=== PATIENT | male | born 1930 | race African-American/Black ===

== ENCOUNTER 2017-03-26 08:54 | Inpatient (IN) ==
--- NOTE | 2017-03-26 09:42 | Emergency Department Note ---
Awais Ulloa Hilary, am scribing for, and in the presence of, Ta Mercado MD 09:38. Jess Ulloa Charles R, MD, personally performed the services described in this documentation, ascribed by Darcy Ernandez in my presence, and it is both accurate and complete 942 . Arrival - Arrival Chief Complaint: Abdominal / Flank Pain Stated Complaint: abd pain,SOB ED Nursing Triage Note: generalized abd pain that started yesterday. reports has been constipated. had a small stool yesterday. pt reports that he has also been having some sob. Mode of Arrival: Wheelchair Limitations: No Limitations Source: Patient, RN Notes Reviewed Time Seen by Provider: 03/26/17 09:28 - History of Present Illness HPI Narrative: Pt is a 86 y/o black male presenting to the ED with c/o constipation which onset a few days ago. Pt confirms constipation and SOB for over a year, but denies diarrhea or back pain. Pt states he has been using "Konsil" to help his BM's but they are still small and hard. He reports that he cant do things around the house anymore without getting SOB and needing to take a break. Pt sees Dr. Dougherty every [address] Meeks every 6 months. Pt has a PMHx of HTN and NIDDM. Onset (ago): day(s) Allergies/Adverse Reactions: Allergies Allergy/AdvReac Type Severity Reaction Status Date / Time No Known Allergies Allergy Unverified 06/27/15 14:29 Home Medications: Home Medications Medication Instructions Recorded Confirmed Type Allopurinol [Allopurinol] 100 mg PO QOTHER DAY 06/27/15 06/27/15 History Aspirin EC Tab 81 mg PO DAILY 06/27/15 06/27/15 History Losartan [Cozaar] 25 mg PO DAILY 06/27/15 06/27/15 History Multivitamin [Multivitamins] 1 each PO DAILY 06/27/15 06/27/15 History NIFEdipine [Nifedipine ER] 60 mg PO BID 06/27/15 06/27/15 History cloNIDine TAB [Catapres Tab] 0.3 tablet PO BID 06/27/15 06/27/15 History hydrALAZINE TAB [Apresoline Tab] 100 mg PO TID W/MEALS 06/27/15 06/27/15 History metFORMIN [Glucophage] 500 mg PO BID W/MEALS 06/27/15 06/27/15 History Review of System - Review of System 12 point system: reviewed and no additional remarkable complaints except as stated - Review of System Constitutional: Absent: fever Respiratory: Present: respiratory distress (SOB). Absent: cough Cardiovascular: Present: dyspnea on exertion. Absent: chest pain Gastrointestinal: Present: abdominal pain, constipation. Absent: nausea, vomiting Musculoskeletal: Absent: back pain Medical,Surgical,& Family Hx - Medical History Cardio: History of: Hypertension Neurology: No history of: Seizures HEENT: History of: Eye Problem (cataracts) Endocrine: History of: Diabetes Mellitus (NIDDM) Respiratory: No history of: Lung Cancer - Surgical History HEENT Surgeries: Surgical HX of: Tonsilectomy & Adenoidectomy - Family History Family History: Reports;: Family Diabetes (brothers), Family Hypertension Denies;: Family Cancer, Family Heart Disease, Family Psychiatric Problems, Family Stroke - Social History Smoking Status: Never smoker Exam Vital Signs: Vital Signs Temperature 98.5 F 03/26/17 10:01 Pulse Rate 69 03/26/17 10:01 Respiratory Rate 18 03/26/17 10:01 Blood Pressure 141/83 03/26/17 10:01 O2 Sat by Pulse Oximetry 99 03/26/17 08:57 - General General appearance: alert, in no apparent distress - Head Head exam: Present: atraumatic, normocephalic - Eye Eye exam: Present: normal appearance, PERRL, EOMI - ENT ENT exam: Present: mucous membranes moist, TM's normal bilaterally. Absent: mucous membranes dry - Neck Neck exam: Present: full ROM, trachea midline. Absent: tenderness - Chest Chest inspection: Present: symmetric chest wall rise. Absent: tenderness - Respiratory Respiratory exam: Present: normal lung sounds bilaterally. Absent: respiratory distress - Cardiovascular Cardiovascular exam: Present: regular rate, normal rhythm, normal heart sounds. Absent: murmur, rubs, gallop - Abdominal Exam Abdominal exam: Present: soft, distention (Full). Absent: tenderness - Extremities Exam Extremities exam: Present: full ROM. Absent: tenderness - Back Exam Back exam: Present: full ROM. Absent: tenderness - Neurological Exam Neurological exam: Present: alert, oriented X3, CN II-XII intact. Absent: motor sensory deficit - Psychiatric Psychiatric exam: Present: normal affect, normal mood - Skin Skin exam: Present: warm, dry, intact, normal color. Absent: rash Course - Consultations Consultation #1: Dr. Dougherty will admit patient Time: 10:44 Results - Labs CBC & BMP: 03/26/17 09:39 03/26/17 09:39 Lab Results: I have reviewed the patients labs Labs: Laboratory Tests 03/26/17 03/26/17 09:39 09:39 WBC 12.8 H RBC 4.62 Hgb 12.6 L Hct 37.5 L MCV 81.2 L MPV 9.5 L Neut % (Auto) 75.3 H Lymph % (Auto) 17.1 L Neut # (Auto) 9.6 H [place] # (Auto) 0.9 H Sodium 134 L Potassium 4.0 Chloride 103 Carbon Dioxide 20 L BUN 27 H Glucose 213 H Alkaline Phosphatase 36 L Troponin I 0.075 H Amylase 134 H - Diagnostic Findings Procedure: Abdominal x-ray: report reviewed by me (There is scattered air within the small bowel and colon. This could reflect mild ileus.), Chest x-ray: report reviewed by me (1.Mild cardiomegaly 2. Minimal scattered atelectasis or scarring within both lower lung zones) Disposition Clinical Impression: Abdominal pain, Constipation, renal insufficiency, Exertional dyspnea, Elevated troponin Case discussed with: patient, patient's family Disposition: Still a Patient Condition: Stable Time of Disposition: 11:20
--- NOTE | 2017-03-26 09:56 | EKG Report ---
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
[2017-03-26 10:01] LABS: Basophils % 0.2 % (0.0-0.8); Eosinophils # 0.1 10*3/uL (0.0-0.87); Eosinophils % 0.5 % (0.00-10.9); Hematocrit 37.5 VOL% (42.0-52.0); Hemoglobin 12.6 GM/DL (14.0-18.0); Immature Granulocytes % 0.2 %; Immature Granulocytes Absolute 0.03 #; Lymphocytes # 2.2 10*3/uL (1.4-4.0); Lymphocytes % 17.1 % (21.2-54.2); Mean Corpuscular HGB Conc 33.6 GM/DL (32-36); Mean Corpuscular Hemoglobin 27 PG (27-34); Mean Corpuscular Volume 81.2 FL (87-102); Mean Platelet Volume 9.5 FL (9.6-12.0); Monocytes # 0.9 10*3/uL (0.11-0.8); Monocytes % 6.7 % (1.7-12.7); Neutrophils # 9.6 10*3/uL (1.4-7.4); Neutrophils % 75.3 % (38.7-73.9); Platelet Count 249 T/CUMM (130-400); Red Blood Count 4.62 MC/CUMM (3.8-5.5); Red Cell Distribution Width 14.4 % (9.3-17.3); White Blood Count 12.8 T/CUMM (4-12)
--- NOTE | 2017-03-26 10:14 | XRay Report ---
Referring Physician: Ta Mercado Exam: XR chest 1V portable Date: March 26, 2017 at 9:40 AM Reason: Generalized abdominal pain Comparison: Chest one view portable June 27, 2015 Findings: The cardiac silhouette is again mildly enlarged, and there is scattered calcified plaque at the thoracic aorta. There are also minimal scattered opacities within both lower lung zones. This likely represents atelectasis or scarring. No pneumothorax or pleural effusion is identified. No acute osseous process is seen. Impression: 1. Mild cardiomegaly. 2. Minimal scattered atelectasis or scarring within both lower lung zones. PROCEDURE INTERPRETED AT [facility] DEPARTMENT OF RADIOLOGY Final Report Signed by: Dr. June Barber
--- NOTE | 2017-03-26 10:16 | XRay Report ---
Referring Physician: Ta Mercado Exam: XR abdomen complete with decubitus view Date: March 26, 2017 at 9:43 AM Reason: Generalized abdominal pain Comparison: None Findings: There is scattered air within small bowel and colon, which could reflect mild ileus. However, there is no evidence of high-grade bowel obstruction. Note is made of moderate stool within the colon. No free air is identified. The renal shadows are largely obscured. There is degenerative change at the spine and both hips, but no acute osseous process is seen. Impression: There is scattered air within the small bowel and colon. This could reflect mild ileus. PROCEDURE INTERPRETED AT [facility] DEPARTMENT OF RADIOLOGY Final Report Signed by: Dr. June Barber
[2017-03-26 10:25] LABS: Albumin 3.8 G/DL (3.4-5.0); Bilirubin,Total 0.7 MG/DL (0.2-1.0); Calcium 9.1 MG/DL (8.5-10.1); Magnesium 2.2 MG/DL (1.8-2.4); Osmolality,Calculated 278.2 MOS/KG (273-304); Total Protein 7.2 G/DL (6.4-8.3)
[2017-03-26 10:26] LABS: Troponin I Only 0.075 NG/ML (0.00-0.045)
[2017-03-26 11:43] LABS: Apearance,Urine CLEAR (Clear); Bilirubin,Urine Negative (Negative); Blood, Urine Negative (Negative); Glucose,Urine (UA) 50 mg/dL (Negative); Ketones,Urine Negative (Negative); Nitrite,Urine Negative (Negative); Protein,Urine Negative; RBC,Urine 1 /HPF (0-4); Squamous Epithelial Cell,Urine Occasional /HPF (0-10); Urine Color Yellow (Yellow); Urine Specific Gravity 1.011 (1.001-1.035); Urine Urobilinogen < 2.0 EU/DL (0.2-1.0); WBC,Urine <1 /HPF (0-6)
[2017-03-26] MEDS ORDERED: DEXTROSE 50% 25 GM/50 ML VIAL IV PRN (13:07)
[2017-03-26] MEDS ORDERED: GLUCAGON 1 MG VIAL IM PRN (13:07)
[2017-03-26] MEDS ORDERED: MORPHINE 2 MG/1 ML SYRINGE IV PRN (13:07)
--- NOTE | 2017-03-26 13:16 | EKG Report ---
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
--- NOTE | 2017-03-26 13:51 | Cardiology Consult Note ---
Assessment and Plan - Time spent with patient Time spent with patient: Greater than 30 minutes (1) Exertional dyspnea Status: Acute Assessment and plan: Patient presented to the emergency department with a one-year history of exertional dyspnea. Patient is not having any sort of anginal symptoms. He does have a mildly elevated troponin 0.075. EKG reveals LVH with ST abnormality. Will continue to cycle cardiac biomarkers and EKG's, keep patient n.p.o and further discuss noninvasive workup versus invasive workup with Dr. Ortiz. -Admit to telemetry. -Lipid profile in the a.m. -EKG in the a.m. -D-dimer -Serial cardiac biomarkers -Echocardiogram Further plan and addendum to follow per Dr. Ortiz. Current Visit: Yes (2) Elevated troponin Status: Acute Current Visit: Yes (3) Cardiac murmur Status: Acute Assessment and plan: I have ordered an echocardiogram for further evaluation of this. Current Visit: Yes (4) Abdominal pain Status: Acute Assessment and plan: Abdominal x-ray reveals scattered air within the small bowel and colon. This could possibly relate mild ileus. Defer further workup of this to attending. Current Visit: Yes (5) hypertension Status: Chronic Assessment and plan: Patient's home medications have been reinitiated. Will adjust his medications as needed throughout his hospital stay. Current Visit: No (6) renal insufficiency Status: Chronic Assessment and plan: Stable at present. 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 Current Visit: No (8) type 2 diabetes mellitus Status: Chronic Assessment and plan: We will hold patient's metformin at this time. Initiate sliding scale insulin. Accu-Cheks before meals and at bedtime. Continue ARB. 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 Gene Dougherty Mr. Joy is a 86 year old male without known history of coronary artery disease , not routinely followed by cardiology. Patient presented to the emergency department today with complaints of abdominal pain and constipation. While in the ER, he confirmed having dyspnea on exertion for the past year. He has cardiac risk factors significant for hypertension, diabetes, advanced age and sedentary lifestyle. Patient is a lifetime non-smoker and denies any significant family history of heart disease. She has a past medical history of prostate cancer, now in remission. Patient reports that he has never undergone any cardiac workup. He denies ever having cardiac stress testing or heart catheterization in the past. Patient presented to the emergency department earlier today with complaints of abdominal pain and constipation that began last night. While in the ER, he also reported dyspnea on exertion 1 year. He confirms that this has progressively worsened over the last year and now he can no longer walk across the room without becoming extremely short of breath. He tells me that he continues to be active. However, his shortness of breath has hindered him from performing his normal activities. He has to take multiple rest breaks. He denies having any chest pain, heaviness or tightness. He also denies fever, chills, cough, nausea, vomiting, melena, hematochezia, lightheadedness, dizziness heart racing/heart palpitations, orthopnea, PND and lower extremity swelling. Patient has been admitted under Dr. Gene Dougherty's service and housed on the telemetry floor. Cardiology has been consulted to further evaluate patient's on exertion. Patient was seen and examined on the telemetry unit. He is currently without chest pain, heaviness and tightness. He reports that his breathing is well controlled at this time. He confirms that he only becomes short of breath with activity. His troponin is mildly elevated at 0.075. Creatinine is within normal limits at 1.3. EKG does reveals LVH with T-wave inversions anteriolaterally. Chest x-ray does reveal mild cardiomegaly. BNP mildly elevated at 373. I will order an echocardiogram at this time. Abdominal x-ray reveals scattered air within the small bowel and colon. This could possibly relate mild ileus. Will keep patient n.p.o. and further discuss with Dr. Ortiz. Further plan and addendum to follow. CC: Gene Dougherty, DO - Home Medications and Allergies Home Medications: Home Medications Medication Instructions Recorded Confirmed Type Allopurinol [Allopurinol] 100 mg PO QOTHER DAY 06/27/15 03/26/17 History Aspirin EC Tab 81 mg PO BEDTIME 06/27/15 03/26/17 History Losartan [Cozaar] 25 mg PO QAM 06/27/15 03/26/17 History Multivitamin [Multivitamins] 1 each PO QAM 06/27/15 03/26/17 History cloNIDine TAB [Catapres Tab] 0.3 tablet PO BID 06/27/15 03/26/17 History hydrALAZINE TAB [Apresoline Tab] 100 mg PO TID W/MEALS 06/27/15 03/26/17 History metFORMIN [Glucophage] 500 mg PO DAILY W/SUPPER 06/27/15 03/26/17 History Metformin HCl [Metformin HCl] 750 mg PO DAILY W/BREAKFAST 03/26/17 03/26/17 History NIFEdipine [Nifedical Xl] 60 mg PO BID 03/26/17 03/26/17 History Travoprost 0.004% Oph Soln 1 drop BOTH EYES BEDTIME 03/26/17 03/26/17 History [Travatan Z] Allergies/Adverse Reactions: Allergies Allergy/AdvReac Type Severity Reaction Status Date / Time No Known Allergies Allergy Unverified 06/27/15 14:29 - Constitutional Constitutional: Present: fatigue. Absent: chills, fever(s), lethargy, malaise, weakness, weight gain, weight loss - Cardiovascular Cardiovascular: Present: dyspnea on exertion. Absent: chest pain at rest, chest pain with activity, claudication, diaphoresis, edema, radiating jaw, neck or arm pain, lightheadedness, orthopnea, palpitations, PND - Respiratory Respiratory: Present: dyspnea on exertion. Absent: cough, wheezing, snoring, pain on inspiration, change in phlegm color - Gastrointestinal Gastrointestinal: Present: abdominal pain, constipation. Absent: change in bowel habits, coffee ground emesis, diarrhea, heartburn, hematemesis, hematochezia, melena, nausea, vomiting - Neurological Neurological: Absent: abnormal gait, abnormal speech, behavioral changes, disequilibrium, dizziness, syncope - Hematologic/Lymphatic Hematologic/Lymphatic: Absent: easy bleeding, easy bruising, lymphadenopathy Medical,Surgical,& Family Hx - Medical History Cardio: History of: Hypertension Neurology: No history of: Seizures HEENT: History of: Eye Problem (cataracts) Endocrine: History of: Diabetes Mellitus (NIDDM) Respiratory: No history of: Lung Cancer Renal: History of: Renal Problems (Chronic renal insufficiency) Genitourinary: History of: Prostate Problems (Past history of prostate cancer. Currently in remission.) - Surgical History Cardiac Surgeries: Patient Denies: Cardiac Catheterization HEENT Surgeries: Surgical HX of: Tonsilectomy & Adenoidectomy - Family History Family History: Reports;: Family Diabetes (brothers), Family Hypertension Denies;: Family Cancer, Family Heart Disease, Family Psychiatric Problems, Family Stroke - Social History Smoking Status: Never smoker Frequency of Alcohol Use: None Type of Drug Use: None Physical Examination Vital Signs Temp Pulse Resp BP Pulse Ox 98.5 F 69 18 141/63 99 03/26/17 08:57 03/26/17 08:57 03/26/17 08:57 03/26/17 08:57 03/26/17 08:57 General: Present: Appears Well, No Apparent Distress HEENT: Present: Normocephaly Neck: Present: Supple Neck, Midline Trachea, No JVD/HJR Cardiac: Present: Reg Rate and Rhythm, Regular Rate, Regular Rhythm, S1/S2, Systolic Murmur. Absent: Gallop Lungs: Present: Normal Exam, Clear Ascult./Percussion, Normal Breath Sounds Neuro: Present: Cranial Nerve 2-12 Intact, Grossly Intact Abdomen: Present: Active Bowel Sounds, Tender Skin: Present: Clear. Absent: Rash, Suspicious Lesions, Ulceration Gait: Present: Normal Gait Extremities: Present: Normal Gait, No Clubbing, No Cyanosis, No Edema, Normal Upper Extr. Pulses, Normal Lower Extr. Pulses Result/EKG - Labs CBC & BMP: 03/26/17 09:39 03/26/17 09:39 Lab Results: I have reviewed the past 24 hour labs Labs: Laboratory Results - last 24 hr 03/26/17 11:28 Urine Color Yellow Urine Appearance Clear Urine pH 5.0 Ur Specific [place] 1.011 Urine Protein Negative Urine Glucose (UA) 50 Urine Ketones Negative Urine Blood Negative Urine Nitrate Negative Urine Bilirubin Negative Urine Urobilinogen < 2.0 H Urine Leukocytes Negative Urine RBC 1 Urine WBC <1 Ur Squamous Epith Cells Occasional Ur Culture Indicated? Not indicated
[2017-03-26 14:32] LABS: CKMB % 1.7 %
[2017-03-26 14:33] LABS: Troponin I Only 0.062 NG/ML (0.00-0.045)
[2017-03-26] MEDS: INSULIN REGULAR 100 UNIT/ML SUBCUT SCH ×3 (14:48→22:37)
[2017-03-26] MEDS: SODIUM CHLORIDE 0.9% 1,000 ML IV SCH (15:18)
[2017-03-26] MEDS: ENOXAPARIN 40 MG/0.4 ML SYRINGE SUBCUT SCH (15:22)
--- NOTE | 2017-03-26 15:48 | Gastrointestinal Consult Note ---
Assessment and Plan (1) Abdominal pain Status: Acute Assessment and plan: 03/26-reports of constipation worsening over the last several days with several month history of this progressively worsening. Complaints of lower abdominal pain on admission. Abdominal x-ray showing scattered air within small bowel and colon with mild ileus possible. Last C scope in 2014 following rectal bleeding with findings of internal hemorrhoids, felt to be the source of bleeding. Plan an addendum to followed by Dr. Cox. Current Visit: Yes History of Present Illness Chief complaint: Abdominal pain, constipation History of present illness: Mr. Joy is a 86 year old male who presented to the emergency room with complaints of abdominal pain and constipation as well as shortness of breath. Patient is a fairly good historian however information also obtained from chart review. Patient states that on yesterday he had a rather sudden onset of lower abdominal pain that was severe in nature. He states the pain was not precipitated by any known factors and was not improved by any fractures as well. He states he has not had pain like this before. The pain was not associated with any nausea vomiting, fever or chills. Patient states that he is also probably 15 pounds over the last year with a loss of appetite. Patient denies any events that occurred around that time they could have initiated these changes in his appetite or weight. Patient states that prior to approximately 6 or 7 months ago his normal bowel pattern was every single morning he would have a good bowel movement without difficulty. He states about 6 months ago his bowel movement began to change and now he has very small caliber stools approximately 2-3 times a day without pain associated with this. He denies any melena or hematochezia associated with this. He denies any recent changes in his health or recent illnesses. He has a prior history of prostate cancer in 2008 which he was treated with surgery and had no follow-up therapy for this. He has a prior history of hypertension and diabetes mellitus which patient states is controlled. Cardiology has been consulted at this time for reports of shortness of breath on admission. Patient is noted to have a history of lower GI bleed in 2014 in which he had a colonoscopy at that time with only findings of internal hemorrhoids which were felt to be the source of his bleeding. Patient states he has not had any further rectal bleeding since this time. He denies any dysphagia, odynophagia, reflux, increased bloating, or general dyspepsia. He denies any NSAID use. He takes a daily aspirin. He is followed regularly by Dr. Dougherty. Cardiac workup is ongoing at this time. Home Medications Medication Instructions Recorded Confirmed Type Allopurinol [Allopurinol] 100 mg PO QOTHER DAY 06/27/15 03/26/17 History Aspirin EC Tab 81 mg PO BEDTIME 06/27/15 03/26/17 History Losartan [Cozaar] 25 mg PO QAM 06/27/15 03/26/17 History Multivitamin [Multivitamins] 1 each PO QAM 06/27/15 03/26/17 History cloNIDine TAB [Catapres Tab] 0.3 tablet PO BID 06/27/15 03/26/17 History hydrALAZINE TAB [Apresoline Tab] 100 mg PO TID W/MEALS 06/27/15 03/26/17 History metFORMIN [Glucophage] 500 mg PO DAILY W/SUPPER 06/27/15 03/26/17 History Metformin HCl [Metformin HCl] 750 mg PO DAILY W/BREAKFAST 03/26/17 03/26/17 History NIFEdipine [Nifedical Xl] 60 mg PO BID 03/26/17 03/26/17 History Travoprost 0.004% Oph Soln 1 drop BOTH EYES BEDTIME 03/26/17 03/26/17 History [Travatan Z] Allergies Allergy/AdvReac Type Severity Reaction Status Date / Time No Known Allergies Allergy Unverified 06/27/15 14:29 Medical,Surgical,& Family Hx - Medical History Cardio: History of: Hypertension Neurology: No history of: Seizures HEENT: History of: Eye Problem (cataracts) Endocrine: History of: Diabetes Mellitus (NIDDM) Respiratory: No history of: Lung Cancer Renal: History of: Renal Problems (Chronic renal insufficiency) Genitourinary: History of: Prostate Problems (Past history of prostate cancer. Currently in remission.) Gastrointestinal: History of: GI Problems (constipation) - Surgical History Cardiac Surgeries: Patient Denies: Cardiac Catheterization HEENT Surgeries: Surgical HX of: Tonsilectomy & Adenoidectomy - Family History Family History: Reports;: Family Diabetes (brothers), Family Hypertension Denies;: Family Cancer, Family Heart Disease, Family Psychiatric Problems, Family Stroke - Social History Smoking Status: Never smoker Frequency of Alcohol Use: None Type of Drug Use: None 12 point system: reviewed and no additional remarkable complaints except as stated - Constitutional Constitutional: Present: as per HPI, weight loss - EENT Eyes: Present: as per HPI Ears: Present: as per HPI Nose, mouth and throat: Present: as per HPI - Cardiovascular Cardiovascular: Present: as per HPI - Respiratory Respiratory: Present: as per HPI - Gastrointestinal Gastrointestinal: Present: as per HPI, abdominal pain, constipation - Genitourinary Genitourinary: Present: as per HPI - Musculoskeletal Musculoskeletal: Present: as per HPI - Neurological Neurological: Present: as per HPI - Psychiatric Psychiatric: Present: as per HPI - Endocrine Endocrine: Present: as per HPI - Hematologic/Lymphatic Hematologic/Lymphatic: Present: as per HPI Exam - Constitutional Vitals: Period Temp Pulse Resp BP Sys/Chen Pulse Ox Last 24 Hr 97.2 F-100.3 F 86-89 18-20 155-173/71-78 97-98 General appearance: normal weight, no acute distress - Head Head exam: Present: normal inspection, normocephalic - Eye Eye exam: Present: other (Lids and conjunctive are unremarkable). Absent: scleral icterus - ENT ENT exam: Present: normal exam, normal oropharynx - Neck Neck exam: Present: normal inspection - Respiratory Respiratory exam: Present: clear to auscultation bilaterally. Absent: rales, rhonchi, wheezes - Cardiovascular Cardiovascular exam: Present: regular rate and rhythm. Absent: diastolic murmur , JVD, systolic murmur - GI/Abdominal GI/Abdominal exam: Present: normal bowel sounds, tenderness, soft. Absent: ascites, distended, mass, organomegaly - Extremities Exam Extremities exam: Present: normal inspection, full ROM - Back Exam Back exam: Present: normal inspection - Neurological Exam Neurological exam: Present: alert, oriented X3 - Psychiatric Psychiatric exam: Present: normal affect, normal mood - Skin Skin exam: Present: normal color, warm, dry Results - Labs CBC & BMP: 03/26/17 09:39 03/26/17 09:39 Lab Results: I have reviewed the past 24 hour labs - Diagnostic Findings Procedure: Abdominal x-ray: report reviewed by me
--- NOTE | 2017-03-26 17:20 | XRay Report ---
Exam: XR chest 2V Indication: Dyspnea on exertion Comparison study: 03/26/2017 at 9:43 AM Findings: Cardiac silhouette is mildly enlarged, similar to prior. Lungs are mildly hyperexpanded, which is essentially unchanged. Minimal patchy interstitial opacities within the perihilar regions and lung bases also appear similar to prior, likely representing scarring. There is no focal consolidation, pneumothorax or pleural effusion identified. Impression: No acute cardiopulmonary process. No significant change from prior. PROCEDURE INTERPRETED AT [facility] DEPARTMENT OF RADIOLOGY Final Report Signed by: Sang Loza
--- NOTE | 2017-03-26 19:33 | Family Practice History&Phys ---
Assessment and Plan (1) Abdominal pain Status: Acute Assessment and plan: Patient awoke with severe lower abdominal pain. The pain is improved since admission. He is having some intermittent abdominal pain. He is also had progressive problems with constipation. Will order additional studies. Current Visit: Yes (2) Exertional dyspnea Status: Chronic Assessment and plan: Dyspnea has progressively gotten worse. Patient unable to do minimal activity without severe dyspnea. Will consult cardiology and evaluate further Current Visit: Yes (3) hypertension Status: Chronic Assessment and plan: We will resume home medications and monitor closely Current Visit: No (4) Cardiac murmur Status: Chronic Assessment and plan: We will evaluate murmur with echo. Current Visit: Yes (5) renal insufficiency Status: Chronic Assessment and plan: Patient is followed by Dr. Henrique Meeks. Mental status has been stable Current Visit: No (6) type 2 diabetes mellitus Status: Chronic Assessment and plan: Blood sugars have been adequately controlled at home. 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 Joy is a 86 year old male Patient is an 86-year-old black male well-known to me who was admitted to the emergency room with severe lower abdominal pain. Patient states that he awoke this a.m. with the abdominal pain was severe in nature. He was also complaining of progressive dyspnea. Patient states that he has dyspnea with any exertion. This is progressively gotten worse over the last few months. States she becomes dyspneic with minimal activity. Denies any chest pain associated with the shortness of breath. Patient states that he has also had progressive problems with constipation. He was seen in the emergency room in view of symptoms admitted for further evaluation and therapy Home Medications Medication Instructions Recorded Confirmed Type Allopurinol [Allopurinol] 100 mg PO QOTHER DAY 06/27/15 03/26/17 History Aspirin EC Tab 81 mg PO BEDTIME 06/27/15 03/26/17 History Losartan [Cozaar] 25 mg PO QAM 06/27/15 03/26/17 History Multivitamin [Multivitamins] 1 each PO QAM 06/27/15 03/26/17 History cloNIDine TAB [Catapres Tab] 0.3 tablet PO BID 06/27/15 03/26/17 History hydrALAZINE TAB [Apresoline Tab] 100 mg PO TID W/MEALS 06/27/15 03/26/17 History metFORMIN [Glucophage] 500 mg PO DAILY W/SUPPER 06/27/15 03/26/17 History Metformin HCl [Metformin HCl] 750 mg PO DAILY W/BREAKFAST 03/26/17 03/26/17 History NIFEdipine [Nifedical Xl] 60 mg PO BID 03/26/17 03/26/17 History Travoprost 0.004% Oph Soln 1 drop BOTH EYES BEDTIME 03/26/17 03/26/17 History [Travatan Z] Allergies Allergy/AdvReac Type Severity Reaction Status Date / Time No Known Allergies Allergy Unverified 06/27/15 14:29 Medical,Surgical,& Family Hx - Medical History Cardio: History of: Hypertension Neurology: No history of: Seizures HEENT: History of: Eye Problem (cataracts) Endocrine: History of: Diabetes Mellitus (NIDDM) Respiratory: No history of: Lung Cancer Renal: History of: Renal Problems (Chronic renal insufficiency) Genitourinary: History of: Prostate Problems (Past history of prostate cancer. Currently in remission.) Gastrointestinal: History of: GI Problems (constipation) - Surgical History Cardiac Surgeries: Patient Denies: Cardiac Catheterization HEENT Surgeries: Surgical HX of: Tonsilectomy & Adenoidectomy - Family History Family History: Reports;: Family Diabetes (brothers), Family Hypertension Denies;: Family Cancer, Family Heart Disease, Family Psychiatric Problems, Family Stroke - Social History Smoking Status: Never smoker Frequency of Alcohol Use: None Type of Drug Use: None Marital Status: Lives With:: Alone Functional capacity: independent ambulation Exam - Constitutional Vitals: Period Temp Pulse Resp BP Sys/Chen Pulse Ox Last 24 Hr 97.2 F-100.3 F 86-89 18-20 155-173/71-78 97-98 General appearance: no acute distress - Head Head exam: Present: normal inspection - Eye Pupils: Present: SANDRA - ENT ENT exam: Present: normal exam - Neck Neck exam: Present: normal inspection - Respiratory Respiratory exam: Present: clear to auscultation bilaterally - Cardiovascular Cardiovascular exam: Present: regular rate and rhythm, systolic murmur - GI/Abdominal GI/Abdominal exam: Present: normal bowel sounds, tenderness - Extremities Exam Extremities exam: Present: normal inspection - Back Exam Back exam: Present: normal inspection - Neurological Exam Neurological exam: Present: alert - Psychiatric Psychiatric exam: Present: normal affect - Skin Skin exam: Present: normal color Results - Labs CBC & BMP: 03/26/17 09:39 03/26/17 09:39
[2017-03-26 20:38] LABS: Troponin I Only 0.105 NG/ML (0.00-0.045)
[2017-03-26] MEDS: DOCUSATE SODIUM 100 MG CAPSULE PO SCH (22:35)
[2017-03-26] MEDS: ACETAMINOPHEN 325 MG TABLET PO PRN (22:35)
[2017-03-26] MEDS: ASPIRIN EC 81 MG TABLET PO SCH (22:35)
[2017-03-26] MEDS: TRAVOPROST 0.004% OPH SOLN 2.5 ML BOTTLE BOTH EYES SCH (22:43)
[2017-03-27 05:26] LABS: Basophils % 0.2 % (0.0-0.8); Eosinophils % 0.1 % (0.00-10.9); Hematocrit 35.9 VOL% (42.0-52.0); Hemoglobin 11.7 GM/DL (14.0-18.0); Immature Granulocytes % 0.3 %; Immature Granulocytes Absolute 0.04 #; Lymphocytes # 2.3 10*3/uL (1.4-4.0); Lymphocytes % 16.6 % (21.2-54.2); Mean Corpuscular HGB Conc 32.6 GM/DL (32-36); Mean Corpuscular Hemoglobin 27 PG (27-34); Mean Corpuscular Volume 83.7 FL (87-102); Mean Platelet Volume 9.5 FL (9.6-12.0); Monocytes # 0.8 10*3/uL (0.11-0.8); Monocytes % 5.8 % (1.7-12.7); Neutrophils # 10.6 10*3/uL (1.4-7.4); Platelet Count 212 T/CUMM (130-400); Red Blood Count 4.29 MC/CUMM (3.8-5.5); Red Cell Distribution Width 14.6 % (9.3-17.3); White Blood Count 13.7 T/CUMM (4-12)
[2017-03-27 05:59] LABS: CKMB % 0.7 %
[2017-03-27 06:03] LABS: Bilirubin,Total 1.2 MG/DL (0.2-1.0); Calcium 8.2 MG/DL (8.5-10.1); Magnesium 2.1 MG/DL (1.8-2.4); Osmolality,Calculated 277.2 MOS/KG (273-304); Potassium 4.3 MMOL/L (3.5-5.1); Risk Ratio 2.51; Total Protein 6.1 G/DL (6.4-8.3); VLDL CHOLESTEROL 9.2 MG/DL
[2017-03-27 06:04] LABS: Troponin I Only 0.149 NG/ML (0.00-0.045)
--- NOTE | 2017-03-27 08:11 | EKG Report ---
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
[2017-03-27] MEDS ORDERED: LOSARTAN 25 MG TABLET PO SCH (09:00)
[2017-03-27] MEDS: INSULIN REGULAR 100 UNIT/ML SUBCUT SCH ×4 (09:02→20:59)
--- NOTE | 2017-03-27 09:23 | Gastrointestinal Progress Note ---
Assessment and Plan (1) Abdominal pain Status: Acute Assessment and plan: 03/27-Abd pain improved, tolerating diet. No bowel movement at present time. Plan and addendum to follow by Dr Cox. 03/26-reports of constipation worsening over the last several days with several month history of this progressively worsening. Complaints of lower abdominal pain on admission. Abdominal x-ray showing scattered air within small bowel and colon with mild ileus possible. Last C scope in 2014 following rectal bleeding with findings of internal hemorrhoids, felt to be the source of bleeding. Plan an addendum to followed by Dr. Cox. Current Visit: Yes Gastroenterology - PN: Subj Interval history: CC: Abd pain, constipation Pt is seen awake and alert with at side. States he is feeling better today. States his abdominal pain is improved and denies any nausea or vomiting. He is tolerating a regular diet well at present time. No bowel movement since asmission. Abdomen is soft, nontender. ROS: Denies SOB or chest pain Exam (Progress Note) - Constitutional Vitals: Period Temp Pulse Resp BP Sys/Chen Pulse Ox Last 24 Hr 97.2 F-103.0 F 63-89 18-20 119-173/56-78 97-100 General appearance: normal weight, no acute distress - Head Head exam: Present: normal inspection, normocephalic - Eye Eye exam: Present: other (lids and conjunctiva unremarkable). Absent: scleral icterus - ENT ENT exam: Present: normal exam, normal oropharynx - Neck Neck exam: Present: normal inspection - Respiratory Respiratory exam: Present: clear to auscultation bilaterally. Absent: rales, rhonchi, wheezes - Cardiovascular Cardiovascular exam: Present: regular rate and rhythm. Absent: diastolic murmur , JVD, systolic murmur - GI/Abdominal GI/Abdominal exam: Present: normal bowel sounds, soft. Absent: ascites, distended, mass, organomegaly, tenderness - Extremities Exam Extremities exam: Present: normal inspection, full ROM - Back Exam Back exam: Present: normal inspection - Neurological Exam Neurological exam: Present: alert, oriented X3 - Psychiatric Psychiatric exam: Present: normal affect, normal mood - Skin Skin exam: Present: normal color, warm, dry Results - Labs CBC & BMP: 03/27/17 05:02 03/27/17 05:02 Lab Results: I have reviewed the past 24 hour labs
--- NOTE | 2017-03-27 10:24 | ECHO Report ---
Irving Joy Exam Date: 03/26/2017 15:18 Referring Physician: Technologist: Nathalie Portillo RDCS Age: 86 Ht (in): 75 Wt (lb): 185 Gender: M Exam Location: [facility] Echo Indications: Abdominal pain, Dyspnea, unspecified, Essential (primary) hypertension, NIDDM, Elevated troponin, s/p Prostate CA, Cardiac murmur, unspecified BP: 173 / 78 HR: 99 Rhythm: Sinus Technical Quality: IMPRESSIONS Left ventricular ejection fraction is estimated at 50 %. Moderate concentric left ventricular hypertrophy with mild diastolic dysfunction. Mild bilateral atrial enlargement. Moderate aortic valve stenosis with mean gradient 29 mmHg, STEPHANIE 1.2 cm. Mild aortic valve regurgitation. Mildly thickened mitral valve with trace to mild mitral valve regurgitation. Trace tricuspid valve regurgitation. MEASUREMENTS (Male / Female) Normal Values 2D ECHO LV Diastolic Diameter PLAX 4.0 cm 4.2 - 5.9 / 3.9 - 5.3 cm LV Systolic Diameter PLAX 3.1 cm LV Fractional Shortening PLAX 22.8 % IVS Diastolic Thickness 1.2 cm 0.6 - 1.0 / 0.6 - 0.9 cm LVPW Diastolic Thickness 1.2 cm 0.6 - 1.0 / 0.6 - 0.9 cm RV Internal Dim ED PLAX 2.8 cm Aortic Root Diameter 3.4 cm LA Systolic Diameter LX 4.0 cm 3.0 - 4.0 / 2.7 - 3.8 cm DOPPLER TR Peak Velocity 232.0 cm/s TR Peak Gradient 21.5 mmHg FINDINGS Left Ventricle Normal left ventricular cavity size. Moderate concentric left ventricular hypertrophy with mild diastolic dysfunction. Left ventricular ejection fraction is estimated at 50 %. Right Ventricle The right ventricle is normal in size and function. Right Atrium The right atrium is mildly enlarged. Left Atrium The left atrium is mildly enlarged. Mitral Valve Mildly thickened mitral valve with trace to mild mitral valve regurgitation. Aortic Valve Moderate aortic valve stenosis with mean gradient 29 mmHg, STEPHANIE 1.2 cm. Mild aortic valve regurgitation. Tricuspid Valve Morphologically normal tricuspid valve. Trace tricuspid valve regurgitation. Tricuspid regurgitation velocities suggest a PAP of 32 mmHg. Pulmonic Valve Morphologically normal pulmonic valve without significant stenosis. There is no pulmonic regurgitation. Pericardium Normal pericardium without effusion. Aorta Normal ascending aorta dimension. Isacc Ortiz (Electronically Signed) Final Date: 27 Mar 2017 10:23
--- NOTE | 2017-03-27 10:37 | XRay Report ---
XR chest 2V Indication: Shortness of breath Comparison: 26 Mar 2017 Findings: The heart and mediastinum are normal in size and configuration. The pulmonary vascularity is normal in caliber. Lung volumes are increased with prominent bronchial markings. No lung infiltrates, effusions, pneumothorax or other abnormality is demonstrated. Impression: Chronic lung changes. No acute process or significant change. PROCEDURE INTERPRETED AT [facility] DEPARTMENT OF RADIOLOGY Final Report Signed by: Dr. Romie Conner
--- NOTE | 2017-03-27 11:16 | Ultrasound Report ---
History: Bilateral carotid bruits Date: 03/27/2017 Study: Carotid duplex ultrasound Comparison exam: No previous similar currently available Color Doppler, wave form analysis, and grayscale analysis of the cervical carotid arteries was performed. There is moderate partially calcified plaque in either carotid bulb. Waveform analysis shows proper directional flow of the cervical carotid arteries. There is antegrade flow in either vertebral artery. The distal right ICA measures 4.3 mm diameter; the left measures 4.0 mm diameter. Peak systolic velocities are as follows: Right CCA 57 cm/s Right ICA 87 cm/s Right ECA 226 cm/s Right vertebral 40 cm/s Right IC/CC ratio 1.5 Left CCA 97 cm/s Left ICA 120 cm/s Left ECA 167 cm/s Left vertebral 50 cm/s Left IC/CC ratio 1.2 There is 16-49% diameter reduction narrowing of either internal carotid artery using indirect NASCET criteria. Incidental note is made of moderate to high-grade stenosis at the origin of either external carotid artery. Ultrasound images were captured and archived. Impression: No hemodynamically significant internal carotid artery stenosis PROCEDURE INTERPRETED AT [facility] DEPARTMENT OF RADIOLOGY Final Report Signed by: Dr. Maya Cox
--- NOTE | 2017-03-27 12:20 | Family Practice Progress Note ---
Family Practice - PN: Subj Interval history: Patient states he feels better this a.m. His abdominal pain has resolved. Still having significant dyspnea with minimal activity. Patient has had intermittent fever since admission. Temp of 101.2 last p.m. and early this a.m. he denies any cough congestion nausea vomiting diarrhea or other related complaints. His chest x-ray and lab studies are unremarkable. His urinalysis is unremarkable. Not sure of the etiology of his fever. His physical examination this a.m. is stable. Duplex carotids were normal. He is being evaluated by cardiology and GI. We will continue present evaluation and treatment plan Exam (Progress Note) - Constitutional Vitals: Period Temp Pulse Resp BP Sys/Chen Pulse Ox Last 24 Hr 97.2 F-103.0 F 63-89 18-20 119-173/54-78 97-100 Results - Labs CBC & BMP: 03/27/17 05:02 03/27/17 05:02 Assessment and Plan (1) Abdominal pain Status: Acute Assessment and plan: Patient awoke with severe lower abdominal pain. The pain is improved since admission. He is having some intermittent abdominal pain. He is also had progressive problems with constipation. Will order additional studies. Current Visit: Yes (2) Exertional dyspnea Status: Chronic Assessment and plan: Dyspnea has progressively gotten worse. Patient unable to do minimal activity without severe dyspnea. Will consult cardiology and evaluate further Current Visit: Yes (3) hypertension Status: Chronic Assessment and plan: We will resume home medications and monitor closely Current Visit: No (4) Cardiac murmur Status: Chronic Assessment and plan: We will evaluate murmur with echo. Current Visit: Yes (5) renal insufficiency Status: Chronic Assessment and plan: Patient is followed by Dr. Henrique Meeks. Mental status has been stable Current Visit: No (6) type 2 diabetes mellitus Status: Chronic Assessment and plan: Blood sugars have been adequately controlled at home. 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
--- NOTE | 2017-03-27 12:27 | CT Report ---
CT abdomen pelvis Indication: Abdominal pain, prostate cancer Comparison: None available Technique: Axial CT imaging of the abdomen and pelvis is performed with intravenous contrast. Contrast dose is 100 cc of Omnipaque 350. No oral contrast was used. Findings: Chronic lung changes and calcified granuloma are seen in the right lower lung CT abdomen: The liver spleen pancreas and adrenal glands are normal in size and enhancement. No evidence of focal lesion is demonstrated in these solid organs. Right kidney is small with some scarring. The cyst are present on both kidneys, the largest on the left measures up to 3.1 cm.. No evidence of hydronephrosis or nephrolithiasis is seen. There is suggestion of some irregular wall thickening in the area of the cecum and small amount of adjacent stranding poorly defined. Appendix is not identified. Remaining bowel caliber is normal and no wall thickening or adjacent inflammatory change is seen. No evidence of free fluid or free air is present. No enlarged lymph nodes are identified. Small amount of aortic calcification is present without evidence of aneurysm. There is moderate to large amount of calcification in the superior mesenteric artery. CT pelvis: The pelvic bowel appears within normal limits. Bladder shows no evidence of abnormality. The pelvic organs show no evidence of abnormality Impression: Irregular wall thickening in the area of the cecum represent malignant process not clearly seen without oral contrast. Recommend repeat exam with oral and intravenous contrast. This CT exam was performed using one or more the following dose reduction techniques: Automated exposure control, adjustment of the MA and/or KV according to patient size, or use of iterative reconstruction technique. PROCEDURE INTERPRETED AT [facility] DEPARTMENT OF RADIOLOGY Final Report Signed by: Dr. Romie Conner
[2017-03-27] MEDS: ASPIRIN EC 81 MG TABLET PO SCH ×2 (12:43→20:55)
[2017-03-27] MEDS: DOCUSATE SODIUM 100 MG CAPSULE PO SCH (12:43)
[2017-03-27] MEDS: SODIUM CHLORIDE 0.9% 1,000 ML IV SCH (12:45)
--- NOTE | 2017-03-27 13:30 | Cardiology Progress Note ---
Assessment and Plan (1) Exertional dyspnea Status: Chronic Assessment and plan: Patient presented to the emergency department with a one-year history of exertional dyspnea. Patient is not having any sort of anginal symptoms. He does have a mildly elevated troponin 0.149. EKG reveals LVH with ST abnormality consistent with LV strain. Echocardiogram yesterday revealed normal left ventricular ejection fraction with moderate aortic stenosis. At this point, after discussing with Dr. Ortiz it is felt that patient will need left heart catheterization prior to being discharged. At this time patient is not having any anginal symptoms. I think that it is best if patient's abdominal pain, leukocytosis and elevated bilirubin should first be worked up before undergoing heart cath. His creatinine also chapito overnight, we will continue to monitor this closely and plan for heart cath after creatinine stabilizes and gi workup is completed. Further plan and addendum to follow per Dr. Ortiz. Current Visit: Yes (2) Elevated troponin Status: Acute Current Visit: Yes (3) Abdominal pain Status: Acute Assessment and plan: Workup is underway per GI. Current Visit: Yes (4) hypertension Status: Chronic Assessment and plan: This is clinically stable. Continue current plan of care. Current Visit: No (5) renal insufficiency Status: Chronic Assessment and plan: Creatinine chapito to 1.6 overnight. We will continue to monitor this closely. 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 Current Visit: No (7) type 2 diabetes mellitus Status: Chronic Assessment and plan: We will hold patient's metformin at this time. Initiate sliding scale insulin. Accu-Cheks before meals and at bedtime. Continue ARB. Current Visit: No (8) Leukocytosis Status: Acute Assessment and plan: Patient does have leukocytosis with a left shift noted. This is most likely related to patient's abdominal pain, possibly colitis. Current Visit: Yes (9) Elevated bilirubin Status: Acute Assessment and plan: Workup underway per GI. 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 Ortiz (new) PCP: Dr. Gene Dougherty Mr. Joy is a 86 year old male without known history of coronary artery disease , not routinely followed by cardiology. He has a history of hypertension, diabetes and prostate cancer, now in remission. Patient presented to the emergency department today with complaints of abdominal pain and constipation. While in the ER, he confirmed having dyspnea on exertion for the past year. Subsequently, cardiology was consulted to further evaluate patient's one-year history of dyspnea on exertion. He has not had any symptoms of angina, palpitations, syncope, or heart failure/peripheral edema. He has a trivial abnormality and troponin, but no symptoms of angina. He does have a systolic ejection murmur concerning for aortic stenosis. Echocardiogram was obtained yesterday. This revealed left ventricular ejection fraction of 50%. Moderate concentric left ventricular hypertrophy with mild diastolic dysfunction and moderate aortic valve stenosis with mean gradient of 29 mmHg was also noted. His EKG reveals left ventricular hypertrophy with strain. Abdominal x-ray yesterday revealed scattered air within the small bowel and colon which could possibly reflect mild ileus. GI was asked to evaluate patient. CT of abdomen revealed irregular wall thickening in the area of the cecum. Carotid ultrasound did not reveal any significant internal carotid artery stenosis. March 27, 2017: Overnight patient has done well and is without any new complaints this morning. He reports that his abdominal pain has slightly improved. He continues to complain of constipation. This is currently being worked up per GI. His troponin slightly trended up to 0.149. However, patient continues to be without any symptoms of angina. His creatinine is also trending up to 1.6 overnight. He does have a history of chronic renal insufficiency. Patient does have leukocytosis with a left shift noted. This is most likely related to patient's abdominal pain, possibly colitis. At this point, after discussing with Dr. Ortiz it is felt that patient will need left heart catheterization prior to being discharged. At this time patient is not having any anginal symptoms. I think that it is best if patient's abdominal pain, leukocytosis and elevated bilirubin should first be worked up before undergoing heart cath. His creatinine also chapito overnight, we will continue to monitor this closely and plan for heart cath after creatinine stabilizes and gi workup is completed. Further plan and addendum to follow per Dr. Ortiz. Exam (Progress Note) - Constitutional Vitals: Period Temp Pulse Resp BP Sys/Chen Pulse Ox Last 24 Hr 99.7 F-103.0 F 63-89 18-20 119-159/54-71 97-100 Exam: General: Present: Appears Well, No Apparent Distress HEENT: Present: Normocephaly Neck: Present: Supple Neck, Midline Trachea, No JVD/HJR Cardiac: Present: Reg Rate and Rhythm, Regular Rate, Regular Rhythm, S1/S2, Systolic Murmur consistent with aortic stenosis. Absent: Gallop Lungs: Present: Normal Exam, Clear Ascult./Percussion, Normal Breath Sounds Neuro: Present: Cranial Nerve 2-12 Intact, Grossly Intact Abdomen: Present: Active Bowel Sounds, Tender Skin: Present: Clear. Absent: Rash, Suspicious Lesions, Ulceration Gait: Present: Normal Gait Extremities: Present: Normal Gait, No Clubbing, No Cyanosis, No Edema, Normal Upper Extr. Pulses, Normal Lower Extr. Pulses Result/EKG - Labs CBC & BMP: 03/27/17 05:02 03/27/17 05:02 Lab Results: I have reviewed the past 24 hour labs Labs: Laboratory Results - last 24 hr 03/26/17 03/26/17 03/26/17 13:50 16:13 19:47 WBC RBC Hgb Hct MCV MCH MCHC RDW Plt Count MPV Neut % (Auto) Lymph % (Auto) Bertie % (Auto) Eos % (Auto) Baso % (Auto) Neut # (Auto) Lymph # (Auto) Bertie # (Auto) Eos # (Auto) Baso # (Auto) Immature Gran % Nucleated RBC % Immature Gran # Nucleated RBCs # ESR Westergren D-Dimer, Quantitative 1.0 Sodium Potassium Chloride Carbon Dioxide Anion Gap BUN Creatinine GFR Calculation BUN/Creatinine Ratio Glucose POC Glucose 329 H Calculated Osmolality Calcium Magnesium Total Bilirubin AST ALT Alkaline Phosphatase Total Creatine Kinase 359 H CK-MB (CK-2) 2.6 CK and CKMB Interp Troponin I 0.105 H D B-Natriuretic Peptide Total Protein Albumin Globulin Albumin/Globulin Ratio Triglycerides Cholesterol LDL Cholesterol VLDL Cholesterol HDL Cholesterol Heart Disease Risk Ratio TSH 3rd Generation 03/26/17 03/26/17 03/27/17 20:24 Unknown 05:02 WBC 13.7 H RBC 4.29 Hgb 11.7 L Hct 35.9 L MCV 83.7 L MCH 27 MCHC 32.6 RDW 14.6 Plt Count 212 MPV 9.5 L Neut % (Auto) 77.0 H Lymph % (Auto) 16.6 L Bertie % (Auto) 5.8 Eos % (Auto) 0.1 Baso % (Auto) 0.2 Neut # (Auto) 10.6 H Lymph # (Auto) 2.3 Bertie # (Auto) 0.8 Eos # (Auto) 0.0 Baso # (Auto) 0.0 Immature Gran % 0.3 Nucleated RBC % 0.0 Immature Gran # 0.04 Nucleated RBCs # 0.00 ESR Westergren D-Dimer, Quantitative Sodium Potassium Chloride Carbon Dioxide Anion Gap BUN Creatinine GFR Calculation BUN/Creatinine Ratio Glucose POC Glucose 185 H Calculated Osmolality Calcium Magnesium Total Bilirubin AST ALT Alkaline Phosphatase Total Creatine Kinase 419 H CK-MB (CK-2) 7.3 H CK and CKMB Interp 1.7 Troponin I 0.062 H B-Natriuretic Peptide Total Protein Albumin Globulin Albumin/Globulin Ratio Triglycerides Cholesterol LDL Cholesterol VLDL Cholesterol HDL Cholesterol Heart Disease Risk Ratio TSH 3rd Generation 03/27/17 03/27/17 03/27/17 05:02 05:02 05:02 WBC RBC Hgb Hct MCV MCH MCHC RDW Plt Count MPV Neut % (Auto) Lymph % (Auto) Bertie % (Auto) Eos % (Auto) Baso % (Auto) Neut # (Auto) Lymph # (Auto) Bertie # (Auto) Eos # (Auto) Baso # (Auto) Immature Gran % Nucleated RBC % Immature Gran # Nucleated RBCs # ESR Westergren D-Dimer, Quantitative Sodium 134 L Potassium 4.3 Chloride 102 Carbon Dioxide 22 Anion Gap 14.3 BUN 29 H Creatinine 1.60 H GFR Calculation 54 BUN/Creatinine Ratio 18.00 Glucose 176 H POC Glucose Calculated Osmolality 277.2 Calcium 8.2 L Magnesium 2.1 Total Bilirubin 1.20 H AST 33 ALT 25 Alkaline Phosphatase 32 L Total Creatine Kinase 876 H D CK-MB (CK-2) 6.5 H CK and CKMB Interp 0.7 Troponin I 0.149 H D B-Natriuretic Peptide 661 H Total Protein 6.1 L Albumin 3.0 L Globulin 3.1 Albumin/Globulin Ratio 0.9 L Triglycerides 46 Cholesterol 173 LDL Cholesterol 95.0 VLDL Cholesterol 9.2 HDL Cholesterol 69 H Heart Disease Risk Ratio 2.51 TSH 3rd Generation 03/27/17 03/27/17 03/27/17 05:02 05:02 07:42 WBC RBC Hgb Hct MCV MCH MCHC RDW Plt Count MPV Neut % (Auto) Lymph % (Auto) Bertie % (Auto) Eos % (Auto) Baso % (Auto) Neut # (Auto) Lymph # (Auto) Bertie # (Auto) Eos # (Auto) Baso # (Auto) Immature Gran % Nucleated RBC % Immature Gran # Nucleated RBCs # ESR Westergren 47 H D-Dimer, Quantitative Sodium Potassium Chloride Carbon Dioxide Anion Gap BUN Creatinine GFR Calculation BUN/Creatinine Ratio Glucose POC Glucose 180 H Calculated Osmolality Calcium Magnesium Total Bilirubin AST ALT Alkaline Phosphatase Total Creatine Kinase CK-MB (CK-2) CK and CKMB Interp Troponin I B-Natriuretic Peptide Total Protein Albumin Globulin Albumin/Globulin Ratio Triglycerides Cholesterol LDL Cholesterol VLDL Cholesterol HDL Cholesterol Heart Disease Risk Ratio TSH 3rd Generation 0.757 03/27/17 11:29 WBC RBC Hgb Hct MCV MCH MCHC RDW Plt Count MPV Neut % (Auto) Lymph % (Auto) Bertie % (Auto) Eos % (Auto) Baso % (Auto) Neut # (Auto) Lymph # (Auto) Bertie # (Auto) Eos # (Auto) Baso # (Auto) Immature Gran % Nucleated RBC % Immature Gran # Nucleated RBCs # ESR Westergren D-Dimer, Quantitative Sodium Potassium Chloride Carbon Dioxide Anion Gap BUN Creatinine GFR Calculation BUN/Creatinine Ratio Glucose POC Glucose 301 H Calculated Osmolality Calcium Magnesium Total Bilirubin AST ALT Alkaline Phosphatase Total Creatine Kinase CK-MB (CK-2) CK and CKMB Interp Troponin I B-Natriuretic Peptide Total Protein Albumin Globulin Albumin/Globulin Ratio Triglycerides Cholesterol LDL Cholesterol VLDL Cholesterol HDL Cholesterol Heart Disease Risk Ratio TSH 3rd Generation
[2017-03-27] MEDS ORDERED: MAGNESIUM CITRATE 300 ML BOTTLE PO ONE (15:10)
[2017-03-27] MEDS: MULTIVITAMIN (CENTRUM) TABLET PO SCH (15:33)
[2017-03-27] MEDS: PANTOPRAZOLE 40 MG TABLET PO SCH (15:34)
[2017-03-27] MEDS: ENOXAPARIN 40 MG/0.4 ML SYRINGE SUBCUT SCH (15:36)
[2017-03-27] MEDS: ACETAMINOPHEN 325 MG TABLET PO PRN ×2 (18:10→21:04)
[2017-03-27] MEDS: TRAVOPROST 0.004% OPH SOLN 2.5 ML BOTTLE BOTH EYES SCH (21:04)
[2017-03-27] MEDS: ONDANSETRON 4 MG/2 ML VIAL IV PRN (22:33)
[2017-03-27] MEDS ORDERED: ONDANSETRON 4 MG/2 ML VIAL IV ONE (23:16)
[2017-03-27] MEDS ORDERED: FUROSEMIDE 20 MG/2 ML VIAL IV ONE (23:17)
[2017-03-27] MEDS: ALBUTEROL/IPRATROPIUM 3 ML NEB RESP TX PRN (23:39)
--- NOTE | 2017-03-28 00:27 | Internal Med Progress Note ---
Assessment and Plan (1) Abdominal pain Status: Acute Assessment and plan: Elderly male admitted to acute care. * Patient has been transferred to CCU because of deterioration of his condition. He seems to have an acute abdomen. Will check x-ray of the abdomen. Will consult surgery. Will check CBC CMP amylase lipase on the patient. Will place an NG tube. Will check lactic acid level. He will be started on IV Protonix. Probably has small bowel obstruction. CT abdomen was inconclusive. He may have a malignant process going on in his cecum. I am also concerned about ischemic gut. * Respiratory distress. Will start him on breathing treatment * Elevated troponins. Cardiology is following him * Hypertension. Blood pressure is stable * Discussed with family. Patient's condition is guarded in view of his advanced age and possible heart problems Current Visit: Yes (2) Constipation Status: Acute Current Visit: Yes (3) gastroesophageal reflux disease Status: Chronic Current Visit: No (4) hypertension Status: Chronic Current Visit: No (5) type 2 diabetes mellitus Status: Chronic Current Visit: No Internal Medicine - PN: Subj Interval history: 86-year-old male who is a patient of Dr. Dougherty and was admitted with abdominal pain and constipation and shortness of breath. Earlier this night he became more short of breath and started throwing up. Patient was given Phenergan and it did not help him. He became short of breath and was moved to CCU. Patient was felt to have cardiac disease and was supposed to have a cardiac catheterization. He had a CT abdomen done today. It showed thickening around his cecum. It was done without any contrast. According to the nurse patient had a large bowel movement about an hour ago. He is short of breath and is in obvious discomfort. He states that he feels okay but is having abdominal pain Exam (Progress Note) - Constitutional Vitals: Period Temp Pulse Resp BP Sys/Chen Pulse Ox Last 24 Hr 98.7 F-101.1 F 68-85 18-30 123-180/54-88 97-100 Exam: Examination: GENERAL: Appears anxious and in discomfort HEENT: PERRLA. EOMI. Mucous membranes are moist. NECK: Neck is supple. CVS: Regular rate and rhythm. S1 and S2 are normal. RESPIRATORY: Lungs are clear. ABDOMEN: Soft and distended. It is diffusely tender. Bowel sounds are absent EXT: No edema. Peripheral pulses are present. CITY PLANNER: Patient is awake, alert and oriented to time place and person. SKIN: Warm and dry. MSK: No obvious deformity. Results - Labs CBC & BMP: 03/27/17 05:02 03/27/17 05:02 Lab Results: I have reviewed the past 24 hour labs
[2017-03-28] MEDS ORDERED: PROMETHAZINE 25 MG/1 ML VIAL IM PRN (00:50)
[2017-03-28 01:28] LABS: Basophils % 0.1 % (0.0-0.8); Hematocrit 41.4 VOL% (42.0-52.0); Hemoglobin 14.2 GM/DL (14.0-18.0); Immature Granulocytes % 0.5 %; Immature Granulocytes Absolute 0.09 #; Lymphocytes # 2.3 10*3/uL (1.4-4.0); Lymphocytes % 13.3 % (21.2-54.2); Mean Corpuscular HGB Conc 34.3 GM/DL (32-36); Mean Corpuscular Hemoglobin 28 PG (27-34); Mean Corpuscular Volume 80.5 FL (87-102); Mean Platelet Volume 9.5 FL (9.6-12.0); Monocytes # 0.9 10*3/uL (0.11-0.8); Monocytes % 5.1 % (1.7-12.7); Neutrophils # 13.7 10*3/uL (1.4-7.4); Platelet Count 270 T/CUMM (130-400); Red Blood Count 5.14 MC/CUMM (3.8-5.5); Red Cell Distribution Width 14.7 % (9.3-17.3); White Blood Count 16.9 T/CUMM (4-12)
[2017-03-28 01:52] LABS: Calcium 9.6 MG/DL (8.5-10.1); Magnesium 2.8 MG/DL (1.8-2.4); Osmolality,Calculated 281.1 MOS/KG (273-304)
[2017-03-28 01:54] LABS: Lactic Acid 2.2 MMOL/L (0.4-2.0)
[2017-03-28 01:55] LABS: Bilirubin,Total 0.6 MG/DL (0.2-1.0); Calcium 9.5 MG/DL (8.5-10.1); Potassium 3.9 MMOL/L (3.5-5.1); Total Protein 8.2 G/DL (6.4-8.3)
[2017-03-28 01:56] LABS: % Iron Saturation 4.2 % (18-50); Ferritin 268.3 ng/ml (26-388)
[2017-03-28] MEDS: NITROGLYCERIN 2% OINT 1 INCH/GM PACK TOP SCH ×4 (02:40→17:12)
[2017-03-28] MEDS: LEVOFLOXACIN INJ 500 MG in PREMIX 1 EACH IV SCH (03:36)
[2017-03-28] MEDS ORDERED: NITROGLYCERIN 2% OINT 1 INCH/GM PACK TOP SCH (06:00)
[2017-03-28] MEDS: SODIUM CHLORIDE 0.9% 1,000 ML IV SCH ×5 (06:08→21:21)
--- NOTE | 2017-03-28 08:33 | XRay Report ---
Referring Physician: Magno Rob Exam: XR chest 1V portable Date: March 28, 2017 at 12:15 AM Reason: Shortness of breath Comparison: Chest 2 views March 27, 2017 Findings: The cardiac silhouette is upper normal in size. There are mild scattered opacities within both lower lung zones, and the lungs are poorly expanded. These opacities are most consistent with atelectasis and likely scarring. No pneumothorax or pleural fluid is identified. Note is made of gaseous distention of the stomach. This makes evaluation for pneumoperitoneum difficult. There is also a questionable poorly visualized feeding tube. Impression: There are mild scattered opacities within both lower lung zones, and the lungs are poorly expanded. This is most consistent with atelectasis and likely scarring. PROCEDURE INTERPRETED AT [facility] DEPARTMENT OF RADIOLOGY Final Report Signed by: Dr. June Barber
--- NOTE | 2017-03-28 08:39 | XRay Report ---
Referring Physician: aMgno Rob Exam: XR KUB Date: March 28, 2017 at 12:19 AM Reason: Vomiting Comparison: Abdominal x-rays March 26, 2017, CT abdomen and pelvis March 27, 2017 Findings: There is gaseous distention of the stomach and several loops of small bowel. This is concerning for small bowel obstruction. No definite free air is identified. The renal shadows are largely obscured. The osseous structures appear stable. Contrast is seen within the bladder from a previous contrast CT. There is also prominent scattered arterial calcification. Impression: There is gaseous distention of the stomach and several distended loops of small bowel. This is concerning for small bowel obstruction. PROCEDURE INTERPRETED AT [facility] DEPARTMENT OF RADIOLOGY Final Report Signed by: Dr. June Barber
--- NOTE | 2017-03-28 08:52 | General Surgery Consult Note ---
Assessment and Plan - Time spent with patient Time spent with patient: Greater than 30 minutes (1) Abdominal pain Status: Acute Assessment and plan: Impression: Abdominal pain with constipation etiology unclear. Plan: IV fluids and IV antibiotics and I repeat CT scan with contrast. At present physical examination do not see any strong indication for surgery Current Visit: Yes Qualifiers: Abdominal location: generalized Qualified Code(s): R10.84 - Generalized abdominal pain History of Present Illness Chief complaint: Abdominal pain constipation History of present illness: Mr. Joy is a 86 year old male -[place]ian male in general pretty good health who apparently came in because of some abdominal discomfort was felt to have constipation put on the floor. Had some chest discomfort Dr. Ortiz has seen the patient felt like he might need a cath at some point. During the night though he had come down to the unit because they felt like his abdominal discomfort was worse and had little nausea and vomiting. White count did go up to 16,000. He did have a noncontrasted CT day before that was unremarkable except for constipation questionable fuzzy areas on the cecal area. This morning we were asked to see him and he does not complain of any abdominal discomfort. Abdomen seems soft patient had bowel sounds are hypoactive at this point. White count was up to 16,000. There was a question about seeing him for questionable ischemic bowel although we do not have any clear evidence of that at this point. Etiology of the process is unclear we will try to get a repeat CT with a little better contrast to see if we can understand process is going on here. Right now I do not see anything to direct me to surgery at this point but certainly we have to observe and see what this is completely out. I do favor improving his IV fluid rate and his antibiotics at this time. Home Medications Medication Instructions Recorded Confirmed Type Allopurinol [Allopurinol] 100 mg PO QOTHER DAY 06/27/15 03/26/17 History Aspirin EC Tab 81 mg PO BEDTIME 06/27/15 03/26/17 History Losartan [Cozaar] 25 mg PO QAM 06/27/15 03/26/17 History Multivitamin [Multivitamins] 1 each PO QAM 06/27/15 03/26/17 History cloNIDine TAB [Catapres Tab] 0.3 tablet PO BID 06/27/15 03/26/17 History hydrALAZINE TAB [Apresoline Tab] 100 mg PO TID W/MEALS 06/27/15 03/26/17 History metFORMIN [Glucophage] 500 mg PO DAILY W/SUPPER 06/27/15 03/26/17 History Metformin HCl [Metformin HCl] 750 mg PO DAILY W/BREAKFAST 03/26/17 03/26/17 History NIFEdipine [Nifedical Xl] 60 mg PO BID 03/26/17 03/26/17 History Travoprost 0.004% Oph Soln 1 drop BOTH EYES BEDTIME 03/26/17 03/26/17 History [Travatan Z] Allergies Allergy/AdvReac Type Severity Reaction Status Date / Time No Known Allergies Allergy Unverified 06/27/15 14:29 Medical,Surgical,& Family Hx - Medical History Cardio: History of: Hypertension Neurology: No history of: Seizures HEENT: History of: Eye Problem (cataracts) Endocrine: History of: Diabetes Mellitus (NIDDM) Respiratory: No history of: Lung Cancer Renal: History of: Renal Problems (Chronic renal insufficiency) Genitourinary: History of: Prostate Problems (Past history of prostate cancer. Currently in remission.) Gastrointestinal: History of: GI Problems (constipation) - Surgical History Cardiac Surgeries: Patient Denies: Cardiac Catheterization HEENT Surgeries: Surgical HX of: Tonsilectomy & Adenoidectomy - Family History Family History: Reports;: Family Diabetes (brothers), Family Hypertension Denies;: Family Cancer, Family Heart Disease, Family Psychiatric Problems, Family Stroke - Social History Smoking Status: Never smoker Frequency of Alcohol Use: None Type of Drug Use: None 12 point system: reviewed and no additional remarkable complaints except as stated Exam - Constitutional Vitals: Period Temp Pulse Resp BP Sys/Chen Pulse Ox Last 24 Hr 97.4 F-100.5 F 68-99 18-33 123-199/54-89 95-100 General appearance: mild distress - Head Head exam: Present: normal inspection - ENT ENT exam: Present: normal exam - Neck Neck exam: Present: normal inspection - Respiratory Respiratory exam: Present: clear to auscultation bilaterally, rales - Cardiovascular Cardiovascular exam: Present: RRR - GI/Abdominal GI/Abdominal exam: Present: distended (Mild), hypoactive bowel sounds, soft. Absent: tenderness - Extremities Exam Extremities exam: Present: normal inspection - Neurological Exam Neurological exam: Present: alert, oriented X3, CN II-XII intact - Skin Skin exam: Present: normal color, warm, dry Results - Labs CBC & BMP: 03/28/17 00:53 03/28/17 00:53 Lab Results: I have reviewed the past 24 hour labs
[2017-03-28] MEDS: INSULIN REGULAR 100 UNIT/ML SUBCUT SCH ×3 (09:02→17:12)
[2017-03-28] MEDS: ONDANSETRON 4 MG/2 ML VIAL IV PRN ×2 (09:02→19:18)
[2017-03-28] MEDS: metroNIDAZOLE INJ 500 MG in PREMIX 1 EACH IV SCH ×3 (09:55→21:43)
[2017-03-28] MEDS: PIPERACILLIN/TAZOBACTAM 3,375 MG in SODIUM CHLORIDE 0.9% 100 ML IV SCH ×2 (09:55→17:12)
[2017-03-28 10:02] LABS: INR 1.2; Partial Thromboplastin Time 32.1 SECS (0-40)
--- NOTE | 2017-03-28 10:42 | Cardiology Progress Note ---
Assessment and Plan (1) Abdominal pain Status: Acute Assessment and plan: Workup is underway. Current Visit: Yes Qualifiers: Abdominal location: generalized Qualified Code(s): R10.84 - Generalized abdominal pain (2) Aortic stenosis Status: Acute Assessment and plan: The patient has moderate aortic stenosis. This is stable and can be managed conservatively. Current Visit: Yes (3) Constipation Status: Acute Current Visit: Yes (4) Elevated bilirubin Status: Acute Current Visit: Yes (5) Elevated troponin Status: Acute Assessment and plan: At some point he will need cardiac evaluation, but I do not think I would do that in the setting of his ongoing abdominal symptoms unless his clinical status changes. Once his GI situation is stabilized we may consider further cardiac evaluation. Current Visit: Yes (6) Leukocytosis Status: Acute Current Visit: Yes (7) Exertional dyspnea Status: Chronic Current Visit: Yes (8) type 2 diabetes mellitus Status: Chronic Current Visit: No Cardiology - PN: Subj Interval history: Mr. Joy is a 86 year old male without known history of coronary artery disease , not routinely followed by cardiology. He has a history of hypertension, diabetes and prostate cancer, now in remission. Patient presented to the emergency department today with complaints of abdominal pain and constipation. While in the ER, he confirmed having dyspnea on exertion for the past year. Subsequently, cardiology was consulted to further evaluate patient's one-year history of dyspnea on exertion. He has not had any symptoms of angina, palpitations, syncope, or heart failure/peripheral edema. He has a trivial abnormality and troponin, but no symptoms of angina. He does have a systolic ejection murmur concerning for aortic stenosis. Echocardiogram revealed left ventricular ejection fraction of 50%. Moderate concentric left ventricular hypertrophy with mild diastolic dysfunction and moderate aortic valve stenosis with mean gradient of 29 mmHg was also noted. His EKG reveals left ventricular hypertrophy with strain. Abdominal x-ray yesterday revealed scattered air within the small bowel and colon which could possibly reflect mild ileus. GI was asked to evaluate patient. CT of abdomen revealed irregular wall thickening in the area of the cecum. Carotid ultrasound did not reveal any significant internal carotid artery stenosis. March 27, 2017: Overnight patient has done well and is without any new complaints this morning. He reports that his abdominal pain has slightly improved. He continues to complain of constipation. This is currently being worked up per GI. His troponin slightly trended up to 0.149. However, patient continues to be without any symptoms of angina. His creatinine is also trending up to 1.6 overnight. He does have a history of chronic renal insufficiency. Patient does have leukocytosis with a left shift noted. This is most likely related to patient's abdominal pain, possibly colitis. At this point, after discussing with Dr. Ortiz it is felt that patient will need left heart catheterization prior to being discharged. At this time patient is not having any anginal symptoms. I think that it is best if patient's abdominal pain, leukocytosis and elevated bilirubin should first be worked up before undergoing heart cath. His creatinine also chapito overnight, we will continue to monitor this closely and plan for heart cath after creatinine stabilizes and gi workup is completed. March 28, 2017: Overnight the patient had increased nausea and vomiting and was transferred to the CCU. He had an NG tube placed. His nausea and vomiting are improved. Surgery has been consulted about his abdominal symptoms. Workup is underway. Repeat CT with contrast is planned for today. The patient denies any cardiac symptoms such as angina or palpitations. He says his abdomen is feeling better at this time. Exam (Progress Note) - Constitutional Vitals: Period Temp Pulse Resp BP Sys/Chen Pulse Ox Last 24 Hr 97.4 F-100.5 F 68-99 12-33 123-199/46-89 95-100 Exam: General: Appears well developed, well nourished, no apparent distress HEENT: Normocephalic, atraumatic Neck: Supple Neck, Midline Trachea, No Bruit, No JVD Cardiac: Regular rhythm, 3/6 systolic murmur, no gallop, no rub Lungs: Clear to auscultation, No Wheeze, Rales, Rhonchi Neuro: Cranial Nerve 2-12 Intact, Motor Function Grossly Intact Abdomen: Soft, hypoactive bowel sounds, nontender nondistended Skin: Normal color, no rash Extremities: No Clubbing, No Cyanosis, No Edema, Normal Upper Extr. Pulses Musculoskeletal: No acute abnormality noted Psychiatric: The patient does not appear to be anxious or depressed Result/EKG - Labs CBC & BMP: 03/28/17 00:53 03/28/17 00:53 Lab Results: I have reviewed the past 24 hour labs Labs: Laboratory Results - last 24 hr 03/27/17 03/27/17 03/27/17 11:29 16:17 20:33 WBC RBC Hgb Hct MCV MCH MCHC RDW Plt Count MPV Neut % (Auto) Lymph % (Auto) Butts % (Auto) Eos % (Auto) Baso % (Auto) Neut # (Auto) Lymph # (Auto) Butts # (Auto) Eos # (Auto) Baso # (Auto) Immature Gran % Nucleated RBC % Immature Gran # Nucleated RBCs # INR PT Patient/Control Mix Circ Anticoag PTT Sodium Potassium Chloride Carbon Dioxide Anion Gap BUN Creatinine GFR Calculation BUN/Creatinine Ratio Glucose POC Glucose 301 H 239 H 407 H Calculated Osmolality Lactic Acid Calcium Magnesium Iron TIBC % Saturation Ferritin Total Bilirubin AST ALT Alkaline Phosphatase Total Protein Albumin Globulin Albumin/Globulin Ratio Amylase Lipase 03/27/17 03/27/17 03/27/17 20:59 21:17 21:50 WBC RBC Hgb Hct MCV MCH MCHC RDW Plt Count MPV Neut % (Auto) Lymph % (Auto) Butts % (Auto) Eos % (Auto) Baso % (Auto) Neut # (Auto) Lymph # (Auto) Butts # (Auto) Eos # (Auto) Baso # (Auto) Immature Gran % Nucleated RBC % Immature Gran # Nucleated RBCs # INR PT Patient/Control Mix Circ Anticoag PTT Sodium Potassium Chloride Carbon Dioxide Anion Gap BUN Creatinine GFR Calculation BUN/Creatinine Ratio Glucose POC Glucose 402 H 335 H 253 H Calculated Osmolality Lactic Acid Calcium Magnesium Iron TIBC % Saturation Ferritin Total Bilirubin AST ALT Alkaline Phosphatase Total Protein Albumin Globulin Albumin/Globulin Ratio Amylase Lipase 03/27/17 03/28/17 03/28/17 23:27 00:39 00:53 WBC RBC Hgb Hct MCV MCH MCHC RDW Plt Count MPV Neut % (Auto) Lymph % (Auto) Butts % (Auto) Eos % (Auto) Baso % (Auto) Neut # (Auto) Lymph # (Auto) Butts # (Auto) Eos # (Auto) Baso # (Auto) Immature Gran % Nucleated RBC % Immature Gran # Nucleated RBCs # INR PT Patient/Control Mix Circ Anticoag PTT Sodium 135 L Potassium 4.0 Chloride 99 Carbon Dioxide 25 Anion Gap 15.0 BUN 34 H Creatinine 1.80 H GFR Calculation 47 BUN/Creatinine Ratio 18.00 Glucose 164 H POC Glucose 171 H 162 H Calculated Osmolality 281.1 Lactic Acid Calcium 9.6 Magnesium 2.8 H Iron TIBC % Saturation Ferritin Total Bilirubin AST ALT Alkaline Phosphatase Total Protein Albumin Globulin Albumin/Globulin Ratio Amylase Lipase 03/28/17 03/28/17 03/28/17 00:53 00:53 00:53 WBC 16.9 H RBC 5.14 Hgb 14.2 D Hct 41.4 L MCV 80.5 L MCH 28 MCHC 34.3 RDW 14.7 Plt Count 270 D MPV 9.5 L Neut % (Auto) 81.0 H Lymph % (Auto) 13.3 L Butts % (Auto) 5.1 Eos % (Auto) 0.0 Baso % (Auto) 0.1 Neut # (Auto) 13.7 H Lymph # (Auto) 2.3 Butts # (Auto) 0.9 H Eos # (Auto) 0.0 Baso # (Auto) 0.0 Immature Gran % 0.5 Nucleated RBC % 0.0 Immature Gran # 0.09 Nucleated RBCs # 0.00 INR PT Patient/Control Mix Circ Anticoag PTT Sodium 136 Potassium 3.9 Chloride 100 Carbon Dioxide 25 Anion Gap 14.9 BUN 34 H Creatinine 1.80 H GFR Calculation 47 BUN/Creatinine Ratio 18.00 Glucose 165 H POC Glucose Calculated Osmolality 283.0 Lactic Acid 2.2 H Calcium 9.5 Magnesium Iron 15 L TIBC 358 % Saturation 4.2 L Ferritin 268.3 Total Bilirubin 0.60 AST 180 H ALT 121 H Alkaline Phosphatase 42 L Total Protein 8.2 Albumin 4.0 Globulin 4.2 H Albumin/Globulin Ratio 0.9 L Amylase 202 H Lipase 306.0 D 03/28/17 03/28/17 07:30 09:21 WBC RBC Hgb Hct MCV MCH MCHC RDW Plt Count MPV Neut % (Auto) Lymph % (Auto) Butts % (Auto) Eos % (Auto) Baso % (Auto) Neut # (Auto) Lymph # (Auto) Butts # (Auto) Eos # (Auto) Baso # (Auto) Immature Gran % Nucleated RBC % Immature Gran # Nucleated RBCs # INR 1.2 PT Patient/Control Mix 13.0 Circ Anticoag PTT 32.1 Sodium Potassium Chloride Carbon Dioxide Anion Gap BUN Creatinine GFR Calculation BUN/Creatinine Ratio Glucose POC Glucose 243 H Calculated Osmolality Lactic Acid Calcium Magnesium Iron TIBC % Saturation Ferritin Total Bilirubin AST ALT Alkaline Phosphatase Total Protein Albumin Globulin Albumin/Globulin Ratio Amylase Lipase - EKG EKG results: interpreted by me
--- NOTE | 2017-03-28 12:58 | CT Report ---
Referring physician: Gene Dougherty EXAM: CT abdomen and pelvis with and without contrast DATE: March 28, 2017 COMPARISON: CT abdomen and pelvis with and without contrast March 27, 2017 REASON: Generalized abdominal pain, history of prostate cancer TECHNIQUE: Axial images of the abdomen and pelvis were obtained with and without the use of 60 cc of Omnipaque 350 IV contrast. Oral contrast was also administered. Coronal and sagittal reformatted images were also provided. Total DLP was 1160.2 mGy*cm. FINDINGS: Lower thorax: There are scattered opacities within both lungs. These opacities have increased and likely represent atelectasis, scarring and possibly mild pulmonary edema. Pneumonia is felt less likely but is not excluded. Centrilobular emphysema is also present. A feeding tube is in place with its distal tip within the lower esophagus. It is recommended that it be further advanced into the stomach. ABDOMEN: Liver: Unremarkable. Gallbladder and bile ducts: The gallbladder is unremarkable. No biliary duct dilatation is present. Pancreas: Unremarkable. Spleen: Unremarkable. Adrenals: Unremarkable. Kidneys and ureters: No hydronephrosis is present, and no renal or ureteral calculi are seen. There is cortical scarring at the right kidney and bilateral renal hypodensities which are most consistent with cysts. Some of these renal hypodensities are too small to well characterize. PELVIS: Bladder: The bladder is poorly distended and difficult to evaluate. There is air within the bladder, which is likely related to a Hugo catheter which is in place. Reproductive: Unremarkable as visualized. ABDOMEN AND PELVIS: Bowel: There are several distended loops of small bowel. The small bowel demonstrated tapers to normal caliber at the distal aspect of the ileum on image 76, image 3. There is also scattered air and fluid within the colon. This could represent partial small bowel obstruction or ileus. In addition, there is diffuse wall thickening at the cecum/proximal ascending colon, which could represent a neoplastic process. Other considerations include colitis, but neoplasm is favored. Appendix: The appendix is not identified. Vasculature: The abdominal aorta is normal in size. There is moderate to severe calcified plaque at the arteries which is particularly prominent at the SMA and celiac artery origin. However, distal flow is seen within the SMA. The celiac artery is not well evaluated but is likely narrowed. Peritoneum: There is minimal scattered mesenteric edema but no significant ascites. No free air is identified. Lymph nodes: No suspicious adenopathy is seen. Abdominal/pelvic wall: There are minimal fat containing inguinal hernias bilaterally and a small fat-containing umbilical hernia. Bones: There is degenerative change at the pelvis, which is particularly prominent at the right hip. There is also multilevel degenerative change at the lumbar spine. No acute osseous process is seen. IMPRESSION: 1. There are several distended loops of small bowel with air-fluid levels present. The distal portion of the ileum is normal in caliber, but there is scattered air and mild fluid within the colon. These could represent ileus or partial small bowel obstruction. 2. There is again diffuse wall thickening at the cecum/proximal ascending colon. This could represent a neoplastic process or colitis. Neoplasm is favored. 3. There are scattered opacities within both lower lung zones. This has increased and is most consistent with atelectasis, scarring and possibly mild pulmonary edema. Pneumonia is also in the differential but is thought less likely. 4. Moderate to severe calcified plaque is seen at the abdominal aorta and its branches. This is particularly prominent at the origin of the celiac artery and at the SMA. However, distal flow is seen within the SMA. The celiac artery is not well evaluated but is likely narrowed. 5. There is again scarring at the right kidney and bilateral renal cysts. 6. A feeding tube is in place with its distal tip within the lower esophagus. It is recommended that it be further advanced into the stomach. The CT exam was performed using one or more of the following dose reduction techniques: Automated exposure control and adjustment of the mA and/or kV according to patient size. PROCEDURE INTERPRETED AT [facility] DEPARTMENT OF RADIOLOGY Final Report Signed by: Dr. June Barber
[2017-03-28] MEDS: ENOXAPARIN 40 MG/0.4 ML SYRINGE SUBCUT SCH (13:05)
--- NOTE | 2017-03-28 13:05 | Internal Med Progress Note ---
Assessment and Plan (1) Abdominal pain Status: Acute Assessment and plan: Elderly male admitted to acute care. * Small bowel obstruction. Continue NG tube suctioning. May have a tumor in the right colon or cecum. * Respiratory distress. Much better * Elevated troponins. Cardiology is following him * Hypertension. Blood pressure is stable * Surgery following Current Visit: Yes Qualifiers: Abdominal location: generalized Qualified Code(s): R10.84 - Generalized abdominal pain (2) Constipation Status: Acute Current Visit: Yes (3) gastroesophageal reflux disease Status: Chronic Current Visit: No (4) hypertension Status: Chronic Current Visit: No (5) type 2 diabetes mellitus Status: Chronic Current Visit: No Internal Medicine - PN: Subj Interval history: Patient is much better this afternoon. He denies any chest pain or shortness of breath. He denies passing any flatus. He just had CT abdomen and pelvis done. It could be a mass in the cecum and right ascending colon Exam (Progress Note) - Constitutional Vitals: Period Temp Pulse Resp BP Sys/Chen Pulse Ox Last 24 Hr 97.4 F-100.1 F 68-99 12-33 123-199/46-89 95-100 Exam: Examination: GENERAL: Appears anxious and in discomfort HEENT: PERRLA. EOMI. Mucous membranes are moist. NECK: Neck is supple. CVS: Regular rate and rhythm. S1 and S2 are normal. RESPIRATORY: Lungs are clear. ABDOMEN: Soft and less distended. No bowel sounds EXT: No edema. Peripheral pulses are present. PANTOGRAPH ENGRAVER: Patient is awake, alert and oriented to time place and person. SKIN: Warm and dry. MSK: No obvious deformity. Results - Labs CBC & BMP: 03/28/17 00:53 03/28/17 00:53 Lab Results: I have reviewed the past 24 hour labs
--- NOTE | 2017-03-28 13:53 | Event Note ---
03/28/2017 1400 hrs. Patient continues to do well not complain of any abdominal pain at this time. He is soft but still remains a little distended. I have seen and reviewed the CT scan at this time and see nothing that looks like any major problem at this point. Continues to see a little thickening on the sacral area which may represent a mild colitis but I am not sure represents a anything of any significance. Has a lot of stool in the colon and the rectal area which may be part of the reason he is having the symptoms. At this point his vascular aspect of the bowels seem to be okay from what we can tell on the CT at this time. Will discontinue the IV fluids and IV antibiotics and observation. We will try little oral retention enema on him to see if we can begin to mobilize some of that stool especially out of the rectum last summer to move own.
[2017-03-28] MEDS: MULTIVITAMIN (CENTRUM) TABLET PO SCH (13:58)
[2017-03-28] MEDS: ASPIRIN EC 81 MG TABLET PO SCH ×2 (13:59→21:43)
[2017-03-28] MEDS: POLYETHYLENE GLYCOL POWDER 17 GM PACK PO SCH (13:59)
[2017-03-28] MEDS: ALLOPURINOL 100 MG TABLET PO SCH (13:59)
[2017-03-28] MEDS: PANTOPRAZOLE 40 MG TABLET PO SCH (13:59)
[2017-03-28] MEDS ORDERED: MINERAL OIL ENEMA 133 ML BOTTLE RECTAL ONE (14:00)
--- NOTE | 2017-03-28 19:51 | XRay Report ---
Referring Physician: Cristóbal Craven Exam: XR chest 1V portable Date: March 28, 2017 at 7:16 PM Reason: NG tube advancement Comparison: Chest one view portable March 28, 2017 at 12:15 AM Findings: The distal tip of the feeding tube is located within the distal esophagus, just above the gastroesophageal junction. It is recommended that it be further advanced into the stomach. There is gaseous distention of the visualized bowel. No free air is identified. Evaluation of the lungs is limited by the technique, but bibasilar atelectasis is suspected. The osseous structures appear stable. Prominent calcified plaque is noted at the aorta. Impression: The distal tip of the feeding tube is located within the lower esophagus, just above the gastroesophageal junction. It is recommended that it be further advanced into the stomach. PROCEDURE INTERPRETED AT [facility] DEPARTMENT OF RADIOLOGY Final Report Signed by: Dr. June Barber
[2017-03-28] MEDS: INSULIN LISPRO 100 UNIT/ML SUBCUT SCH (21:22)
[2017-03-28] MEDS: TRAVOPROST 0.004% OPH SOLN 2.5 ML BOTTLE BOTH EYES SCH (21:43)
[2017-03-29] MEDS: NITROGLYCERIN 2% OINT 1 INCH/GM PACK TOP SCH ×4 (01:17→17:55)
[2017-03-29] MEDS: SODIUM CHLORIDE 0.9% 1,000 ML IV SCH ×5 (01:17→23:30)
[2017-03-29] MEDS: INSULIN LISPRO 100 UNIT/ML SUBCUT SCH ×6 (01:17→20:50)
[2017-03-29] MEDS: PIPERACILLIN/TAZOBACTAM 3,375 MG in SODIUM CHLORIDE 0.9% 100 ML IV SCH ×3 (01:18→20:48)
[2017-03-29] MEDS: metroNIDAZOLE INJ 500 MG in PREMIX 1 EACH IV SCH ×4 (03:30→20:49)
[2017-03-29 05:21] LABS: Basophils % 0.4 % (0.0-0.8); Eosinophils # 0.1 10*3/uL (0.0-0.87); Eosinophils % 1.1 % (0.00-10.9); Hematocrit 31.2 VOL% (42.0-52.0); Hemoglobin 10.1 GM/DL (14.0-18.0); Immature Granulocytes % 0.3 %; Immature Granulocytes Absolute 0.02 #; Lymphocytes # 1.6 10*3/uL (1.4-4.0); Lymphocytes % 20.8 % (21.2-54.2); Mean Corpuscular HGB Conc 32.4 GM/DL (32-36); Mean Corpuscular Hemoglobin 27 PG (27-34); Mean Corpuscular Volume 83.2 FL (87-102); Mean Platelet Volume 10.1 FL (9.6-12.0); Monocytes # 0.6 10*3/uL (0.11-0.8); Monocytes % 7.6 % (1.7-12.7); Neutrophils # 5.5 10*3/uL (1.4-7.4); Neutrophils % 69.8 % (38.7-73.9); Platelet Count 206 T/CUMM (130-400); Red Blood Count 3.75 MC/CUMM (3.8-5.5); Red Cell Distribution Width 14.8 % (9.3-17.3); White Blood Count 7.9 T/CUMM (4-12)
[2017-03-29 05:50] LABS: Basophils % 0.3 % (0.0-0.8); Eosinophils # 0.1 10*3/uL (0.0-0.87); Eosinophils % 0.8 % (0.00-10.9); Hematocrit 29.7 VOL% (42.0-52.0); Hemoglobin 9.6 GM/DL (14.0-18.0); Immature Granulocytes % 0.4 %; Immature Granulocytes Absolute 0.03 #; Lymphocytes # 1.2 10*3/uL (1.4-4.0); Lymphocytes % 16.6 % (21.2-54.2); Mean Corpuscular HGB Conc 32.3 GM/DL (32-36); Mean Corpuscular Hemoglobin 27 PG (27-34); Mean Corpuscular Volume 83.4 FL (87-102); Mean Platelet Volume 9.8 FL (9.6-12.0); Monocytes # 0.6 10*3/uL (0.11-0.8); Monocytes % 7.8 % (1.7-12.7); Neutrophils # 5.3 10*3/uL (1.4-7.4); Neutrophils % 74.1 % (38.7-73.9); Platelet Count 199 T/CUMM (130-400); Red Blood Count 3.56 MC/CUMM (3.8-5.5); Red Cell Distribution Width 14.7 % (9.3-17.3); White Blood Count 7.2 T/CUMM (4-12)
[2017-03-29 06:02] LABS: Band Neutrophils 5 % (0-10); Burr Cells Slight; Eosinophils 1 % (0-10); Hypochromasia 1+; Lymphocytes 18 % (20-55); Ovalocytes Slight; Platelet Estimate Normal; Segmented Neutrophils 67 % (50-85); Total Cells Counted 100
[2017-03-29 06:04] LABS: Albumin 2.5 G/DL (3.4-5.0); Bilirubin,Total 1.2 MG/DL (0.2-1.0); Magnesium 2.9 MG/DL (1.8-2.4); Osmolality,Calculated 283.1 MOS/KG (273-304); Potassium 4.8 MMOL/L (3.5-5.1); Total Protein 5.4 G/DL (6.4-8.3)
[2017-03-29 06:29] LABS: Band Neutrophils 3 % (0-10); Lymphocytes 14 % (20-55); Segmented Neutrophils 79 % (50-85); Total Cells Counted 100
[2017-03-29 06:30] LABS: Burr Cells Slight; Hypochromasia 1+; Ovalocytes Slight; Platelet Estimate Normal
--- NOTE | 2017-03-29 08:05 | General Surgery Progress Note ---
Assessment and Plan (1) Abdominal pain Status: Acute Assessment and plan: Impression: Abdominal pain with constipation etiology unclear. Plan: IV fluids and IV antibiotics and I repeat CT scan with contrast. At present physical examination do not see any strong indication for surgery 03/29/2017. Patient is afebrile he is not complaining of any abdominal discomfort at this time. He may have had a small bowel movement with the enema from yesterday. His abdomen is mildly distended hypoactive bowel sounds no unusual tenderness or guarding it remains safe soft at this time.. His labs look in good shape at this time hematocrit is 29 his creatinine is up a little bit at 2.10. Running his fluids count of placed kidneys as best we can at this point time will just do close observation of this monitor closely. At this point does not seem to be any major intra-abdominal problem other than constipation. Will try to work on that slowly and see if we can get that improved. Current Visit: Yes Qualifiers: Abdominal location: generalized Qualified Code(s): R10.84 - Generalized abdominal pain Subjective Patient reports: Present: no new complaints, pain is less, bowel movement, afebrile Exam - Constitutional Vitals: Period Temp Pulse Resp BP Sys/Chen Pulse Ox Last 24 Hr 97.4 F-98.7 F 56-89 12-21 89-138/31-68 91-98 General appearance: mild distress - Head Head exam: Present: normal inspection - ENT ENT exam: Present: normal exam - Neck Neck exam: Present: normal inspection - Respiratory Respiratory exam: Present: rales - Cardiovascular Cardiovascular exam: Present: RRR - GI/Abdominal GI/Abdominal exam: Present: distended (Mild), hypoactive bowel sounds, soft. Absent: tenderness - Extremities Exam Extremities exam: Present: normal inspection - Back Exam Back exam: Present: normal inspection - Neurological Exam Neurological exam: Present: alert, oriented X3, CN II-XII intact - Skin Skin exam: Present: normal color, warm, dry Results - Labs CBC & BMP: 03/29/17 05:35 03/29/17 04:12 Lab Results: I have reviewed the past 24 hour labs
[2017-03-29] MEDS ORDERED: MINERAL OIL ENEMA 133 ML BOTTLE RECTAL ONE (08:08)
[2017-03-29] MEDS: POLYETHYLENE GLYCOL POWDER 17 GM PACK PO SCH (09:17)
[2017-03-29] MEDS: MULTIVITAMIN (CENTRUM) TABLET PO SCH (09:17)
[2017-03-29] MEDS: PANTOPRAZOLE 40 MG TABLET PO SCH (09:18)
[2017-03-29] MEDS: ASPIRIN EC 81 MG TABLET PO SCH ×2 (09:18→20:49)
[2017-03-29] MEDS: ALUMINUM/MAGNES/SIMETH MAX STR 30 ML UDCUP PO SCH ×3 (09:19→20:49)
--- NOTE | 2017-03-29 10:10 | Cardiology Progress Note ---
Assessment and Plan (1) Abdominal pain Status: Acute Assessment and plan: The patient has a small bowel obstruction/ileus on CT scan and also a thickening in the cecum which is suspicious for malignancy versus colitis. His abdominal symptoms are improved. Current Visit: Yes Qualifiers: Abdominal location: generalized Qualified Code(s): R10.84 - Generalized abdominal pain (2) Aortic stenosis Status: Acute Assessment and plan: The patient has moderate aortic stenosis. This is stable and can be managed conservatively. Current Visit: Yes (3) Constipation Status: Acute Current Visit: Yes (4) Elevated bilirubin Status: Acute Current Visit: Yes (5) Elevated troponin Status: Acute Assessment and plan: At some point he will need cardiac evaluation, but I do not think I would do that in the setting of his ongoing abdominal symptoms and bump in creatinine unless his cardiac clinical status changes. Once his GI situation and renal function are stabilized we may consider further cardiac evaluation. Current Visit: Yes (6) Leukocytosis Status: Acute Current Visit: Yes (7) Exertional dyspnea Status: Chronic Current Visit: Yes (8) type 2 diabetes mellitus Status: Chronic Current Visit: No Cardiology - PN: Subj Interval history: Mr. Joy is a 86 year old male without known history of coronary artery disease , not routinely followed by cardiology. He has a history of hypertension, diabetes and prostate cancer, now in remission. Patient presented to the emergency department today with complaints of abdominal pain and constipation. While in the ER, he confirmed having dyspnea on exertion for the past year. Subsequently, cardiology was consulted to further evaluate patient's one-year history of dyspnea on exertion. He has not had any symptoms of angina, palpitations, syncope, or heart failure/peripheral edema. He has a trivial abnormality and troponin, but no symptoms of angina. He does have a systolic ejection murmur concerning for aortic stenosis. Echocardiogram revealed left ventricular ejection fraction of 50%. Moderate concentric left ventricular hypertrophy with mild diastolic dysfunction and moderate aortic valve stenosis with mean gradient of 29 mmHg was also noted. His EKG reveals left ventricular hypertrophy with strain. Abdominal x-ray yesterday revealed scattered air within the small bowel and colon which could possibly reflect mild ileus. GI was asked to evaluate patient. CT of abdomen revealed irregular wall thickening in the area of the cecum. Carotid ultrasound did not reveal any significant internal carotid artery stenosis. March 27, 2017: Overnight patient has done well and is without any new complaints this morning. He reports that his abdominal pain has slightly improved. He continues to complain of constipation. This is currently being worked up per GI. His troponin slightly trended up to 0.149. However, patient continues to be without any symptoms of angina. His creatinine is also trending up to 1.6 overnight. He does have a history of chronic renal insufficiency. Patient does have leukocytosis with a left shift noted. This is most likely related to patient's abdominal pain, possibly colitis. At this point, after discussing with Dr. Ortiz it is felt that patient will need left heart catheterization prior to being discharged. At this time patient is not having any anginal symptoms. I think that it is best if patient's abdominal pain, leukocytosis and elevated bilirubin should first be worked up before undergoing heart cath. His creatinine also chapito overnight, we will continue to monitor this closely and plan for heart cath after creatinine stabilizes and gi workup is completed. March 28, 2017: Overnight the patient had increased nausea and vomiting and was transferred to the CCU. He had an NG tube placed. His nausea and vomiting are improved. Surgery has been consulted about his abdominal symptoms. Workup is underway. Repeat CT with contrast is planned for today. The patient denies any cardiac symptoms such as angina or palpitations. He says his abdomen is feeling better at this time. March 29, 2017: CT scan of the abdomen shows possible small bowel obstruction/ ileus. There is also a cecal abnormality which is suspicious for malignancy. His abdominal symptoms are much better. He denies any cardiac symptoms today. His renal function has gradually worsened, although he recently received contrast. Hopefully this will return to normal with hydration/improvement in clinical status. He still has diffuse mild liver function test abnormalities. He does have vascular calcifications in his abdominal aorta. At some point, once his abdominal symptoms have resolved and his renal function improved, cardiac evaluation could be considered. Exam (Progress Note) - Constitutional Vitals: Period Temp Pulse Resp BP Sys/Chen Pulse Ox Last 24 Hr 97.4 F-98.7 F 56-89 18-21 71-129/31-77 90-97 Exam: General: Appears well developed, well nourished, no apparent distress HEENT: Normocephalic, atraumatic Neck: Supple Neck, Midline Trachea, No Bruit, No JVD Cardiac: Regular rhythm, 3/6 systolic murmur, no gallop, no rub Lungs: Clear to auscultation, No Wheeze, Rales, Rhonchi Neuro: Cranial Nerve 2-12 Intact, Motor Function Grossly Intact Abdomen: Soft, hypoactive bowel sounds, nontender nondistended Skin: Normal color, no rash Extremities: No Clubbing, No Cyanosis, No Edema, Normal Upper Extr. Pulses Musculoskeletal: No acute abnormality noted Psychiatric: The patient does not appear to be anxious or depressed Result/EKG - Labs CBC & BMP: 03/29/17 05:35 03/29/17 04:12 Lab Results: I have reviewed the past 24 hour labs Labs: Laboratory Results - last 24 hr 03/28/17 03/28/17 03/28/17 11:28 16:30 20:50 WBC RBC Hgb Hct MCV MCH MCHC RDW Plt Count MPV Neut % (Auto) Lymph % (Auto) [place] % (Auto) Eos % (Auto) Baso % (Auto) Neut # (Auto) Lymph # (Auto) [place] # (Auto) Eos # (Auto) Baso # (Auto) Total Counted Immature Gran % Nucleated RBC % Immature Gran # Segmented Neutrophils Band Neutrophils Lymphocytes Monocytes Eosinophils Basophils Nucleated RBCs # Platelet Estimate Hypochromasia Ovalocytes [place] Cells Sodium Potassium Chloride Carbon Dioxide Anion Gap BUN Creatinine GFR Calculation BUN/Creatinine Ratio Glucose POC Glucose 338 H 209 H 109 H Calculated Osmolality Calcium Magnesium Total Bilirubin AST ALT Alkaline Phosphatase Total Protein Albumin Globulin Albumin/Globulin Ratio 03/29/17 03/29/17 03/29/17 00:44 04:12 04:12 WBC 7.9 D RBC 3.75 L D Hgb 10.1 L D Hct 31.2 L MCV 83.2 L MCH 27 MCHC 32.4 RDW 14.8 Plt Count 206 D MPV 10.1 Neut % (Auto) 69.8 Lymph % (Auto) 20.8 L [place] % (Auto) 7.6 Eos % (Auto) 1.1 Baso % (Auto) 0.4 Neut # (Auto) 5.5 Lymph # (Auto) 1.6 [place] # (Auto) 0.6 Eos # (Auto) 0.1 Baso # (Auto) 0.0 Total Counted 100 Immature Gran % 0.3 Nucleated RBC % 0.0 Immature Gran # 0.02 Segmented Neutrophils 67 Band Neutrophils 5 Lymphocytes 18 L Monocytes 8 Eosinophils 1 Basophils 1.0 H Nucleated RBCs # 0.00 Platelet Estimate Normal Hypochromasia 1+ Ovalocytes Slight [place] Cells Slight Sodium 135 L Potassium 4.8 Chloride 104 Carbon Dioxide 19 L Anion Gap 16.8 H BUN 40 H Creatinine 2.10 H GFR Calculation 39 BUN/Creatinine Ratio 19.00 Glucose 170 H POC Glucose 161 H Calculated Osmolality 283.1 Calcium 8.0 L Magnesium 2.9 H Total Bilirubin 1.20 H AST 97 H ALT 88 H Alkaline Phosphatase 23 L Total Protein 5.4 L Albumin 2.5 L Globulin 2.9 Albumin/Globulin Ratio 0.8 L 03/29/17 03/29/17 04:47 05:35 WBC 7.2 RBC 3.56 L Hgb 9.6 L Hct 29.7 L MCV 83.4 L MCH 27 MCHC 32.3 RDW 14.7 Plt Count 199 MPV 9.8 Neut % (Auto) 74.1 H Lymph % (Auto) 16.6 L [place] % (Auto) 7.8 Eos % (Auto) 0.8 Baso % (Auto) 0.3 Neut # (Auto) 5.3 Lymph # (Auto) 1.2 L [place] # (Auto) 0.6 Eos # (Auto) 0.1 Baso # (Auto) 0.0 Total Counted 100 Immature Gran % 0.4 Nucleated RBC % 0.0 Immature Gran # 0.03 Segmented Neutrophils 79 Band Neutrophils 3 Lymphocytes 14 L Monocytes 4 Eosinophils Basophils Nucleated RBCs # 0.00 Platelet Estimate Normal Hypochromasia 1+ Ovalocytes Slight [place] Cells Slight Sodium Potassium Chloride Carbon Dioxide Anion Gap BUN Creatinine GFR Calculation BUN/Creatinine Ratio Glucose POC Glucose 177 H Calculated Osmolality Calcium Magnesium Total Bilirubin AST ALT Alkaline Phosphatase Total Protein Albumin Globulin Albumin/Globulin Ratio - EKG EKG results: interpreted by me
[2017-03-29] MEDS: LEVOFLOXACIN INJ 500 MG in PREMIX 1 EACH IV SCH (11:15)
--- NOTE | 2017-03-29 11:30 | Internal Med Progress Note ---
Assessment and Plan (1) Abdominal pain Status: Acute Assessment and plan: Elderly male admitted to acute care. * Small bowel obstruction. Continue NG tube suctioning. CT scan report noted. Constipation. * Continue IV fluid * Respiratory distress. Resolved * Hypertension. Blood pressure is stable * Surgery following Current Visit: Yes Qualifiers: Abdominal location: generalized Qualified Code(s): R10.84 - Generalized abdominal pain (2) Constipation Status: Acute Current Visit: Yes (3) gastroesophageal reflux disease Status: Chronic Current Visit: No (4) hypertension Status: Chronic Current Visit: No (5) type 2 diabetes mellitus Status: Chronic Current Visit: No Internal Medicine - PN: Subj Interval history: Patient is feeling better today. He denies any specific complaints. His abdomen is not hurting. Exam (Progress Note) - Constitutional Vitals: Period Temp Pulse Resp BP Sys/Chen Pulse Ox Last 24 Hr 97.4 F-98.7 F 56-89 18-21 71-129/31-77 90-97 Exam: Examination: GENERAL: No acute HEENT: PERRLA. EOMI. NECK: Neck is supple. CVS: Regular rate and rhythm. S1 and S2 are normal. RESPIRATORY: Lungs are clear. ABDOMEN: Soft and less distended. Hypoactive bowel sounds EXT: No edema. OPERATING ROOM ORDERLY: Patient is awake, alert and oriented to time place and person. SKIN: Warm and dry. Results - Labs CBC & BMP: 03/29/17 05:35 03/29/17 04:12 Lab Results: I have reviewed the past 24 hour labs
[2017-03-29] MEDS: ENOXAPARIN 40 MG/0.4 ML SYRINGE SUBCUT SCH (14:15)
[2017-03-29] MEDS: TRAVOPROST 0.004% OPH SOLN 2.5 ML BOTTLE BOTH EYES SCH (20:59)
[2017-03-30] MEDS: NITROGLYCERIN 2% OINT 1 INCH/GM PACK TOP SCH ×4 (00:26→17:01)
[2017-03-30] MEDS: INSULIN LISPRO 100 UNIT/ML SUBCUT SCH ×7 (00:30→23:12)
[2017-03-30] MEDS: TRAVOPROST 0.004% OPH SOLN 2.5 ML BOTTLE BOTH EYES SCH ×2 (00:30→20:24)
[2017-03-30] MEDS ORDERED: FUROSEMIDE 40 MG/4 ML VIAL ONE ×3 (01:44→17:40)
[2017-03-30] MEDS ORDERED: FUROSEMIDE 40 MG/4 ML VIAL IV ONE ×5 (01:45→17:46)
[2017-03-30] MEDS: ALBUTEROL/IPRATROPIUM 3 ML NEB RESP TX PRN ×3 (03:41→17:25)
[2017-03-30] MEDS: metroNIDAZOLE INJ 500 MG in PREMIX 1 EACH IV SCH ×4 (04:00→20:17)
[2017-03-30 05:23] LABS: Basophils % 0.2 % (0.0-0.8); Eosinophils # 0.1 10*3/uL (0.0-0.87); Eosinophils % 0.4 % (0.00-10.9); Hematocrit 38.5 VOL% (42.0-52.0); Hemoglobin 12.5 GM/DL (14.0-18.0); Immature Granulocytes % 0.7 %; Immature Granulocytes Absolute 0.11 #; Lymphocytes # 2.6 10*3/uL (1.4-4.0); Mean Corpuscular HGB Conc 32.5 GM/DL (32-36); Mean Corpuscular Hemoglobin 27 PG (27-34); Mean Corpuscular Volume 84.1 FL (87-102); Monocytes % 5.9 % (1.7-12.7); Neutrophils # 12.6 10*3/uL (1.4-7.4); Neutrophils % 76.8 % (38.7-73.9); Platelet Count 284 T/CUMM (130-400); Red Blood Count 4.58 MC/CUMM (3.8-5.5); White Blood Count 16.5 T/CUMM (4-12)
[2017-03-30] MEDS: ALUMINUM/MAGNES/SIMETH MAX STR 30 ML UDCUP PO SCH ×4 (05:37→20:17)
[2017-03-30] MEDS: PIPERACILLIN/TAZOBACTAM 3,375 MG in SODIUM CHLORIDE 0.9% 100 ML IV SCH ×3 (05:43→19:00)
[2017-03-30 05:59] LABS: Bilirubin,Total 0.8 MG/DL (0.2-1.0); Osmolality,Calculated 293.5 MOS/KG (273-304); Potassium 3.8 MMOL/L (3.5-5.1); Total Protein 6.5 G/DL (6.4-8.3)
[2017-03-30 06:51] LABS: Band Neutrophils 1 % (0-10); Lymphocytes 15 % (20-55); Segmented Neutrophils 78 % (50-85); Total Cells Counted 100
[2017-03-30 06:59] LABS: Burr Cells Slight; Microcytosis Slight; Platelet Estimate Normal
--- NOTE | 2017-03-30 08:17 | Cardiology Progress Note ---
<Natalie Chinchilla - Last Filed: 03/30/17 07:58> Assessment and Plan (1) Elevated troponin Status: Acute Assessment and plan: At some point he will need cardiac evaluation, but I do not think I would do that in the setting of his ongoing abdominal symptoms and bump in creatinine unless his cardiac clinical status changes. Once his GI situation and renal function are stabilized we may consider further cardiac evaluation. Further plan and addendum to follow per Dr. Mackey. Current Visit: Yes (2) Exertional dyspnea Status: Chronic Assessment and plan: Patient presented to the emergency department with a one-year history of exertional dyspnea. Patient is not having any sort of anginal symptoms. He does have a mildly elevated troponin. EKG reveals LVH with ST abnormality consistent with LV strain. Echocardiogram reveals normal left ventricular ejection fraction with moderate aortic stenosis. At this point, it is felt that patient will need left heart catheterization prior to being discharged. Currently, patient is not having any anginal symptoms. I think that it is best if patient's abdominal pain and leukocytosis should first be worked up before undergoing heart cath. His creatinine also is gradually worsening we will continue to monitor this closely and plan for heart cath after creatinine stabilizes and gi workup is completed. Further plan and addendum to follow per Dr. Mackey. Current Visit: Yes (3) Abdominal pain Status: Acute Assessment and plan: The patient has a small bowel obstruction/ileus on CT scan and also a thickening in the cecum which is suspicious for malignancy versus colitis. His abdominal symptoms are improved. Workup is underway per GI. Current Visit: Yes Qualifiers: Abdominal location: generalized Qualified Code(s): R10.84 - Generalized abdominal pain (4) hypertension Status: Chronic Assessment and plan: This is clinically stable. Continue current plan of care. Current Visit: No (5) renal insufficiency Status: Chronic Assessment and plan: Creatinine chapito to 2.3 overnight. We will continue to monitor this closely. 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 Current Visit: No (7) type 2 diabetes mellitus Status: Chronic Assessment and plan: Continue current plan care. Current Visit: No (8) Leukocytosis Status: Acute Assessment and plan: Defer to Hospital medicine. Current Visit: Yes (9) Aortic stenosis Status: Acute Assessment and plan: The patient has moderate aortic stenosis. This is stable and can be managed conservatively. Current Visit: Yes Cardiology - PN: Subj Interval history: Mr. Joy is a 86 year old male without known history of coronary artery disease , not routinely followed by cardiology. He has a history of hypertension, diabetes and prostate cancer, now in remission. Patient presented to the emergency department today with complaints of abdominal pain and constipation. While in the ER, he confirmed having dyspnea on exertion for the past year. Subsequently, cardiology was consulted to further evaluate patient's one-year history of dyspnea on exertion. He has not had any symptoms of angina, palpitations, syncope, or heart failure/peripheral edema. He has a trivial abnormality and troponin, but no symptoms of angina. He does have a systolic ejection murmur concerning for aortic stenosis. Echocardiogram revealed left ventricular ejection fraction of 50%. Moderate concentric left ventricular hypertrophy with mild diastolic dysfunction and moderate aortic valve stenosis with mean gradient of 29 mmHg was also noted. His EKG reveals left ventricular hypertrophy with strain. Abdominal x-ray yesterday revealed scattered air within the small bowel and colon which could possibly reflect mild ileus. GI was asked to evaluate patient. CT of abdomen revealed irregular wall thickening in the area of the cecum. Carotid ultrasound did not reveal any significant internal carotid artery stenosis. March 27, 2017: Overnight patient has done well and is without any new complaints this morning. He reports that his abdominal pain has slightly improved. He continues to complain of constipation. This is currently being worked up per GI. His troponin slightly trended up to 0.149. However, patient continues to be without any symptoms of angina. His creatinine is also trending up to 1.6 overnight. He does have a history of chronic renal insufficiency. Patient does have leukocytosis with a left shift noted. This is most likely related to patient's abdominal pain, possibly colitis. At this point, after discussing with Dr. Ortiz it is felt that patient will need left heart catheterization prior to being discharged. At this time patient is not having any anginal symptoms. I think that it is best if patient's abdominal pain, leukocytosis and elevated bilirubin should first be worked up before undergoing heart cath. His creatinine also chapito overnight, we will continue to monitor this closely and plan for heart cath after creatinine stabilizes and gi workup is completed. March 28, 2017: Overnight the patient had increased nausea and vomiting and was transferred to the CCU. He had an NG tube placed. His nausea and vomiting are improved. Surgery has been consulted about his abdominal symptoms. Workup is underway. Repeat CT with contrast is planned for today. The patient denies any cardiac symptoms such as angina or palpitations. He says his abdomen is feeling better at this time. March 29, 2017: CT scan of the abdomen shows possible small bowel obstruction/ ileus. There is also a cecal abnormality which is suspicious for malignancy. His abdominal symptoms are much better. He denies any cardiac symptoms today. His renal function has gradually worsened, although he recently received contrast. Hopefully this will return to normal with hydration/improvement in clinical status. He still has diffuse mild liver function test abnormalities. He does have vascular calcifications in his abdominal aorta. At some point, once his abdominal symptoms have resolved and his renal function improved, cardiac evaluation could be considered. March 30, 2017: Patient was seen and examined in the CCU. Patient is mildly confused this morning. His abdominal symptoms have improved. He continues to be without cardiac symtoms. Creatinine has trended up, 2.3 this morning. Liver enzymes remain elevated. GI workup is underway. CT scan of the abdomen shows possible small bowel obstruction/ileus. There is also a cecal abnormality which is suspicious for malignancy. Vital signs are stable. Further plan and addendum to follow per Dr. Mackey. Exam (Progress Note) - Constitutional Vitals: Period Temp Pulse Resp BP Sys/Chen Pulse Ox Last 24 Hr 97.4 F-98.6 F 65-115 17-41 71-182/40-110 86-96 Exam: General: Appears well developed, well nourished, no apparent distress HEENT: Normocephalic, atraumatic. NGT noted. Neck: Supple Neck, Midline Trachea, No Bruit, No JVD Cardiac: Regular rhythm, 3/6 systolic murmur, no gallop, no rub Lungs: Coarse breath sounds throughout, No Wheeze Neuro: Cranial Nerve 2-12 Intact, Motor Function Grossly Intact Abdomen: Soft, hypoactive bowel sounds, nontender nondistended Skin: Normal color, no rash Extremities: No Clubbing, No Cyanosis, No Edema, Normal Upper Extr. Pulses Musculoskeletal: No acute abnormality noted Psychiatric: The patient does not appear to be anxious or depressed Result/EKG - Labs CBC & BMP: 03/30/17 04:48 03/30/17 03:48 Lab Results: I have reviewed the past 24 hour labs Labs: Laboratory Results - last 24 hr 03/29/17 03/29/17 03/29/17 08:05 11:31 16:26 WBC RBC Hgb Hct MCV MCH MCHC RDW Plt Count MPV Neut % (Auto) Lymph % (Auto) [place] % (Auto) Eos % (Auto) Baso % (Auto) Neut # (Auto) Lymph # (Auto) [place] # (Auto) Eos # (Auto) Baso # (Auto) Total Counted Immature Gran % Nucleated RBC % Immature Gran # Segmented Neutrophils Band Neutrophils Lymphocytes Monocytes Nucleated RBCs # Platelet Estimate Microcytosis [place] Cells Sodium Potassium Chloride Carbon Dioxide Anion Gap BUN Creatinine GFR Calculation BUN/Creatinine Ratio Glucose POC Glucose 172 H 196 H 184 H Calculated Osmolality Calcium Total Bilirubin AST ALT Alkaline Phosphatase Total Protein Albumin Globulin Albumin/Globulin Ratio 03/29/17 03/30/17 03/30/17 20:23 00:08 03:48 WBC RBC Hgb Hct MCV MCH MCHC RDW Plt Count MPV Neut % (Auto) Lymph % (Auto) [place] % (Auto) Eos % (Auto) Baso % (Auto) Neut # (Auto) Lymph # (Auto) [place] # (Auto) Eos # (Auto) Baso # (Auto) Total Counted Immature Gran % Nucleated RBC % Immature Gran # Segmented Neutrophils Band Neutrophils Lymphocytes Monocytes Nucleated RBCs # Platelet Estimate Microcytosis [place] Cells Sodium 139 Potassium 3.8 Chloride 106 Carbon Dioxide 15 L Anion Gap 21.8 H BUN 45 H Creatinine 2.30 H GFR Calculation 35 BUN/Creatinine Ratio 19.00 Glucose 182 H POC Glucose 169 H 134 H Calculated Osmolality 293.5 Calcium 8.0 L Total Bilirubin 0.80 AST 89 H ALT 89 H Alkaline Phosphatase 34 L Total Protein 6.5 Albumin 3.0 L Globulin 3.5 Albumin/Globulin Ratio 0.8 L 03/30/17 03/30/17 04:39 04:48 WBC 16.5 H D RBC 4.58 D Hgb 12.5 L D Hct 38.5 L MCV 84.1 L MCH 27 MCHC 32.5 RDW 15.0 Plt Count 284 D MPV 10.0 Neut % (Auto) 76.8 H Lymph % (Auto) 16.0 L [place] % (Auto) 5.9 Eos % (Auto) 0.4 Baso % (Auto) 0.2 Neut # (Auto) 12.6 H Lymph # (Auto) 2.6 [place] # (Auto) 1.0 H Eos # (Auto) 0.1 Baso # (Auto) 0.0 Total Counted 100 Immature Gran % 0.7 Nucleated RBC % 0.0 Immature Gran # 0.11 Segmented Neutrophils 78 Band Neutrophils 1 Lymphocytes 15 L Monocytes 6 Nucleated RBCs # 0.00 Platelet Estimate Normal Microcytosis Slight [place] Cells Slight Sodium Potassium Chloride Carbon Dioxide Anion Gap BUN Creatinine GFR Calculation BUN/Creatinine Ratio Glucose POC Glucose 203 H Calculated Osmolality Calcium Total Bilirubin AST ALT Alkaline Phosphatase Total Protein Albumin Globulin Albumin/Globulin Ratio <Ej Mackey - Last Filed: 03/30/17 13:08> Cardiology - PN: Subj Interval history: I personally interviewed the patient and examined him. Chart was reviewed. Discussed case with Natalie Chinchilla NP. I agree with the assessment and evaluation implants. I discussed the patient's case with the family. The patient developed pulmonary edema during the early hours of the morning. I suspect this is secondary for the large amount of volume is receiving because of his other issues. He's responded well to IV Lasix. His echocardiogram previously revealed good LV function and no valvular reason for him to have heart failure. I discussed this with the family as well. At this time we'll continue his present supportive care and monitor his fluid status. Exam (Progress Note) - Constitutional Vitals: Period Temp Pulse Resp BP Sys/Chen Pulse Ox Last 24 Hr 97.3 F-98.3 F 68-115 17-41 115-182/50-110 86-97 Result/EKG - Labs CBC & BMP: 03/30/17 04:48 03/30/17 03:48 Labs: Laboratory Results - last 24 hr 03/29/17 03/29/17 03/30/17 16:26 20:23 00:08 WBC RBC Hgb Hct MCV MCH MCHC RDW Plt Count MPV Neut % (Auto) Lymph % (Auto) [place] % (Auto) Eos % (Auto) Baso % (Auto) Neut # (Auto) Lymph # (Auto) [place] # (Auto) Eos # (Auto) Baso # (Auto) Total Counted Immature Gran % Nucleated RBC % Immature Gran # Segmented Neutrophils Band Neutrophils Lymphocytes Monocytes Nucleated RBCs # Platelet Estimate Microcytosis [place] Cells INR PT Patient/Control Mix Circ Anticoag PTT Sodium Potassium Chloride Carbon Dioxide Anion Gap BUN Creatinine GFR Calculation BUN/Creatinine Ratio Glucose POC Glucose 184 H 169 H 134 H Calculated Osmolality Calcium Total Bilirubin AST ALT Alkaline Phosphatase B-Natriuretic Peptide Total Protein Albumin Globulin Albumin/Globulin Ratio 03/30/17 03/30/17 03/30/17 03:48 04:39 04:48 WBC 16.5 H D RBC 4.58 D Hgb 12.5 L D Hct 38.5 L MCV 84.1 L MCH 27 MCHC 32.5 RDW 15.0 Plt Count 284 D MPV 10.0 Neut % (Auto) 76.8 H Lymph % (Auto) 16.0 L [place] % (Auto) 5.9 Eos % (Auto) 0.4 Baso % (Auto) 0.2 Neut # (Auto) 12.6 H Lymph # (Auto) 2.6 [place] # (Auto) 1.0 H Eos # (Auto) 0.1 Baso # (Auto) 0.0 Total Counted 100 Immature Gran % 0.7 Nucleated RBC % 0.0 Immature Gran # 0.11 Segmented Neutrophils 78 Band Neutrophils 1 Lymphocytes 15 L Monocytes 6 Nucleated RBCs # 0.00 Platelet Estimate Normal Microcytosis Slight [place] Cells Slight INR PT Patient/Control Mix Circ Anticoag PTT Sodium 139 Potassium 3.8 Chloride 106 Carbon Dioxide 15 L Anion Gap 21.8 H BUN 45 H Creatinine 2.30 H GFR Calculation 35 BUN/Creatinine Ratio 19.00 Glucose 182 H POC Glucose 203 H Calculated Osmolality 293.5 Calcium 8.0 L Total Bilirubin 0.80 AST 89 H ALT 89 H Alkaline Phosphatase 34 L B-Natriuretic Peptide Total Protein 6.5 Albumin 3.0 L Globulin 3.5 Albumin/Globulin Ratio 0.8 L 03/30/17 03/30/17 03/30/17 08:16 11:27 11:27 WBC RBC Hgb Hct MCV MCH MCHC RDW Plt Count MPV Neut % (Auto) Lymph % (Auto) [place] % (Auto) Eos % (Auto) Baso % (Auto) Neut # (Auto) Lymph # (Auto) [place] # (Auto) Eos # (Auto) Baso # (Auto) Total Counted Immature Gran % Nucleated RBC % Immature Gran # Segmented Neutrophils Band Neutrophils Lymphocytes Monocytes Nucleated RBCs # Platelet Estimate Microcytosis [place]eli Cells INR 1.2 PT Patient/Control Mix 12.3 Circ Anticoag PTT 29.2 Sodium Potassium Chloride Carbon Dioxide Anion Gap BUN Creatinine GFR Calculation BUN/Creatinine Ratio Glucose POC Glucose 225 H Calculated Osmolality Calcium Total Bilirubin AST ALT Alkaline Phosphatase B-Natriuretic Peptide 1026 H Total Protein Albumin Globulin Albumin/Globulin Ratio 03/30/17 12:28 WBC RBC Hgb Hct MCV MCH MCHC RDW Plt Count MPV Neut % (Auto) Lymph % (Auto) [place] % (Auto) Eos % (Auto) Baso % (Auto) Neut # (Auto) Lymph # (Auto) [place] # (Auto) Eos # (Auto) Baso # (Auto) Total Counted Immature Gran % Nucleated RBC % Immature Gran # Segmented Neutrophils Band Neutrophils Lymphocytes Monocytes Nucleated RBCs # Platelet Estimate Microcytosis [place] Cells INR PT Patient/Control Mix Circ Anticoag PTT Sodium Potassium Chloride Carbon Dioxide Anion Gap BUN Creatinine GFR Calculation BUN/Creatinine Ratio Glucose POC Glucose 269 H Calculated Osmolality Calcium Total Bilirubin AST ALT Alkaline Phosphatase B-Natriuretic Peptide Total Protein Albumin Globulin Albumin/Globulin Ratio
--- NOTE | 2017-03-30 08:19 | XRay Report ---
XR chest 1V portable Indication: Shortness of breath Comparison: Chest x-ray dated March 28, 2017 Technique: Single frontal view of the chest Findings: Cardiomediastinal silhouette is stable in configuration. Interval progressed bilateral mid and lower lung opacification suggesting consolidative process such as pulmonary edema or pneumonia. Small bilateral layering pleural fluid probable. Osseous and surrounding soft tissue structures appear grossly unchanged. IMPRESSION: As above. PROCEDURE INTERPRETED AT [facility] DEPARTMENT OF RADIOLOGY Final Report Signed by: Dr Stanley Palacios
[2017-03-30] MEDS: MULTIVITAMIN (CENTRUM) TABLET PO SCH (09:22)
[2017-03-30] MEDS: PANTOPRAZOLE 40 MG TABLET PO SCH (09:23)
[2017-03-30] MEDS: POLYETHYLENE GLYCOL POWDER 17 GM PACK PO SCH (09:23)
[2017-03-30] MEDS: ALLOPURINOL 100 MG TABLET PO SCH (09:23)
[2017-03-30] MEDS: LEVOFLOXACIN INJ 500 MG in PREMIX 1 EACH IV SCH (09:24)
--- NOTE | 2017-03-30 10:19 | Gastrointestinal Progress Note ---
Assessment and Plan (1) Abdominal pain Status: Acute Assessment and plan: 03/30-No reports of abd pain, N/V. Had large BM today. Passing flatus. Plan and addendum to follow by DR Cox. 03/27-Abd pain improved, tolerating diet. No bowel movement at present time. Plan and addendum to follow by Dr Cox. 03/26-reports of constipation worsening over the last several days with several month history of this progressively worsening. Complaints of lower abdominal pain on admission. Abdominal x-ray showing scattered air within small bowel and colon with mild ileus possible. Last C scope in 2014 following rectal bleeding with findings of internal hemorrhoids, felt to be the source of bleeding. Plan an addendum to followed by Dr. Cox. Current Visit: Yes Qualifiers: Abdominal location: generalized Qualified Code(s): R10.84 - Generalized abdominal pain Gastroenterology - PN: Subj Interval history: CC: Abdominal pain Pt is seen awake and alert. States he is feeling a little better today. He is noted over the weekend to have worsening abdominal pain and nausea, vomiting and found to have small bowel obstruction with several distended loops of bowel as well as thickening in the cecum/ascending proximal colon felt to possibly represent a neoplasm. He was moved to CCU and had an NG tube placed at that time and surgery was consulted. He is not improving with having bowel movements and passing flatus. His abdomen is soft, nontender. He has no output noted from his NG. Stools were initially 3+ positive for blood however second specimen noted to be negative. Abdomen is soft, nontender, bowel sounds noted. Nursing staff states pt went into flash pulmonary edema overnight and was diuresed in which he responded well. He is on nonrebreather at this time and oxygen sats are 98%. ROS: Denies SOB or chest pain Exam (Progress Note) - Constitutional Vitals: Period Temp Pulse Resp BP Sys/Chen Pulse Ox Last 24 Hr 97.4 F-98.6 F 68-115 17-41 112-182/50-110 86-96 General appearance: normal weight, no acute distress - Head Head exam: Present: normal inspection, normocephalic - Eye Eye exam: Present: other (lids and conjunctiva unremarkable). Absent: scleral icterus - ENT ENT exam: Present: normal exam, normal oropharynx - Neck Neck exam: Present: normal inspection - Respiratory Respiratory exam: Present: clear to auscultation bilaterally. Absent: rales, rhonchi, wheezes - Cardiovascular Cardiovascular exam: Present: regular rate and rhythm. Absent: diastolic murmur , JVD, systolic murmur - GI/Abdominal GI/Abdominal exam: Present: hypoactive bowel sounds, soft. Absent: ascites, distended, mass, organomegaly, tenderness - Extremities Exam Extremities exam: Present: normal inspection, full ROM - Back Exam Back exam: Present: normal inspection - Neurological Exam Neurological exam: Present: alert, oriented X3 - Psychiatric Psychiatric exam: Present: normal affect, normal mood - Skin Skin exam: Present: normal color, warm, dry Results - Labs CBC & BMP: 03/30/17 04:48 03/30/17 03:48 Lab Results: I have reviewed the past 24 hour labs
--- NOTE | 2017-03-30 10:34 | General Surgery Progress Note ---
Assessment and Plan - Time spent with patient Time spent with patient: Less than 30 minutes (1) Abdominal pain Status: Acute Assessment and plan: 03/30/2017 Abdominal pain with constipation, pain is improving. He is now tolerating regular diet and having bowel movements. Okay to remove NG tube and transfer to floor when he is medically stable however he does seem a bit more short of breath today so it might be leslie to observe in the unit until this is stable. Current Visit: Yes Qualifiers: Abdominal location: generalized Qualified Code(s): R10.84 - Generalized abdominal pain Subjective Patient reports: Present: tolerating a regular diet, shortness of breath Exam - Constitutional Vitals: Period Temp Pulse Resp BP Sys/Chen Pulse Ox Last 24 Hr 97.4 F-98.6 F 68-115 17-41 112-182/50-110 86-96 General appearance: mild distress, other (Patient is sitting up in bed this morning, his nurse is present, assisting with soft diet for breakfast, but he does appear to be short of breath.) - ENT Mouth exam: Present: dry mucosa - Respiratory Respiratory exam: Present: rales, rhonchi - Cardiovascular Cardiovascular exam: Present: RRR - GI/Abdominal GI/Abdominal exam: Present: hypoactive bowel sounds, soft. Absent: distended, tenderness - Neurological Exam Neurological exam: Present: alert (He answers questions with difficulty due to shortness of breath but he does appear to be oriented) Results - Labs CBC & BMP: 03/30/17 04:48 03/30/17 03:48 Lab Results: I have reviewed the past 24 hour labs - Diagnostic Findings Procedure: Chest x-ray: report reviewed by me (No acute changes)
[2017-03-30 11:52] LABS: INR 1.2; PT Patient Result 12.3 SECS; Partial Thromboplastin Time 29.2 SECS (0-40)
--- NOTE | 2017-03-30 11:56 | Nephrology Consult Note ---
History of Present Illness Chief complaint: Renal failure History of present illness: Mr. Joy is a 86 year old male admitted with abdominal pain. He is thought to have a partial small bowel obstruction. He has chronic renal insufficiency with a baseline creatinine approximately 1.6. CT with contrast was done. Creatinine has risen since then. His GI symptoms have improved. However he developed shortness of breath last night. He was given diuretics and his breathing has improved. Home Medications Medication Instructions Recorded Confirmed Type Allopurinol [Allopurinol] 100 mg PO QOTHER DAY 06/27/15 03/26/17 History Aspirin EC Tab 81 mg PO BEDTIME 06/27/15 03/26/17 History Losartan [Cozaar] 25 mg PO QAM 06/27/15 03/26/17 History Multivitamin [Multivitamins] 1 each PO QAM 06/27/15 03/26/17 History cloNIDine TAB [Catapres Tab] 0.3 tablet PO BID 06/27/15 03/26/17 History hydrALAZINE TAB [Apresoline Tab] 100 mg PO TID W/MEALS 06/27/15 03/26/17 History metFORMIN [Glucophage] 500 mg PO DAILY W/SUPPER 06/27/15 03/26/17 History Metformin HCl [Metformin HCl] 750 mg PO DAILY W/BREAKFAST 03/26/17 03/26/17 History NIFEdipine [Nifedical Xl] 60 mg PO BID 03/26/17 03/26/17 History Travoprost 0.004% Oph Soln 1 drop BOTH EYES BEDTIME 03/26/17 03/26/17 History [Travatan Z] Allergies Allergy/AdvReac Type Severity Reaction Status Date / Time No Known Allergies Allergy Unverified 06/27/15 14:29 Medical,Surgical,& Family Hx - Medical History Cardio: History of: Hypertension Neurology: No history of: Seizures HEENT: History of: Eye Problem (cataracts) Endocrine: History of: Diabetes Mellitus (NIDDM) Respiratory: No history of: Lung Cancer Renal: History of: Renal Problems (Chronic renal insufficiency) Genitourinary: History of: Prostate Problems (Past history of prostate cancer. Currently in remission.) Gastrointestinal: History of: GI Problems (constipation) - Surgical History Cardiac Surgeries: Patient Denies: Cardiac Catheterization HEENT Surgeries: Surgical HX of: Tonsilectomy & Adenoidectomy - Family History Family History: Reports;: Family Diabetes (brothers), Family Hypertension Denies;: Family Cancer, Family Heart Disease, Family Psychiatric Problems, Family Stroke - Social History Smoking Status: Never smoker Frequency of Alcohol Use: None Type of Drug Use: None Review of Systems 12 point system: reviewed and no additional remarkable complaints except as stated Exam - Vital Signs Vital signs: Period Temp Pulse Resp BP Sys/Chen Pulse Ox Last 24 Hr 97.3 F-98.6 F 68-115 17-41 112-182/50-110 86-97 Exam: Gen.: Alert and oriented x3. ENT: Pupils equal round reactive to light. EOMs intact. Mucous membranes moist. Neck: Supple. No JVD or bruit. Cardiovascular: Regular rate and rhythm. 2/6 systolic murmur Lungs: Decreased breath sounds in the bases Abdomen: Soft. Nontender. Positive bowel sounds. No organomegaly Extremities: No edema Results - Labs CBC & BMP: 03/30/17 04:48 03/30/17 03:48 Assessment and Plan (1) Chronic kidney disease, stage III (moderate) Status: Acute Assessment and plan: 86-year-old man admitted with: * CRF stage III. Baseline creatinine 1.6 * Acute on chronic renal failure. This is likely due to contrast received with CT scan. Agree with holding ARB and metformin. * Hypertension * Small bowel obstruction. This is improving * Diabetes mellitus * HARRIS. Cardiac cath being considered. He has had no angina. 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
[2017-03-30] MEDS: ENOXAPARIN 40 MG/0.4 ML SYRINGE SUBCUT SCH (12:53)
--- NOTE | 2017-03-30 13:10 | XRay Report ---
XR chest 1V portable Indication: Pulmonary edema Comparison: Chest x-ray dated March 30, 2017 at 3:24 AM Technique: Single frontal view of the chest Findings: Heart size appears upper limits of normal. Interval improved bilateral mid and lower lung consolidation suggesting improved pulmonary edema with moderate amount remaining. There is probable small bilateral pleural fluid. Osseous and surrounding soft tissue structures appear grossly unchanged. IMPRESSION: Moderately improved pulmonary edema. PROCEDURE INTERPRETED AT [facility] DEPARTMENT OF RADIOLOGY Final Report Signed by: Dr Stanley Palacios
[2017-03-30] MEDS ORDERED: ALBUTEROL/IPRATROPIUM 3 ML NEB RESP TX ONE (17:15)
--- NOTE | 2017-03-30 17:35 | Pulmonology Consult Note ---
History of Present Illness Chief complaint: Acute CHF. ARF. Bowel obstruction. Aortic stenosis. Aortic regurgitatio History of present illness: Mr. Joy is a 86 year old black male whom I been asked see in pulmonary consultation for evaluation and treatment. His son and [id number] and several other family members (Annette and William Shaw) are patients of mine. This patient was admitted to the hospital 03/26/2017 with bowel obstruction. Along the way he is developed acute renal failure. He has an echocardiogram that shows aortic stenosis and aortic regurgitation. He has developed acute pulmonary edema. He also seems to get a response to inhaled bronchodilators. There is no history of underlying lung disease. 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 Review of systems the patient's up beat. He was able to eat a little bit earlier today and he had a bowel movement and he says he now feels much better. He also says his breathing is better. The remainder the review of systems is negative Allergies. None Home medicines. See below Hospital medicines. See below Past history. Aortic stenosis. Aortic regurgitation. Diabetes mellitus. High blood pressure. Gout. June 2015s F scope shows significant internal hemorrhoids. Family history. High blood pressure. Diabetes mellitus. Social history. 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 [employer]. Does not use alcohol or tobacco. Chest x-ray. Acute congestive heart failure. Lab. White count is 16,500 with 77 segs 16 lymphs and 6 monos. H&H is 12.5/ 38.5. Platelets are 284,000. Electrolytes are normal. Admit creatinine was 1.3 and is now 2.3. BUNs 45. There is a mild elevation of transaminases with normal alkaline Sarah and normal total bilirubin. Natruretic peptide on 2016 was 373. Is now 1026. TSH is normal. Labs been reviewed. Medicines been reviewed. Echocardiogram. Moderate aortic stenosis. Mild aortic regurgitation. Left ventricular hypertrophy. Diastolic dysfunction. Ejection fraction 50% Physical exam. General. Patient developed acute respiratory distress while I was in his room. He had a cough productive of pink frothy sputum. Vital signs. See below Psychiatric oriented 3. Mentation is normal. Neurologic. Cranial nerves are intact long track motor functions intact Face is symmetrical with no unusual edema. Neck. Symmetrical no meningismus. Lymphatics. No submandibular cervical supraclavicular adenopathy. Chest generalized rales. Heart. Lateral PMI Abdomen. A few bowel sounds. Lower extremities. Mild bilateral tenderness of the calves with pressure Skin of the face and hands show no cancerous infectious lesions no other areas of skin were examined The remainder physical exam is negative. Impression. 1. Acute congestive heart failure 2. Moderate aortic stenosis with left ventricular hypertrophy and mild aortic regurgitation 3. Acute renal failure 4. Recent bilateral obstruction with associated nausea and vomiting. Watch for aspiration injury 5. History of internal hemorrhoids 6. Diabetes mellitus 7. History of high blood pressure Plan. 1. Given the patient 40 Lasix IV push stat. 2. Presence of renal failure decrease Levaquin dose. 3. The presence of renal failure stop losartan. 4. Doppler venograms of the lower extremities. 5. Follow-up chest x-ray, BMP, BNP 6. See orders 7. Inhalation therapy with DuoNeb 4 times daily and as needed Home Medications Medication Instructions Recorded Confirmed Type Allopurinol [Allopurinol] 100 mg PO QOTHER DAY 06/27/15 03/26/17 History Aspirin EC Tab 81 mg PO BEDTIME 06/27/15 03/26/17 History Losartan [Cozaar] 25 mg PO QAM 06/27/15 03/26/17 History Multivitamin [Multivitamins] 1 each PO QAM 06/27/15 03/26/17 History cloNIDine TAB [Catapres Tab] 0.3 tablet PO BID 06/27/15 03/26/17 History hydrALAZINE TAB [Apresoline Tab] 100 mg PO TID W/MEALS 06/27/15 03/26/17 History metFORMIN [Glucophage] 500 mg PO DAILY W/SUPPER 06/27/15 03/26/17 History Metformin HCl [Metformin HCl] 750 mg PO DAILY W/BREAKFAST 03/26/17 03/26/17 History NIFEdipine [Nifedical Xl] 60 mg PO BID 03/26/17 03/26/17 History Travoprost 0.004% Oph Soln 1 drop BOTH EYES BEDTIME 03/26/17 03/26/17 History [Travatan Z] Allergies Allergy/AdvReac Type Severity Reaction Status Date / Time No Known Allergies Allergy Unverified 06/27/15 14:29 Exam (Pulmonay) H&P - Constitutional Vitals: Period Temp Pulse Resp BP Sys/Chen Pulse Ox Last 24 Hr 97.3 F-98.7 F 69-115 14-41 122-182/46-110 86-97 Medical,Surgical,& Family Hx - Medical History Cardio: History of: Hypertension Neurology: No history of: Seizures HEENT: History of: Eye Problem (cataracts) Endocrine: History of: Diabetes Mellitus (NIDDM) Respiratory: No history of: Lung Cancer Renal: History of: Renal Problems (Chronic renal insufficiency) Genitourinary: History of: Prostate Problems (Past history of prostate cancer. Currently in remission.) Gastrointestinal: History of: GI Problems (constipation) - Surgical History Cardiac Surgeries: Patient Denies: Cardiac Catheterization HEENT Surgeries: Surgical HX of: Tonsilectomy & Adenoidectomy - Family History Family History: Reports;: Family Diabetes (brothers), Family Hypertension Denies;: Family Cancer, Family Heart Disease, Family Psychiatric Problems, Family Stroke - Social History Smoking Status: Never smoker Frequency of Alcohol Use: None Type of Drug Use: None Results - Labs CBC & BMP: 03/30/17 04:48 03/30/17 03:48
[2017-03-30] MEDS ORDERED: SUCCINYLCHOLINE 200 MG/10 ML VIAL ONE (18:07)
[2017-03-30] MEDS ORDERED: ETOMIDATE 20 MG/10 ML VIAL IV ONE (18:07)
[2017-03-30 18:39] LABS: Allen Test Positive; Pt O2 Delivery Device Ventilator
[2017-03-30 18:40] LABS: ABG Base Excess -8.5 MMOL/L (-2.5-2.5); ABG HCO3 17.6 MMOL/L (20-26); ABG Oxygen Saturation 95.6 % (95-100); ABG PCO2 46.2 MM HG (35-48); ABG PH 7.228 (7.35-7.45); ABG PO2 99.4 MM HG (80-95); ABG TCO2 17.4 MMOL/L (23-27)
--- NOTE | 2017-03-30 18:53 | Anesthesia Procedures ---
Anesthesia Procedures - Intubation Time out performed intubation: Yes (18:20) Sedative: Etomidate Mg given sedative: 12 (Lidocaine 70 mg IV was given 2 minutes before Etomidate administration.) Paralytic: Succinylcholine Mg given paralytic: 80 Laryngoscope: Jimmy ET Tube Size: 8 ET Tube Uncuffed: No (Cuffed ETT) Tube Secured Location: lips Tube Placement Confirmation: visualized tube passing through cords, equal breath sounds bilaterally, no breath sounds over epigastrium, confirmation by capnometry, confirmation detector color change Patient tolerated procedure intubation: well Intubation Complications: none (DL X 1, patient was intubated at 18:20.)
[2017-03-30] MEDS: PROPOFOL 1,000 MG/100 ML BOTTLE IV SCH ×2 (18:58→21:22)
--- NOTE | 2017-03-30 19:05 | XRay Report ---
Referring Physician: Mendoza Callahan Exam: XR chest 1V portable Date: March 30, 2017 at 5:29 PM Reason: Pulmonary edema Comparison: Chest one view portable March 30, 2017 at 11:32 AM Findings: A feeding tube is partially visualized. The cardiac silhouette is again enlarged, and there is prominent scattered calcified plaque at the thoracic aorta. There are diffuse hazy opacities within both lungs, most prominent at the lower lung zones. This is concerning for pulmonary edema and atelectasis, but superimposed pneumonia is not excluded. No pneumothorax is identified. The osseous structures appear stable. Impression: There has been no significant change. PROCEDURE INTERPRETED AT [facility] DEPARTMENT OF RADIOLOGY Final Report Signed by: Dr. June Barber
--- NOTE | 2017-03-30 19:09 | Family Practice Progress Note ---
Family Practice - PN: Subj Interval history: Patient has had a progressive decline in respiratory effort this p.m.. He has become progressively weaker and more dyspneic as afternoon progressed. He had diuresed well earlier today but slowly declined throughout the day. BNP this p.m. was 1026. I ask pulmonary to see the patient as there are multiple factors involved with his respiratory decline. While Dr. Rosales was evaluating the patient, he developed respiratory distress requiring intubation. Presently on mechanical ventilator. Feels that he is underlying etiology is volume overload secondary to congestive heart failure. Presently tolerating respirator. I have reviewed lab and other studies. I have discussed with Dr. Rosales and with family members. Unless patient had some other acute event, I would expect him to do well as he diuresis. Will obtain cardiac enzymes and EKGs to rule out the possibility of an ischemic event. His abdominal complaints had improved. There is still an issue of thickening in the cecum and proximal colon which radiology felt had signs suggestive of carcinoma. This will need to be evaluated further when patient improves. He has aortic stenosis and regurgitation on echo. Will difer further evaluation of this to cardiology. Exam (Progress Note) - Constitutional Vitals: Period Temp Pulse Resp BP Sys/Chen Pulse Ox Last 24 Hr 97.3 F-98.7 F 69-115 14-41 122-182/46-110 86-97 Results - Labs CBC & BMP: 03/30/17 04:48 03/30/17 03:48 Assessment and Plan (1) Abdominal pain Status: Acute Assessment and plan: Patient awoke with severe lower abdominal pain. The pain is improved since admission. He is having some intermittent abdominal pain. He is also had progressive problems with constipation. Will order additional studies. Current Visit: Yes Qualifiers: Abdominal location: generalized Qualified Code(s): R10.84 - Generalized abdominal pain (2) Exertional dyspnea Status: Chronic Assessment and plan: Dyspnea has progressively gotten worse. Patient unable to do minimal activity without severe dyspnea. Will consult cardiology and evaluate further Current Visit: Yes (3) hypertension Status: Chronic Assessment and plan: We will resume home medications and monitor closely Current Visit: No (4) Cardiac murmur Status: Chronic Assessment and plan: We will evaluate murmur with echo. Current Visit: Yes (5) renal insufficiency Status: Chronic Assessment and plan: Patient is followed by Dr. Henrique Meeks. Mental status has been stable Current Visit: No (6) type 2 diabetes mellitus Status: Chronic Assessment and plan: Blood sugars have been adequately controlled at home. 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
--- NOTE | 2017-03-30 19:11 | XRay Report ---
Referring Physician: Madhav Rosales Exam: XR chest 1V portable Date: March 30, 2017 at 6:22 PM Reason: Endotracheal tube placement Comparison: Chest one view portable March 30, 2017 at 5:29 PM Findings: There has been interval placement of an endotracheal tube. Its distal tip is located at the level of the aortic arch, projecting 3.5 cm above the harjit. A feeding tube is again partially visualized. There is cardiomegaly. There are also diffuse hazy opacities within both lungs, most prominent within the lower lung zones. This is concerning for pulmonary edema and atelectasis, but pneumonia is not excluded. Mild bilateral pleural fluid is also suspected. No pneumothorax is identified. The osseous structures appear stable. Impression: 1. There has been interval placement of an endotracheal tube as above. 2. Persistent opacities within both lungs. Mild bilateral pleural fluid is also suspected. PROCEDURE INTERPRETED AT [facility] DEPARTMENT OF RADIOLOGY Final Report Signed by: Dr. June Barber
[2017-03-30] MEDS: ALBUTEROL/IPRATROPIUM 3 ML NEB RESP TX SCH (19:30)
[2017-03-30] MEDS: LORazepam 2 MG/1 ML VIAL IV PRN (20:14)
[2017-03-30] MEDS: ASPIRIN EC 81 MG TABLET PO SCH (20:17)
--- NOTE | 2017-03-30 22:28 | Ultrasound Report ---
Referring physician: Gene Dougherty Exam: Bilateral lower extremity venous ultrasound Date: March 30, 2017 Comparison: None Reason: Leg pain, evaluate for DVT Technique: Duplex scan of the bilateral lower extremity veins was performed using B-Mode/grayscale imaging, compression, Doppler spectral analysis and color flow. Ultrasound images were captured and stored. Findings: There is no evidence of thrombus within the left or right common femoral veins, saphenous veins, superficial femoral veins or popliteal veins. Normal compression and augmentation are present throughout. Normal color flow and spectral analysis are observed. Impression: No evidence of deep venous thrombosis within either lower extremity. PROCEDURE INTERPRETED AT [facility] DEPARTMENT OF RADIOLOGY Final Report Signed by: Dr. June Barber
[2017-03-31] MEDS: LORazepam 2 MG/1 ML VIAL IV PRN (00:09)
[2017-03-31] MEDS: NITROGLYCERIN 2% OINT 1 INCH/GM PACK TOP SCH ×5 (00:10→23:57)
[2017-03-31] MEDS: ALBUTEROL/IPRATROPIUM 3 ML NEB RESP TX SCH ×4 (00:53→18:54)
[2017-03-31] MEDS: ALUMINUM/MAGNES/SIMETH MAX STR 30 ML UDCUP PO SCH ×4 (02:31→21:08)
[2017-03-31] MEDS: metroNIDAZOLE INJ 500 MG in PREMIX 1 EACH IV SCH ×4 (02:31→21:06)
[2017-03-31 02:47] LABS: Allen Test Positive; Pt O2 Delivery Device Ventilator
[2017-03-31 02:48] LABS: ABG Base Excess -4.2 MMOL/L (-2.5-2.5); ABG PCO2 29.2 MM HG (35-48); ABG PH 7.427 (7.35-7.45); ABG TCO2 17.4 MMOL/L (23-27)
[2017-03-31] MEDS: INSULIN LISPRO 100 UNIT/ML SUBCUT SCH ×5 (03:28→23:57)
[2017-03-31] MEDS: PIPERACILLIN/TAZOBACTAM 3,375 MG in SODIUM CHLORIDE 0.9% 100 ML IV SCH ×3 (03:29→21:07)
[2017-03-31] MEDS: PROPOFOL 1,000 MG/100 ML BOTTLE IV SCH ×5 (04:36→22:16)
[2017-03-31 05:47] LABS: Basophils % 0.1 % (0.0-0.8); Eosinophils % 0.1 % (0.00-10.9); Hematocrit 28.7 VOL% (42.0-52.0); Hemoglobin 9.3 GM/DL (14.0-18.0); Immature Granulocytes % 0.6 %; Immature Granulocytes Absolute 0.05 #; Lymphocytes # 1.3 10*3/uL (1.4-4.0); Lymphocytes % 15.2 % (21.2-54.2); Mean Corpuscular HGB Conc 32.4 GM/DL (32-36); Mean Corpuscular Hemoglobin 27 PG (27-34); Mean Corpuscular Volume 83.4 FL (87-102); Mean Platelet Volume 9.9 FL (9.6-12.0); Monocytes # 0.8 10*3/uL (0.11-0.8); Neutrophils # 6.3 10*3/uL (1.4-7.4); Platelet Count 188 T/CUMM (130-400); Red Blood Count 3.44 MC/CUMM (3.8-5.5); Red Cell Distribution Width 14.9 % (9.3-17.3); White Blood Count 8.3 T/CUMM (4-12)
[2017-03-31 06:22] LABS: Albumin 2.4 G/DL (3.4-5.0); Bilirubin,Total 1.1 MG/DL (0.2-1.0); Calcium 7.3 MG/DL (8.5-10.1); Magnesium 2.9 MG/DL (1.8-2.4); Osmolality,Calculated 296.3 MOS/KG (273-304); Potassium 3.6 MMOL/L (3.5-5.1)
[2017-03-31 07:15] LABS: Allen Test Positive; Pt O2 Delivery Device Ventilator
[2017-03-31 07:16] LABS: ABG Base Excess -4.1 MMOL/L (-2.5-2.5); ABG PCO2 29.6 MM HG (35-48); ABG PH 7.425 (7.35-7.45); ABG TCO2 17.7 MMOL/L (23-27)
--- NOTE | 2017-03-31 07:37 | Cardiology Progress Note ---
Assessment and Plan (1) Aortic stenosis Status: Chronic Assessment and plan: This is chronic and moderate in degree. It may be contributing to some of his respiratory issues but typically should not Current Visit: Yes (2) Cardiac murmur Status: Chronic Assessment and plan: Secondary to his aortic valve stenosis. Current Visit: Yes (3) Lower gastrointestinal hemorrhage Status: Acute Assessment and plan: His H&H is decreased his morning Current Visit: No (4) renal insufficiency Status: Chronic Assessment and plan: This is chronic and he may have an acute component to this with his events. Current Visit: No (5) type 2 diabetes mellitus Status: Chronic Assessment and plan: This is being managed by the primary service. Current Visit: No (6) Elevated troponin Status: Acute Assessment and plan: This is elevated some on admission. On the repeat his cardiac enzymes with his acute pulmonary failure. His may be elevated secondary to this though. Current Visit: Yes (7) Chronic kidney disease, stage III (moderate) Status: Acute Assessment and plan: This is probably a chronic issue may be exacerbated because of his present illness. Current Visit: Yes (8) Respiratory failure Status: Acute Assessment and plan: This is probably secondary to congestive heart failure volume overload. The patient has had increased volume on the last few days. Yesterday was negative volume after 2 doses of Lasix. Chest x-ray looks much better today. Pulmonary medicine is following the patient for this. Current Visit: Yes (9) Congestive heart failure Status: Acute Assessment and plan: His prostate volume overload. Certainly he is aortic valve stenosis which is moderately be contributing to some degree. The patient though had received large amounts of volume Thursday and Thursday. Current Visit: Yes Cardiology - PN: Subj Interval history: Patient this morning is intubated. Chart reviewed apparently yesterday he became progressive short of breath with once again some congestive heart failure on chest x-ray. He required intubation and is presently on the ventilator. His chest x-ray looks better today. He did have some negative fluid balance yesterday. He was given some more Lasix. His arterial blood gas today are stable. His chemistries are fairly stable. His creatinine has increased to 2.4 and his BUN 47. Nephrology is following. His cardiac issues been stable with a echocardiogram previously reveal ejection fraction 50% but with moderate aortic valve stenosis which clinically and by Doppler should not be severe enough to be causing pulmonary edema. He was negative fluid balance yesterday as noted but prior to that he was markedly increased possible fluid balance. His BNP is 1004 and 81. Certain his episodes of poor edema may be multifactorial. He has had a history coronary disease. We'll recheck his cardiac enzymes. His chest x-ray has improved but if we continue to have problems consideration for repeat echocardiogram to make sure no acute changes have developed. Overall this morning he appears to be stable. His rhythm remained stable in sinus rhythm. Exam (Progress Note) - Constitutional Vitals: Period Temp Pulse Resp BP Sys/Chen Pulse Ox Last 24 Hr 97.3 F-98.9 F 65-106 12-34 81-154/37-72 87-100 Exam: General appearance: Patient is sedated at this time on ventilator and propofol. HEENT exam: Orally intubated Neck exam: normal inspection no JVD. No carotid bruit. Trachea is in midline Respiratory/lungs exam: clear and quiet to auscultation anteriorly/bilaterally with good air movement. Cardiovascular exam: regular rate and rhythm with 2/6 systolic murmur consistent with aortic valve stenosis. No precordial lift. Chest wall exam: No deformities GI/Abdominal exam: Flat, nondistended, bowel sounds present.. Extremeties/musculoskeletal: No edema. Neurological exam: Sedated on propofol Psychiatric exam: Sedated on propofol. Skin exam: warm Result/EKG - Labs CBC & BMP: 03/31/17 05:09 03/31/17 05:09 Lab Results: I have reviewed the past 24 hour labs (the patient's H&H has decreased compared to yesterday. Albumin is decreased at 2.4, creatinine BUN of increased some. Potassium and magnesium Oertli is within normal limits and magnesium level high.) Labs: Laboratory Results - last 24 hr 03/30/17 03/30/17 03/30/17 04:46 08:16 11:27 WBC RBC Hgb Hct MCV MCH MCHC RDW Plt Count MPV Neut % (Auto) Lymph % (Auto) [place] % (Auto) Eos % (Auto) Baso % (Auto) Neut # (Auto) Lymph # (Auto) [place] # (Auto) Eos # (Auto) Baso # (Auto) Immature Gran % Nucleated RBC % Immature Gran # Nucleated RBCs # INR 1.2 PT Patient/Control Mix 12.3 Circ Anticoag PTT 29.2 ABG pH ABG pCO2 ABG pO2 ABG HCO3 ABG Total CO2 ABG O2 Saturation ABG Base Excess FiO2 Sodium Potassium Chloride Carbon Dioxide Anion Gap BUN Creatinine GFR Calculation BUN/Creatinine Ratio Glucose POC Glucose 225 H Calculated Osmolality Uric Acid 6.6 Calcium Magnesium Total Bilirubin AST ALT Alkaline Phosphatase B-Natriuretic Peptide Total Protein Albumin Globulin Albumin/Globulin Ratio 03/30/17 03/30/17 03/30/17 11:27 12:28 16:35 WBC RBC Hgb Hct MCV MCH MCHC RDW Plt Count MPV Neut % (Auto) Lymph % (Auto) [place] % (Auto) Eos % (Auto) Baso % (Auto) Neut # (Auto) Lymph # (Auto) [place] # (Auto) Eos # (Auto) Baso # (Auto) Immature Gran % Nucleated RBC % Immature Gran # Nucleated RBCs # INR PT Patient/Control Mix Circ Anticoag PTT ABG pH ABG pCO2 ABG pO2 ABG HCO3 ABG Total CO2 ABG O2 Saturation ABG Base Excess FiO2 Sodium Potassium Chloride Carbon Dioxide Anion Gap BUN Creatinine GFR Calculation BUN/Creatinine Ratio Glucose POC Glucose 269 H 281 H Calculated Osmolality Uric Acid Calcium Magnesium Total Bilirubin AST ALT Alkaline Phosphatase B-Natriuretic Peptide 1026 H Total Protein Albumin Globulin Albumin/Globulin Ratio 03/30/17 03/30/17 03/30/17 18:36 19:28 23:04 WBC RBC Hgb Hct MCV MCH MCHC RDW Plt Count MPV Neut % (Auto) Lymph % (Auto) [place] % (Auto) Eos % (Auto) Baso % (Auto) Neut # (Auto) Lymph # (Auto) [place] # (Auto) Eos # (Auto) Baso # (Auto) Immature Gran % Nucleated RBC % Immature Gran # Nucleated RBCs # INR PT Patient/Control Mix Circ Anticoag PTT ABG pH 7.228 L ABG pCO2 46.2 ABG pO2 99.4 H ABG HCO3 17.6 L ABG Total CO2 17.4 L ABG O2 Saturation 95.6 ABG Base Excess -8.5 L FiO2 100.00 Sodium Potassium Chloride Carbon Dioxide Anion Gap BUN Creatinine GFR Calculation BUN/Creatinine Ratio Glucose POC Glucose 268 H 205 H Calculated Osmolality Uric Acid Calcium Magnesium Total Bilirubin AST ALT Alkaline Phosphatase B-Natriuretic Peptide Total Protein Albumin Globulin Albumin/Globulin Ratio 03/31/17 03/31/17 03/31/17 02:35 03:25 05:09 WBC 8.3 D RBC 3.44 L D Hgb 9.3 L D Hct 28.7 L MCV 83.4 L MCH 27 MCHC 32.4 RDW 14.9 Plt Count 188 D MPV 9.9 Neut % (Auto) 75.0 H Lymph % (Auto) 15.2 L [place] % (Auto) 9.0 Eos % (Auto) 0.1 Baso % (Auto) 0.1 Neut # (Auto) 6.3 Lymph # (Auto) 1.3 L [place] # (Auto) 0.8 Eos # (Auto) 0.0 Baso # (Auto) 0.0 Immature Gran % 0.6 Nucleated RBC % 0.0 Immature Gran # 0.05 Nucleated RBCs # 0.00 INR PT Patient/Control Mix Circ Anticoag PTT ABG pH 7.427 ABG pCO2 29.2 L ABG pO2 142.0 H ABG HCO3 21.0 ABG Total CO2 17.4 L ABG O2 Saturation 99.0 ABG Base Excess -4.2 L FiO2 100.00 Sodium Potassium Chloride Carbon Dioxide Anion Gap BUN Creatinine GFR Calculation BUN/Creatinine Ratio Glucose POC Glucose 154 H Calculated Osmolality Uric Acid Calcium Magnesium Total Bilirubin AST ALT Alkaline Phosphatase B-Natriuretic Peptide Total Protein Albumin Globulin Albumin/Globulin Ratio 03/31/17 03/31/17 03/31/17 05:09 05:09 07:10 WBC RBC Hgb Hct MCV MCH MCHC RDW Plt Count MPV Neut % (Auto) Lymph % (Auto) [place] % (Auto) Eos % (Auto) Baso % (Auto) Neut # (Auto) Lymph # (Auto) [place] # (Auto) Eos # (Auto) Baso # (Auto) Immature Gran % Nucleated RBC % Immature Gran # Nucleated RBCs # INR PT Patient/Control Mix Circ Anticoag PTT ABG pH 7.425 ABG pCO2 29.6 L ABG pO2 243.0 H ABG HCO3 21.0 ABG Total CO2 17.7 L ABG O2 Saturation 100.0 ABG Base Excess -4.1 L FiO2 100.00 Sodium 141 Potassium 3.6 Chloride 109 H Carbon Dioxide 19 L Anion Gap 16.6 H BUN 47 H Creatinine 2.40 H GFR Calculation 34 BUN/Creatinine Ratio 19.00 Glucose 169 H POC Glucose Calculated Osmolality 296.3 Uric Acid Calcium 7.3 L Magnesium 2.9 H Total Bilirubin 1.10 H AST 126 H ALT 72 H Alkaline Phosphatase 22 L B-Natriuretic Peptide 1481 H Total Protein 5.0 L Albumin 2.4 L Globulin 2.6 Albumin/Globulin Ratio 0.9 L - Impressions Impressions: Telemetry was sinus rhythm.
--- NOTE | 2017-03-31 07:38 | XRay Report ---
XR chest 1V portable Indication: Ventilator Comparison: Chest x-ray dated March 2017 Technique: Single frontal view of the chest Findings: Endotracheal tube stable in positioning. Cardiomediastinal silhouette appears grossly unchanged. Interval improved atelectasis/consolidation within the bilateral mid and lower lungs with mild residual remaining. Question small bilateral pleural fluid. Osseous and surrounding soft tissue structures appear grossly unchanged. IMPRESSION: Interval improved atelectasis/consolidation within the bilateral mid and lower lungs with mild residual remaining. Question small bilateral pleural fluid. PROCEDURE INTERPRETED AT [facility] DEPARTMENT OF RADIOLOGY Final Report Signed by: Dr Stanley Palacios
--- NOTE | 2017-03-31 08:07 | Family Practice Progress Note ---
Family Practice - PN: Subj Interval history: Patient is stable this a.m. Staff report no acute changes noted. His a.m. labs are stable. I have ordered repeat isoenzymes. His a.m. chest x-ray is improved. Appreciate cardiology's comments from this a.m.. His lung mccollum are essentially clear to auscultation this a.m.. Hopefully he will continue to improve. Will have GI address the questionable mass in the sacral region once he is improved. We will plan to continue present treatment plan Exam (Progress Note) - Constitutional Vitals: Period Temp Pulse Resp BP Sys/Chen Pulse Ox Last 24 Hr 98.3 F-98.9 F 65-106 12-34 81-147/37-72 87-100 Results - Labs CBC & BMP: 03/31/17 05:09 03/31/17 05:09 Assessment and Plan (1) Abdominal pain Status: Acute Assessment and plan: Patient awoke with severe lower abdominal pain. The pain is improved since admission. He is having some intermittent abdominal pain. He is also had progressive problems with constipation. Will order additional studies. Current Visit: Yes Qualifiers: Abdominal location: generalized Qualified Code(s): R10.84 - Generalized abdominal pain (2) Exertional dyspnea Status: Chronic Assessment and plan: Dyspnea has progressively gotten worse. Patient unable to do minimal activity without severe dyspnea. Will consult cardiology and evaluate further Current Visit: Yes (3) hypertension Status: Chronic Assessment and plan: We will resume home medications and monitor closely Current Visit: No (4) Cardiac murmur Status: Chronic Assessment and plan: We will evaluate murmur with echo. Current Visit: Yes (5) renal insufficiency Status: Chronic Assessment and plan: Patient is followed by Dr. Henrique Meeks. Mental status has been stable Current Visit: No (6) type 2 diabetes mellitus Status: Chronic Assessment and plan: Blood sugars have been adequately controlled at home. 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
[2017-03-31] MEDS: MULTIVITAMIN (CENTRUM) TABLET PO SCH (08:41)
[2017-03-31] MEDS: POLYETHYLENE GLYCOL POWDER 17 GM PACK PO SCH (08:41)
[2017-03-31] MEDS: LEVOFLOXACIN INJ 250 MG in PREMIX 1 EACH IV SCH (08:42)
[2017-03-31] MEDS: PANTOPRAZOLE 40 MG TABLET PO SCH (08:43)
[2017-03-31 08:56] LABS: CKMB % 1.2 %
[2017-03-31 08:58] LABS: Troponin I Only 26.6 NG/ML (0.00-0.045)
--- NOTE | 2017-03-31 09:38 | Event Note ---
The patient's cardiac enzymes have returned with a CPK of 1046 and a troponin of 26.6. Certainly this would indicate ischemic event. I think he will probably need heart catheterization at some point. With his GI bleeding though we have issues now in regard to treat him. He has a history apparently of coronary artery disease and is on aspirin. He is already on Nitro-Bid. He is on Procardia. I'm reluctant to put on full anticoagulation. I discussed the situation with Dr. Gene Dougherty is primary care physician and attending.
--- NOTE | 2017-03-31 10:36 | Pulmonology Progress Note ---
Pulmonary - PN: Subj Interval history: This 86-year-old black male whom I saw in pulmonary consultation on the night of 03/30/2017. His son, [id number], daughter and son-in-law are patients of mine. My impressions were. 1. Acute congestive heart failure 2. Moderate aortic stenosis with left ventricular hypertrophy and mild aortic regurgitation 3. Acute renal failure 4. Recent bilateral obstruction with associated nausea and vomiting. Watch for aspiration injury 5. History of internal hemorrhoids 6. Diabetes mellitus 7. History of high blood pressure 03/31/2017. Last night after I saw the patient, while I was still in CCU and ICU -- he suddenly deteriorated. Attempts were made to diurese him additionally and this was of no help even though his chest x-ray looked better. Patient felt like he was going to . It was elected to intubate him after discussion with the patient who is readily agreeable and discussion with the family whom were readily agreeable. Patient stabilized with mechanical ventilation. Today' s chest x-ray still shows pulmonary edema but it is better. ABGs on FiO2 of 100 % and a PEEP of 5 show a pH 7.42, PCO2 29.6 and a PO2 of 243 with a bicarb of 21. CPK is elevated at 1946. MB band is elevated 22.4%. Troponins are elevated at 26.600. Natruretic peptide is elevated 1481. Creatinine is increased to 2.40 with a BUN of 47. Electrolytes are normal. White count is 8300 with 75 segs, 15 lymphs and 9 monos. H&H is dropped to 9.2/28.7. Patient has iron deficiency. Note that on the CT scan of his abdomen there is an abnormality in the cecal area that could be a colon cancer. See report. I have talked to the family about what I think the present diagnoses are including acute myocardial infarction, acute congestive heart failure, acute respiratory failure secondary to congestive heart failure, acute on chronic renal failure. We have gone through the patient's history one more time. Even though he had acute nausea and vomiting everyone involved says he did not aspirate. Labs been reviewed. Medicines have been reviewed. Doppler venograms of the lower extremities. No evidence of deep venous Physical exam. Vital signs. See below Psychiatric/neurological. Patient sedated. He moves all 4 extremities. Face. Symmetrical. Lips and tongue appear to be normal Neck. Symmetrical. No masses. Lymphatics. No submandibular cervical supraclavicular or epitrochlear adenopathy. Chest. Rales Heart. Lateral PMI Abdomen. Nondistended. Rare bowel sounds. NG tube with suction is in place. Extremities. Nothing to suggest deep venous thrombophlebitis. The remainder of the physical exam is negative. Plan. 03/30/2017 1. Given the patient 40 Lasix IV push stat. 2. Presence of renal failure decrease Levaquin dose. 3. The presence of renal failure stop losartan. 4. Doppler venograms of the lower extremities. 5. Follow-up chest x-ray, BMP, BNP 6. See orders 7. Inhalation therapy with DuoNeb 4 times daily and as needed 8. 03/31/2017. Ventilator protocol. See today's note above. As per renal. As per cardiology Exam (Progress Note) - Constitutional Vitals: Period Temp Pulse Resp BP Sys/Chen Pulse Ox Last 24 Hr 98.3 F-98.9 F 65-106 12-34 81-139/37-61 87-100 Results - Labs CBC & BMP: 03/31/17 05:09 03/31/17 05:09
--- NOTE | 2017-03-31 10:49 | Event Note ---
Have discussed the family patient's situation of having a myocardial infarction and if this myocardial infarction probably related to his flash pulmonary edema. Also discussed that he may be a cart catheterization but some issues in regard to his GI bleeding. He had had heme-positive stools previously that had a negative gastric sample. We need another guaiac stool. We will need to try to determine with GI and surgery whether or not this patient has underlying: Pathology that would place him at high risk for bleeding on dual antiplatelet therapy in D if he has catheterization intervention. The other question will be whether or not he has a GI issue that may require further evaluation with colonoscopy and or surgery. This time will continue present therapy but will hold any for anticoagulation secondary to his recent GI bleed and the possibility of further bleeding on anticoagulation. His hematocrit did decrease some today. Again I discussed this with the family.
[2017-03-31 11:25] LABS: Folate > 24.0 NG/ML (5.4-24.0); Vitamin B12 1593 PG/ML (211-911)
--- NOTE | 2017-03-31 11:31 | General Surgery Progress Note ---
Assessment and Plan (1) Abdominal pain Status: Acute Assessment and plan: Impression: Abdominal pain with constipation etiology unclear. Plan: IV fluids and IV antibiotics and I repeat CT scan with contrast. At present physical examination do not see any strong indication for surgery 03/29/2017. Patient is afebrile he is not complaining of any abdominal discomfort at this time. He may have had a small bowel movement with the enema from yesterday. His abdomen is mildly distended hypoactive bowel sounds no unusual tenderness or guarding it remains safe soft at this time.. His labs look in good shape at this time hematocrit is 29 his creatinine is up a little bit at 2.10. Running his fluids count of placed kidneys as best we can at this point time will just do close observation of this monitor closely. At this point does not seem to be any major intra-abdominal problem other than constipation. Will try to work on that slowly and see if we can get that improved. 03/31/2017. Patient was eating yesterday and had good bowel sounds but he went in some respiratory failure and had to be intubated last night. The abdomen is quiet today soft with nondistention at this point. At this point abdomen looks stable at this point I would probably favor the possibility of considering some nutrition either with a PICC line and central hyperalimentation. Certainly if his bowels are fairly active tomorrow I would probably favor tube feedings. Current Visit: Yes Qualifiers: Abdominal location: generalized Qualified Code(s): R10.84 - Generalized abdominal pain Subjective Patient reports: Present: no new complaints, no bowel movement, other (On the ventilator now for respiratory failure) Exam - Constitutional Vitals: Period Temp Pulse Resp BP Sys/Chen Pulse Ox Last 24 Hr 98.3 F-98.9 F 65-106 12-34 81-134/37-61 87-100 General appearance: mild distress - Head Head exam: Present: normal inspection - ENT ENT exam: Present: normal exam - Neck Neck exam: Present: normal inspection - Respiratory Respiratory exam: Present: rales, rhonchi - Cardiovascular Cardiovascular exam: Present: RRR - GI/Abdominal GI/Abdominal exam: Present: hypoactive bowel sounds, soft - Extremities Exam Extremities exam: Present: normal inspection - Back Exam Back exam: Present: normal inspection - Neurological Exam Neurological exam: Present: alert, oriented X3, CN II-XII intact - Skin Skin exam: Present: normal color, warm, dry Results - Labs CBC & BMP: 03/31/17 05:09 03/31/17 05:09 Lab Results: I have reviewed the past 24 hour labs
[2017-03-31 11:34] LABS: CKMB % 1.1 %
[2017-03-31 11:36] LABS: Troponin I Only 21.5 NG/ML (0.00-0.045)
--- NOTE | 2017-03-31 12:01 | EKG Report ---
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
--- NOTE | 2017-03-31 12:10 | Gastrointestinal Progress Note ---
Assessment and Plan (1) Abdominal pain Status: Acute Assessment and plan: 03/31-sedated, on vent. Hypoactive bowel sounds. NG tube clamped. Surgery contemplating hyperalimentation versus tube feeding at present time. CT scan results reviewed and discussed with Dr. Cox. Plan an addendum to followed by Dr. Cox. 03/30-No reports of abd pain, N/V. Had large BM today. Passing flatus. Plan and addendum to follow by DR Cox. 03/27-Abd pain improved, tolerating diet. No bowel movement at present time. Plan and addendum to follow by Dr Cox. 03/26-reports of constipation worsening over the last several days with several month history of this progressively worsening. Complaints of lower abdominal pain on admission. Abdominal x-ray showing scattered air within small bowel and colon with mild ileus possible. Last C scope in 2014 following rectal bleeding with findings of internal hemorrhoids, felt to be the source of bleeding. Plan an addendum to followed by Dr. Cox. Current Visit: Yes Qualifiers: Abdominal location: generalized Qualified Code(s): R10.84 - Generalized abdominal pain Gastroenterology - PN: Subj Interval history: CC: Abdominal pain Patient is seen, sedated, on the vent. Nursing staff at bedside. She does not report any overt bleeding other than some trace blood noted in his ET tube suctioning. No reported bleeding rectally or from his NG tube at present time. Patient is noted overnight to also have had an elevation in his troponin levels and cardiology is following at this time. According to nursing staff, cardiology is holding off at present time on heart catheterization due to potential need for anticoagulants however in light of patient's questionable GI bleeding this is being tentatively postponed at present time. Hemoglobin is noted to have dropped from 12.5 yesterday to 9.3 today however patient noted on Thursday to have a hemoglobin of 9.6. He has not had a blood transfusion thus far. He also is noted to have had his IV fluids increased on Thursday. He has hypoactive bowel sounds at this time. Surgery is considering hyperalimentation versus tube feedings at present time. Abdomen is soft, nontender. ROS: No acute distress noted Exam (Progress Note) - Constitutional Vitals: Period Temp Pulse Resp BP Sys/Chen Pulse Ox Last 24 Hr 98.3 F-98.9 F 65-106 12-34 81-134/37-61 87-100 General appearance: normal weight, no acute distress - Head Head exam: Present: normal inspection, normocephalic - Eye Eye exam: Present: other (Lids and conjunctive are unremarkable). Absent: scleral icterus - ENT ENT exam: Present: normal exam, normal oropharynx - Neck Neck exam: Present: normal inspection - Respiratory Respiratory exam: Present: clear to auscultation bilaterally. Absent: rales, rhonchi, wheezes - Cardiovascular Cardiovascular exam: Present: regular rate and rhythm. Absent: diastolic murmur , JVD, systolic murmur - GI/Abdominal GI/Abdominal exam: Present: hypoactive bowel sounds, soft. Absent: ascites, distended, mass, organomegaly, tenderness - Extremities Exam Extremities exam: Present: normal inspection - Back Exam Back exam: Present: normal inspection - Neurological Exam Neurological exam: Present: altered (Sedated) - Psychiatric Psychiatric exam: Present: other (Sedated) - Skin Skin exam: Present: normal color, warm, dry Results - Labs CBC & BMP: 03/31/17 05:09 03/31/17 05:09 Lab Results: I have reviewed the past 24 hour labs
[2017-03-31] MEDS: ENOXAPARIN 40 MG/0.4 ML SYRINGE SUBCUT SCH (13:17)
[2017-03-31 14:36] LABS: CKMB % 0.9 %
[2017-03-31 14:37] LABS: Troponin I Only 19.4 NG/ML (0.00-0.045)
[2017-03-31] MEDS: TRAVOPROST 0.004% OPH SOLN 2.5 ML BOTTLE BOTH EYES SCH (21:08)
[2017-03-31] MEDS: ASPIRIN CHEW 81 MG TABLET PO SCH (21:22)
--- NOTE | 2017-03-31 22:12 | Nephrology Progress Note ---
Nephrology - PN: Subj Interval history: Last p.m., he developed respiratory distress and required intubation. Troponin is markedly elevated. Also been hypotensive during the night. Renal function has worsened. Exam (PN)-Nephrology - Vital Signs Vital signs: Period Temp Pulse Resp BP Sys/Chen Pulse Ox Last 24 Hr 98 F-100.8 F 63-80 24-68 81-133/37-61 98-100 Exam: Gen.: Sedated on ventilator ENT: Pupils equal round reactive to light. Neck: Supple. No JVD or bruit. Cardiovascular: Regular rate and rhythm. No murmur rub or gallop Lungs: Clear Abdomen: Soft. Nontender. Positive bowel sounds. No organomegaly Extremities: No edema - Lab 03/31/17 05:09 03/31/17 05:09 Most recent lab results ABG pH 7.425 (7.35-7.45) 03/31/17 07:10 ABG pCO2 29.6 MM HG (35-48) L 03/31/17 07:10 ABG pO2 243.0 MM HG (80-95) H 03/31/17 07:10 ABG HCO3 21.0 MMOL/L (20-26) 03/31/17 07:10 ABG O2 Saturation 100.0 % (95-100) 03/31/17 07:10 Calcium 7.3 MG/DL (8.5-10.1) L 03/31/17 05:09 Magnesium 2.9 MG/DL (1.8-2.4) H 03/31/17 05:09 Assessment and Plan (1) Chronic kidney disease, stage III (moderate) Status: Acute Assessment and plan: 86-year-old man admitted with: * CRF stage III. Baseline creatinine 1.6 * Acute on chronic renal failure. This is worsened due to hypotension. * Hypertension * Small bowel obstruction. This is improving * Diabetes mellitus * Acute [place]. Chest x-ray yesterday morning showed mild pulmonary edema. He was awake and alert yesterday morning and denies shortness of breath. Repeat x-ray near the time of intubation showed no change. Troponin is markedly higher this a.m. fluid balance was negative yesterday. It is apparent that an ischemic event precipitated his acute shortness of breath. Renal function has worsened somewhat due to hypertension. Even though contrast with cardiac cath is likely to worsen his renal function but this would be preferable to postponing evaluation of his coronary anatomy. If he remains stable, cath may be postponed until later this week. If he develops dysrhythmias or other complications, cath may be required emergently. I discussed this in detail with his family. 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
[2017-04-01] MEDS: ALBUTEROL/IPRATROPIUM 3 ML NEB RESP TX SCH ×4 (00:28→20:17)
[2017-04-01] MEDS: ALUMINUM/MAGNES/SIMETH MAX STR 30 ML UDCUP PO SCH ×4 (02:17→20:57)
[2017-04-01] MEDS: metroNIDAZOLE INJ 500 MG in PREMIX 1 EACH IV SCH ×4 (02:17→20:56)
[2017-04-01] MEDS: PIPERACILLIN/TAZOBACTAM 3,375 MG in SODIUM CHLORIDE 0.9% 100 ML IV SCH ×3 (03:13→20:55)
[2017-04-01 04:42] LABS: Basophils % 0.3 % (0.0-0.8); Eosinophils # 0.1 10*3/uL (0.0-0.87); Eosinophils % 0.7 % (0.00-10.9); Hematocrit 27.3 VOL% (42.0-52.0); Hemoglobin 9.1 GM/DL (14.0-18.0); Immature Granulocytes % 0.6 %; Immature Granulocytes Absolute 0.04 #; Lymphocytes # 1.4 10*3/uL (1.4-4.0); Lymphocytes % 19.7 % (21.2-54.2); Mean Corpuscular HGB Conc 33.3 GM/DL (32-36); Mean Corpuscular Hemoglobin 27 PG (27-34); Mean Corpuscular Volume 81.5 FL (87-102); Monocytes # 0.6 10*3/uL (0.11-0.8); Neutrophils % 69.7 % (38.7-73.9); Platelet Count 173 T/CUMM (130-400); Red Blood Count 3.35 MC/CUMM (3.8-5.5); Red Cell Distribution Width 14.7 % (9.3-17.3); White Blood Count 7.1 T/CUMM (4-12)
[2017-04-01 05:06] LABS: ABG Base Excess -2.8 MMOL/L (-2.5-2.5); ABG HCO3 20.2 MMOL/L (20-26); ABG PCO2 29.1 MM HG (35-48); ABG PO2 226.3 MM HG (80-95); ABG TCO2 21.1 MMOL/L (23-27); Allen Test Positive; Pt O2 Delivery Device Ventilator
[2017-04-01 05:07] LABS: Calcium 7.3 MG/DL (8.5-10.1); Potassium 3.7 MMOL/L (3.5-5.1)
[2017-04-01] MEDS: PROPOFOL 1,000 MG/100 ML BOTTLE IV SCH ×3 (05:22→20:58)
[2017-04-01 05:32] LABS: CKMB % 0.4 %
[2017-04-01 05:34] LABS: Troponin I Only 13.5 NG/ML (0.00-0.045)
[2017-04-01] MEDS: INSULIN LISPRO 100 UNIT/ML SUBCUT SCH ×3 (05:45→19:05)
[2017-04-01] MEDS: NITROGLYCERIN 2% OINT 1 INCH/GM PACK TOP SCH ×3 (05:47→19:05)
--- NOTE | 2017-04-01 07:13 | EKG Report ---
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
--- NOTE | 2017-04-01 07:19 | XRay Report ---
XR chest 1V portable Indication: Ventilator Comparison: Chest x-ray dated March 31, 2017 Technique: Single frontal view of the chest Findings: Cardiomediastinal silhouette is stable configuration. Endotracheal tube stable in positioning. No significant change in bilateral lower lung opacification. Osseous and surrounding soft tissue structures appear grossly unchanged. IMPRESSION: No significant interval change. PROCEDURE INTERPRETED AT [facility] DEPARTMENT OF RADIOLOGY Final Report Signed by: Dr Stanley Palacios
[2017-04-01] MEDS: POLYETHYLENE GLYCOL POWDER 17 GM PACK PO SCH (09:05)
[2017-04-01] MEDS: SKIN HEALING OINT (AQUAPHOR) 50 GM TUBE TOP SCH (09:05)
[2017-04-01] MEDS: ALLOPURINOL 100 MG TABLET PO SCH (09:05)
[2017-04-01] MEDS: MULTIVITAMIN (CENTRUM) TABLET PO SCH (09:06)
[2017-04-01] MEDS: LEVOFLOXACIN INJ 250 MG in PREMIX 1 EACH IV SCH (09:06)
[2017-04-01] MEDS: PANTOPRAZOLE 40 MG TABLET PO SCH (09:32)
--- NOTE | 2017-04-01 09:48 | Gastrointestinal Progress Note ---
Assessment and Plan (1) Abdominal pain Status: Acute Assessment and plan: 04/01-No changes at present time. Continue to monitor. Plan and addendum to follow by Dr Cox. 03/31-sedated, on vent. Hypoactive bowel sounds. NG tube clamped. Surgery contemplating hyperalimentation versus tube feeding at present time. CT scan results reviewed and discussed with Dr. Cox. Plan an addendum to followed by Dr. Cox. 03/30-No reports of abd pain, N/V. Had large BM today. Passing flatus. Plan and addendum to follow by DR Cox. 03/27-Abd pain improved, tolerating diet. No bowel movement at present time. Plan and addendum to follow by Dr Cox. 03/26-reports of constipation worsening over the last several days with several month history of this progressively worsening. Complaints of lower abdominal pain on admission. Abdominal x-ray showing scattered air within small bowel and colon with mild ileus possible. Last C scope in 2014 following rectal bleeding with findings of internal hemorrhoids, felt to be the source of bleeding. Plan an addendum to followed by Dr. Cox. Current Visit: Yes Qualifiers: Abdominal location: generalized Qualified Code(s): R10.84 - Generalized abdominal pain Gastroenterology - PN: Subj Interval history: CC: Abd pain Pt is seen sedated on vent at this time. He remains on pressor support at present time. Troponin is noted to trend downward today. Hemoglobin is stable at 9.1. Abdmomen is soft, hypoactive bowel sounds noted. Pt has started CPAP trials. ROS: No acute distress. Exam (Progress Note) - Constitutional Vitals: Period Temp Pulse Resp BP Sys/Chen Pulse Ox Last 24 Hr 98 F-100.8 F 63-78 16-68 102-162/44-112 98-100 - Other Additional findings: General appearance: normal weight, no acute distress - Head Head exam: Present: normal inspection, normocephalic - Eye Eye exam: Present: other (Lids and conjunctive are unremarkable). Absent: scleral icterus - ENT ENT exam: Present: normal exam, normal oropharynx - Neck Neck exam: Present: normal inspection - Respiratory Respiratory exam: Present: clear to auscultation bilaterally. Absent: rales, rhonchi, wheezes - Cardiovascular Cardiovascular exam: Present: regular rate and rhythm. Absent: diastolic murmur , JVD, systolic murmur - GI/Abdominal GI/Abdominal exam: Present: hypoactive bowel sounds, soft. Absent: ascites, distended, mass, organomegaly, tenderness - Extremities Exam Extremities exam: Present: normal inspection - Back Exam Back exam: Present: normal inspection - Neurological Exam Neurological exam: Present: altered (Sedated) - Psychiatric Psychiatric exam: Present: other (Sedated) - Skin Skin exam: Present: normal color, warm, dry Results - Labs CBC & BMP: 04/01/17 04:24 04/01/17 04:24 Lab Results: I have reviewed the past 24 hour labs
--- NOTE | 2017-04-01 10:53 | Pulmonology Progress Note ---
Pulmonary - PN: Subj Interval history: This 86-year-old black male whom I saw in pulmonary consultation on the night of 03/30/2017. His son, [id number], daughter and son-in-law are patients of mine. My impressions were. 1. Acute congestive heart failure 2. Moderate aortic stenosis with left ventricular hypertrophy and mild aortic regurgitation 3. Acute renal failure 4. Recent bilateral obstruction with associated nausea and vomiting. Watch for aspiration injury 5. History of internal hemorrhoids 6. Diabetes mellitus 7. History of high blood pressure 03/31/2017. Last night after I saw the patient, while I was still in CCU and ICU -- he suddenly deteriorated. Attempts were made to diurese him additionally and this was of no help even though his chest x-ray looked better. Patient felt like he was going to . It was elected to intubate him after discussion with the patient who is readily agreeable and discussion with the family whom were readily agreeable. Patient stabilized with mechanical ventilation. Today' s chest x-ray still shows pulmonary edema but it is better. ABGs on FiO2 of 100 % and a PEEP of 5 show a pH 7.42, PCO2 29.6 and a PO2 of 243 with a bicarb of 21. CPK is elevated at 1946. MB band is elevated 22.4%. Troponins are elevated at 26.600. Natruretic peptide is elevated 1481. Creatinine is increased to 2.40 with a BUN of 47. Electrolytes are normal. White count is 8300 with 75 segs, 15 lymphs and 9 monos. H&H is dropped to 9.2/28.7. Patient has iron deficiency. Note that on the CT scan of his abdomen there is an abnormality in the cecal area that could be a colon cancer. See report. I have talked to the family about what I think the present diagnoses are including acute myocardial infarction, acute congestive heart failure, acute respiratory failure secondary to congestive heart failure, acute on chronic renal failure. We have gone through the patient's history one more time. Even though he had acute nausea and vomiting everyone involved says he did not aspirate. 04/01/2017. This patient is stable on mechanical ventilation. He did about 4 hours of CPAP on 03/31/2017 and he will be advanced on protocol today. His chest x-ray shows 80% resolution of his acute pulmonary edema. I do not see any definite infiltrates. ABGs on mechanical ventilation FiO2 of 60% shows a pH 7.46, PCO2 is 29, PO2 is 226 with a bicarb of 20. Electrolytes are normal. Creatinine is dropped from 2.4-2.10. Total CPK is 2847 MB band is now 10.9% and troponin has dropped to 13.5. Natruretic peptide is dropped of 468. H&H is low but stable at 9.1/29.3. Note that the patient some iron and iron saturation is very low. I started him on IV iron replacement. I have discussed the pulmonary aspects of this patient's illness and treatment with the family. Labs been reviewed. Medicines have been reviewed. Doppler venograms of the lower extremities. No evidence of deep venous Physical exam. Vital signs. See below Psychiatric/neurological. Patient sedated. He moves all 4 extremities. Face. Symmetrical. Lips and tongue appear to be normal Neck. Symmetrical. No masses. Lymphatics. No submandibular cervical supraclavicular or epitrochlear adenopathy. Chest. Rales Heart. Lateral PMI Abdomen. Nondistended. Rare bowel sounds. NG tube with suction is in place. Extremities. Nothing to suggest deep venous thrombophlebitis. The remainder of the physical exam is negative. Plan. 03/30/2017 1. Given the patient 40 Lasix IV push stat. 2. Presence of renal failure decrease Levaquin dose. 3. The presence of renal failure stop losartan. 4. Doppler venograms of the lower extremities. 5. Follow-up chest x-ray, BMP, BNP 6. See orders 7. Inhalation therapy with DuoNeb 4 times daily and as needed 8. 03/31/2017. Ventilator protocol. See today's note above. As per renal. As per cardiology 9. 04/01/2016. Ventilator protocol. Physical therapy protocol. IV iron. See today's note, above Exam (Progress Note) - Constitutional Vitals: Period Temp Pulse Resp BP Sys/Chen Pulse Ox Last 24 Hr 98 F-100.8 F 63-78 16- 102-162/44-112 98-100 Results - Labs CBC & BMP: 04/01/17 04:24 04/01/17 04:24
[2017-04-01] MEDS: PANTOPRAZOLE 40 MG VIAL IV SCH (11:55)
[2017-04-01] MEDS: FERRIC GLUCONATE COMPLEX 125 MG in SODIUM CHLORIDE 0.9% 100 ML IV SCH (11:56)
[2017-04-01] MEDS: FLUCONAZOLE INJ 100 MG in IV BAG 1 EACH IV SCH (11:56)
--- NOTE | 2017-04-01 12:26 | General Surgery Progress Note ---
Assessment and Plan (1) Abdominal pain Status: Acute Assessment and plan: 04/01/17 Abdomen seems improved. OK to begin tube feedings. Another option would be TPN but he would need a central line for this approach. 03/30/2017 Abdominal pain with constipation, pain is improving. He is now tolerating regular diet and having bowel movements. Okay to remove NG tube and transfer to floor when he is medically stable however he does seem a bit more short of breath today so it might be leslie to observe in the unit until this is stable. Current Visit: Yes Qualifiers: Abdominal location: generalized Qualified Code(s): R10.84 - Generalized abdominal pain Subjective Patient reports: Present: other (Sedated on vent) Exam - Constitutional Vitals: Period Temp Pulse Resp BP Sys/Chen Pulse Ox Last 24 Hr 99.4 F-100.8 F 64-78 16-68 108-172/44-112 100-100 General appearance: no acute distress, other (Pt is sedated on ventilator in no acute distress.) - GI/Abdominal GI/Abdominal exam: Present: hypoactive bowel sounds, soft, other (Large amount of dark brown stool is present in bed. ). Absent: distended Results - Labs CBC & BMP: 04/01/17 04:24 04/01/17 04:24 Lab Results: I have reviewed the past 24 hour labs (Labs stable.)
[2017-04-01] MEDS: ENOXAPARIN 40 MG/0.4 ML SYRINGE SUBCUT SCH (12:51)
[2017-04-01] MEDS: NYSTATIN 500,000 UNIT/5 ML UDCUP SWISH/SWAL SCH ×3 (12:55→20:57)
--- NOTE | 2017-04-01 13:42 | Cardiology Progress Note ---
Assessment and Plan (1) Acute non-ST segment elevation myocardial infarction Status: Acute Assessment and plan: This happened in the afternoon or evening of 03/30/17. The patient had had symptoms at that time becomes acutely short of breath and pulmonary edema. His enzymes did not increase until the next morning significance. His CPK continues to rise while troponin and CK-MB are decreasing. This raises the issue whether or not the CPK elevations from another source now. He needs chronic catheterization with discussed in the history and discussed with the family. This will be planned for tomorrow. Current Visit: Yes (2) Aortic stenosis Status: Chronic Assessment and plan: This is chronic and moderate in degree. It may be contributing to some of his respiratory issues but typically should not. His aortic valve may be crossed Jacky car catheterization that this is not necessary. Current Visit: Yes (3) Cardiac murmur Status: Chronic Assessment and plan: Secondary to his aortic valve stenosis. Current Visit: Yes (4) Lower gastrointestinal hemorrhage Status: Acute Assessment and plan: His H&H is decreased a little more this morning Current Visit: No (5) renal insufficiency Status: Chronic Assessment and plan: This is chronic and he may have an acute component to this with his events. In discussion with Dr. Meeks his creatinine is probably his chest discomfort beginning at this time. Current Visit: No (6) type 2 diabetes mellitus Status: Chronic Assessment and plan: This is being managed by the primary service. Current Visit: No (7) Elevated troponin Status: Acute Assessment and plan: This is decreasing and certain secondary to myocardial infarction. Current Visit: Yes (8) Chronic kidney disease, stage III (moderate) Status: Acute Assessment and plan: As noted above our discussion. Current Visit: Yes (9) Respiratory failure Status: Acute Assessment and plan: His coronary status is improving. Would like not to pull is the later until he is had his catheterization. Current Visit: Yes (10) Congestive heart failure Status: Acute Assessment and plan: This is probably secondary to acute ischemic event. Current Visit: Yes Cardiology - PN: Subj Interval history: Patient remains intubated on ventilator. He though is improving from a pulmonary standpoint. He is still sedated on propofol. He's had no acute events over the last 24 hours. His troponin is decreasing but surprisingly his CPK is up to 2847 and question a another source other than cardiac for this. His CK MB fraction is diminishing. Family members are at the bedside. I discussed with him cardiac catheterization reviewed with them the indications procedure have be carried out on the risk. I discussed cardiac catheterization and percutaneous coronary intervention with the patient and available family. I reviewed with them the indications for the procedure and the basis of how the procedure would be carried out. I also reviewed with them the risk of the procedure which include but not necessarily limited to access site bleeding, bruising, pain, swelling or vascular injury that may require emergency vascular surgery, blood transfusion, or thrombin injection. Also discussed the possibility of stroke, myocardial infarction, arrhythmia which may require electrocardioversion, and the possibility of dye reaction that would require medical therapy. Also discussed the possibility of coronary artery injury, ruptured, closure or perforation that may require emergency bypass surgery. We also discussed the possibility of from a major complication. The biggest issue may be that of acute renal failure that may lead to dialysis. They voice understanding and agree to proceed. We will plan on carrying this out tomorrow. Dr. Stuart will carry this out. His ECG continues reveals sinus rhythm with T-wave abnormalities laterally with the T wave abnormalities inferiorly have resolved. In review of his ECGs he had some minimal ST elevation on his admission ECGs and may be slightly worse on his recent ECGs but not significantly so. Exam (Progress Note) - Constitutional Vitals: Period Temp Pulse Resp BP Sys/Chen Pulse Ox Last 24 Hr 99.4 F-100.8 F 64-78 16-68 108-172/44-112 100-100 Exam: General appearance: Patient is sedated at this time on ventilator and propofol. HEENT exam: Orally intubated Neck exam: normal inspection no JVD. No carotid bruit. Trachea is in midline Respiratory/lungs exam: clear and quiet to auscultation anteriorly/bilaterally with good air movement. Cardiovascular exam: regular rate and rhythm with 2/6 systolic murmur consistent with aortic valve stenosis. No precordial lift. Chest wall exam: No deformities GI/Abdominal exam: Flat, nondistended, bowel sounds present.. Extremeties/musculoskeletal: No edema. Neurological exam: Sedated on propofol Psychiatric exam: Sedated on propofol. Skin exam: warm Result/EKG - Labs CBC & BMP: 04/01/17 04:24 04/01/17 04:24 Lab Results: I have reviewed the past 24 hour labs Labs: Laboratory Results - last 24 hr 03/31/17 03/31/17 03/31/17 13:10 17:39 23:45 WBC RBC Hgb Hct MCV MCH MCHC RDW Plt Count MPV Neut % (Auto) Lymph % (Auto) [place] % (Auto) Eos % (Auto) Baso % (Auto) Neut # (Auto) Lymph # (Auto) [place] # (Auto) Eos # (Auto) Baso # (Auto) Immature Gran % Nucleated RBC % Immature Gran # Nucleated RBCs # ABG pH ABG pCO2 ABG pO2 ABG HCO3 ABG Total CO2 ABG O2 Saturation ABG Base Excess FiO2 Sodium Potassium Chloride Carbon Dioxide Anion Gap BUN Creatinine GFR Calculation BUN/Creatinine Ratio Glucose POC Glucose 198 H 190 H Calculated Osmolality Calcium Magnesium Total Creatine Kinase 1742 H CK-MB (CK-2) 15.5 H CK and CKMB Interp 0.9 Troponin I 19.400 H B-Natriuretic Peptide 04/01/17 04/01/17 04/01/17 04:24 04:24 04:24 WBC 7.1 RBC 3.35 L Hgb 9.1 L Hct 27.3 L MCV 81.5 L MCH 27 MCHC 33.3 RDW 14.7 Plt Count 173 MPV 10.0 Neut % (Auto) 69.7 Lymph % (Auto) 19.7 L [place] % (Auto) 9.0 Eos % (Auto) 0.7 Baso % (Auto) 0.3 Neut # (Auto) 5.0 Lymph # (Auto) 1.4 [place] # (Auto) 0.6 Eos # (Auto) 0.1 Baso # (Auto) 0.0 Immature Gran % 0.6 Nucleated RBC % 0.0 Immature Gran # 0.04 Nucleated RBCs # 0.00 ABG pH ABG pCO2 ABG pO2 ABG HCO3 ABG Total CO2 ABG O2 Saturation ABG Base Excess FiO2 Sodium 143 Potassium 3.7 Chloride 110 H Carbon Dioxide 22 Anion Gap 14.7 BUN 40 H Creatinine 2.10 H GFR Calculation 40 BUN/Creatinine Ratio 19.00 Glucose 190 H POC Glucose Calculated Osmolality 299.0 Calcium 7.3 L Magnesium 3.0 H Total Creatine Kinase CK-MB (CK-2) CK and CKMB Interp Troponin I B-Natriuretic Peptide 468 H 04/01/17 04/01/17 04/01/17 04:24 05:00 05:41 WBC RBC Hgb Hct MCV MCH MCHC RDW Plt Count MPV Neut % (Auto) Lymph % (Auto) [place] % (Auto) Eos % (Auto) Baso % (Auto) Neut # (Auto) Lymph # (Auto) [place] # (Auto) Eos # (Auto) Baso # (Auto) Immature Gran % Nucleated RBC % Immature Gran # Nucleated RBCs # ABG pH 7.460 H ABG pCO2 29.1 L ABG pO2 226.3 H ABG HCO3 20.2 ABG Total CO2 21.1 L ABG O2 Saturation 99.0 ABG Base Excess -2.8 L FiO2 60.00 Sodium Potassium Chloride Carbon Dioxide Anion Gap BUN Creatinine GFR Calculation BUN/Creatinine Ratio Glucose POC Glucose 178 H Calculated Osmolality Calcium Magnesium Total Creatine Kinase 2847 H D CK-MB (CK-2) 10.9 H CK and CKMB Interp 0.4 Troponin I 13.500 H D B-Natriuretic Peptide 04/01/17 04/01/17 05:59 11:53 WBC RBC Hgb Hct MCV MCH MCHC RDW Plt Count MPV Neut % (Auto) Lymph % (Auto) [place] % (Auto) Eos % (Auto) Baso % (Auto) Neut # (Auto) Lymph # (Auto) [place] # (Auto) Eos # (Auto) Baso # (Auto) Immature Gran % Nucleated RBC % Immature Gran # Nucleated RBCs # ABG pH ABG pCO2 ABG pO2 ABG HCO3 ABG Total CO2 ABG O2 Saturation ABG Base Excess FiO2 Sodium Potassium Chloride Carbon Dioxide Anion Gap BUN Creatinine GFR Calculation BUN/Creatinine Ratio Glucose POC Glucose 185 H 206 H Calculated Osmolality Calcium Magnesium Total Creatine Kinase CK-MB (CK-2) CK and CKMB Interp Troponin I B-Natriuretic Peptide - Impressions Impressions: ECGs are as described above.
--- NOTE | 2017-04-01 14:46 | Nephrology Progress Note ---
Nephrology - PN: Subj Interval history: He remains on the ventilator. Blood pressure is stable. Exam (PN)-Nephrology - Vital Signs Vital signs: Period Temp Pulse Resp BP Sys/Chen Pulse Ox Last 24 Hr 99.4 F-100.8 F 64-78 16-68 108-172/44-112 100-100 Exam: Gen.: Sedated on ventilator ENT: Pupils equal round reactive to light. EOMs intact. Neck: Supple. No JVD or bruit. Cardiovascular: Regular rate and rhythm. No murmur rub or gallop Lungs: Clear Abdomen: Soft. Nontender. Positive bowel sounds. No organomegaly Extremities: No edema - Lab 04/01/17 04:24 04/01/17 04:24 Most recent lab results ABG pH 7.460 (7.35-7.45) H 04/01/17 05:00 ABG pCO2 29.1 MM HG (35-48) L 04/01/17 05:00 ABG pO2 226.3 MM HG (80-95) H 04/01/17 05:00 ABG HCO3 20.2 MMOL/L (20-26) 04/01/17 05:00 ABG O2 Saturation 99.0 % (95-100) 04/01/17 05:00 Calcium 7.3 MG/DL (8.5-10.1) L 04/01/17 04:24 Magnesium 3.0 MG/DL (1.8-2.4) H 04/01/17 04:24 Assessment and Plan (1) Chronic kidney disease, stage III (moderate) Status: Acute Assessment and plan: 86-year-old man admitted with: * CRF stage III. Baseline creatinine 1.6 * Acute on chronic renal failure. Renal function is slightly better than yesterday. * Hypertension * Small bowel obstruction. This is improving * Diabetes mellitus * Acute [place]. Discussed with Dr. Mackey. I recommend proceeding with cardiac cath. Risk of acute renal failure has been explained to the family. Also discussed with Dr. Cox. Further GI workup cannot proceed prior to treatment of cardiac disease. 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
--- NOTE | 2017-04-01 17:57 | Family Practice Progress Note ---
Family Practice - PN: Subj Interval history: Patient has generally been stable. Trying on CPAP trials. His cardiac isoenzymes have stabilized and no troponin has begun to decrease. His laboratory studies are stable today reviewed the center consultant's note and agree with recommended treatment plan. Patient is scheduled for cardiac catheterization in a.m. his a.m. chest x-ray has improved. His BNP today is much improved. His lung mccollum are clear to auscultation at present. We'll continue with present treatment plan. We'll await cardiac catheterization and hopefully patient will continue to improve. Exam (Progress Note) - Constitutional Vitals: Period Temp Pulse Resp BP Sys/Chen Pulse Ox Last 24 Hr 99.4 F-100.8 F 65-78 16-68 108-172/44-112 100-100 Results - Labs CBC & BMP: 04/01/17 04:24 04/01/17 04:24 Assessment and Plan (1) Abdominal pain Status: Acute Assessment and plan: Patient awoke with severe lower abdominal pain. The pain is improved since admission. He is having some intermittent abdominal pain. He is also had progressive problems with constipation. Will order additional studies. Current Visit: Yes Qualifiers: Abdominal location: generalized Qualified Code(s): R10.84 - Generalized abdominal pain (2) Exertional dyspnea Status: Chronic Assessment and plan: Dyspnea has progressively gotten worse. Patient unable to do minimal activity without severe dyspnea. Will consult cardiology and evaluate further Current Visit: Yes (3) hypertension Status: Chronic Assessment and plan: We will resume home medications and monitor closely Current Visit: No (4) Cardiac murmur Status: Chronic Assessment and plan: We will evaluate murmur with echo. Current Visit: Yes (5) renal insufficiency Status: Chronic Assessment and plan: Patient is followed by Dr. Henrique Meeks. Mental status has been stable Current Visit: No (6) type 2 diabetes mellitus Status: Chronic Assessment and plan: Blood sugars have been adequately controlled at home. 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
[2017-04-01] MEDS: ASPIRIN CHEW 81 MG TABLET PO SCH (20:57)
[2017-04-01] MEDS: TRAVOPROST 0.004% OPH SOLN 2.5 ML BOTTLE BOTH EYES SCH (21:07)
--- NOTE | 2017-04-01 21:30 | ECHO Report ---
Irving Joy Exam Date: 04/01/2017 09:44 Referring Physician: Technologist: Ofelia Dubois Age: 86 Ht (in): 75 Wt (lb): 193 Gender: M Exam Location: [facility] Echo Indications: abd. pain, elevated troponin, CHF, Resp. failure, acute renal failure, BP: 147 / 89 HR: 70 Rhythm: Sinus Technical Quality: Fair IMPRESSIONS 1. Left ventricle is normal size and ejection fraction of 50% plus. Moderate concentric left ventricular hypertrophy with grade 2 diastolic dysfunction. 2. Mild to moderately dilated left atrium. 3. Right-sided chambers are normal size. 4. Minimally sclerotic mitral valve. Mild mitral valve regurgitation. 5. Aortic valve is sclerotic with decreased excursion and moderate aortic valve stenosis. 6. Mild tricuspid regurgitation. 7. At least moderately elevated right-sided pressures. MEASUREMENTS (Male / Female) Normal Values 2D ECHO LV Diastolic Diameter PLAX 4.1 cm 4.2 - 5.9 / 3.9 - 5.3 cm LV Systolic Diameter PLAX 3.2 cm LV Fractional Shortening PLAX 21.2 % IVS Diastolic Thickness 2.1 cm 0.6 - 1.0 / 0.6 - 0.9 cm LVPW Diastolic Thickness 1.8 cm 0.6 - 1.0 / 0.6 - 0.9 cm RV Internal Dim ED PLAX 2.5 cm Aortic Root Diameter 2.9 cm LA Systolic Diameter LX 3.7 cm 3.0 - 4.0 / 2.7 - 3.8 cm DOPPLER TR Peak Velocity 361.0 cm/s TR Peak Gradient 52.1 mmHg FINDINGS Left Ventricle Left ventricle is normal size with ejection fraction of 50+ percent. No discernable segmental wall motion abnormalities are noted. Moderate concentric left ventricular hypertrophy with grade 2 diastolic dysfunction. Right Ventricle Normal right ventricular size and systolic function. Right Atrium Normal right atrial size. Left Atrium Mild to moderately increased left atrial size. Mitral Valve Mild mitral valve sclerosis. Mild mitral valve regurgitation. Aortic Valve Aortic valves a tricuspid structure that is sclerotic with decreased excursion especially of the right coronary cusp. It appears to have moderate aortic valve stenosis. Tricuspid Valve Morphologically normal tricuspid valve. Mild tricuspid valve regurgitation. Tricuspid regurgitation velocities suggest a PAP of 57- 62 mmHg. Pulmonic Valve Pulmonic valve is anatomically normal. Trace pulmonary valve regurgitation. Pericardium No pericardial effusion. Aorta Normal size aortic root and proximal ascending aorta. Ej Mackey MD (Electronically Signed) Final Date: 01 Apr 2017 21:28
[2017-04-02] MEDS: INSULIN LISPRO 100 UNIT/ML SUBCUT SCH ×5 (00:36→23:32)
[2017-04-02] MEDS: NITROGLYCERIN 2% OINT 1 INCH/GM PACK TOP SCH ×5 (00:37→23:33)
[2017-04-02] MEDS: ALBUTEROL/IPRATROPIUM 3 ML NEB RESP TX SCH ×4 (01:28→19:27)
[2017-04-02] MEDS: PROPOFOL 1,000 MG/100 ML BOTTLE IV SCH ×3 (02:45→20:36)
[2017-04-02 03:09] LABS: Allen Test Positive; Pt O2 Delivery Device Ventilator
[2017-04-02 03:10] LABS: ABG Base Excess -1.7 MMOL/L (-2.5-2.5); ABG HCO3 21.2 MMOL/L (20-26); ABG Oxygen Saturation 98.9 % (95-100); ABG PCO2 29.4 MM HG (35-48); ABG PH 7.476 (7.35-7.45); ABG PO2 219.8 MM HG (80-95); ABG TCO2 22.1 MMOL/L (23-27)
[2017-04-02] MEDS: metroNIDAZOLE INJ 500 MG in PREMIX 1 EACH IV SCH ×4 (04:00→20:22)
[2017-04-02] MEDS: PIPERACILLIN/TAZOBACTAM 3,375 MG in SODIUM CHLORIDE 0.9% 100 ML IV SCH ×3 (04:00→20:21)
[2017-04-02] MEDS: ALUMINUM/MAGNES/SIMETH MAX STR 30 ML UDCUP PO SCH ×4 (04:00→20:21)
[2017-04-02 05:31] LABS: Basophils % 0.6 % (0.0-0.8); Eosinophils # 0.2 10*3/uL (0.0-0.87); Hematocrit 29.7 VOL% (42.0-52.0); Hemoglobin 9.7 GM/DL (14.0-18.0); Immature Granulocytes % 0.7 %; Immature Granulocytes Absolute 0.05 #; Lymphocytes # 1.4 10*3/uL (1.4-4.0); Lymphocytes % 20.2 % (21.2-54.2); Mean Corpuscular HGB Conc 32.7 GM/DL (32-36); Mean Corpuscular Hemoglobin 27 PG (27-34); Mean Corpuscular Volume 83.7 FL (87-102); Mean Platelet Volume 9.9 FL (9.6-12.0); Monocytes # 0.6 10*3/uL (0.11-0.8); Monocytes % 9.1 % (1.7-12.7); Neutrophils # 4.6 10*3/uL (1.4-7.4); Neutrophils % 66.4 % (38.7-73.9); Platelet Count 203 T/CUMM (130-400); Red Blood Count 3.55 MC/CUMM (3.8-5.5); Red Cell Distribution Width 14.9 % (9.3-17.3); White Blood Count 6.9 T/CUMM (4-12)
[2017-04-02 06:07] LABS: Calcium 7.7 MG/DL (8.5-10.1); Magnesium 3.3 MG/DL (1.8-2.4); Osmolality,Calculated 300.7 MOS/KG (273-304); Potassium 3.9 MMOL/L (3.5-5.1)
[2017-04-02 06:11] LABS: Phosphorous 2.4 MG/DL (2.5-4.9); Prealbumin 10.4 MG/DL (20-40)
--- NOTE | 2017-04-02 07:55 | Event Note ---
Mr. Joy is still intubated and is partially sedated. I did explain to him heart catheterization and we are planning for this morning. He seems to have a general understanding. We will plan for right groin access. His renal function is improved creatinine 1.8 this morning. His hematocrit is stable at about 30%.
--- NOTE | 2017-04-02 09:12 | XRay Report ---
XR chest 1V portable Indication: Intubated. Chest one view: Since 04/01/2017, endotracheal tube, NG tube, cardiomegaly, obscuration of the left lung base, and haziness to the left perihilar lung and right lung base are stable. No new infiltrates are seen. Impression: No change. PROCEDURE INTERPRETED AT [facility] DEPARTMENT OF RADIOLOGY Final Report Signed by: Ej Jones M.D.
[2017-04-02] MEDS: NYSTATIN 500,000 UNIT/5 ML UDCUP SWISH/SWAL SCH ×4 (09:17→20:21)
[2017-04-02] MEDS: FERRIC GLUCONATE COMPLEX 125 MG in SODIUM CHLORIDE 0.9% 100 ML IV SCH (09:18)
[2017-04-02] MEDS: PANTOPRAZOLE 40 MG VIAL IV SCH (09:18)
[2017-04-02] MEDS: LEVOFLOXACIN INJ 250 MG in PREMIX 1 EACH IV SCH (09:20)
[2017-04-02] MEDS: SKIN HEALING OINT (AQUAPHOR) 50 GM TUBE TOP SCH (09:26)
--- NOTE | 2017-04-02 09:50 | Pulmonology Progress Note ---
Pulmonary - PN: Subj Interval history: This 86-year-old black male whom I saw in pulmonary consultation on the night of 03/30/2017. His son, [id number], daughter and son-in-law are patients of mine. My impressions were. 1. Acute congestive heart failure 2. Moderate aortic stenosis with left ventricular hypertrophy and mild aortic regurgitation 3. Acute renal failure 4. Recent bilateral obstruction with associated nausea and vomiting. Watch for aspiration injury 5. History of internal hemorrhoids 6. Diabetes mellitus 7. History of high blood pressure 03/31/2017. Last night after I saw the patient, while I was still in CCU and ICU -- he suddenly deteriorated. Attempts were made to diurese him additionally and this was of no help even though his chest x-ray looked better. Patient felt like he was going to . It was elected to intubate him after discussion with the patient who is readily agreeable and discussion with the family whom were readily agreeable. Patient stabilized with mechanical ventilation. Today' s chest x-ray still shows pulmonary edema but it is better. ABGs on FiO2 of 100 % and a PEEP of 5 show a pH 7.42, PCO2 29.6 and a PO2 of 243 with a bicarb of 21. CPK is elevated at 1946. MB band is elevated 22.4%. Troponins are elevated at 26.600. Natruretic peptide is elevated 1481. Creatinine is increased to 2.40 with a BUN of 47. Electrolytes are normal. White count is 8300 with 75 segs, 15 lymphs and 9 monos. H&H is dropped to 9.2/28.7. Patient has iron deficiency. Note that on the CT scan of his abdomen there is an abnormality in the cecal area that could be a colon cancer. See report. I have talked to the family about what I think the present diagnoses are including acute myocardial infarction, acute congestive heart failure, acute respiratory failure secondary to congestive heart failure, acute on chronic renal failure. We have gone through the patient's history one more time. Even though he had acute nausea and vomiting everyone involved says he did not aspirate. 04/01/2017. This patient is stable on mechanical ventilation. He did about 4 hours of CPAP on 03/31/2017 and he will be advanced on protocol today. His chest x-ray shows 80% resolution of his acute pulmonary edema. I do not see any definite infiltrates. ABGs on mechanical ventilation FiO2 of 60% shows a pH 7.46, PCO2 is 29, PO2 is 226 with a bicarb of 20. Electrolytes are normal. Creatinine is dropped from 2.4-2.10. Total CPK is 2847 MB band is now 10.9% and troponin has dropped to 13.5. Natruretic peptide is dropped of 468. H&H is low but stable at 9.1/29.3. Note that the patient some iron and iron saturation is very low. I started him on IV iron replacement. I have discussed the pulmonary aspects of this patient's illness and treatment with the family. 04/02/2017. Patient for cardiac catheterization today. Today's x-ray reveals about 85-90% resolution of acute pulmonary edema. Sputum's have been requested but so far have not been reported. Patient is doing well with the weaning protocol. On mechanical ventilation and FiO2 60% pH is 7.48, PCO2 is 29.4, PO2 is 219.8 and bicarb is 21.2. Electrolytes are normal. Glucose is under fairly good control. Natruretic peptide remains elevated 925. B12 and folic acid levels were normal. This patient was found to have low iron and IV replacement was begun yesterday. He has positive stools. He has known internal hemorrhoids. CT of the abdomen was abnormal showing a possible abnormality in the cecal area. Labs been reviewed. Medicines have been reviewed. Doppler venograms of the lower extremities. No evidence of deep venous Physical exam. Vital signs. See below Psychiatric/neurological. Patient sedated. He moves all 4 extremities. Face. Symmetrical. Lips and tongue appear to be normal Neck. Symmetrical. No masses. Lymphatics. No submandibular cervical supraclavicular or epitrochlear adenopathy. Chest. Rales Heart. Lateral PMI Abdomen. Nondistended. Rare bowel sounds. NG tube with suction is in place. Extremities. Nothing to suggest deep venous thrombophlebitis. The remainder of the physical exam is negative. Plan. 03/30/2017 1. Given the patient 40 Lasix IV push stat. 2. Presence of renal failure decrease Levaquin dose. 3. The presence of renal failure stop losartan. 4. Doppler venograms of the lower extremities. 5. Follow-up chest x-ray, BMP, BNP 6. See orders 7. Inhalation therapy with DuoNeb 4 times daily and as needed 8. 03/31/2017. Ventilator protocol. See today's note above. As per renal. As per cardiology . 04/01/2017. Ventilator protocol. Physical therapy protocol. IV iron. See today's note, above . 04/02/2017. See today's note above Exam (Progress Note) - Constitutional Vitals: Period Temp Pulse Resp BP Sys/Chen Pulse Ox Last 24 Hr 98.9 F-100.2 F 51-81 14-28 112-139/41-57 100-100 Results - Labs CBC & BMP: 04/02/17 05:13 04/02/17 05:13
--- NOTE | 2017-04-02 10:23 | Gastrointestinal Progress Note ---
Assessment and Plan (1) Abdominal pain Status: Acute Assessment and plan: 04/02-2+ stools for occult blood, hemoglobin holding at 9/7. For heart catherization today. Plan and addendum to follow by Dr Cox. 04/01-No changes at present time. Continue to monitor. Plan and addendum to follow by Dr Cox. 03/31-sedated, on vent. Hypoactive bowel sounds. NG tube clamped. Surgery contemplating hyperalimentation versus tube feeding at present time. CT scan results reviewed and discussed with Dr. Cox. Plan an addendum to followed by Dr. Cox. 03/30-No reports of abd pain, N/V. Had large BM today. Passing flatus. Plan and addendum to follow by DR Cox. 03/27-Abd pain improved, tolerating diet. No bowel movement at present time. Plan and addendum to follow by Dr Cox. 03/26-reports of constipation worsening over the last several days with several month history of this progressively worsening. Complaints of lower abdominal pain on admission. Abdominal x-ray showing scattered air within small bowel and colon with mild ileus possible. Last C scope in 2014 following rectal bleeding with findings of internal hemorrhoids, felt to be the source of bleeding. Plan an addendum to followed by Dr. Cox. Current Visit: Yes Qualifiers: Abdominal location: generalized Qualified Code(s): R10.84 - Generalized abdominal pain Gastroenterology - PN: Subj Interval history: CC: Abdominal pain Pt is seen, sedated on the vent. No reports of bleeding at this time by staff. His hemoglobin remains stable at 9.7. Abdomen is soft, bowel sounds noted. Cardiology noted to take patient for heart catherization today. He was noted to have 2+ positive stools for occult blood on yesterday. He has also had iron infusion initiated. ROS: No acute distress at present time Exam (Progress Note) - Constitutional Vitals: Period Temp Pulse Resp BP Sys/Chen Pulse Ox Last 24 Hr 98.9 F-100.2 F 51-81 14-28 112-139/41-57 100-100 General appearance: normal weight, no acute distress - Head Head exam: Present: normal inspection, normocephalic - Eye Eye exam: Present: other (lids and conjunctiva unremarkable). Absent: scleral icterus - ENT ENT exam: Present: normal exam, normal oropharynx - Neck Neck exam: Present: normal inspection - Respiratory Respiratory exam: Present: clear to auscultation bilaterally. Absent: rales, rhonchi, wheezes - Cardiovascular Cardiovascular exam: Present: regular rate and rhythm. Absent: diastolic murmur , JVD, systolic murmur - GI/Abdominal GI/Abdominal exam: Present: normal bowel sounds, soft. Absent: ascites, distended, mass, organomegaly, tenderness - Extremities Exam Extremities exam: Present: normal inspection, full ROM - Back Exam Back exam: Present: normal inspection - Neurological Exam Neurological exam: Present: alert, altered - Psychiatric Psychiatric exam: Present: other - Skin Skin exam: Present: normal color, warm, dry Results - Labs CBC & BMP: 04/02/17 05:13 04/02/17 05:13 Lab Results: I have reviewed the past 24 hour labs
[2017-04-02] MEDS: POLYETHYLENE GLYCOL POWDER 17 GM PACK PO SCH (10:25)
[2017-04-02] MEDS: MULTIVITAMIN (CENTRUM) TABLET PO SCH (10:25)
--- NOTE | 2017-04-02 10:59 | Cardiology Progress Note ---
Assessment and Plan (1) Acute non-ST segment elevation myocardial infarction Status: Acute Assessment and plan: He is done well clinically from this. It is interesting his CPK continued to go up you know when his troponin was trending down. Again this raises the issue that the CPK all may not be from cardiac. He is a cardiac catheterization today by Dr. Deleon. Current Visit: Yes (2) Aortic stenosis Status: Chronic Assessment and plan: This is chronic and moderate on echocardiogram. Current Visit: Yes (3) Cardiac murmur Status: Chronic Assessment and plan: Secondary to his aortic valve stenosis. Current Visit: Yes (4) Lower gastrointestinal hemorrhage Status: Acute Assessment and plan: His H&H is stable. Current Visit: No (5) renal insufficiency Status: Chronic Assessment and plan: This is chronic and he may have an acute component to this with his events. His creatinine though is better today. Current Visit: No (6) type 2 diabetes mellitus Status: Chronic Assessment and plan: This is being managed by the primary service. Current Visit: No (7) Elevated troponin Status: Acute Assessment and plan: This is decreasing and certain secondary to myocardial infarction. His CPK though had trended up. Current Visit: Yes (8) Chronic kidney disease, stage III (moderate) Status: Acute Assessment and plan: Creatinine is better and Dr. Meeks is following. Current Visit: Yes (9) Respiratory failure Status: Acute Assessment and plan: This is improving. Hopefully we'll be to wean off his ventilator after catheterization is done today. Current Visit: Yes (10) Congestive heart failure Status: Acute Assessment and plan: This is probably secondary to acute ischemic event. It is interesting that his ejection fraction remains stable. Current Visit: Yes Cardiology - PN: Subj Interval history: The patient is been stable the last 24 hours. He is more awake today in his propofol has been decreased. He has no complaints by shaking his head to questions. His daughters presently with him and thinks he is doing well. His rhythm has remained stable being sinus. His lab work is stable excluding his hematocrit and hemoglobin. His chemistries are fairly stable with his creatinine still decreasing. His BNP is up some. Per report his chest x-rays unchanged. He is for left heart catheterization by Dr. Catracho Deleon today. We will follow-up on his care. His echocardiogram from yesterday is unchanged from the one carried out 03/26/17. No wall motion changes. He is aortic valve continues to show moderate aortic valve stenosis. Exam (Progress Note) - Constitutional Vitals: Period Temp Pulse Resp BP Sys/Chen Pulse Ox Last 24 Hr 98.9 F-100.2 F 51-81 14-28 112-144/41-57 100-100 Exam: General appearance: Patient is on ventilator and propofol but is more awake this morning. HEENT exam: Orally intubated Neck exam: normal inspection no JVD. No carotid bruit. Trachea is in midline Respiratory/lungs exam: clear and quiet to auscultation anteriorly/bilaterally with good air movement. Cardiovascular exam: regular rate and rhythm with 2/6 systolic murmur consistent with aortic valve stenosis. No precordial lift. Chest wall exam: No deformities GI/Abdominal exam: Flat, nondistended, bowel sounds present.. Extremeties/musculoskeletal: No edema. Neurological exam: He is awake and moving everything and responding. Psychiatric exam: He is responding appropriately.. Skin exam: warm Result/EKG - Labs CBC & BMP: 04/02/17 05:13 04/02/17 05:13 Lab Results: I have reviewed the past 24 hour labs Labs: Laboratory Results - last 24 hr 04/01/17 04/01/17 04/02/17 11:53 18:00 00:28 WBC RBC Hgb Hct MCV MCH MCHC RDW Plt Count MPV Neut % (Auto) Lymph % (Auto) Warren % (Auto) Eos % (Auto) Baso % (Auto) Neut # (Auto) Lymph # (Auto) Warren # (Auto) Eos # (Auto) Baso # (Auto) Immature Gran % Nucleated RBC % Immature Gran # Nucleated RBCs # ABG pH ABG pCO2 ABG pO2 ABG HCO3 ABG Total CO2 ABG O2 Saturation ABG Base Excess FiO2 Sodium Potassium Chloride Carbon Dioxide Anion Gap BUN Creatinine GFR Calculation BUN/Creatinine Ratio Glucose POC Glucose 206 H 168 H 183 H Calculated Osmolality Calcium Phosphorus Magnesium B-Natriuretic Peptide Prealbumin 04/02/17 04/02/17 04/02/17 03:00 05:13 05:13 WBC 6.9 RBC 3.55 L Hgb 9.7 L Hct 29.7 L MCV 83.7 L MCH 27 MCHC 32.7 RDW 14.9 Plt Count 203 MPV 9.9 Neut % (Auto) 66.4 Lymph % (Auto) 20.2 L Warren % (Auto) 9.1 Eos % (Auto) 3.0 Baso % (Auto) 0.6 Neut # (Auto) 4.6 Lymph # (Auto) 1.4 Warren # (Auto) 0.6 Eos # (Auto) 0.2 Baso # (Auto) 0.0 Immature Gran % 0.7 Nucleated RBC % 0.0 Immature Gran # 0.05 Nucleated RBCs # 0.00 ABG pH 7.476 H ABG pCO2 29.4 L ABG pO2 219.8 H ABG HCO3 21.2 ABG Total CO2 22.1 L ABG O2 Saturation 98.9 ABG Base Excess -1.7 FiO2 60.00 Sodium 145 Potassium 3.9 Chloride 112 H Carbon Dioxide 22 Anion Gap 14.9 BUN 32 H Creatinine 1.80 H GFR Calculation 48 BUN/Creatinine Ratio 17.00 Glucose 213 H POC Glucose Calculated Osmolality 300.7 Calcium 7.7 L Phosphorus Magnesium 3.3 H B-Natriuretic Peptide Prealbumin 04/02/17 04/02/17 04/02/17 05:13 05:13 05:32 WBC RBC Hgb Hct MCV MCH MCHC RDW Plt Count MPV Neut % (Auto) Lymph % (Auto) Warren % (Auto) Eos % (Auto) Baso % (Auto) Neut # (Auto) Lymph # (Auto) Warren # (Auto) Eos # (Auto) Baso # (Auto) Immature Gran % Nucleated RBC % Immature Gran # Nucleated RBCs # ABG pH ABG pCO2 ABG pO2 ABG HCO3 ABG Total CO2 ABG O2 Saturation ABG Base Excess FiO2 Sodium Potassium Chloride Carbon Dioxide Anion Gap BUN Creatinine GFR Calculation BUN/Creatinine Ratio Glucose POC Glucose 213 H Calculated Osmolality Calcium Phosphorus 2.4 L Magnesium B-Natriuretic Peptide 925 H Prealbumin 10.4 L - Impressions Impressions: Telemetry with sinus rhythm.
[2017-04-02] MEDS: FLUCONAZOLE INJ 100 MG in IV BAG 1 EACH IV SCH (11:15)
--- NOTE | 2017-04-02 11:39 | Nephrology Progress Note ---
Nephrology - PN: Subj Interval history: He remains on the ventilator. He is alert and follows commands. Blood pressure is stable Exam (PN)-Nephrology - Vital Signs Vital signs: Period Temp Pulse Resp BP Sys/Chen Pulse Ox Last 24 Hr 98.9 F-100.2 F 51-81 14-28 112-144/41-57 100-100 Exam: ENT: Intubated Cardiovascular: Regular rate and rhythm. No murmur rub or gallop Lungs: Clear Extremities: No edema - Lab 04/02/17 05:13 04/02/17 05:13 Most recent lab results ABG pH 7.476 (7.35-7.45) H 04/02/17 03:00 ABG pCO2 29.4 MM HG (35-48) L 04/02/17 03:00 ABG pO2 219.8 MM HG (80-95) H 04/02/17 03:00 ABG HCO3 21.2 MMOL/L (20-26) 04/02/17 03:00 ABG O2 Saturation 98.9 % (95-100) 04/02/17 03:00 Calcium 7.7 MG/DL (8.5-10.1) L 04/02/17 05:13 Phosphorus 2.4 MG/DL (2.5-4.9) L 04/02/17 05:13 Magnesium 3.3 MG/DL (1.8-2.4) H 04/02/17 05:13 Assessment and Plan (1) Chronic kidney disease, stage III (moderate) Status: Acute Assessment and plan: 86-year-old man admitted with: * CRF stage III. Baseline creatinine 1.6 * Acute on chronic renal failure. Renal function has improved. Fluid balance neutral * Hypertension. Controlled * Small bowel obstruction. Resolved * Diabetes mellitus * Acute [place]. He is to have cardiac cath today. 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
[2017-04-02] MEDS ORDERED: LIDOCAINE 1% 20 ML VIAL ONE (13:26)
--- NOTE | 2017-04-02 14:10 | Cardiac Catheterization ---
Date of Procedure:: 04/02/17 Post-op diagnosis: same Procedure: Procedure performed: 1. Coronary angiography 2. Right femoral arteriotomy closed with the Enseal device Brief clinical summary: Mr. Joy 86-year-old with approximately moderate aortic stenosis status post non-STEMI with renal dysfunction on the ventilator. Description of procedure: After obtaining informed consent, the right groin was prepped and draped in the usual sterile fashion. Next a short 6 [place] sheath was placed in the right femoral artery using a modified Seldinger technique, after the patient received IV sedation and local anesthetic. Next a JL4 catheter was advanced over a guidewire under fluoroscopic guidance, and was engaged to the left coronary artery after which angiography was performed in multiple views. This was then removed over a wire, and a JR4 catheter was advanced in similar fashion, and was engaged to the right coronary artery after which angiography was performed in multiple views. An angiogram of the sheath showed that it was inserted in the right common femoral artery in a vessel suitable for closure. Hemostasis was obtained with Angio-Seal device with no residual bleeding. The patient was transferred from the catheter finisher and inspector in good condition without complication. Coronary angiography: Left main coronary is normal developed and is free of significant coronary artery disease. Left anterior descending artery is of average caliber reaches the apex. It gives off one at least average caliber tortuous diagonal branch without significant stenosis. There is a long at least average caliber ramus branch with a 30-50% ostial stenosis. Circumflex has a discrete 30-50% ostial stenosis. It gives off a slightly thinner than average OM1 branch with as 80-90% ostial stenosis. There is also a thinner than average posterior lateral and thinner than average left-sided code PDA? The right coronary artery is a codominant vessel that is smaller than average caliber quite thin but does seem to supply a vessel to the septum which is thin. There is probably 50% mid stenosis in the RCA (about a 2 mm vessel) Impression: 1. Codominant system 2. Coronary artery disease as described above including but not limited to: A. Mild irregularities only in the left anterior descending artery system B. 40-50% ostial ramus, and ostial circumflex disease, as well as 80-90% ostial OM1 stenosis (2 mm vessel) C. 50% mid RCA stenosis and a long thin tortuous codominant vessel Recommendation discussion: It is unclear what the culprit is for Mr. Joy is non-STEMI. The ostial obtuse marginal lesion looks significant, however the vessel only 2 mm and it is not ideal for intervention given his of the ostium. Would recommend medical therapy. His echocardiogram showed EF 50%, with moderate LVH pulmonary hypertension and reportedly moderate aortic stenosis. Anesthesia: other Surgeon / Physician: Henrique Stuart [employer] Advertising Director: other Estimated blood loss: minimal Specimens: none sent Condition: stable Disposition: ICU/CCU - Medications / Follow-up
[2017-04-02] MEDS: ENOXAPARIN 40 MG/0.4 ML SYRINGE SUBCUT SCH (15:13)
[2017-04-02] MEDS: ASPIRIN EC 81 MG TABLET PO SCH (15:14)
--- NOTE | 2017-04-02 19:37 | Family Practice Progress Note ---
Family Practice - PN: Subj Interval history: Patient is stable overall. Was seen earlier today. Cardiac catheterization report noted. Appreciate multiple consultants. Reviewed lab and other studies. Agree with findings and recommendations of multiple subspecialist . We'll continue present treatment plan. Hopefully will continue to improve Exam (Progress Note) - Constitutional Vitals: Period Temp Pulse Resp BP Sys/Chen Pulse Ox Last 24 Hr 98.9 F-99.4 F 51-81 14-27 112-174/41-65 100-100 Results - Labs CBC & BMP: 04/02/17 05:13 04/02/17 05:13 Assessment and Plan (1) Abdominal pain Status: Acute Assessment and plan: Patient awoke with severe lower abdominal pain. The pain is improved since admission. He is having some intermittent abdominal pain. He is also had progressive problems with constipation. Will order additional studies. Current Visit: Yes Qualifiers: Abdominal location: generalized Qualified Code(s): R10.84 - Generalized abdominal pain (2) Exertional dyspnea Status: Chronic Assessment and plan: Dyspnea has progressively gotten worse. Patient unable to do minimal activity without severe dyspnea. Will consult cardiology and evaluate further Current Visit: Yes (3) hypertension Status: Chronic Assessment and plan: We will resume home medications and monitor closely Current Visit: No (4) Cardiac murmur Status: Chronic Assessment and plan: We will evaluate murmur with echo. Current Visit: Yes (5) renal insufficiency Status: Chronic Assessment and plan: Patient is followed by Dr. Henrique Meeks. Mental status has been stable Current Visit: No (6) type 2 diabetes mellitus Status: Chronic Assessment and plan: Blood sugars have been adequately controlled at home. 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
[2017-04-02] MEDS: TRAVOPROST 0.004% OPH SOLN 2.5 ML BOTTLE BOTH EYES SCH (20:23)
[2017-04-03] MEDS: ALBUTEROL/IPRATROPIUM 3 ML NEB RESP TX SCH ×4 (02:44→19:37)
[2017-04-03 03:34] LABS: ABG Base Excess -1.9 MMOL/L (-2.5-2.5); ABG HCO3 22.9 MMOL/L (20-26); ABG Oxygen Saturation 99.6 % (95-100); ABG PH 7.429 (7.35-7.45); Pt O2 Delivery Device Ventilator
[2017-04-03] MEDS: PROPOFOL 1,000 MG/100 ML BOTTLE IV SCH ×4 (03:51→22:52)
[2017-04-03] MEDS: ALUMINUM/MAGNES/SIMETH MAX STR 30 ML UDCUP PO SCH ×4 (03:52→21:21)
[2017-04-03] MEDS: metroNIDAZOLE INJ 500 MG in PREMIX 1 EACH IV SCH ×4 (03:52→22:00)
[2017-04-03] MEDS: PIPERACILLIN/TAZOBACTAM 3,375 MG in SODIUM CHLORIDE 0.9% 100 ML IV SCH ×3 (03:52→21:00)
[2017-04-03 06:02] LABS: Basophils % 0.4 % (0.0-0.8); Eosinophils # 0.3 10*3/uL (0.0-0.87); Eosinophils % 3.8 % (0.00-10.9); Hematocrit 29.1 VOL% (42.0-52.0); Hemoglobin 9.4 GM/DL (14.0-18.0); Immature Granulocytes % 0.7 %; Immature Granulocytes Absolute 0.05 #; Lymphocytes # 1.3 10*3/uL (1.4-4.0); Lymphocytes % 19.5 % (21.2-54.2); Mean Corpuscular HGB Conc 32.3 GM/DL (32-36); Mean Corpuscular Hemoglobin 27 PG (27-34); Mean Corpuscular Volume 84.8 FL (87-102); Mean Platelet Volume 9.9 FL (9.6-12.0); Monocytes # 0.7 10*3/uL (0.11-0.8); Monocytes % 10.3 % (1.7-12.7); Neutrophils # 4.4 10*3/uL (1.4-7.4); Neutrophils % 65.3 % (38.7-73.9); Platelet Count 229 T/CUMM (130-400); Red Blood Count 3.43 MC/CUMM (3.8-5.5); Red Cell Distribution Width 15.1 % (9.3-17.3); White Blood Count 6.8 T/CUMM (4-12)
[2017-04-03] MEDS: INSULIN LISPRO 100 UNIT/ML SUBCUT SCH ×3 (06:26→19:28)
[2017-04-03] MEDS: NITROGLYCERIN 2% OINT 1 INCH/GM PACK TOP SCH ×3 (06:26→19:28)
[2017-04-03 06:44] LABS: Calcium 7.7 MG/DL (8.5-10.1); Osmolality,Calculated 304.3 MOS/KG (273-304); Potassium 4.3 MMOL/L (3.5-5.1)
--- NOTE | 2017-04-03 07:15 | General Surgery Progress Note ---
Assessment and Plan (1) Abdominal pain Status: Acute Assessment and plan: Impression: Abdominal pain with constipation etiology unclear. Plan: IV fluids and IV antibiotics and I repeat CT scan with contrast. At present physical examination do not see any strong indication for surgery 03/29/2017. Patient is afebrile he is not complaining of any abdominal discomfort at this time. He may have had a small bowel movement with the enema from yesterday. His abdomen is mildly distended hypoactive bowel sounds no unusual tenderness or guarding it remains safe soft at this time.. His labs look in good shape at this time hematocrit is 29 his creatinine is up a little bit at 2.10. Running his fluids count of placed kidneys as best we can at this point time will just do close observation of this monitor closely. At this point does not seem to be any major intra-abdominal problem other than constipation. Will try to work on that slowly and see if we can get that improved. 03/31/2017. Patient was eating yesterday and had good bowel sounds but he went in some respiratory failure and had to be intubated last night. The abdomen is quiet today soft with nondistention at this point. At this point abdomen looks stable at this point I would probably favor the possibility of considering some nutrition either with a PICC line and central hyperalimentation. Certainly if his bowels are fairly active tomorrow I would probably favor tube feedings. 04/03/2017 Patient remains on the ventilator but is being weaned at this time. Cardiac cath was completed with 50% ejection fraction and no stents were placed at this time. He continues to have tube feedings and seems to be tolerating it well with no residuals and he continues to have bowel movements. Bowel sounds though are hypoactive even though there is no tenderness or distention present at this point. We will just maintain supportive care until he is on a diet. Current Visit: Yes Qualifiers: Abdominal location: generalized Qualified Code(s): R10.84 - Generalized abdominal pain Subjective Patient reports: Present: no new complaints, other (Patient remains on the ventilator. Tolerating tube feeding) Exam - Constitutional Vitals: Period Temp Pulse Resp BP Sys/Chen Pulse Ox Last 24 Hr 98.9 F-99.4 F 53-82 12-151 119-174/44-65 100-100 General appearance: mild distress - Head Head exam: Present: normal inspection - Neck Neck exam: Present: normal inspection - Respiratory Respiratory exam: Present: rales - Cardiovascular Cardiovascular exam: Present: RRR - GI/Abdominal GI/Abdominal exam: Present: hypoactive bowel sounds, soft. Absent: distended, tenderness - Extremities Exam Extremities exam: Present: normal inspection - Neurological Exam Neurological exam: Present: altered - Skin Skin exam: Present: normal color, warm, dry Results - Labs CBC & BMP: 04/03/17 05:23 04/03/17 05:23 Lab Results: I have reviewed the past 24 hour labs
--- NOTE | 2017-04-03 07:45 | XRay Report ---
XR chest 1V portable Indication: Ventilator Comparison: Chest x-ray dated April 02, 2017 at 9:57 AM Technique: Single frontal view of the chest Findings: Endotracheal tube stable in positioning. Cardiomediastinal silhouette appears grossly unchanged. Hazy opacities within the bilateral mid and lower lungs with question of small bilateral pleural fluid appear unchanged from prior examination. Osseous and surrounding soft tissue structures appear grossly unchanged. IMPRESSION: No significant interval change. PROCEDURE INTERPRETED AT [facility] Final Report Signed by: Dr Stanley Palacios
--- NOTE | 2017-04-03 09:00 | Cardiology Progress Note ---
<Natalie Chinchilla - Last Filed: 04/03/17 08:30> Assessment and Plan (1) Acute non-ST segment elevation myocardial infarction Status: Acute Assessment and plan: Patient underwent heart catheterization yesterday. It is unclear what the culprit is for Mr. Joy is non-STEMI. The ostial obtuse marginal lesion looks significant, however the vessel only 2 mm and it is not ideal for intervention given his of the ostium. This be treated medically. Troponin is trending downward. However, his CPK remains elevated, this raises suspicion that this may not be cardiac in nature. Continue current plan of care at this time. Further plan and addendum to follow per Dr. Mackey. Current Visit: Yes (2) Elevated troponin Status: Acute Assessment and plan: Current Visit: Yes (3) hypertension Status: Chronic Assessment and plan: This is clinically stable. Continue current plan of care. Current Visit: No (4) renal insufficiency Status: Chronic Assessment and plan: This is chronic and he may have an acute component to this with his events. Creatinine is improved today. Nephrology is following. 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 Current Visit: No (6) type 2 diabetes mellitus Status: Chronic Assessment and plan: Continue current plan care. Management per attending. Current Visit: No (7) Aortic stenosis Status: Chronic Assessment and plan: This is chronic and moderate on echocardiogram. Current Visit: Yes (8) Cardiac murmur Status: Chronic Assessment and plan: Secondary to his aortic valve stenosis. Current Visit: Yes (9) Lower gastrointestinal hemorrhage Status: Acute Assessment and plan: His H&H is stable. GI and surgery are following. Current Visit: No Cardiology - PN: Subj Interval history: Managed Care Director: Dr. Ortiz (new) PCP: Dr. Gene Dougherty SUMMARY: Mr. Joy is a 86 year old male without known history of coronary artery disease, not routinely followed by cardiology. PMH: hypertension, diabetes, prostate cancer (now in remission). Patient is a lifetime non-smoker and denies any significant family history of heart disease. Patient reports that he has never undergone any cardiac workup. Patient presented to the emergency department with complaints of abdominal pain and constipation. While in the ER, he confirmed having dyspnea on exertion for the past year. He does have a systolic ejection murmur concerning for aortic stenosis. Echocardiogram revealed left ventricular ejection fraction of 50%. Moderate concentric left ventricular hypertrophy with mild diastolic dysfunction and moderate aortic valve stenosis with mean gradient of 29 mmHg was also noted. Carotid ultrasound did not reveal any significant internal carotid artery stenosis. CT scan of the abdomen shows possible small bowel obstruction/ileus. There is also a cecal abnormality which is suspicious for malignancy. GI as well as surgery were consulted to evaluate his abdominal symptoms. Developed gi bleed with heme-positive stools. On 03/30/17 he became progressively short of breath and required intubation. Chest x-ray revealed some congestive heart failure. Creatinine has risen over his hospital stay. Nephrology is following. On the morning of March 31, 2017 his CPK chapito to 1046 with a troponin of 26.6. At that point, it was felt that this indicated an ischemic event and he would need heart catheterization. Patient underwent left heart catheterization 04/02/17 with the following impressions noted: Impression: 1. Codominant system 2. Coronary artery disease as described above including but not limited to: A. Mild irregularities only in the left anterior descending artery system B. 40-50% ostial ramus, and ostial circumflex disease, as well as 80-90% ostial OM1 stenosis (2 mm vessel) C. 50% mid RCA stenosis and a long thin tortuous codominant vessel Recommendation discussion: It is unclear what the culprit is for Mr. Joy is non-STEMI. The ostial obtuse marginal lesion looks significant, however the vessel only 2 mm and it is not ideal for intervention given his of the ostium. Would recommend medical therapy. His echocardiogram showed EF 50%, with moderate LVH pulmonary hypertension and reportedly moderate aortic stenosis. Post cardiac catheterization patient was transported back to the CCU in stable condition. He remains sedated and intubated at this time. Right groin is soft without bleeding, hematoma and bruit. Distal pulses present. Creatinine is trending down this morning at 1.5. H&H remained stable at 9 and 29. Troponin is trending down as expected. BNP remains high at 1457. However, her labs appear as if she is dry. Chest xray does is unchaged today. Vital signs are stable. Patient is currently in normal sinus rhythm with heart rates in the 50s. Dr. Mackey to follow with further plan and addendum. Exam (Progress Note) - Constitutional Vitals: Period Temp Pulse Resp BP Sys/Chen Pulse Ox Last 24 Hr 98.9 F-99.4 F 53-82 12-151 125-174/44-65 100-100 Exam: General appearance: Patient is on ventilator and propofol but is more awake this morning. HEENT exam: Orally intubated Neck exam: normal inspection no JVD. No carotid bruit. Trachea is in midline Respiratory/lungs exam: Course breath sounds noted throughout. Cardiovascular exam: regular rate and rhythm with 2/6 systolic murmur consistent with aortic valve stenosis. No precordial lift. Chest wall exam: No deformities GI/Abdominal exam: Flat, nondistended, bowel sounds present.. Extremeties/musculoskeletal: No edema. Right groin soft without bleeding, hematoma and bruit. Distal pulses present. Neurological exam: He is awake and moving everything and responding. Psychiatric exam: He is responding appropriately.. Skin exam: warm Result/EKG - Labs CBC & BMP: 04/03/17 05:23 04/03/17 05:23 Lab Results: I have reviewed the past 24 hour labs Labs: Laboratory Results - last 24 hr 04/02/17 04/02/17 04/02/17 11:22 17:31 23:26 WBC RBC Hgb Hct MCV MCH MCHC RDW Plt Count MPV Neut % (Auto) Lymph % (Auto) [place] % (Auto) Eos % (Auto) Baso % (Auto) Neut # (Auto) Lymph # (Auto) [place] # (Auto) Eos # (Auto) Baso # (Auto) Immature Gran % Nucleated RBC % Immature Gran # Nucleated RBCs # ABG pH ABG pCO2 ABG pO2 ABG HCO3 ABG Total CO2 ABG O2 Saturation ABG Base Excess FiO2 Sodium Potassium Chloride Carbon Dioxide Anion Gap BUN Creatinine GFR Calculation BUN/Creatinine Ratio Glucose POC Glucose 193 H 197 H 246 H Calculated Osmolality Calcium Magnesium Total Creatine Kinase CK-MB (CK-2) Troponin I B-Natriuretic Peptide 25-OH Vitamin D Total 04/03/17 04/03/17 04/03/17 03:29 05:23 05:23 WBC 6.8 RBC 3.43 L Hgb 9.4 L Hct 29.1 L MCV 84.8 L MCH 27 MCHC 32.3 RDW 15.1 Plt Count 229 MPV 9.9 Neut % (Auto) 65.3 Lymph % (Auto) 19.5 L [place] % (Auto) 10.3 Eos % (Auto) 3.8 Baso % (Auto) 0.4 Neut # (Auto) 4.4 Lymph # (Auto) 1.3 L [place] # (Auto) 0.7 Eos # (Auto) 0.3 Baso # (Auto) 0.0 Immature Gran % 0.7 Nucleated RBC % 0.0 Immature Gran # 0.05 Nucleated RBCs # 0.00 ABG pH 7.429 ABG pCO2 33.0 L ABG pO2 214.0 H ABG HCO3 22.9 ABG Total CO2 20.0 L ABG O2 Saturation 99.6 ABG Base Excess -1.9 FiO2 60.00 Sodium 148 H Potassium 4.3 Chloride 116 H Carbon Dioxide 22 Anion Gap 14.3 BUN 27 H Creatinine 1.50 H GFR Calculation 60 BUN/Creatinine Ratio 18.00 Glucose 211 H POC Glucose Calculated Osmolality 304.3 H Calcium 7.7 L Magnesium 3.0 H Total Creatine Kinase CK-MB (CK-2) Troponin I B-Natriuretic Peptide 25-OH Vitamin D Total 04/03/17 04/03/17 04/03/17 05:23 05:23 05:23 WBC RBC Hgb Hct MCV MCH MCHC RDW Plt Count MPV Neut % (Auto) Lymph % (Auto) [place] % (Auto) Eos % (Auto) Baso % (Auto) Neut # (Auto) Lymph # (Auto) [place] # (Auto) Eos # (Auto) Baso # (Auto) Immature Gran % Nucleated RBC % Immature Gran # Nucleated RBCs # ABG pH ABG pCO2 ABG pO2 ABG HCO3 ABG Total CO2 ABG O2 Saturation ABG Base Excess FiO2 Sodium Potassium Chloride Carbon Dioxide Anion Gap BUN Creatinine GFR Calculation BUN/Creatinine Ratio Glucose POC Glucose Calculated Osmolality Calcium Magnesium Total Creatine Kinase 2248 H D CK-MB (CK-2) 3.9 H D Troponin I 3.250 H D B-Natriuretic Peptide 1457 H 25-OH Vitamin D Total 11.9 04/03/17 05:59 WBC RBC Hgb Hct MCV MCH MCHC RDW Plt Count MPV Neut % (Auto) Lymph % (Auto) [place] % (Auto) Eos % (Auto) Baso % (Auto) Neut # (Auto) Lymph # (Auto) [place] # (Auto) Eos # (Auto) Baso # (Auto) Immature Gran % Nucleated RBC % Immature Gran # Nucleated RBCs # ABG pH ABG pCO2 ABG pO2 ABG HCO3 ABG Total CO2 ABG O2 Saturation ABG Base Excess FiO2 Sodium Potassium Chloride Carbon Dioxide Anion Gap BUN Creatinine GFR Calculation BUN/Creatinine Ratio Glucose POC Glucose 208 H Calculated Osmolality Calcium Magnesium Total Creatine Kinase CK-MB (CK-2) Troponin I B-Natriuretic Peptide 25-OH Vitamin D Total <Ej Mackey - Last Filed: 04/03/17 11:30> Assessment and Plan (1) Acute non-ST segment elevation myocardial infarction Status: Acute Current Visit: Yes (2) Aortic stenosis Status: Chronic Current Visit: Yes (3) Cardiac murmur Status: Chronic Current Visit: Yes (4) Lower gastrointestinal hemorrhage Status: Acute Current Visit: No (5) renal insufficiency Status: Chronic Current Visit: No (6) type 2 diabetes mellitus Status: Chronic Current Visit: No (7) Elevated troponin Status: Acute Current Visit: Yes (8) Chronic kidney disease, stage III (moderate) Status: Acute Current Visit: Yes (9) Respiratory failure Status: Acute Current Visit: Yes (10) Congestive heart failure Status: Acute Current Visit: Yes Cardiology - PN: Subj Interval history: Patient personally examined and chart reviewed. Discussed this case with Natalie Chinchilla NP. I agree with the assessment and evaluation. Patient is more awake this morning but still intubated. His pulmonary status is fairly stable. Pulmonary medicine is following this. His heart catheterization is noted. He has some moderate coronary disease but no high-grade lesion to account for his non-ST segment elevation myocardial infarction. Certainly he may have had an acute thrombus on a lesion. Certainly no intervention was needed nor indicated. Echocardiogram his LV function is been preserved and with moderate aortic stenosis. Certainly like to treat this patient with aspirin as well as Plavix per period of time. If GI medicine and surgery are agreeable I would like to add Plavix to his present medical regimen. The patient is without any acute bleeding issues. His CPK is still elevated at 2248 with a troponin of 3.25 which his troponin is drifting down but his CPK continues to be elevated. His CK-MB fraction continues to drift down as well. This may certainly indicate that his CPK is not cardiac now. Exam (Progress Note) - Constitutional Vitals: Period Temp Pulse Resp BP Sys/Chen Pulse Ox Last 24 Hr 98.9 F-99.4 F 53-82 12-151 125-174/44-65 100-100 Result/EKG - Labs CBC & BMP: 04/03/17 05:23 04/03/17 05:23 Labs: Laboratory Results - last 24 hr 04/02/17 04/02/17 04/02/17 11:22 17:31 23:26 WBC RBC Hgb Hct MCV MCH MCHC RDW Plt Count MPV Neut % (Auto) Lymph % (Auto) [place] % (Auto) Eos % (Auto) Baso % (Auto) Neut # (Auto) Lymph # (Auto) [place] # (Auto) Eos # (Auto) Baso # (Auto) Immature Gran % Nucleated RBC % Immature Gran # Nucleated RBCs # ABG pH ABG pCO2 ABG pO2 ABG HCO3 ABG Total CO2 ABG O2 Saturation ABG Base Excess FiO2 Sodium Potassium Chloride Carbon Dioxide Anion Gap BUN Creatinine GFR Calculation BUN/Creatinine Ratio Glucose POC Glucose 193 H 197 H 246 H Calculated Osmolality Calcium Magnesium Total Creatine Kinase CK-MB (CK-2) Troponin I B-Natriuretic Peptide 25-OH Vitamin D Total 04/03/17 04/03/17 04/03/17 03:29 05:23 05:23 WBC 6.8 RBC 3.43 L Hgb 9.4 L Hct 29.1 L MCV 84.8 L MCH 27 MCHC 32.3 RDW 15.1 Plt Count 229 MPV 9.9 Neut % (Auto) 65.3 Lymph % (Auto) 19.5 L [place] % (Auto) 10.3 Eos % (Auto) 3.8 Baso % (Auto) 0.4 Neut # (Auto) 4.4 Lymph # (Auto) 1.3 L [place] # (Auto) 0.7 Eos # (Auto) 0.3 Baso # (Auto) 0.0 Immature Gran % 0.7 Nucleated RBC % 0.0 Immature Gran # 0.05 Nucleated RBCs # 0.00 ABG pH 7.429 ABG pCO2 33.0 L ABG pO2 214.0 H ABG HCO3 22.9 ABG Total CO2 20.0 L ABG O2 Saturation 99.6 ABG Base Excess -1.9 FiO2 60.00 Sodium 148 H Potassium 4.3 Chloride 116 H Carbon Dioxide 22 Anion Gap 14.3 BUN 27 H Creatinine 1.50 H GFR Calculation 60 BUN/Creatinine Ratio 18.00 Glucose 211 H POC Glucose Calculated Osmolality 304.3 H Calcium 7.7 L Magnesium 3.0 H Total Creatine Kinase CK-MB (CK-2) Troponin I B-Natriuretic Peptide 25-OH Vitamin D Total 04/03/17 04/03/17 04/03/17 05:23 05:23 05:23 WBC RBC Hgb Hct MCV MCH MCHC RDW Plt Count MPV Neut % (Auto) Lymph % (Auto) [place] % (Auto) Eos % (Auto) Baso % (Auto) Neut # (Auto) Lymph # (Auto) [place] # (Auto) Eos # (Auto) Baso # (Auto) Immature Gran % Nucleated RBC % Immature Gran # Nucleated RBCs # ABG pH ABG pCO2 ABG pO2 ABG HCO3 ABG Total CO2 ABG O2 Saturation ABG Base Excess FiO2 Sodium Potassium Chloride Carbon Dioxide Anion Gap BUN Creatinine GFR Calculation BUN/Creatinine Ratio Glucose POC Glucose Calculated Osmolality Calcium Magnesium Total Creatine Kinase 2248 H D CK-MB (CK-2) 3.9 H D Troponin I 3.250 H D B-Natriuretic Peptide 1457 H 25-OH Vitamin D Total 11.9 04/03/17 04/03/17 05:59 10:25 WBC RBC Hgb Hct MCV MCH MCHC RDW Plt Count MPV Neut % (Auto) Lymph % (Auto) [place] % (Auto) Eos % (Auto) Baso % (Auto) Neut # (Auto) Lymph # (Auto) [place] # (Auto) Eos # (Auto) Baso # (Auto) Immature Gran % Nucleated RBC % Immature Gran # Nucleated RBCs # ABG pH 7.388 ABG pCO2 38.3 ABG pO2 68.1 L ABG HCO3 23.0 ABG Total CO2 20.7 L ABG O2 Saturation 93.5 L ABG Base Excess -1.6 FiO2 60.00 Sodium Potassium Chloride Carbon Dioxide Anion Gap BUN Creatinine GFR Calculation BUN/Creatinine Ratio Glucose POC Glucose 208 H Calculated Osmolality Calcium Magnesium Total Creatine Kinase CK-MB (CK-2) Troponin I B-Natriuretic Peptide 25-OH Vitamin D Total - Impressions Impressions: Telemetry was sinus rhythm rates are maintained.
[2017-04-03] MEDS: ASPIRIN EC 81 MG TABLET PO SCH (09:57)
[2017-04-03] MEDS: MULTIVITAMIN (CENTRUM) TABLET PO SCH (09:57)
[2017-04-03] MEDS: SKIN HEALING OINT (AQUAPHOR) 50 GM TUBE TOP SCH (09:57)
[2017-04-03] MEDS: POLYETHYLENE GLYCOL POWDER 17 GM PACK PO SCH (09:57)
[2017-04-03] MEDS: ALLOPURINOL 100 MG TABLET PO SCH (09:58)
[2017-04-03] MEDS: NYSTATIN 500,000 UNIT/5 ML UDCUP SWISH/SWAL SCH ×4 (10:16→21:21)
[2017-04-03] MEDS: FERRIC GLUCONATE COMPLEX 125 MG in SODIUM CHLORIDE 0.9% 100 ML IV SCH (10:24)
[2017-04-03] MEDS: LEVOFLOXACIN INJ 250 MG in PREMIX 1 EACH IV SCH (10:25)
[2017-04-03] MEDS: PANTOPRAZOLE 40 MG VIAL IV SCH (10:25)
[2017-04-03 10:39] LABS: ABG Base Excess -1.6 MMOL/L (-2.5-2.5); ABG Oxygen Saturation 93.5 % (95-100); ABG PCO2 38.3 MM HG (35-48); ABG PH 7.388 (7.35-7.45); ABG PO2 68.1 MM HG (80-95); ABG TCO2 20.7 MMOL/L (23-27); Allen Test Positive
--- NOTE | 2017-04-03 10:41 | Gastrointestinal Progress Note ---
Assessment and Plan (1) Abdominal pain Status: Acute Assessment and plan: 04/03-hemoglobin stable at 9.4 without overt bleeding. Continue to monitor at this time. Plan an addendum to followed by Dr. Cox 04/02-2+ stools for occult blood, hemoglobin holding at 9/7. For heart catherization today. Plan and addendum to follow by Dr Cox. 04/01-No changes at present time. Continue to monitor. Plan and addendum to follow by Dr Cox. 03/31-sedated, on vent. Hypoactive bowel sounds. NG tube clamped. Surgery contemplating hyperalimentation versus tube feeding at present time. CT scan results reviewed and discussed with Dr. Cox. Plan an addendum to followed by Dr. Cox. 03/30-No reports of abd pain, N/V. Had large BM today. Passing flatus. Plan and addendum to follow by DR Cox. 03/27-Abd pain improved, tolerating diet. No bowel movement at present time. Plan and addendum to follow by Dr Cox. 03/26-reports of constipation worsening over the last several days with several month history of this progressively worsening. Complaints of lower abdominal pain on admission. Abdominal x-ray showing scattered air within small bowel and colon with mild ileus possible. Last C scope in 2014 following rectal bleeding with findings of internal hemorrhoids, felt to be the source of bleeding. Plan an addendum to followed by Dr. Cox. Current Visit: Yes Qualifiers: Abdominal location: generalized Qualified Code(s): R10.84 - Generalized abdominal pain Gastroenterology - PN: Subj Interval history: CC: Abdominal pain Patient is seen currently remains into the with T-tube trials continuing. He is awake and alert is following commands and answering appropriately. He is having no overt bleeding at present time. Hemoglobin remained stable at 9.4. Abdomen is soft and nontender. ROS: No acute distress noted Exam (Progress Note) - Constitutional Vitals: Period Temp Pulse Resp BP Sys/Chen Pulse Ox Last 24 Hr 98.9 F-99.4 F 53-82 12-151 125-174/44-65 100-100 - Other Additional findings: General appearance: normal weight, no acute distress - Head Head exam: Present: normal inspection, normocephalic - Eye Eye exam: Present: other (lids and conjunctiva unremarkable). Absent: scleral icterus - ENT ENT exam: Present: normal exam, normal oropharynx - Neck Neck exam: Present: normal inspection - Respiratory Respiratory exam: Present: clear to auscultation bilaterally. Absent: rales, rhonchi, wheezes - Cardiovascular Cardiovascular exam: Present: regular rate and rhythm. Absent: diastolic murmur , JVD, systolic murmur - GI/Abdominal GI/Abdominal exam: Present: normal bowel sounds, soft. Absent: ascites, distended, mass, organomegaly, tenderness - Extremities Exam Extremities exam: Present: normal inspection, full ROM - Back Exam Back exam: Present: normal inspection - Neurological Exam Neurological exam: Present: alert, oriented - Psychiatric Psychiatric exam: Present: other - Skin Skin exam: Present: normal color, warm, dry Results - Labs CBC & BMP: 04/03/17 05:23 04/03/17 05:23 Lab Results: I have reviewed the past 24 hour labs
--- NOTE | 2017-04-03 11:32 | Family Practice Progress Note ---
Family Practice - PN: Subj Interval history: Patient generally remained stable. Pulmonary he is slowly weaning patient off respirator. A.m. labs and vitals are stable. No new problems identified. His physical exam is basically stable. Multiple consultants involved case. We'll continue present treatment plan Exam (Progress Note) - Constitutional Vitals: Period Temp Pulse Resp BP Sys/Chen Pulse Ox Last 24 Hr 98.9 F-99.4 F 53-82 12-151 125-174/44-65 100-100 Results - Labs CBC & BMP: 04/03/17 05:23 04/03/17 05:23 Assessment and Plan (1) Abdominal pain Status: Acute Assessment and plan: Patient awoke with severe lower abdominal pain. The pain is improved since admission. He is having some intermittent abdominal pain. He is also had progressive problems with constipation. Will order additional studies. Current Visit: Yes Qualifiers: Qualified Code(s): R10.84 - Generalized abdominal pain (2) Exertional dyspnea Status: Chronic Assessment and plan: Dyspnea has progressively gotten worse. Patient unable to do minimal activity without severe dyspnea. Will consult cardiology and evaluate further Current Visit: Yes (3) hypertension Status: Chronic Assessment and plan: We will resume home medications and monitor closely Current Visit: No (4) Cardiac murmur Status: Chronic Assessment and plan: We will evaluate murmur with echo. Current Visit: Yes (5) renal insufficiency Status: Chronic Assessment and plan: Patient is followed by Dr. Henrique Meeks. Mental status has been stable Current Visit: No (6) type 2 diabetes mellitus Status: Chronic Assessment and plan: Blood sugars have been adequately controlled at home. 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
--- NOTE | 2017-04-03 11:46 | Pulmonology Progress Note ---
Pulmonary - PN: Subj Interval history: Mendoza Callahan, ANP-BC, GNP-BC, acting as scribe for Dr. Madhav Rosales This 86-year-old black male who we saw in initial pulmonary consultation on the night of 03/30/2017. His son, [id number], daughter and son-in-law are patients of Dr. Rosales. At the time of our initial consultation, our impressions were: 1. Acute congestive heart failure 2. Moderate aortic stenosis with left ventricular hypertrophy and mild aortic regurgitation 3. Acute renal failure 4. Recent bilateral obstruction with associated nausea and vomiting. Watch for aspiration injury 5. History of internal hemorrhoids 6. Diabetes mellitus 7. History of high blood pressure 03/31/2017. Last night after I saw the patient, while I was still in CCU and ICU -- he suddenly deteriorated. Attempts were made to diurese him additionally and this was of no help even though his chest x-ray looked better. Patient felt like he was going to . It was elected to intubate him after discussion with the patient who is readily agreeable and discussion with the family whom were readily agreeable. Patient stabilized with mechanical ventilation. Today' s chest x-ray still shows pulmonary edema but it is better. ABGs on FiO2 of 100 % and a PEEP of 5 show a pH 7.42, PCO2 29.6 and a PO2 of 243 with a bicarb of 21. CPK is elevated at 1946. MB band is elevated 22.4%. Troponins are elevated at 26.600. Natruretic peptide is elevated 1481. Creatinine is increased to 2.40 with a BUN of 47. Electrolytes are normal. White count is 8300 with 75 segs, 15 lymphs and 9 monos. H&H is dropped to 9.2/28.7. Patient has iron deficiency. Note that on the CT scan of his abdomen there is an abnormality in the cecal area that could be a colon cancer. See report. I have talked to the family about what I think the present diagnoses are including acute myocardial infarction, acute congestive heart failure, acute respiratory failure secondary to congestive heart failure, acute on chronic renal failure. We have gone through the patient's history one more time. Even though he had acute nausea and vomiting everyone involved says he did not aspirate. 04/01/2017. This patient is stable on mechanical ventilation. He did about 4 hours of CPAP on 03/31/2017 and he will be advanced on protocol today. His chest x-ray shows 80% resolution of his acute pulmonary edema. I do not see any definite infiltrates. ABGs on mechanical ventilation FiO2 of 60% shows a pH 7.46, PCO2 is 29, PO2 is 226 with a bicarb of 20. Electrolytes are normal. Creatinine is dropped from 2.4-2.10. Total CPK is 2847 MB band is now 10.9% and troponin has dropped to 13.5. Natruretic peptide is dropped of 468. H&H is low but stable at 9.1/29.3. Note that the patient some iron and iron saturation is very low. I started him on IV iron replacement. I have discussed the pulmonary aspects of this patient's illness and treatment with the family. 04/02/2017. Patient for cardiac catheterization today. Today's x-ray reveals about 85-90% resolution of acute pulmonary edema. Sputum's have been requested but so far have not been reported. Patient is doing well with the weaning protocol. On mechanical ventilation and FiO2 60% pH is 7.48, PCO2 is 29.4, PO2 is 219.8 and bicarb is 21.2. Electrolytes are normal. Glucose is under fairly good control. Natruretic peptide remains elevated 925. B12 and folic acid levels were normal. This patient was found to have low iron and IV replacement was begun yesterday. He has positive stools. He has known internal hemorrhoids. CT of the abdomen was abnormal showing a possible abnormality in the cecal area. 04/03/2017. The patient was seen today along with his [id number] Elsa Joy. The patient is awake and alert. He remains intubated and on mechanical ventilation. We attempted to go to a T-tube this morning but ABGs approximately 45 minutes later on an FiO2 of 60% showed a PO2 of 68.1. Patient got anxious and more short of breath. He is hypoxic obviously. He was placed back on mechanical ventilation. He is on stage IV the weaning protocol and we will continue to advance this as tolerated. We suspect he will slip into pulmonary edema very easily but there could also be the possibility of underlying ARDS. We have started Solu-Medrol 20 mg IV every 12 hours. Echocardiogram done 04/01/[address] Mackey showed an ejection fraction of 50 % plus moderate concentric left ventricular hypertrophy with grade 2 diastolic dysfunction, mild to moderate dilated left atrium, right-sided chambers were normal, minimally sclerotic mitral valve with mild mitral valve regurgitation, aortic valve sclerosis with decreased excursion and moderate aortic valve stenosis, mild tricuspid regurgitation, and a pulmonary artery pressure of 57- 62 mmHg. Doppler venograms done 03/30/2017 showed no evidence of deep venous thrombophlebitis in either lower extremity. Sputum for Gram stain, culture and sensitivity was ordered 04/02/2017, but thus far has not been collected. Blood cultures are negative. Stools for occult blood are positive 2. Medications have been reviewed. We added Solumedrol today. Labs have been reviewed. White count is 6,800 with 65.3% segs; H&H 9.4/29.1; PLT count 229,000; creatinine 1.50, BUN 27, NA+ 148, K+ 4.3, Mg+ 3.0; BNP 1457; Vitamin D 11.9, troponin 3.250, total creatinine kinase 2248 ABGs this morning on mechanical ventilation and an FIO2 of 60% showed a pH of 7.429, PCO2 of 33.0, PO2 of 214.0, bicarb of 22.9, and O2 sat 99.6%. ABGs this morning on t-tube and an FIO2 of 50% showed a pH of 7.388, PCO2 of 38.3, PO2 of 68.1, bicarb of 23.0, and O2 sat 93.5%. Exam (Progress Note) - Constitutional Vitals: Period Temp Pulse Resp BP Sys/Chen Pulse Ox Last 24 Hr 98.9 F-99.4 F 53-82 12-151 125-174/44-65 100-100 Exam: Chest with rales, however improving Heart lateral PMI Abdomen is nontender and nondistended; rare bowel sounds Extremities with nothing to suggest acute deep venous thrombophlebitis Psychiatric/neurologic awake and able to follow commands; moves all 4 extremities Plan: Continue advancing the weaning protocol as tolerated. Daily ABGs and chest x-ray. Due to vitamin D deficiency, will start vitamin D3 2000 units daily. See orders. Results - Labs CBC & BMP: 04/03/17 05:23 04/03/17 05:23
[2017-04-03] MEDS: CHOLECALCIFEROL 1,000 UNIT TABLET PO SCH (12:41)
[2017-04-03] MEDS: methylPREDNISolone SOD SUC 40 MG/1 ML VIAL IV SCH (12:45)
[2017-04-03] MEDS: ENOXAPARIN 40 MG/0.4 ML SYRINGE SUBCUT SCH (12:45)
[2017-04-03] MEDS: FLUCONAZOLE INJ 100 MG in IV BAG 1 EACH IV SCH (12:46)
--- NOTE | 2017-04-03 14:02 | Nephrology Progress Note ---
Nephrology - PN: Subj Interval history: He remains on the ventilator. He is awake and alert. He became anxious during T-tube trials. Exam (PN)-Nephrology - Vital Signs Vital signs: Period Temp Pulse Resp BP Sys/Chen Pulse Ox Last 24 Hr 98.9 F-99.4 F 53-95 12-151 125-174/44-65 96-100 Exam: ENT: Intubated Cardiovascular: Regular rate and rhythm. No murmur rub or gallop Lungs: Clear Extremities: No edema - Lab 04/03/17 05:23 04/03/17 05:23 Most recent lab results ABG pH 7.388 (7.35-7.45) 04/03/17 10:25 ABG pCO2 38.3 MM HG (35-48) 04/03/17 10:25 ABG pO2 68.1 MM HG (80-95) L 04/03/17 10:25 ABG HCO3 23.0 MMOL/L (20-26) 04/03/17 10:25 ABG O2 Saturation 93.5 % (95-100) L 04/03/17 10:25 Calcium 7.7 MG/DL (8.5-10.1) L 04/03/17 05:23 Phosphorus 2.4 MG/DL (2.5-4.9) L 04/02/17 05:13 Magnesium 3.0 MG/DL (1.8-2.4) H 04/03/17 05:23 Assessment and Plan (1) Chronic kidney disease, stage III (moderate) Status: Acute Assessment and plan: 86-year-old man admitted with: * CRF stage III. Baseline creatinine 1.6 * Acute on chronic renal failure. Renal function has improved. Fluid balance neutral * Hypertension. Controlled * Small bowel obstruction. Resolved * Diabetes mellitus * CAD. 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
[2017-04-03] MEDS: TRAVOPROST 0.004% OPH SOLN 2.5 ML BOTTLE BOTH EYES SCH (21:31)
[2017-04-04] MEDS: methylPREDNISolone SOD SUC 40 MG/1 ML VIAL IV SCH ×3 (00:28→23:45)
[2017-04-04] MEDS: NITROGLYCERIN 2% OINT 1 INCH/GM PACK TOP SCH ×5 (00:29→23:45)
[2017-04-04] MEDS: INSULIN LISPRO 100 UNIT/ML SUBCUT SCH ×5 (01:00→23:46)
[2017-04-04] MEDS: ALBUTEROL/IPRATROPIUM 3 ML NEB RESP TX SCH ×4 (01:59→19:39)
[2017-04-04] MEDS: metroNIDAZOLE INJ 500 MG in PREMIX 1 EACH IV SCH ×4 (03:30→20:03)
[2017-04-04] MEDS: ALUMINUM/MAGNES/SIMETH MAX STR 30 ML UDCUP PO SCH ×4 (03:30→20:02)
[2017-04-04] MEDS: PIPERACILLIN/TAZOBACTAM 3,375 MG in SODIUM CHLORIDE 0.9% 100 ML IV SCH ×3 (03:33→20:03)
[2017-04-04 04:25] LABS: ABG Base Excess -2.7 MMOL/L (-2.5-2.5); ABG HCO3 22.2 MMOL/L (20-26); ABG Oxygen Saturation 99.7 % (95-100); ABG PCO2 34.5 MM HG (35-48); ABG PH 7.401 (7.35-7.45); ABG TCO2 18.8 MMOL/L (23-27); Allen Test Positive; Pt O2 Delivery Device Ventilator
[2017-04-04 05:46] LABS: Hematocrit 30.1 VOL% (42.0-52.0); Hemoglobin 9.6 GM/DL (14.0-18.0); Immature Granulocytes % 1.1 %; Immature Granulocytes Absolute 0.08 #; Lymphocytes # 0.8 10*3/uL (1.4-4.0); Lymphocytes % 11.2 % (21.2-54.2); Mean Corpuscular HGB Conc 31.9 GM/DL (32-36); Mean Corpuscular Hemoglobin 27 PG (27-34); Mean Corpuscular Volume 84.3 FL (87-102); Mean Platelet Volume 9.9 FL (9.6-12.0); Monocytes # 0.4 10*3/uL (0.11-0.8); Monocytes % 5.3 % (1.7-12.7); Neutrophils # 5.8 10*3/uL (1.4-7.4); Neutrophils % 82.4 % (38.7-73.9); Platelet Count 257 T/CUMM (130-400); Red Blood Count 3.57 MC/CUMM (3.8-5.5); Red Cell Distribution Width 15.2 % (9.3-17.3)
[2017-04-04 06:12] LABS: Calcium 7.8 MG/DL (8.5-10.1); Magnesium 3.2 MG/DL (1.8-2.4); Osmolality,Calculated 313.1 MOS/KG (273-304); Potassium 4.5 MMOL/L (3.5-5.1)
[2017-04-04] MEDS: ALBUTEROL/IPRATROPIUM 3 ML NEB RESP TX PRN (07:15)
--- NOTE | 2017-04-04 08:40 | Cardiology Progress Note ---
Assessment and Plan (1) Acute non-ST segment elevation myocardial infarction Status: Acute Assessment and plan: He did not have significant coronary disease. His ejection fraction was preserved after the event. Still question why his CPK continued to go up even after troponins started down. Current Visit: Yes (2) Aortic stenosis Status: Chronic Assessment and plan: This is chronic and moderate on echocardiogram. No change Current Visit: Yes (3) Cardiac murmur Status: Chronic Assessment and plan: Secondary to his aortic valve stenosis. Current Visit: Yes (4) Lower gastrointestinal hemorrhage Status: Acute Assessment and plan: His H&H is stable. No gross evidence of recurrent bleed. Current Visit: No (5) renal insufficiency Status: Chronic Assessment and plan: This is chronic and he may have an acute component to this with his events. His creatinine and BUN are up some today. Current Visit: No (6) type 2 diabetes mellitus Status: Chronic Assessment and plan: This is being managed by the primary service. Current Visit: No (7) Elevated troponin Status: Acute Assessment and plan: This is decreasing and certain secondary to myocardial infarction. His CPK though had trended up. Current Visit: Yes (8) Chronic kidney disease, stage III (moderate) Status: Chronic Assessment and plan: Element acute on chronic and has been crying her up some today. We will need to continue to monitor this post catheterization. Current Visit: Yes (9) Respiratory failure Status: Acute Assessment and plan: This is improving. Hopefully begin to wean off the ventilator soon. Current Visit: Yes (10) Congestive heart failure Status: Acute Assessment and plan: We will give a dose of Lasix today. Current Visit: Yes Cardiology - PN: Subj Interval history: Patient remains intubated on propofol. He does respond though wakes up easily. Apparently yesterday he was attempted on T-tube and did not do well. Hemodynamically has been stable. His chest x-ray today still shows make some point congestion. BARTOLO's positive yesterday. Weight though is down. His arterial blood gases look good. His CBC is unremarkable. His chemistries are stable. His creatinine and BUN are elevated more at 1.7 and 38 respectively. He is remained in sinus rhythm without dysrhythmias. Exam (Progress Note) - Constitutional Vitals: Period Temp Pulse Resp BP Sys/Chen Pulse Ox Last 24 Hr 98.5 F-98.9 F 53-112 14-28 83-189/45-80 94-100 Exam: General appearance: Patient is on ventilator and propofol but is more awake this morning and responds appropriately. HEENT exam: Orally intubated Neck exam: normal inspection no JVD. No carotid bruit. Trachea is in midline Respiratory/lungs exam: clear and quiet to auscultation anteriorly/bilaterally with good air movement. Cardiovascular exam: regular rate and rhythm with 2/6 systolic murmur consistent with aortic valve stenosis. No precordial lift. Chest wall exam: No deformities GI/Abdominal exam: Flat, nondistended, bowel sounds present.. Extremeties/musculoskeletal: No edema. Neurological exam: He is awake and moving everything and responding. Psychiatric exam: He is responding appropriately.. Skin exam: warm Result/EKG - Labs CBC & BMP: 04/04/17 04:07 04/04/17 04:07 Lab Results: I have reviewed the past 24 hour labs Labs: Laboratory Results - last 24 hr 04/03/17 04/03/17 04/03/17 10:25 11:42 18:37 WBC RBC Hgb Hct MCV MCH MCHC RDW Plt Count MPV Neut % (Auto) Lymph % (Auto) [place] % (Auto) Eos % (Auto) Baso % (Auto) Neut # (Auto) Lymph # (Auto) [place] # (Auto) Eos # (Auto) Baso # (Auto) Immature Gran % Nucleated RBC % Immature Gran # Nucleated RBCs # ABG pH 7.388 ABG pCO2 38.3 ABG pO2 68.1 L ABG HCO3 23.0 ABG Total CO2 20.7 L ABG O2 Saturation 93.5 L ABG Base Excess -1.6 FiO2 60.00 Sodium Potassium Chloride Carbon Dioxide Anion Gap BUN Creatinine GFR Calculation BUN/Creatinine Ratio Glucose POC Glucose 204 H 250 H Calculated Osmolality Lactic Acid Calcium Magnesium 04/03/17 04/04/17 04/04/17 19:22 00:58 04:07 WBC 7.0 RBC 3.57 L Hgb 9.6 L Hct 30.1 L MCV 84.3 L MCH 27 MCHC 31.9 L RDW 15.2 Plt Count 257 MPV 9.9 Neut % (Auto) 82.4 H Lymph % (Auto) 11.2 L [place] % (Auto) 5.3 Eos % (Auto) 0.0 Baso % (Auto) 0.0 Neut # (Auto) 5.8 Lymph # (Auto) 0.8 L [place] # (Auto) 0.4 Eos # (Auto) 0.0 Baso # (Auto) 0.0 Immature Gran % 1.1 Nucleated RBC % 0.0 Immature Gran # 0.08 Nucleated RBCs # 0.00 ABG pH ABG pCO2 ABG pO2 ABG HCO3 ABG Total CO2 ABG O2 Saturation ABG Base Excess FiO2 Sodium Potassium Chloride Carbon Dioxide Anion Gap BUN Creatinine GFR Calculation BUN/Creatinine Ratio Glucose POC Glucose 280 H Calculated Osmolality Lactic Acid 1.0 Calcium Magnesium 04/04/17 04/04/17 04:07 04:10 WBC RBC Hgb Hct MCV MCH MCHC RDW Plt Count MPV Neut % (Auto) Lymph % (Auto) [place] % (Auto) Eos % (Auto) Baso % (Auto) Neut # (Auto) Lymph # (Auto) [place] # (Auto) Eos # (Auto) Baso # (Auto) Immature Gran % Nucleated RBC % Immature Gran # Nucleated RBCs # ABG pH 7.401 ABG pCO2 34.5 L ABG pO2 235.0 H ABG HCO3 22.2 ABG Total CO2 18.8 L ABG O2 Saturation 99.7 ABG Base Excess -2.7 L FiO2 60.00 Sodium 149 H Potassium 4.5 Chloride 117 H Carbon Dioxide 23 Anion Gap 13.5 BUN 38 H D Creatinine 1.70 H GFR Calculation 51 BUN/Creatinine Ratio 22.00 H Glucose 264 H POC Glucose Calculated Osmolality 313.1 H Lactic Acid Calcium 7.8 L Magnesium 3.2 H - Impressions Impressions: Telemetry with sinus rhythm. No dysrhythmias recorded.
[2017-04-04] MEDS ORDERED: FUROSEMIDE 40 MG/4 ML VIAL IV ONE (08:43)
--- NOTE | 2017-04-04 08:55 | XRay Report ---
XR chest 1V portable Indication: Ventilator patient Comparison: 03 Apr 2017 Findings: The heart and mediastinum are stable in size and configuration. The lines and tubes are unchanged in position. The pulmonary vascularity is normal in caliber. Slight increased hazy right lower lung density. No other lung infiltrates, effusions, pneumothorax or other abnormality is demonstrated. Impression: Slight increase in hazy right lower lung density, could indicate infiltrate. PROCEDURE INTERPRETED AT [facility] DEPARTMENT OF RADIOLOGY Final Report Signed by: Dr. Romie Conner
[2017-04-04] MEDS: PANTOPRAZOLE 40 MG VIAL IV SCH (09:52)
[2017-04-04] MEDS: SKIN HEALING OINT (AQUAPHOR) 50 GM TUBE TOP SCH (09:52)
[2017-04-04] MEDS: ASPIRIN EC 81 MG TABLET PO SCH (09:52)
[2017-04-04] MEDS: MULTIVITAMIN (CENTRUM) TABLET PO SCH (09:52)
[2017-04-04] MEDS: NYSTATIN 500,000 UNIT/5 ML UDCUP SWISH/SWAL SCH ×4 (09:52→20:02)
[2017-04-04] MEDS: CHOLECALCIFEROL 1,000 UNIT TABLET PO SCH (09:52)
[2017-04-04] MEDS: FLUCONAZOLE INJ 100 MG in IV BAG 1 EACH IV SCH (09:53)
[2017-04-04] MEDS: POLYETHYLENE GLYCOL POWDER 17 GM PACK PO SCH (09:54)
[2017-04-04] MEDS: FERRIC GLUCONATE COMPLEX 125 MG in SODIUM CHLORIDE 0.9% 100 ML IV SCH (09:54)
[2017-04-04] MEDS: PROPOFOL 1,000 MG/100 ML BOTTLE IV SCH ×2 (09:55→19:30)
--- NOTE | 2017-04-04 10:28 | Nephrology Progress Note ---
Nephrology - PN: Subj Interval history: The patient's condition is about the same. He is awake and nods to yes or no questions. Serum creatinine is noted to be 1.7 today. Patient's follow-up lactic acid level was normal at 1.0. Exam (PN)-Nephrology - Vital Signs Vital signs: Period Temp Pulse Resp BP Sys/Chen Pulse Ox Last 24 Hr 98.5 F-98.9 F 53-112 14-28 83-189/45-80 94-100 - General Appearance General appearance: well-developed, intubated EENT: ATNC Neck: supple Respiratory: clear Cardiology: regular rate, regular rhythm Gastrointestinal: normoactive bowel sounds, no tenderness, no guarding Integumentary: no rash, warm and dry Musculoskeletal: no clubbing - Lab 04/04/17 04:07 04/04/17 04:07 Most recent lab results ABG pH 7.401 (7.35-7.45) 04/04/17 04:10 ABG pCO2 34.5 MM HG (35-48) L 04/04/17 04:10 ABG pO2 235.0 MM HG (80-95) H 04/04/17 04:10 ABG HCO3 22.2 MMOL/L (20-26) 04/04/17 04:10 ABG O2 Saturation 99.7 % (95-100) 04/04/17 04:10 Calcium 7.8 MG/DL (8.5-10.1) L 04/04/17 04:07 Phosphorus 2.4 MG/DL (2.5-4.9) L 04/02/17 05:13 Magnesium 3.2 MG/DL (1.8-2.4) H 04/04/17 04:07 Assessment and Plan (1) Respiratory failure Status: Acute Current Visit: Yes (2) Chronic kidney disease, stage III (moderate) Status: Chronic Current Visit: Yes (3) Acute on chronic renal failure Status: Acute Assessment and plan: Serum creatinine noted to be 1.7. Continue to avoid nephrotoxic agents. Current Visit: Yes (4) Congestive heart failure Status: Chronic Current Visit: Yes
[2017-04-04] MEDS: LEVOFLOXACIN INJ 250 MG in PREMIX 1 EACH IV SCH (12:28)
--- NOTE | 2017-04-04 13:00 | Internal Med Progress Note ---
Assessment and Plan (1) Acute non-ST segment elevation myocardial infarction Status: Acute Current Visit: Yes (2) Acute on chronic renal failure Status: Chronic Current Visit: Yes Qualifiers: Chronic kidney disease stage: stage 3 (moderate) (3) Constipation Status: Chronic Current Visit: Yes Qualifiers: Constipation type: chronic idiopathic constipation Qualified Code(s): K59.04 - Chronic idiopathic constipation (4) Respiratory failure Status: Acute Current Visit: Yes Qualifiers: Chronicity: acute (5) Aortic stenosis Status: Chronic Current Visit: Yes (6) Lower gastrointestinal hemorrhage Status: Acute Current Visit: Yes (7) hypertension Status: Chronic Current Visit: Yes (8) Internal hemorrhoids Status: Chronic Current Visit: Yes Internal Medicine - PN: Subj Interval history: This is an 86 year old male patient of Dr. Dougherty with history of DM, HTN, CAD, chronic renal insufficiency stage III, anemia of chronic disease, chronic constipation, who had presented to ER with worsening constipation of uncertain etiology. Also, he has had worsening shortness of breath and had to be ventilated for respiratory failure. He had non STEMI. GI bleed. He is currently on CPAP trials and may be extubated tomorrow. Exam (Progress Note) - Constitutional Vitals: Period Temp Pulse Resp BP Sys/Chen Pulse Ox Last 24 Hr 98.5 F-98.9 F 53-112 15-26 83-189/45-80 96-100 General appearance: no acute distress (awake on the vent) - Head Head exam: Present: normocephalic - Eye Eye exam: Present: EOMI - Respiratory Respiratory exam: Present: clear to auscultation bilaterally - Cardiovascular Cardiovascular exam: Present: regular rate and rhythm - GI/Abdominal GI/Abdominal exam: Present: normal bowel sounds, soft. Absent: tenderness - Extremities Exam Extremities exam: Absent: edema - Neurological Exam Neurological exam: Present: alert - Psychiatric Psychiatric exam: Present: normal affect - Skin Skin exam: Present: warm, dry Results - Labs CBC & BMP: 04/04/17 04:07 04/04/17 04:07
--- NOTE | 2017-04-04 13:21 | Pulmonology Progress Note ---
Pulmonary - PN: Subj Interval history: 86-year-old -[place] male in the ICU with for respiratory failure requiring mechanical ventilation. Patient had no acute events overnight. Yesterday patient was tried on T piece trial with resultant hypoxia and reinitiation of ventilator settings. Patient has now been on CPAP trial most of the day without issues. He is awake, alert, interactive and denies complaints this morning. Exam (Progress Note) - Constitutional Vitals: Period Temp Pulse Resp BP Sys/Chen Pulse Ox Last 24 Hr 98.5 F-98.9 F 53-112 15-26 83-189/45-80 96-100 General appearance: normal weight - Head Head exam: Present: normal inspection - Eye Eye exam: Present: EOMI Pupils: Present: SANDRA - ENT ENT exam: Present: normal exam - Neck Neck exam: Present: normal inspection - Respiratory Respiratory exam: Present: clear to auscultation bilaterally. Absent: rales, rhonchi, wheezes - Cardiovascular Cardiovascular exam: Present: regular rate and rhythm - GI/Abdominal GI/Abdominal exam: Present: normal bowel sounds, soft - Extremities Exam Extremities exam: Present: normal inspection - Neurological Exam Neurological exam: Present: alert - Skin Skin exam: Present: warm, dry Results - Labs CBC & BMP: 04/04/17 04:07 04/04/17 04:07 - Diagnostic Findings Procedure: Chest x-ray: image reviewed by me, report reviewed by me (Slight worsening of right lower lobe infiltrate) Assessment and Plan (1) Respiratory failure Status: Acute Assessment and plan: Doing well after yesterday's worsening on T piece trial. Continue weaning trials. Hope for extubation in the next 1-2 days. Repeat chest x-ray and ABG in the morning to monitor slight increase in right lower lobe infiltrate. Current Visit: Yes (2) Chronic kidney disease, stage III (moderate) Status: Chronic Assessment and plan: Slight worsening in creatinine this morning. Continue to trend. Current Visit: Yes (3) Congestive heart failure Status: Chronic Assessment and plan: Heart failure preserved ejection fraction. Appears euvolemic at this time. Current Visit: Yes (4) Hypernatremia Status: Acute Assessment and plan: Recommend increasing patient's free water flushes Current Visit: Yes
--- NOTE | 2017-04-04 13:48 | General Surgery Progress Note ---
Assessment and Plan (1) Abdominal pain Status: Acute Assessment and plan: Plan: Patient appears to be tolerating tube feeds. He has begun to have liquid bowel movements. Continue tube feeds. Continue supportive care. Current Visit: Yes Qualifiers: Abdominal location: generalized Qualified Code(s): R10.84 - Generalized abdominal pain Subjective Narrative: Remains intubated. Tolerating tube feeds. Having liquid bowel movements. No significant residuals. Exam - Constitutional Vitals: Period Temp Pulse Resp BP Sys/Chen Pulse Ox Last 24 Hr 98.5 F-98.9 F 53-112 15-26 83-189/45-80 96-100 General appearance: no acute distress - Cardiovascular Cardiovascular exam: Present: RRR - GI/Abdominal GI/Abdominal exam: Present: soft (Nondistended with bowel sounds present.) Results - Labs CBC & BMP: 04/04/17 04:07 04/04/17 04:07 Lab Results: I have reviewed the past 24 hour labs
[2017-04-04] MEDS: ENOXAPARIN 40 MG/0.4 ML SYRINGE SUBCUT SCH (16:06)
[2017-04-04] MEDS: TRAVOPROST 0.004% OPH SOLN 2.5 ML BOTTLE BOTH EYES SCH (20:04)
[2017-04-05] MEDS: ALBUTEROL/IPRATROPIUM 3 ML NEB RESP TX SCH ×4 (00:15→18:53)
[2017-04-05] MEDS: PROPOFOL 1,000 MG/100 ML BOTTLE IV SCH ×3 (00:34→18:31)
[2017-04-05 02:52] LABS: ABG Base Excess -3.1 MMOL/L (-2.5-2.5); ABG HCO3 21.9 MMOL/L (20-26); ABG Oxygen Saturation 99.9 % (95-100); ABG PCO2 31.5 MM HG (35-48); ABG PH 7.422 (7.35-7.45); ABG TCO2 18.4 MMOL/L (23-27); Allen Test Positive; Pt O2 Delivery Device Ventilator
[2017-04-05] MEDS: PIPERACILLIN/TAZOBACTAM 3,375 MG in SODIUM CHLORIDE 0.9% 100 ML IV SCH ×3 (03:00→20:10)
[2017-04-05] MEDS: metroNIDAZOLE INJ 500 MG in PREMIX 1 EACH IV SCH ×4 (03:04→20:10)
[2017-04-05] MEDS: ALUMINUM/MAGNES/SIMETH MAX STR 30 ML UDCUP PO SCH ×4 (03:04→20:10)
[2017-04-05 04:24] LABS: Basophils % 0.1 % (0.0-0.8); Eosinophils % 0.1 % (0.00-10.9); Hematocrit 29.8 VOL% (42.0-52.0); Hemoglobin 9.6 GM/DL (14.0-18.0); Immature Granulocytes Absolute 0.11 #; Lymphocytes # 0.8 10*3/uL (1.4-4.0); Lymphocytes % 7.3 % (21.2-54.2); Mean Corpuscular HGB Conc 32.2 GM/DL (32-36); Mean Corpuscular Hemoglobin 27 PG (27-34); Mean Corpuscular Volume 84.4 FL (87-102); Mean Platelet Volume 9.9 FL (9.6-12.0); Monocytes # 0.6 10*3/uL (0.11-0.8); Monocytes % 5.4 % (1.7-12.7); Neutrophils # 9.1 10*3/uL (1.4-7.4); Neutrophils % 86.1 % (38.7-73.9); Platelet Count 276 T/CUMM (130-400); Red Blood Count 3.53 MC/CUMM (3.8-5.5); Red Cell Distribution Width 15.3 % (9.3-17.3); White Blood Count 10.6 T/CUMM (4-12)
[2017-04-05 04:49] LABS: Calcium 7.8 MG/DL (8.5-10.1); Magnesium 3.1 MG/DL (1.8-2.4); Osmolality,Calculated 315.3 MOS/KG (273-304)
[2017-04-05] MEDS: INSULIN LISPRO 100 UNIT/ML SUBCUT SCH ×4 (05:45→23:49)
[2017-04-05] MEDS: NITROGLYCERIN 2% OINT 1 INCH/GM PACK TOP SCH ×4 (05:46→23:49)
--- NOTE | 2017-04-05 08:55 | Cardiology Progress Note ---
Assessment and Plan (1) Acute non-ST segment elevation myocardial infarction Status: Acute Assessment and plan: He did not have significant coronary disease. His ejection fraction was preserved after the event. Current Visit: Yes (2) Aortic stenosis Status: Chronic Assessment and plan: This is chronic and moderate on echocardiogram. No change Current Visit: Yes (3) Cardiac murmur Status: Chronic Assessment and plan: Secondary to his aortic valve stenosis. Current Visit: Yes (4) Lower gastrointestinal hemorrhage Status: Acute Assessment and plan: His H&H is stable. No gross evidence of recurrent bleed. Current Visit: Yes (5) renal insufficiency Status: Chronic Assessment and plan: This is chronic and he may have an acute component to this with his events. His creatinine and BUN are up some today. Current Visit: No (6) type 2 diabetes mellitus Status: Chronic Assessment and plan: This is being managed by the primary service. Current Visit: No (7) Elevated troponin Status: Resolved Assessment and plan: Stable and no change. Current Visit: Yes (8) Chronic kidney disease, stage III (moderate) Status: Chronic Assessment and plan: [facility] following this. Current Visit: Yes (9) Respiratory failure Status: Acute Assessment and plan: Hopefully will wean off the vent soon. Current Visit: Yes Qualifiers: Chronicity: acute (10) Congestive heart failure Status: Chronic Assessment and plan: Stable at this time. Current Visit: Yes Cardiology - PN: Subj Interval history: Mr. Joy this morning remains intubated but on T-tube. He is responsive. From a cardiac standpoint he has had no real issues or changes. His rhythm is remained sinus. His blood pressures are elevated some. His lab work this morning is fairly stable. His H&H is stable. His chemistries in general fairly stable. His creatinine is decreasing a little bit now. His urine is up some. Magnesium is stable. He is being weaned off the ventilator and this is coming along fairly well. Chest x-ray report is not back to his chest x-ray generally looks fairly good. Exam (Progress Note) - Constitutional Vitals: Period Temp Pulse Resp BP Sys/Chen Pulse Ox Last 24 Hr 98.6 F-99.0 F 45-71 13-27 112-175/45-67 100-100 Exam: General appearance: Patient is on ventilator and propofol but is more awake this morning and responds appropriately. HEENT exam: Orally intubated Neck exam: normal inspection no JVD. No carotid bruit. Trachea is in midline Respiratory/lungs exam: clear and quiet to auscultation anteriorly/bilaterally with good air movement. Cardiovascular exam: regular rate and rhythm with 2/6 systolic murmur consistent with aortic valve stenosis. No precordial lift. Chest wall exam: No deformities GI/Abdominal exam: Flat, nondistended, bowel sounds present.. Extremeties/musculoskeletal: No edema. Neurological exam: He is awake and moving everything and responding. Psychiatric exam: He is responding appropriately.. Skin exam: warm Result/EKG - Labs CBC & BMP: 04/05/17 04:04 04/05/17 04:04 Lab Results: I have reviewed the past 24 hour labs Labs: Laboratory Results - last 24 hr 04/04/17 04/04/17 04/04/17 06:03 17:41 23:30 WBC RBC Hgb Hct MCV MCH MCHC RDW Plt Count MPV Neut % (Auto) Lymph % (Auto) [place] % (Auto) Eos % (Auto) Baso % (Auto) Neut # (Auto) Lymph # (Auto) [place] # (Auto) Eos # (Auto) Baso # (Auto) Immature Gran % Nucleated RBC % Immature Gran # Nucleated RBCs # ABG pH ABG pCO2 ABG pO2 ABG HCO3 ABG Total CO2 ABG O2 Saturation ABG Base Excess FiO2 Sodium Potassium Chloride Carbon Dioxide Anion Gap BUN Creatinine GFR Calculation BUN/Creatinine Ratio Glucose POC Glucose 265 H 312 H 315 H Calculated Osmolality Calcium Magnesium 04/05/17 04/05/17 04/05/17 02:30 04:04 04:04 WBC 10.6 D RBC 3.53 L Hgb 9.6 L Hct 29.8 L MCV 84.4 L MCH 27 MCHC 32.2 RDW 15.3 Plt Count 276 MPV 9.9 Neut % (Auto) 86.1 H Lymph % (Auto) 7.3 L [place] % (Auto) 5.4 Eos % (Auto) 0.1 Baso % (Auto) 0.1 Neut # (Auto) 9.1 H Lymph # (Auto) 0.8 L [place] # (Auto) 0.6 Eos # (Auto) 0.0 Baso # (Auto) 0.0 Immature Gran % 1.0 Nucleated RBC % 0.0 Immature Gran # 0.11 Nucleated RBCs # 0.00 ABG pH 7.422 ABG pCO2 31.5 L ABG pO2 238.0 H ABG HCO3 21.9 ABG Total CO2 18.4 L ABG O2 Saturation 99.9 ABG Base Excess -3.1 L FiO2 60.00 Sodium 148 H Potassium 5.0 Chloride 118 H Carbon Dioxide 22 Anion Gap 13.0 BUN 42 H Creatinine 1.60 H GFR Calculation 55 BUN/Creatinine Ratio 26.00 H Glucose 300 H POC Glucose Calculated Osmolality 315.3 H Calcium 7.8 L Magnesium 3.1 H - Impressions Impressions: Telemetry normal sinus rhythm.
--- NOTE | 2017-04-05 09:07 | Pulmonology Progress Note ---
Pulmonary - PN: Subj Interval history: 86-year-old -E[place] male in the ICU with for respiratory failure requiring mechanical ventilation. Patient had no acute events overnight. Yesterday patient did well on CPAP trial. He is awake, alert, interactive and denies complaints this morning. Exam (Progress Note) - Constitutional Vitals: Period Temp Pulse Resp BP Sys/Chen Pulse Ox Last 24 Hr 98.6 F-99.0 F 45-71 13-27 112-175/45-67 100-100 General appearance: normal weight - Head Head exam: Present: normal inspection - Eye Eye exam: Present: EOMI Pupils: Present: SANDRA - Neck Neck exam: Present: normal inspection - Respiratory Respiratory exam: Present: clear to auscultation bilaterally, decreased breath sounds (Slightly decreased bibasilarly) - Cardiovascular Cardiovascular exam: Present: regular rate and rhythm, systolic murmur - GI/Abdominal GI/Abdominal exam: Present: normal bowel sounds, soft. Absent: tenderness - Extremities Exam Extremities exam: Present: normal inspection - Neurological Exam Neurological exam: Present: alert - Skin Skin exam: Present: warm, dry Results - Labs CBC & BMP: 04/05/17 04:04 04/05/17 04:04 - Diagnostic Findings Procedure: Chest x-ray: image reviewed by me (Overall unchanged from yesterday) Assessment and Plan (1) Respiratory failure Status: Acute Assessment and plan: Doing well with CPAP trials. Will have patient undergo T piece trial today for 2 hours with repeat ABG at the end of the trial. If patient does well with this , will consider extubation today. Otherwise will continue with weaning trials. Will reduce steroids to once daily. Current Visit: Yes Qualifiers: Chronicity: acute (2) Chronic kidney disease, stage III (moderate) Status: Chronic Assessment and plan: Stable creatinine this morning. Continue to trend. Current Visit: Yes (3) Congestive heart failure Status: Chronic Assessment and plan: Heart failure preserved ejection fraction. Appears euvolemic at this time. Current Visit: Yes (4) Hypernatremia Status: Acute Assessment and plan: Slightly improved this morning Current Visit: Yes
[2017-04-05] MEDS: NYSTATIN 500,000 UNIT/5 ML UDCUP SWISH/SWAL SCH ×4 (09:13→20:09)
[2017-04-05] MEDS: FERRIC GLUCONATE COMPLEX 125 MG in SODIUM CHLORIDE 0.9% 100 ML IV SCH (09:13)
[2017-04-05] MEDS: PANTOPRAZOLE 40 MG VIAL IV SCH (09:13)
[2017-04-05 09:14] LABS: ABG Base Excess -2.1 MMOL/L (-2.5-2.5); ABG HCO3 22.7 MMOL/L (20-26); ABG Oxygen Saturation 98.3 % (95-100); ABG PCO2 38.2 MM HG (35-48); ABG PH 7.382 (7.35-7.45); ABG TCO2 20.7 MMOL/L (23-27)
[2017-04-05] MEDS: POLYETHYLENE GLYCOL POWDER 17 GM PACK PO SCH (09:14)
[2017-04-05] MEDS: LEVOFLOXACIN INJ 250 MG in PREMIX 1 EACH IV SCH (09:14)
--- NOTE | 2017-04-05 09:15 | XRay Report ---
XR chest 1V portable Indication: Ventilator patient Comparison: 04 Apr 2017 Findings: The heart and mediastinum are stable in size and configuration. The lines and tubes are unchanged in position. The pulmonary vascularity is increased but similar to previous study. Bilateral lower lung density is present similar to previous exam. No other lung infiltrates, effusions, pneumothorax or other abnormality is demonstrated. Impression: No significant change PROCEDURE INTERPRETED AT [facility] DEPARTMENT OF RADIOLOGY Final Report Signed by: Dr. Romie Conner
[2017-04-05] MEDS: ASPIRIN EC 81 MG TABLET PO SCH (09:16)
[2017-04-05] MEDS: MULTIVITAMIN (CENTRUM) TABLET PO SCH (09:16)
[2017-04-05] MEDS: CHOLECALCIFEROL 1,000 UNIT TABLET PO SCH (09:16)
[2017-04-05] MEDS: SKIN HEALING OINT (AQUAPHOR) 50 GM TUBE TOP SCH (09:16)
[2017-04-05] MEDS: ALLOPURINOL 100 MG TABLET PO SCH (09:16)
[2017-04-05] MEDS: FLUCONAZOLE INJ 100 MG in IV BAG 1 EACH IV SCH (11:02)
--- NOTE | 2017-04-05 12:11 | Nephrology Progress Note ---
Nephrology - PN: Subj Interval history: The patient is now extubated and doing acceptable. Serum creatinine is stable at 1.6. No other acute changes. Exam (PN)-Nephrology - Vital Signs Vital signs: Period Temp Pulse Resp BP Sys/Chen Pulse Ox Last 24 Hr 98.6 F-99.0 F 45-74 13-27 103-175/44-67 98-100 - General Appearance General appearance: well-developed, well-nourished EENT: ATNC Neck: supple Respiratory: clear Cardiology: regular rate, regular rhythm Gastrointestinal: normoactive bowel sounds, no tenderness Neurologic: alert and oriented x3 - Lab 04/05/17 04:04 04/05/17 04:04 Most recent lab results ABG pH 7.382 (7.35-7.45) 04/05/17 09:00 ABG pCO2 38.2 MM HG (35-48) 04/05/17 09:00 ABG pO2 110.0 MM HG (80-95) H 04/05/17 09:00 ABG HCO3 22.7 MMOL/L (20-26) 04/05/17 09:00 ABG O2 Saturation 98.3 % (95-100) 04/05/17 09:00 Calcium 7.8 MG/DL (8.5-10.1) L 04/05/17 04:04 Phosphorus 2.4 MG/DL (2.5-4.9) L 04/02/17 05:13 Magnesium 3.1 MG/DL (1.8-2.4) H 04/05/17 04:04 Assessment and Plan (1) Respiratory failure Status: Acute Current Visit: Yes (2) Chronic kidney disease, stage III (moderate) Status: Chronic Current Visit: Yes (3) Acute on chronic renal failure Status: Chronic Assessment and plan: Serum creatinine noted to be 1.6. Continue to avoid nephrotoxic agents. Current Visit: Yes Qualifiers: Chronic kidney disease stage: stage 3 (moderate) (4) Congestive heart failure Status: Chronic Current Visit: Yes
[2017-04-05] MEDS: ENOXAPARIN 40 MG/0.4 ML SYRINGE SUBCUT SCH (14:10)
--- NOTE | 2017-04-05 15:32 | Internal Med Progress Note ---
Assessment and Plan (1) Acute non-ST segment elevation myocardial infarction Status: Acute Current Visit: Yes (2) Acute on chronic renal failure Problem details: improved Status: Acute Current Visit: Yes Qualifiers: Chronic kidney disease stage: stage 3 (moderate) (3) Constipation Status: Chronic Current Visit: Yes Qualifiers: Constipation type: chronic idiopathic constipation Qualified Code(s): K59.04 - Chronic idiopathic constipation (4) Respiratory failure Status: Acute Current Visit: Yes Qualifiers: Chronicity: acute (5) Aortic stenosis Status: Chronic Current Visit: Yes (6) Lower gastrointestinal hemorrhage Status: Acute Current Visit: Yes (7) hypertension Status: Chronic Current Visit: Yes (8) Internal hemorrhoids Status: Chronic Current Visit: Yes (9) type 2 diabetes mellitus Status: Chronic Current Visit: Yes Internal Medicine - PN: Subj Interval history: This is an 86 year old male patient of Dr. Dougherty with history of DM, HTN, CAD, chronic renal insufficiency stage III, anemia of chronic disease, chronic constipation, who had presented to ER with worsening constipation of uncertain etiology. Also, he has had worsening shortness of breath and had to be ventilated for respiratory failure/flash pulmonary edema. He had non STEMI. GI bleed. He is currently on CPAP trials and may be extubated tomorrow. Thursday, was extubated and doing well when seen on rounds, lungs clear on exam. He reports feeling much better, but will keep him in CCU for another day or two for stability, before moving to the floor. Discussed at bedside. Denies pain, and breathing well. ADDENDUM: called by nurse about 4:00 am, and patient may have aspirated, but is going back into respiratory failure. Instructed nurse to call code if needed , but to have him re-intubated/vent support if necessary. Ordered hydralazine, lasix, and morphine. She has him on high flow oxygen at present. Exam (Progress Note) - Constitutional Vitals: Period Temp Pulse Resp BP Sys/Chen Pulse Ox Last 24 Hr 97.8 F-99.0 F 45-74 13-27 103-175/40-67 98-100 Exam: General appearance: no acute distress - Respiratory Respiratory exam: Present: clear to auscultation bilaterally - Cardiovascular Cardiovascular exam: Present: regular rate and rhythm - GI/Abdominal GI/Abdominal exam: Present: normal bowel sounds, soft - Extremities Exam Extremities exam: Absent: edema - Neurological Exam Neurological exam: Present: alert - Psychiatric Psychiatric exam: Present: normal affect - Skin Skin exam: Present: warm, dry Results - Labs CBC & BMP: 04/05/17 04:04 04/05/17 04:04
[2017-04-05] MEDS: TRAVOPROST 0.004% OPH SOLN 2.5 ML BOTTLE BOTH EYES SCH (20:09)
[2017-04-06] MEDS: ALBUTEROL/IPRATROPIUM 3 ML NEB RESP TX SCH ×5 (00:28→20:51)
[2017-04-06] MEDS: metroNIDAZOLE INJ 500 MG in PREMIX 1 EACH IV SCH ×4 (03:02→21:13)
[2017-04-06] MEDS: ALUMINUM/MAGNES/SIMETH MAX STR 30 ML UDCUP PO SCH ×4 (03:02→21:13)
[2017-04-06] MEDS: PIPERACILLIN/TAZOBACTAM 3,375 MG in SODIUM CHLORIDE 0.9% 100 ML IV SCH ×3 (03:03→20:01)
[2017-04-06 03:33] LABS: ABG Base Excess -0.9 MMOL/L (-2.5-2.5); ABG PCO2 31.2 MM HG (35-48); ABG PH 7.467 (7.35-7.45); ABG PO2 60.9 MM HG (80-95); Allen Test Positive
[2017-04-06] MEDS: LORazepam 2 MG/1 ML VIAL IV PRN (03:59)
[2017-04-06] MEDS ORDERED: hydrALAZINE 20 MG/1 ML VIAL IV ONE (04:02)
[2017-04-06] MEDS ORDERED: FUROSEMIDE 20 MG/2 ML VIAL IV ONE (04:02)
[2017-04-06] MEDS ORDERED: MORPHINE 2 MG/1 ML SYRINGE IV ONE (04:02)
[2017-04-06] MEDS ORDERED: FUROSEMIDE 20 MG/2 ML VIAL ONE (04:09)
[2017-04-06] MEDS ORDERED: MORPHINE 2 MG/1 ML SYRINGE ONE (04:09)
[2017-04-06] MEDS ORDERED: hydrALAZINE 20 MG/1 ML VIAL ONE (04:09)
[2017-04-06] MEDS ORDERED: MIDAZOLAM 10 MG/2 ML VIAL ONE (04:13)
[2017-04-06] MEDS ORDERED: MIDAZOLAM 2 MG/2 ML VIAL IV ONE (04:17)
[2017-04-06] MEDS: PROPOFOL 1,000 MG/100 ML BOTTLE IV SCH ×4 (04:20→21:07)
--- NOTE | 2017-04-06 04:34 | Event Note ---
I was called to emergently see the patient for acute respiratory failure with hypoxia. The patient required emergent intubation. - Intubation note Sedative: Versed Mg given sedative: 6 mg Paralytic: None Mg given paralytic: None Laryngoscope: Jimmy 3 ET Tube Size: 7.5 Tube Secured Depth (cm): 23 Tube Secured Location: lips Tube Placement Confirmation: visualized tube passing through cords, diminished but equal breath sounds bilaterally, no breath sounds over epigastrium, confirmation by capnometry, confirmation detector color change Patient tolerated procedure intubation: well, no complications Intubation Complications: None Additional Comments: Chest x-ray reviewed immediately after procedure. Tube in appropriate position. Patient placed on previous ventilator settings of: tidal volume 520 mode SIMV rate 20 pressure support 10 PEEP +5 FiO2 100%. ABGs in 30 minutes ordered. Diprivan ordered for sedation. Restraints ordered for patient safety. Nurses to notify primary attending and help desk intern. Thank you for allowing me to participate in the care of your patient.
[2017-04-06 04:51] LABS: Basophils % 0.2 % (0.0-0.8); Eosinophils # 0.3 10*3/uL (0.0-0.87); Hematocrit 36.1 VOL% (42.0-52.0); Hemoglobin 11.7 GM/DL (14.0-18.0); Immature Granulocytes % 1.8 %; Immature Granulocytes Absolute 0.26 #; Lymphocytes # 2.6 10*3/uL (1.4-4.0); Lymphocytes % 17.5 % (21.2-54.2); Mean Corpuscular HGB Conc 32.4 GM/DL (32-36); Mean Corpuscular Hemoglobin 27 PG (27-34); Mean Corpuscular Volume 84.5 FL (87-102); Mean Platelet Volume 9.9 FL (9.6-12.0); Monocytes # 0.9 10*3/uL (0.11-0.8); Monocytes % 5.9 % (1.7-12.7); Neutrophils # 10.7 10*3/uL (1.4-7.4); Neutrophils % 72.6 % (38.7-73.9); Platelet Count 361 T/CUMM (130-400); Red Blood Count 4.27 MC/CUMM (3.8-5.5); Red Cell Distribution Width 16.1 % (9.3-17.3); White Blood Count 14.7 T/CUMM (4-12)
[2017-04-06 04:54] LABS: ABG Base Excess -4.8 MMOL/L (-2.5-2.5); ABG HCO3 20.5 MMOL/L (20-26); ABG Oxygen Saturation 99.3 % (95-100); ABG PCO2 50.2 MM HG (35-48); ABG PH 7.263 (7.35-7.45); ABG TCO2 20.6 MMOL/L (23-27); Allen Test Positive; Pt O2 Delivery Device Ventilator
[2017-04-06 05:16] LABS: Calcium 8.2 MG/DL (8.5-10.1); Magnesium 2.9 MG/DL (1.8-2.4); Osmolality,Calculated 306.4 MOS/KG (273-304); Potassium 4.2 MMOL/L (3.5-5.1)
[2017-04-06 05:22] LABS: Calcium 8.2 MG/DL (8.5-10.1); Osmolality,Calculated 309.3 MOS/KG (273-304); Phosphorous 2.2 MG/DL (2.5-4.9); Potassium 4.2 MMOL/L (3.5-5.1); Prealbumin 20.5 MG/DL (20-40)
[2017-04-06 06:01] LABS: Albumin 2.7 G/DL (3.4-5.0); Bilirubin,Direct 0.1 MG/DL (0.0-0.20); Bilirubin,Indirect 0.3 MG/DL (0.0-1.0); Bilirubin,Total 0.4 MG/DL (0.2-1.0); Total Protein 6.2 G/DL (6.4-8.3)
[2017-04-06] MEDS: INSULIN LISPRO 100 UNIT/ML SUBCUT SCH ×4 (06:27→23:24)
[2017-04-06] MEDS: NITROGLYCERIN 2% OINT 1 INCH/GM PACK TOP SCH ×4 (06:28→23:24)
--- NOTE | 2017-04-06 08:35 | XRay Report ---
Portable chest Date: 04/06/2017 Clinical history: Ventilator Comparison: 04/05/2017 Technique: Portable AP sitting chest Findings: The heart is minimally enlarged with calcification in the aortic knob. Removal of endotracheal tube with nasogastric tube seen entering the stomach. Persistent diffuse parenchymal findings especially in the lower lung zones with small pleural effusions. Stable mediastinum and osseous structures. Impression: Interval removal of the endotracheal tube. Otherwise chest appears fairly stable in appearance. PROCEDURE INTERPRETED AT [facility] DEPARTMENT OF RADIOLOGY Final Report Signed by: Dr. Sheridan Terrazas
--- NOTE | 2017-04-06 08:41 | XRay Report ---
History: Post intubation Date: 04/06/2017 at 4:26 AM Study: Chest x-ray AP portable Comparison exam: 04/06/2017 at 3:14 AM The endotracheal tube is well positioned. The nasogastric tube enters the stomach. The cardiomediastinal silhouette is unchanged. There is increasing patchy and hazy parenchymal disease throughout both lungs compared to the earlier study. There is mild right-sided pleural effusion. There is no pneumothorax. The osseous structures are unchanged. Impression: Satisfactory positioning of the endotracheal tube. Worsening pulmonary edema compared to the earlier study PROCEDURE INTERPRETED AT [facility] DEPARTMENT OF RADIOLOGY Final Report Signed by: Dr. Maya Cox
--- NOTE | 2017-04-06 08:47 | Cardiology Progress Note ---
<Natalie Chinchilla - Last Filed: 04/06/17 08:36> Assessment and Plan (1) Acute non-ST segment elevation myocardial infarction Status: Acute Assessment and plan: He did not have significant coronary disease. His ejection fraction was preserved after the event, EF 50%. Still question why his CPK continued to go up even after troponins began to [place] down. We will recheck his cardiac biomarkers today. Further plan and addendum to follow per Dr. Valdovinos. Current Visit: Yes (2) Congestive heart failure Status: Chronic Assessment and plan: Patient had echocardiogram this admission which revealed ejection fraction of 50 % with mild diastolic dysfunction, moderate aortic valve stenosis and mild mitral regurgitation and mild tricuspid regurgitation. Underwent heart catheterization which did not reveal any significant obstructive coronary disease. Overnight, patient required reintubation. Chest x-ray revealed worsening pulmonary edema. BNP was elevated at 1561. Patient received 1 dose of Lasix IV. This morning after reviewing labs he appears to be dry. Will hold diuretics at this time. Suspect patient's heart failure is secondary to his aortic stenosis as patient had preserved systolic function on his last echocardiogram. Will consider repeating patient's echocardiogram to reassess his systolic function as well as his aortic stenosis. Will discuss this further with Dr. Valdovinos and await his recommendations. Current Visit: Yes (3) hypertension Status: Chronic Assessment and plan: This is clinically stable. Continue current plan of care. Current Visit: Yes (4) renal insufficiency Status: Chronic Assessment and plan: This is chronic and he may have an acute component to this. Creatinine is unchanged from yesterday. Nephrology is following, will follow their recommendations. 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 Current Visit: No (6) type 2 diabetes mellitus Status: Chronic Assessment and plan: Continue current plan care. Management per attending. Current Visit: Yes (7) Aortic stenosis Status: Chronic Assessment and plan: This is chronic and moderate on echocardiogram. Current Visit: Yes (8) Cardiac murmur Status: Chronic Assessment and plan: Secondary to his aortic valve stenosis. Current Visit: Yes (9) Lower gastrointestinal hemorrhage Status: Acute Assessment and plan: His H&H is stable. No gross evidence of recurrent bleeding. GI and surgery are following. Plan for colonoscopy at some point this hospitalization. Current Visit: Yes (10) Respiratory failure Status: Acute Assessment and plan: Patient required reintubation overnight. Patient is currently stable on the ventilator. Pulmonary is following. Current Visit: Yes Qualifiers: Chronicity: acute (11) Leukocytosis Status: Acute Assessment and plan: Blood culture and sputum culture negative. Low-grade fevers. Defer to Hospital medicine. Current Visit: Yes Cardiology - PN: Subj Interval history: Shot Tube Machine Tender: Dr. Ortiz (new) PCP: Dr. Gene Dougherty SUMMARY: Mr. Joy is a 86 year old male without known history of coronary artery disease, not routinely followed by cardiology. PMH: hypertension, diabetes, prostate cancer (now in remission). Patient is a lifetime non-smoker and denies any significant family history of heart disease. Patient reports that he has never undergone any cardiac workup. Patient presented to the emergency department with complaints of abdominal pain and constipation. While in the ER, he confirmed dyspnea on exertion for the past year. He does have a systolic ejection murmur concerning for aortic stenosis. Echocardiogram revealed left ventricular ejection fraction of 50%. Moderate concentric left ventricular hypertrophy with mild diastolic dysfunction and moderate aortic valve stenosis with mean gradient of 29 mmHg was also noted. Carotid ultrasound did not reveal any significant internal carotid artery stenosis. CT scan of the abdomen shows possible small bowel obstruction/ileus. There is also a cecal abnormality which is suspicious for malignancy. GI as well as surgery were consulted to evaluate his abdominal symptoms. Developed gi bleed with heme-positive stools. GI plans for colonoscopy at some point during his hospitalization. On 03/30/17 he became progressively short of breath with flash pulmonary edema and required intubation. Chest x-ray revealed some congestive heart failure. Creatinine has risen over his hospital stay. Nephrology is following. On the morning of March 31, he had Non-Stemi. Subsequently, he underwent heart catheterization 04/02/17 with the following impressions noted: Impression: 1. Codominant system 2. Coronary artery disease as described above including but not limited to: A. Mild irregularities only in the left anterior descending artery system B. 40-50% ostial ramus, and ostial circumflex disease, as well as 80-90% ostial OM1 stenosis (2 mm vessel) C. 50% mid RCA stenosis and a long thin tortuous codominant vessel Recommendation discussion: It is unclear what the culprit is for Mr. Joy is non-STEMI. The ostial obtuse marginal lesion looks significant, however the vessel only 2 mm and it is not ideal for intervention given his of the ostium. Would recommend medical therapy. His echocardiogram showed EF 50%, with moderate LVH pulmonary hypertension and reportedly moderate aortic stenosis. Patient was seen and examined in the CCU. He remains sedated and ventilated. Thursday afternoon, he was extubated. However, overnight he required reintubation due to severe respiratory distress. Chest x-ray this morning reveals slightly worsened pulmonary edema. BNP this morning is 1561. He received a dose of Lasix early this morning. Patient appears to be dry after reviewing her labs this morning. Cardiac biomarkers have been ordered. Vital signs are stable. Patient in normal sinus rhythm with heart rates in the 50s and 60s. No overt arrhythmias or ectopy is noted. Will discuss this case further with Dr. Valdovinos and await his recommendations. Exam (Progress Note) - Constitutional Vitals: Period Temp Pulse Resp BP Sys/Chen Pulse Ox Last 24 Hr 97.8 F-99.5 F 57-123 12-34 103-255/40-122 88-100 Exam: General appearance: Patient is on ventilator and propofol but is more awake this morning and responds appropriately. HEENT exam: Orally intubated Neck exam: normal inspection no JVD. No carotid bruit. Trachea is in midline Respiratory/lungs exam: Course breath sounds, on ventilator. Cardiovascular exam: regular rate and rhythm with 2/6 systolic murmur consistent with aortic valve stenosis. No precordial lift. Chest wall exam: No deformities GI/Abdominal exam: Flat, nondistended, bowel sounds present.. Extremeties/musculoskeletal: No edema. Neurological exam: He is awake and moving everything and responding. Psychiatric exam: He is responding appropriately.. Skin exam: warm and dry. Result/EKG - Labs CBC & BMP: 04/06/17 03:47 04/06/17 03:47 Lab Results: I have reviewed the past 24 hour labs Labs: Laboratory Results - last 24 hr 04/05/17 04/05/17 04/05/17 05:19 09:00 12:21 WBC RBC Hgb Hct MCV MCH MCHC RDW Plt Count MPV Neut % (Auto) Lymph % (Auto) Terrell % (Auto) Eos % (Auto) Baso % (Auto) Neut # (Auto) Lymph # (Auto) Terrell # (Auto) Eos # (Auto) Baso # (Auto) Immature Gran % Nucleated RBC % Immature Gran # Nucleated RBCs # ABG pH 7.382 ABG pCO2 38.2 ABG pO2 110.0 H ABG HCO3 22.7 ABG Total CO2 20.7 L ABG O2 Saturation 98.3 ABG Base Excess -2.1 FiO2 Sodium Potassium Chloride Carbon Dioxide Anion Gap BUN Creatinine GFR Calculation BUN/Creatinine Ratio Glucose POC Glucose 313 H 371 H Calculated Osmolality Calcium Phosphorus Magnesium Total Bilirubin Direct Bilirubin Indirect Bilirubin AST ALT Alkaline Phosphatase Total Protein Albumin Prealbumin 04/05/17 04/05/17 04/06/17 18:17 23:44 02:40 WBC RBC Hgb Hct MCV MCH MCHC RDW Plt Count MPV Neut % (Auto) Lymph % (Auto) Terrell % (Auto) Eos % (Auto) Baso % (Auto) Neut # (Auto) Lymph # (Auto) Terrell # (Auto) Eos # (Auto) Baso # (Auto) Immature Gran % Nucleated RBC % Immature Gran # Nucleated RBCs # ABG pH 7.263 L ABG pCO2 50.2 H ABG pO2 197.0 H ABG HCO3 20.5 ABG Total CO2 20.6 L ABG O2 Saturation 99.3 ABG Base Excess -4.8 L FiO2 100.00 Sodium Potassium Chloride Carbon Dioxide Anion Gap BUN Creatinine GFR Calculation BUN/Creatinine Ratio Glucose POC Glucose 294 H 316 H Calculated Osmolality Calcium Phosphorus Magnesium Total Bilirubin Direct Bilirubin Indirect Bilirubin AST ALT Alkaline Phosphatase Total Protein Albumin Prealbumin 04/06/17 04/06/17 04/06/17 03:30 03:47 03:47 WBC 14.7 H D RBC 4.27 D Hgb 11.7 L D Hct 36.1 L MCV 84.5 L MCH 27 MCHC 32.4 RDW 16.1 Plt Count 361 D MPV 9.9 Neut % (Auto) 72.6 Lymph % (Auto) 17.5 L Terrell % (Auto) 5.9 Eos % (Auto) 2.0 Baso % (Auto) 0.2 Neut # (Auto) 10.7 H Lymph # (Auto) 2.6 Terrell # (Auto) 0.9 H Eos # (Auto) 0.3 Baso # (Auto) 0.0 Immature Gran % 1.8 Nucleated RBC % 0.0 Immature Gran # 0.26 Nucleated RBCs # 0.00 ABG pH 7.467 H ABG pCO2 31.2 L ABG pO2 60.9 L ABG HCO3 22.0 ABG Total CO2 23.0 ABG O2 Saturation 92.0 L ABG Base Excess -0.9 FiO2 28.00 Sodium 147 H Potassium 4.2 Chloride 115 H Carbon Dioxide 23 Anion Gap 13.2 BUN 36 H Creatinine 1.50 H GFR Calculation 59 BUN/Creatinine Ratio 24.00 H Glucose 220 H POC Glucose Calculated Osmolality 306.4 H Calcium 8.2 L Phosphorus Magnesium 2.9 H Total Bilirubin Direct Bilirubin Indirect Bilirubin AST ALT Alkaline Phosphatase Total Protein Albumin Prealbumin 04/06/17 04/06/17 04/06/17 03:47 03:47 04:09 WBC RBC Hgb Hct MCV MCH MCHC RDW Plt Count MPV Neut % (Auto) Lymph % (Auto) Terrell % (Auto) Eos % (Auto) Baso % (Auto) Neut # (Auto) Lymph # (Auto) Terrell # (Auto) Eos # (Auto) Baso # (Auto) Immature Gran % Nucleated RBC % Immature Gran # Nucleated RBCs # ABG pH ABG pCO2 ABG pO2 ABG HCO3 ABG Total CO2 ABG O2 Saturation ABG Base Excess FiO2 Sodium 148 H Potassium 4.2 Chloride 115 H Carbon Dioxide 23 Anion Gap 14.2 BUN 37 H Creatinine 1.50 H GFR Calculation 59 BUN/Creatinine Ratio 24.00 H Glucose 221 H POC Glucose 218 H Calculated Osmolality 309.3 H Calcium 8.2 L Phosphorus 2.2 L Magnesium Total Bilirubin 0.40 Direct Bilirubin 0.10 Indirect Bilirubin 0.3 AST 51 H ALT 62 H Alkaline Phosphatase 34 L Total Protein 6.2 L Albumin 2.7 L Prealbumin 20.5 04/06/17 06:14 WBC RBC Hgb Hct MCV MCH MCHC RDW Plt Count MPV Neut % (Auto) Lymph % (Auto) Terrell % (Auto) Eos % (Auto) Baso % (Auto) Neut # (Auto) Lymph # (Auto) Terrell # (Auto) Eos # (Auto) Baso # (Auto) Immature Gran % Nucleated RBC % Immature Gran # Nucleated RBCs # ABG pH ABG pCO2 ABG pO2 ABG HCO3 ABG Total CO2 ABG O2 Saturation ABG Base Excess FiO2 Sodium Potassium Chloride Carbon Dioxide Anion Gap BUN Creatinine GFR Calculation BUN/Creatinine Ratio Glucose POC Glucose 232 H Calculated Osmolality Calcium Phosphorus Magnesium Total Bilirubin Direct Bilirubin Indirect Bilirubin AST ALT Alkaline Phosphatase Total Protein Albumin Prealbumin <Gael Valdovinos - Last Filed: 04/06/17 11:17> Cardiology - PN: Subj Interval history: Patient's films were reviewed and extensive discussion has been undertaken with the patient's family. If he were younger I would recommend 2 vessel bypass and aortic valve replacement anticipating that the mitral insufficiency may get better with perfusing the inferolateral wall little better. I have stent may be transcatheter aortic valve replacement and medical treatment for his mitral insufficiency. 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 I will get their opinion. I have offered transfer to [place] where this family member cold press loader is and they are considering their options. Exam (Progress Note) - Constitutional Vitals: Period Temp Pulse Resp BP Sys/Chen Pulse Ox Last 24 Hr 98.0 F-99.5 F 57-123 12-34 113-255/40-122 88-100 Result/EKG - Labs CBC & BMP: 04/06/17 03:47 04/06/17 03:47 Labs: Laboratory Results - last 24 hr 04/05/17 04/05/17 04/05/17 05:19 12:21 18:17 WBC RBC Hgb Hct MCV MCH MCHC RDW Plt Count MPV Neut % (Auto) Lymph % (Auto) Terrell % (Auto) Eos % (Auto) Baso % (Auto) Neut # (Auto) Lymph # (Auto) Terrell # (Auto) Eos # (Auto) Baso # (Auto) Immature Gran % Nucleated RBC % Immature Gran # Nucleated RBCs # ABG pH ABG pCO2 ABG pO2 ABG HCO3 ABG Total CO2 ABG O2 Saturation ABG Base Excess FiO2 Sodium Potassium Chloride Carbon Dioxide Anion Gap BUN Creatinine GFR Calculation BUN/Creatinine Ratio Glucose POC Glucose 313 H 371 H 294 H Calculated Osmolality Calcium Phosphorus Magnesium Total Bilirubin Direct Bilirubin Indirect Bilirubin AST ALT Alkaline Phosphatase Total Creatine Kinase CK-MB (CK-2) Troponin I B-Natriuretic Peptide Total Protein Albumin Prealbumin 04/05/17 04/06/17 04/06/17 23:44 02:40 03:30 WBC RBC Hgb Hct MCV MCH MCHC RDW Plt Count MPV Neut % (Auto) Lymph % (Auto) Terrell % (Auto) Eos % (Auto) Baso % (Auto) Neut # (Auto) Lymph # (Auto) Terrell # (Auto) Eos # (Auto) Baso # (Auto) Immature Gran % Nucleated RBC % Immature Gran # Nucleated RBCs # ABG pH 7.263 L 7.467 H ABG pCO2 50.2 H 31.2 L ABG pO2 197.0 H 60.9 L ABG HCO3 20.5 22.0 ABG Total CO2 20.6 L 23.0 ABG O2 Saturation 99.3 92.0 L ABG Base Excess -4.8 L -0.9 FiO2 100.00 28.00 Sodium Potassium Chloride Carbon Dioxide Anion Gap BUN Creatinine GFR Calculation BUN/Creatinine Ratio Glucose POC Glucose 316 H Calculated Osmolality Calcium Phosphorus Magnesium Total Bilirubin Direct Bilirubin Indirect Bilirubin AST ALT Alkaline Phosphatase Total Creatine Kinase CK-MB (CK-2) Troponin I B-Natriuretic Peptide Total Protein Albumin Prealbumin 04/06/17 04/06/17 04/06/17 03:44 03:47 03:47 WBC 14.7 H D RBC 4.27 D Hgb 11.7 L D Hct 36.1 L MCV 84.5 L MCH 27 MCHC 32.4 RDW 16.1 Plt Count 361 D MPV 9.9 Neut % (Auto) 72.6 Lymph % (Auto) 17.5 L Terrell % (Auto) 5.9 Eos % (Auto) 2.0 Baso % (Auto) 0.2 Neut # (Auto) 10.7 H Lymph # (Auto) 2.6 Terrell # (Auto) 0.9 H Eos # (Auto) 0.3 Baso # (Auto) 0.0 Immature Gran % 1.8 Nucleated RBC % 0.0 Immature Gran # 0.26 Nucleated RBCs # 0.00 ABG pH ABG pCO2 ABG pO2 ABG HCO3 ABG Total CO2 ABG O2 Saturation ABG Base Excess FiO2 Sodium 147 H Potassium 4.2 Chloride 115 H Carbon Dioxide 23 Anion Gap 13.2 BUN 36 H Creatinine 1.50 H GFR Calculation 59 BUN/Creatinine Ratio 24.00 H Glucose 220 H POC Glucose Calculated Osmolality 306.4 H Calcium 8.2 L Phosphorus Magnesium 2.9 H Total Bilirubin Direct Bilirubin Indirect Bilirubin AST ALT Alkaline Phosphatase Total Creatine Kinase CK-MB (CK-2) Troponin I B-Natriuretic Peptide 1561 H Total Protein Albumin Prealbumin 04/06/17 04/06/17 04/06/17 03:47 03:47 04:09 WBC RBC Hgb Hct MCV MCH MCHC RDW Plt Count MPV Neut % (Auto) Lymph % (Auto) Terrell % (Auto) Eos % (Auto) Baso % (Auto) Neut # (Auto) Lymph # (Auto) Terrell # (Auto) Eos # (Auto) Baso # (Auto) Immature Gran % Nucleated RBC % Immature Gran # Nucleated RBCs # ABG pH ABG pCO2 ABG pO2 ABG HCO3 ABG Total CO2 ABG O2 Saturation ABG Base Excess FiO2 Sodium 148 H Potassium 4.2 Chloride 115 H Carbon Dioxide 23 Anion Gap 14.2 BUN 37 H Creatinine 1.50 H GFR Calculation 59 BUN/Creatinine Ratio 24.00 H Glucose 221 H POC Glucose 218 H Calculated Osmolality 309.3 H Calcium 8.2 L Phosphorus 2.2 L Magnesium Total Bilirubin 0.40 Direct Bilirubin 0.10 Indirect Bilirubin 0.3 AST 51 H ALT 62 H Alkaline Phosphatase 34 L Total Creatine Kinase CK-MB (CK-2) Troponin I B-Natriuretic Peptide Total Protein 6.2 L Albumin 2.7 L Prealbumin 20.5 04/06/17 04/06/17 04/06/17 06:14 09:10 09:11 WBC RBC Hgb Hct MCV MCH MCHC RDW Plt Count MPV Neut % (Auto) Lymph % (Auto) Terrell % (Auto) Eos % (Auto) Baso % (Auto) Neut # (Auto) Lymph # (Auto) Terrell # (Auto) Eos # (Auto) Baso # (Auto) Immature Gran % Nucleated RBC % Immature Gran # Nucleated RBCs # ABG pH 7.393 ABG pCO2 37.4 ABG pO2 357.0 H ABG HCO3 23.0 ABG Total CO2 20.6 L ABG O2 Saturation 100.0 ABG Base Excess -1.7 FiO2 Sodium Potassium Chloride Carbon Dioxide Anion Gap BUN Creatinine GFR Calculation BUN/Creatinine Ratio Glucose POC Glucose 232 H Calculated Osmolality Calcium Phosphorus Magnesium Total Bilirubin Direct Bilirubin Indirect Bilirubin AST ALT Alkaline Phosphatase Total Creatine Kinase 448 H D CK-MB (CK-2) 3.5 Troponin I 0.875 H D B-Natriuretic Peptide Total Protein Albumin Prealbumin
[2017-04-06] MEDS ORDERED: methylPREDNISolone SOD SUC 40 MG/1 ML VIAL IV SCH (09:00)
[2017-04-06 09:11] LABS: ABG Base Excess -1.7 MMOL/L (-2.5-2.5); ABG PCO2 37.4 MM HG (35-48); ABG PH 7.393 (7.35-7.45); ABG TCO2 20.6 MMOL/L (23-27)
[2017-04-06] MEDS: INSULIN GLARGINE 100 UNIT/ML SUBCUT SCH ×2 (10:10→19:20)
[2017-04-06] MEDS: MULTIVITAMIN (CENTRUM) TABLET PO SCH (10:11)
[2017-04-06] MEDS: PANTOPRAZOLE 40 MG VIAL IV SCH (10:11)
[2017-04-06] MEDS: CHOLECALCIFEROL 1,000 UNIT TABLET PO SCH (10:11)
[2017-04-06] MEDS: ASPIRIN EC 81 MG TABLET PO SCH (10:11)
[2017-04-06] MEDS: NYSTATIN 500,000 UNIT/5 ML UDCUP SWISH/SWAL SCH ×4 (10:11→21:13)
[2017-04-06] MEDS: POLYETHYLENE GLYCOL POWDER 17 GM PACK PO SCH (10:15)
[2017-04-06] MEDS: SKIN HEALING OINT (AQUAPHOR) 50 GM TUBE TOP SCH (10:15)
[2017-04-06] MEDS: FERRIC GLUCONATE COMPLEX 125 MG in SODIUM CHLORIDE 0.9% 100 ML IV SCH (10:28)
[2017-04-06 10:31] LABS: Troponin I Only 0.875 NG/ML (0.00-0.045)
--- NOTE | 2017-04-06 11:09 | Pulmonology Progress Note ---
Pulmonary - PN: Subj Interval history: Mendoza Callahan, ANP-BC, GNP-BC, acting as scribe for Dr. Madhav Rosales This 86-year-old black male who we saw in initial pulmonary consultation on the night of 03/30/2017. His son, [id number], daughter and son-in-law are patients of Dr. Rosales. At the time of our initial consultation, our impressions were: 1. Acute congestive heart failure 2. Moderate aortic stenosis with left ventricular hypertrophy and mild aortic regurgitation 3. Acute renal failure 4. Recent bilateral obstruction with associated nausea and vomiting. Watch for aspiration injury 5. History of internal hemorrhoids 6. Diabetes mellitus 7. History of high blood pressure 03/31/2017. Last night after I saw the patient, while I was still in CCU and ICU -- he suddenly deteriorated. Attempts were made to diurese him additionally and this was of no help even though his chest x-ray looked better. Patient felt like he was going to . It was elected to intubate him after discussion with the patient who is readily agreeable and discussion with the family whom were readily agreeable. Patient stabilized with mechanical ventilation. Today' s chest x-ray still shows pulmonary edema but it is better. ABGs on FiO2 of 100 % and a PEEP of 5 show a pH 7.42, PCO2 29.6 and a PO2 of 243 with a bicarb of 21. CPK is elevated at 1946. MB band is elevated 22.4%. Troponins are elevated at 26.600. Natruretic peptide is elevated 1481. Creatinine is increased to 2.40 with a BUN of 47. Electrolytes are normal. White count is 8300 with 75 segs, 15 lymphs and 9 monos. H&H is dropped to 9.2/28.7. Patient has iron deficiency. Note that on the CT scan of his abdomen there is an abnormality in the cecal area that could be a colon cancer. See report. I have talked to the family about what I think the present diagnoses are including acute myocardial infarction, acute congestive heart failure, acute respiratory failure secondary to congestive heart failure, acute on chronic renal failure. We have gone through the patient's history one more time. Even though he had acute nausea and vomiting everyone involved says he did not aspirate. 04/01/2017. This patient is stable on mechanical ventilation. He did about 4 hours of CPAP on 03/31/2017 and he will be advanced on protocol today. His chest x-ray shows 80% resolution of his acute pulmonary edema. I do not see any definite infiltrates. ABGs on mechanical ventilation FiO2 of 60% shows a pH 7.46, PCO2 is 29, PO2 is 226 with a bicarb of 20. Electrolytes are normal. Creatinine is dropped from 2.4-2.10. Total CPK is 2847 MB band is now 10.9% and troponin has dropped to 13.5. Natruretic peptide is dropped of 468. H&H is low but stable at 9.1/29.3. Note that the patient some iron and iron saturation is very low. I started him on IV iron replacement. I have discussed the pulmonary aspects of this patient's illness and treatment with the family. 04/02/2017. Patient for cardiac catheterization today. Today's x-ray reveals about 85-90% resolution of acute pulmonary edema. Sputum's have been requested but so far have not been reported. Patient is doing well with the weaning protocol. On mechanical ventilation and FiO2 60% pH is 7.48, PCO2 is 29.4, PO2 is 219.8 and bicarb is 21.2. Electrolytes are normal. Glucose is under fairly good control. Natruretic peptide remains elevated 925. B12 and folic acid levels were normal. This patient was found to have low iron and IV replacement was begun yesterday. He has positive stools. He has known internal hemorrhoids. CT of the abdomen was abnormal showing a possible abnormality in the cecal area. 04/03/2017. The patient was seen today along with his [id number] Elsa Joy. The patient is awake and alert. He remains intubated and on mechanical ventilation. We attempted to go to a T-tube this morning but ABGs approximately 45 minutes later on an FiO2 of 60% showed a PO2 of 68.1. Patient got anxious and more short of breath. He is hypoxic obviously. He was placed back on mechanical ventilation. He is on stage IV the weaning protocol and we will continue to advance this as tolerated. We suspect he will slip into pulmonary edema very easily but there could also be the possibility of underlying ARDS. We have started Solu-Medrol 20 mg IV every 12 hours. 04/06/2017. The patient was seen today along with his nurse. We have discussed the case with Dr. Valdovinos as well as the patient's daughter and daughter-in- law. The patient was extubated over the weekend but early this morning became more short of breath and required reintubation. Patient Solu-Medrol was decreased to once daily over the weekend. It is certainly possible that he has an underlying ARDS type picture secondary to possible sepsis at admission. We will increase the Solu-Medrol back to 20 mg IV every 12 hours. The patient's cardiac isoenzymes have trended downward, but we will repeat these today. His last set was done on 04/03/2017. We are unsure why he continues to easily slip and congestive heart failure but it could be secondary to his aortic stenosis and mitral regurgitation. Cardiac cath done 04/02/[address] Stuart showed a codominant system with coronary artery disease including but not limited to mild irregularities only in the left anterior descending artery system, 40-50% ostial ramus and ostial circumflex disease as well as 80-90% ostial OM1 stenosis (2 mm vessel), and 50% mid RCA stenosis and a long and tortuous codominant vessel. He recommended medical therapy for this. Nonetheless, not the patient is back on the ventilator we will again proceed with the vent weaning protocol and continued physical therapy protocol. Chest x-ray today shows congestive heart failure. Echocardiogram done 04/01/[address] Mackey showed an ejection fraction of 50 % plus moderate concentric left ventricular hypertrophy with grade 2 diastolic dysfunction, mild to moderate dilated left atrium, right-sided chambers were normal, minimally sclerotic mitral valve with mild mitral valve regurgitation, aortic valve sclerosis with decreased excursion and moderate aortic valve stenosis, mild tricuspid regurgitation, and a pulmonary artery pressure of 57- 62 mmhg. Echocardiogram done 03/26/[address] Ortiz showed an EF of approximately 50%, moderate concentric left ventricular hypertrophy with mild diastolic dysfunction, mild biatrial enlargement, moderate aortic valve stenosis with a mean gradient of 29 mmHg, mild aortic valve regurgitation, mildly thickened mitral valve with trace to mild mitral valve regurgitation, trace tricuspid valve regurgitation, and pulmonary artery pressure of 32 mmHg. Doppler venograms done 03/30/2017 showed no evidence of deep venous thrombophlebitis in either lower extremity. Sputum collected 04/04/2017 showed no organisms on Gram stain and normal faiza at 48 hours. Sputum for Gram stain, culture and sensitivity was ordered 2016, but was not collected. Blood cultures are negative. Stools for occult blood are positive 3. Medications have been reviewed. We increased Solumedrol today. Labs have been reviewed. White count is 14,700 with 72.6% segs; H&H 11.7/36.1; platelet count 361,007: Creatinine 1.50, BUN 37, sodium 148, potassium 4.2, magnesium 2.9; liver function tests show an AST of 51, ALT 62, and alkaline phosphate 34; total bilirubin 0.40; BNP 1561 ABGs this morning on mechanical ventilation and an FIO2 of 100% showed a pH of 7.393, PCO2 37.4, PO2 357.0, bicarb 23.0, and oxygen saturation 100%. Exam (Progress Note) - Constitutional Vitals: Period Temp Pulse Resp BP Sys/Chen Pulse Ox Last 24 Hr 98.0 F-99.5 F 57-123 12-34 113-255/40-122 88-100 Exam: Chest with mild bilateral rales Heart lateral PMI Abdomen is nontender and nondistended; rare bowel sounds Extremities with nothing to suggest acute deep venous thrombophlebitis Psychiatric/neurologic presently sedated and on the ventilator, unable to determine Plan: Restart the weaning protocol and advance as tolerated. Daily ABGs and chest x-ray. Repeat cardiac isoenzymes. See orders. Results - Labs CBC & BMP: 04/06/17 03:47 04/06/17 03:47
[2017-04-06] MEDS: LEVOFLOXACIN INJ 250 MG in PREMIX 1 EACH IV SCH (11:24)
--- NOTE | 2017-04-06 12:21 | Nephrology Progress Note ---
Nephrology - PN: Subj Interval history: He was extubated yesterday. However he developed respiratory distress and required reintubation. He is now sedated. Blood pressure is stable. Exam (PN)-Nephrology - Vital Signs Vital signs: Period Temp Pulse Resp BP Sys/Chen Pulse Ox Last 24 Hr 98.0 F-99.5 F 57-123 12-34 120-255/43-122 88-100 Exam: Gen.: Sedated on ventilator ENT: Pupils equal round reactive to light. EOMs intact. Mucous membranes moist. Neck: Supple. No JVD or bruit. Cardiovascular: Regular rate and rhythm. No murmur rub or gallop Lungs: Clear Abdomen: Soft. Nontender. Positive bowel sounds. No organomegaly Extremities: No edema - Lab 04/06/17 03:47 04/06/17 03:47 Most recent lab results ABG pH 7.393 (7.35-7.45) 04/06/17 09:10 ABG pCO2 37.4 MM HG (35-48) 04/06/17 09:10 ABG pO2 357.0 MM HG (80-95) H 04/06/17 09:10 ABG HCO3 23.0 MMOL/L (20-26) 04/06/17 09:10 ABG O2 Saturation 100.0 % (95-100) 04/06/17 09:10 Calcium 8.2 MG/DL (8.5-10.1) L 04/06/17 03:47 Phosphorus 2.2 MG/DL (2.5-4.9) L 04/06/17 03:47 Magnesium 2.9 MG/DL (1.8-2.4) H 04/06/17 03:47 Assessment and Plan (1) Chronic kidney disease, stage III (moderate) Status: Chronic Assessment and plan: 86-year-old man admitted with: * CRF stage III. Baseline creatinine 1.6 * Acute on chronic renal failure. Renal function has improved. Fluid balance neutral * Hypertension. Controlled * Small bowel obstruction. Resolved * Diabetes mellitus * CAD. Recent [place] * Ventilatory failure. Fluid balance has been negative. Weight is not increased. I believe his decompensation is cardiogenic. Discussed with Dr. 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
--- NOTE | 2017-04-06 13:04 | Gastrointestinal Progress Note ---
Assessment and Plan (1) Abdominal pain Status: Acute Assessment and plan: 04/06-hemoglobin 11.1. No overt bleeding. Reintubated this morning. Tolerating tube feedings. Plan an addendum to followed by Dr. Cox. 04/03-hemoglobin stable at 9.4 without overt bleeding. Continue to monitor at this time. Plan an addendum to followed by Dr. Cox 04/02-2+ stools for occult blood, hemoglobin holding at 9/7. For heart catherization today. Plan and addendum to follow by Dr Cox. 04/01-No changes at present time. Continue to monitor. Plan and addendum to follow by Dr oCx. 03/31-sedated, on vent. Hypoactive bowel sounds. NG tube clamped. Surgery contemplating hyperalimentation versus tube feeding at present time. CT scan results reviewed and discussed with Dr. Cox. Plan an addendum to followed by Dr. Cox. 03/30-No reports of abd pain, N/V. Had large BM today. Passing flatus. Plan and addendum to follow by DR Cox. 03/27-Abd pain improved, tolerating diet. No bowel movement at present time. Plan and addendum to follow by Dr Cox. 03/26-reports of constipation worsening over the last several days with several month history of this progressively worsening. Complaints of lower abdominal pain on admission. Abdominal x-ray showing scattered air within small bowel and colon with mild ileus possible. Last C scope in 2014 following rectal bleeding with findings of internal hemorrhoids, felt to be the source of bleeding. Plan an addendum to followed by Dr. Cox. Current Visit: Yes Qualifiers: Abdominal location: generalized Qualified Code(s): R10.84 - Generalized abdominal pain Gastroenterology - PN: Subj Interval history: CC: Abdominal pain Patient is seen, sedated back on the ventilator at this time. He is noted to be emergently reintubated earlier this morning due to respiratory distress. He has had no reports of overt bleeding over the weekend. Hemoglobin remained stable 11.7. He is required no transfusions as well since admission. Abdomen is soft, nontender. He has been tolerating tube feedings over the weekend. ROS: No acute distress noted at present time. Exam (Progress Note) - Constitutional Vitals: Period Temp Pulse Resp BP Sys/Chen Pulse Ox Last 24 Hr 98.0 F-99.5 F 57-123 12-34 123-255/43-122 88-100 General appearance: normal weight, no acute distress - Head Head exam: Present: normal inspection, normocephalic - Eye Eye exam: Present: other (Lids and conjunctive are unremarkable). Absent: scleral icterus - ENT ENT exam: Present: normal exam, normal oropharynx - Neck Neck exam: Present: normal inspection - Respiratory Respiratory exam: Present: clear to auscultation bilaterally. Absent: rales, rhonchi, wheezes - Cardiovascular Cardiovascular exam: Present: regular rate and rhythm. Absent: diastolic murmur , JVD, systolic murmur - GI/Abdominal GI/Abdominal exam: Present: normal bowel sounds, soft. Absent: ascites, distended, mass, organomegaly, tenderness - Extremities Exam Extremities exam: Present: normal inspection - Back Exam Back exam: Present: normal inspection - Neurological Exam Neurological exam: Present: altered - Psychiatric Psychiatric exam: Present: other - Skin Skin exam: Present: normal color, warm, dry Results - Labs CBC & BMP: 04/06/17 03:47 04/06/17 03:47 Lab Results: I have reviewed the past 24 hour labs
[2017-04-06] MEDS: NIFEdipine 10 MG CAPSULE PO SCH ×3 (14:53→23:25)
--- NOTE | 2017-04-06 15:12 | General Surgery Progress Note ---
Assessment and Plan - Time spent with patient Time spent with patient: Less than 30 minutes (1) Abdominal pain Status: Acute Assessment and plan: Impression: Abdominal pain with constipation etiology unclear. Plan: IV fluids and IV antibiotics and I repeat CT scan with contrast. At present physical examination do not see any strong indication for surgery 03/29/2017. Patient is afebrile he is not complaining of any abdominal discomfort at this time. He may have had a small bowel movement with the enema from yesterday. His abdomen is mildly distended hypoactive bowel sounds no unusual tenderness or guarding it remains safe soft at this time.. His labs look in good shape at this time hematocrit is 29 his creatinine is up a little bit at 2.10. Running his fluids count of placed kidneys as best we can at this point time will just do close observation of this monitor closely. At this point does not seem to be any major intra-abdominal problem other than constipation. Will try to work on that slowly and see if we can get that improved. 03/31/2017. Patient was eating yesterday and had good bowel sounds but he went in some respiratory failure and had to be intubated last night. The abdomen is quiet today soft with nondistention at this point. At this point abdomen looks stable at this point I would probably favor the possibility of considering some nutrition either with a PICC line and central hyperalimentation. Certainly if his bowels are fairly active tomorrow I would probably favor tube feedings. 04/03/2017 Patient remains on the ventilator but is being weaned at this time. Cardiac cath was completed with 50% ejection fraction and no stents were placed at this time. He continues to have tube feedings and seems to be tolerating it well with no residuals and he continues to have bowel movements. Bowel sounds though are hypoactive even though there is no tenderness or distention present at this point. We will just maintain supportive care until he is on a diet. 04/06/2017. Patient remains on the ventilator at this point having come off and had to go back home. He continues tolerating his tube feedings without any problems except for some loose bowel movements. Abdomen is mildly distended with some hypoactive bowel sounds. We will just maintain present support do not see anything from the abdomen for any surgical intervention at this time. Current Visit: Yes Qualifiers: Abdominal location: generalized Qualified Code(s): R10.84 - Generalized abdominal pain Subjective Patient reports: Present: no new complaints, diarrhea, afebrile Exam - Constitutional Vitals: Period Temp Pulse Resp BP Sys/Chen Pulse Ox Last 24 Hr 98.0 F-99.5 F 51-123 12-34 123-255/46-122 88-100 General appearance: mild distress - Head Head exam: Present: normal inspection - ENT ENT exam: Present: normal exam - Neck Neck exam: Present: normal inspection - Respiratory Respiratory exam: Present: rales, rhonchi - Cardiovascular Cardiovascular exam: Present: RRR - GI/Abdominal GI/Abdominal exam: Present: hypoactive bowel sounds, soft - Extremities Exam Extremities exam: Present: normal inspection - Back Exam Back exam: Present: normal inspection - Neurological Exam Neurological exam: Present: alert, oriented X3, CN II-XII intact - Skin Skin exam: Present: normal color, warm, dry Results - Labs CBC & BMP: 04/06/17 03:47 04/06/17 03:47 Lab Results: I have reviewed the past 24 hour labs
[2017-04-06] MEDS: ENOXAPARIN 40 MG/0.4 ML SYRINGE SUBCUT SCH (16:19)
[2017-04-06] MEDS: methylPREDNISolone SOD SUC 40 MG/1 ML VIAL IV SCH (16:27)
[2017-04-06 16:55] LABS: Troponin I Only 0.833 NG/ML (0.00-0.045)
--- NOTE | 2017-04-06 18:26 | Family Practice Progress Note ---
Family Practice - PN: Subj Interval history: Patient seen by me earlier today. He required reintubation early this a.m. due to pulmonary failure. Apparently he went back into pulmonary edema. He was extubated yesterday in the p.m. and apparently did well for a while. This is the third attempt at Extubation. He has been very fragile has gone back into pulmonary edema on each occasion. After reviewing cardiac echo and cardiac catheterization I am not certain why patient is having so much difficulty with extubation. Reviewed notes from multiple consultants. Will again slowly try to wean patient off respirator. Exam (Progress Note) - Constitutional Vitals: Period Temp Pulse Resp BP Sys/Chen Pulse Ox Last 24 Hr 97.8 F-99.5 F 51-123 12-34 110-255/46-122 88-100 Results - Labs CBC & BMP: 04/06/17 03:47 04/06/17 03:47 Assessment and Plan (1) Abdominal pain Status: Acute Assessment and plan: Patient awoke with severe lower abdominal pain. The pain is improved since admission. He is having some intermittent abdominal pain. He is also had progressive problems with constipation. Will order additional studies. Current Visit: Yes Qualifiers: Abdominal location: generalized Qualified Code(s): R10.84 - Generalized abdominal pain (2) Exertional dyspnea Status: Chronic Assessment and plan: Dyspnea has progressively gotten worse. Patient unable to do minimal activity without severe dyspnea. Will consult cardiology and evaluate further Current Visit: Yes (3) hypertension Status: Chronic Assessment and plan: We will resume home medications and monitor closely Current Visit: Yes (4) Cardiac murmur Status: Chronic Assessment and plan: We will evaluate murmur with echo. Current Visit: Yes (5) renal insufficiency Status: Chronic Assessment and plan: Patient is followed by Dr. Henrique Meeks. Mental status has been stable Current Visit: No (6) type 2 diabetes mellitus Status: Chronic Assessment and plan: Blood sugars have been adequately controlled at home. 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
[2017-04-06] MEDS: TRAVOPROST 0.004% OPH SOLN 2.5 ML BOTTLE BOTH EYES SCH (21:17)
[2017-04-07] MEDS: ALBUTEROL/IPRATROPIUM 3 ML NEB RESP TX SCH ×4 (01:26→20:17)
[2017-04-07] MEDS: ALUMINUM/MAGNES/SIMETH MAX STR 30 ML UDCUP PO SCH ×4 (01:47→20:35)
[2017-04-07] MEDS: PROPOFOL 1,000 MG/100 ML BOTTLE IV SCH ×6 (01:48→21:55)
[2017-04-07 03:40] LABS: ABG Base Excess -1.5 MMOL/L (-2.5-2.5); ABG HCO3 22.5 MMOL/L (20-26); ABG Oxygen Saturation 99.3 % (95-100); ABG PCO2 35.1 MM HG (35-48); ABG PH 7.424 (7.35-7.45); ABG PO2 398.8 MM HG (80-95); ABG TCO2 23.5 MMOL/L (23-27); Allen Test Positive; Pt O2 Delivery Device Ventilator
[2017-04-07] MEDS: metroNIDAZOLE INJ 500 MG in PREMIX 1 EACH IV SCH ×4 (03:41→20:32)
[2017-04-07] MEDS: PIPERACILLIN/TAZOBACTAM 3,375 MG in SODIUM CHLORIDE 0.9% 100 ML IV SCH ×3 (03:42→20:32)
[2017-04-07] MEDS: methylPREDNISolone SOD SUC 40 MG/1 ML VIAL IV SCH ×2 (04:00→18:56)
[2017-04-07] MEDS: INSULIN LISPRO 100 UNIT/ML SUBCUT SCH ×3 (05:41→18:56)
[2017-04-07] MEDS: NIFEdipine 10 MG CAPSULE PO SCH ×3 (05:42→21:41)
[2017-04-07] MEDS: NITROGLYCERIN 2% OINT 1 INCH/GM PACK TOP SCH ×3 (05:44→18:56)
[2017-04-07 05:50] LABS: Basophils % 0.1 % (0.0-0.8); Eosinophils % 0.1 % (0.00-10.9); Hematocrit 32.2 VOL% (42.0-52.0); Hemoglobin 10.2 GM/DL (14.0-18.0); Immature Granulocytes % 1.2 %; Immature Granulocytes Absolute 0.13 #; Lymphocytes # 0.9 10*3/uL (1.4-4.0); Mean Corpuscular HGB Conc 31.7 GM/DL (32-36); Mean Corpuscular Hemoglobin 27 PG (27-34); Monocytes # 0.6 10*3/uL (0.11-0.8); Monocytes % 5.9 % (1.7-12.7); Neutrophils # 8.8 10*3/uL (1.4-7.4); Neutrophils % 83.7 % (38.7-73.9); Platelet Count 309 T/CUMM (130-400); Red Blood Count 3.79 MC/CUMM (3.8-5.5); White Blood Count 10.5 T/CUMM (4-12)
[2017-04-07 06:17] LABS: Calcium 7.9 MG/DL (8.5-10.1); Osmolality,Calculated 316.1 MOS/KG (273-304); Potassium 4.6 MMOL/L (3.5-5.1)
--- NOTE | 2017-04-07 06:58 | XRay Report ---
Exam: XR chest 1V portable Date: 04/07/2017 4:00 AM Indication: Follow-up ventilator respiratory failure Comparison: 04/06/2017 Technical: AP portable Findings: Endotracheal tube is present at the level aortic knob. Nasogastric tube is present. Cardiomegaly is present with low volume effusions. External cardiac leads are present. Patchy interstitial densities are present in the perihilar regions. ASVD is present. No pneumothorax. Impression: 1. Stable position of life-support tubing 2. Improving aeration with some residual interstitial thickening or infiltrate edema in the perihilar regions. However, there is marked improvement when compared to previous study. PROCEDURE INTERPRETED AT [facility] DEPARTMENT OF RADIOLOGY Final Report Signed by: Dr. Madhav Tyler
--- NOTE | 2017-04-07 08:51 | Cardiology Progress Note ---
<Natalie Chinchilla - Last Filed: 04/07/17 08:36> Assessment and Plan (1) Acute non-ST segment elevation myocardial infarction Status: Acute Assessment and plan: He did not have significant coronary disease. His ejection fraction was preserved after the event, EF 50%. Cardiac biomarkers were rechecked yesterday. Troponin and CPK both are both trending down. Further plan and addendum to follow per Dr. Valdovinos. Current Visit: Yes (2) Congestive heart failure Status: Chronic Assessment and plan: Patient had echocardiogram this admission which revealed ejection fraction of 50 % with mild diastolic dysfunction, moderate aortic valve stenosis and mild mitral regurgitation and mild tricuspid regurgitation. Underwent heart catheterization which did not reveal any significant obstructive coronary disease. Patient required reintubation. Chest x-ray revealed worsening pulmonary edema. BNP was elevated at 1561. Suspect patient's heart failure is secondary to his aortic stenosis as patient had preserved systolic function on his last echocardiogram. Patient's films were reviewed per Dr. Valdovinos. If he were younger, he would recommend 2 vessel bypass and aortic valve replacement anticipating that the mitral insufficiency may get better with perfusing the inferolateral wall little better. Transcatheter aortic valve replacement and medical treatment for his mitral insufficiency could be considered. Further plan and addendum to follow per Dr. Valdovinos. Current Visit: Yes (3) hypertension Status: Chronic Assessment and plan: This is clinically stable. Continue current plan of care. Current Visit: Yes (4) renal insufficiency Status: Chronic Assessment and plan: This is chronic and he may have an acute component to this. Creatinine 1.4. Nephrology is following, will follow their recommendations. 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 Current Visit: No (6) type 2 diabetes mellitus Status: Chronic Assessment and plan: Continue current plan care. Management per attending. Current Visit: Yes (7) Aortic stenosis Status: Chronic Assessment and plan: This is chronic and moderate on echocardiogram. Current Visit: Yes (8) Cardiac murmur Status: Chronic Assessment and plan: Secondary to his aortic valve stenosis. Current Visit: Yes (9) Lower gastrointestinal hemorrhage Status: Acute Assessment and plan: His H&H is stable. No gross evidence of recurrent bleeding. GI and surgery are following. Plan for colonoscopy at some point this hospitalization. Current Visit: Yes (10) Respiratory failure Status: Acute Assessment and plan: Patient is currently stable on the ventilator. Pulmonary is following. Current Visit: Yes Qualifiers: Chronicity: acute Cardiology - PN: Subj Interval history: Magnetic Resonance Technologist: Dr. Ortiz ([facility]) PCP: Dr. Gene Dougherty SUMMARY: Mr. Joy is a 86 year old male without known history of coronary artery disease, not routinely followed by cardiology. PMH: hypertension, diabetes, prostate cancer (now in remission). Patient is a lifetime non-smoker and denies any significant family history of heart disease. Patient reports that he has never undergone any cardiac workup. Patient presented to the emergency department with complaints of abdominal pain and constipation. While in the ER, he confirmed dyspnea on exertion for the past year. He does have a systolic ejection murmur concerning for aortic stenosis. Echocardiogram revealed left ventricular ejection fraction of 50%. Moderate concentric left ventricular hypertrophy with mild diastolic dysfunction and moderate aortic valve stenosis with mean gradient of 29 mmHg was also noted. Carotid ultrasound did not reveal any significant internal carotid artery stenosis. CT scan of the abdomen shows possible small bowel obstruction/ileus. There is also a cecal abnormality which is suspicious for malignancy. GI as well as surgery were consulted to evaluate his abdominal symptoms. Developed gi bleed with heme-positive stools. GI plans for colonoscopy at some point during his hospitalization. On 03/30/17 he became progressively short of breath with flash pulmonary edema and required intubation. Chest x-ray revealed some congestive heart failure. Creatinine has risen over his hospital stay. Nephrology is following. On the morning of March 31, he had Non-Stemi. Subsequently, he underwent heart catheterization 04/02/17 with the following impressions noted: Impression: 1. Codominant system 2. Coronary artery disease as described above including but not limited to: A. Mild irregularities only in the left anterior descending artery system B. 40-50% ostial ramus, and ostial circumflex disease, as well as 80-90% ostial OM1 stenosis (2 mm vessel) C. 50% mid RCA stenosis and a long thin tortuous codominant vessel Recommendation discussion: It is unclear what the culprit is for Mr. Joy is non-STEMI. The ostial obtuse marginal lesion looks significant, however the vessel only 2 mm and it is not ideal for intervention given his of the ostium. Would recommend medical therapy. His echocardiogram showed EF 50%, with moderate LVH pulmonary hypertension and reportedly moderate aortic stenosis. Patient was seen and examined in the CCU. He remains sedated and ventilated. Thursday afternoon, he was extubated. However, early Thursday morning he required reintubation due to severe respiratory distress. Chest x-ray revealed slightly worsened pulmonary edema. BNP was 1561. Per nursing staff report, patient wakes up appropriately when sedation is held and follows commands. 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 Interventional radiology has been consulted to review his CT scan and to recommend whether they would consider PCI of his mesenteric vessels. Vital signs are stable. Patient in normal sinus rhythm with heart rates in the 50s and 60s. No overt arrhythmias or ectopy is noted. -Further plan and addendum to follow per Dr. Valdovinos. Exam (Progress Note) - Constitutional Vitals: Period Temp Pulse Resp BP Sys/Chen Pulse Ox Last 24 Hr 97.3 F-98.2 F 46-68 18-27 100-161/42-77 100-100 Exam: General appearance: Patient is on ventilator and propofol but is more awake this morning and responds appropriately. HEENT exam: Orally intubated Neck exam: normal inspection no JVD. No carotid bruit. Trachea is in midline Respiratory/lungs exam: Course breath sounds, on ventilator. Cardiovascular exam: regular rate and rhythm with 2/6 systolic murmur consistent with aortic valve stenosis. No precordial lift. Chest wall exam: No deformities GI/Abdominal exam: Flat, nondistended, bowel sounds present.. Extremeties/musculoskeletal: No edema. Neurological exam: He is awake and moving everything and responding. Psychiatric exam: He is responding appropriately.. Skin exam: warm and dry. Result/EKG - Labs CBC & BMP: 04/07/17 05:10 04/07/17 05:10 Lab Results: I have reviewed the past 24 hour labs Labs: Laboratory Results - last 24 hr 04/04/17 04/06/17 04/06/17 12:10 03:44 09:10 WBC RBC Hgb Hct MCV MCH MCHC RDW Plt Count MPV Neut % (Auto) Lymph % (Auto) Whiteside % (Auto) Eos % (Auto) Baso % (Auto) Neut # (Auto) Lymph # (Auto) Whiteside # (Auto) Eos # (Auto) Baso # (Auto) Immature Gran % Nucleated RBC % Immature Gran # Nucleated RBCs # ABG pH 7.393 ABG pCO2 37.4 ABG pO2 357.0 H ABG HCO3 23.0 ABG Total CO2 20.6 L ABG O2 Saturation 100.0 ABG Base Excess -1.7 FiO2 Sodium Potassium Chloride Carbon Dioxide Anion Gap BUN Creatinine GFR Calculation BUN/Creatinine Ratio Glucose POC Glucose 323 H Calculated Osmolality Calcium Magnesium Total Creatine Kinase CK-MB (CK-2) Troponin I B-Natriuretic Peptide 1561 H 04/06/17 04/06/17 04/06/17 09:11 12:16 15:23 WBC RBC Hgb Hct MCV MCH MCHC RDW Plt Count MPV Neut % (Auto) Lymph % (Auto) Whiteside % (Auto) Eos % (Auto) Baso % (Auto) Neut # (Auto) Lymph # (Auto) Whiteside # (Auto) Eos # (Auto) Baso # (Auto) Immature Gran % Nucleated RBC % Immature Gran # Nucleated RBCs # ABG pH ABG pCO2 ABG pO2 ABG HCO3 ABG Total CO2 ABG O2 Saturation ABG Base Excess FiO2 Sodium Potassium Chloride Carbon Dioxide Anion Gap BUN Creatinine GFR Calculation BUN/Creatinine Ratio Glucose POC Glucose 246 H Calculated Osmolality Calcium Magnesium Total Creatine Kinase 448 H D 430 H CK-MB (CK-2) 3.5 3.7 H Troponin I 0.875 H D 0.833 H B-Natriuretic Peptide 04/06/17 04/06/17 04/07/17 17:43 22:50 03:30 WBC RBC Hgb Hct MCV MCH MCHC RDW Plt Count MPV Neut % (Auto) Lymph % (Auto) Whiteside % (Auto) Eos % (Auto) Baso % (Auto) Neut # (Auto) Lymph # (Auto) Whiteside # (Auto) Eos # (Auto) Baso # (Auto) Immature Gran % Nucleated RBC % Immature Gran # Nucleated RBCs # ABG pH 7.424 ABG pCO2 35.1 ABG pO2 398.8 H ABG HCO3 22.5 ABG Total CO2 23.5 ABG O2 Saturation 99.3 ABG Base Excess -1.5 FiO2 100.00 Sodium Potassium Chloride Carbon Dioxide Anion Gap BUN Creatinine GFR Calculation BUN/Creatinine Ratio Glucose POC Glucose 356 H 350 H Calculated Osmolality Calcium Magnesium Total Creatine Kinase CK-MB (CK-2) Troponin I B-Natriuretic Peptide 04/07/17 04/07/17 04/07/17 05:10 05:10 05:18 WBC 10.5 RBC 3.79 L Hgb 10.2 L Hct 32.2 L MCV 85.0 L MCH 27 MCHC 31.7 L RDW 16.0 Plt Count 309 MPV 10.0 Neut % (Auto) 83.7 H Lymph % (Auto) 9.0 L Whiteside % (Auto) 5.9 Eos % (Auto) 0.1 Baso % (Auto) 0.1 Neut # (Auto) 8.8 H Lymph # (Auto) 0.9 L Whiteside # (Auto) 0.6 Eos # (Auto) 0.0 Baso # (Auto) 0.0 Immature Gran % 1.2 Nucleated RBC % 0.0 Immature Gran # 0.13 Nucleated RBCs # 0.00 ABG pH ABG pCO2 ABG pO2 ABG HCO3 ABG Total CO2 ABG O2 Saturation ABG Base Excess FiO2 Sodium 149 H Potassium 4.6 Chloride 117 H Carbon Dioxide 23 Anion Gap 13.6 BUN 45 H Creatinine 1.40 H GFR Calculation 64 BUN/Creatinine Ratio 32.00 H Glucose 258 H POC Glucose 276 H Calculated Osmolality 316.1 H Calcium 7.9 L Magnesium 3.0 H Total Creatine Kinase CK-MB (CK-2) Troponin I B-Natriuretic Peptide <Gael Valdovinos - Last Filed: 04/07/17 12:39> Cardiology - PN: Subj Interval history: Patient remains symptomatically stable with good oxygenation and vital signs. I think the best approach is going to be transcatheter aortic valve replacement versus surgical aortic valve replacement and then treatment of his underlying CAD medically at least initially. He is undergoing evaluation of his mesenteric arterial issues and then we will likely proceed with aortic valve replacement either surgically or transcatheter. Exam (Progress Note) - Constitutional Vitals: Period Temp Pulse Resp BP Sys/Chen Pulse Ox Last 24 Hr 97.3 F-98.2 F 46-59 18-26 100-161/42-77 100-100 Result/EKG - Labs CBC & BMP: 04/07/17 05:10 04/07/17 05:10 Labs: Laboratory Results - last 24 hr 04/04/17 04/06/17 04/06/17 12:10 12:16 15:23 WBC RBC Hgb Hct MCV MCH MCHC RDW Plt Count MPV Neut % (Auto) Lymph % (Auto) Whiteside % (Auto) Eos % (Auto) Baso % (Auto) Neut # (Auto) Lymph # (Auto) Whiteside # (Auto) Eos # (Auto) Baso # (Auto) Immature Gran % Nucleated RBC % Immature Gran # Nucleated RBCs # ABG pH ABG pCO2 ABG pO2 ABG HCO3 ABG Total CO2 ABG O2 Saturation ABG Base Excess FiO2 Sodium Potassium Chloride Carbon Dioxide Anion Gap BUN Creatinine GFR Calculation BUN/Creatinine Ratio Glucose POC Glucose 323 H 246 H Calculated Osmolality Calcium Magnesium Total Creatine Kinase 430 H CK-MB (CK-2) 3.7 H Troponin I 0.833 H 04/06/17 04/06/17 04/07/17 17:43 22:50 03:30 WBC RBC Hgb Hct MCV MCH MCHC RDW Plt Count MPV Neut % (Auto) Lymph % (Auto) Whiteside % (Auto) Eos % (Auto) Baso % (Auto) Neut # (Auto) Lymph # (Auto) Whiteside # (Auto) Eos # (Auto) Baso # (Auto) Immature Gran % Nucleated RBC % Immature Gran # Nucleated RBCs # ABG pH 7.424 ABG pCO2 35.1 ABG pO2 398.8 H ABG HCO3 22.5 ABG Total CO2 23.5 ABG O2 Saturation 99.3 ABG Base Excess -1.5 FiO2 100.00 Sodium Potassium Chloride Carbon Dioxide Anion Gap BUN Creatinine GFR Calculation BUN/Creatinine Ratio Glucose POC Glucose 356 H 350 H Calculated Osmolality Calcium Magnesium Total Creatine Kinase CK-MB (CK-2) Troponin I 04/07/17 04/07/17 04/07/17 05:10 05:10 05:18 WBC 10.5 RBC 3.79 L Hgb 10.2 L Hct 32.2 L MCV 85.0 L MCH 27 MCHC 31.7 L RDW 16.0 Plt Count 309 MPV 10.0 Neut % (Auto) 83.7 H Lymph % (Auto) 9.0 L Whiteside % (Auto) 5.9 Eos % (Auto) 0.1 Baso % (Auto) 0.1 Neut # (Auto) 8.8 H Lymph # (Auto) 0.9 L Whiteside # (Auto) 0.6 Eos # (Auto) 0.0 Baso # (Auto) 0.0 Immature Gran % 1.2 Nucleated RBC % 0.0 Immature Gran # 0.13 Nucleated RBCs # 0.00 ABG pH ABG pCO2 ABG pO2 ABG HCO3 ABG Total CO2 ABG O2 Saturation ABG Base Excess FiO2 Sodium 149 H Potassium 4.6 Chloride 117 H Carbon Dioxide 23 Anion Gap 13.6 BUN 45 H Creatinine 1.40 H GFR Calculation 64 BUN/Creatinine Ratio 32.00 H Glucose 258 H POC Glucose 276 H Calculated Osmolality 316.1 H Calcium 7.9 L Magnesium 3.0 H Total Creatine Kinase CK-MB (CK-2) Troponin I 04/07/17 11:17 WBC RBC Hgb Hct MCV MCH MCHC RDW Plt Count MPV Neut % (Auto) Lymph % (Auto) Whiteside % (Auto) Eos % (Auto) Baso % (Auto) Neut # (Auto) Lymph # (Auto) Whiteside # (Auto) Eos # (Auto) Baso # (Auto) Immature Gran % Nucleated RBC % Immature Gran # Nucleated RBCs # ABG pH ABG pCO2 ABG pO2 ABG HCO3 ABG Total CO2 ABG O2 Saturation ABG Base Excess FiO2 Sodium Potassium Chloride Carbon Dioxide Anion Gap BUN Creatinine GFR Calculation BUN/Creatinine Ratio Glucose POC Glucose 174 H Calculated Osmolality Calcium Magnesium Total Creatine Kinase CK-MB (CK-2) Troponin I
[2017-04-07] MEDS ORDERED: NIFEdipine 10 MG CAPSULE PO SCH (09:00)
[2017-04-07] MEDS: NYSTATIN 500,000 UNIT/5 ML UDCUP SWISH/SWAL SCH ×4 (09:46→20:36)
[2017-04-07] MEDS: INSULIN GLARGINE 100 UNIT/ML SUBCUT SCH ×2 (09:46→18:56)
[2017-04-07] MEDS: PANTOPRAZOLE 40 MG VIAL IV SCH (09:47)
[2017-04-07] MEDS: ALLOPURINOL 100 MG TABLET PO SCH (09:47)
[2017-04-07] MEDS: POLYETHYLENE GLYCOL POWDER 17 GM PACK PO SCH (09:47)
[2017-04-07] MEDS: MULTIVITAMIN (CENTRUM) TABLET PO SCH (09:48)
[2017-04-07] MEDS: ASPIRIN EC 81 MG TABLET PO SCH (09:48)
[2017-04-07] MEDS: SKIN HEALING OINT (AQUAPHOR) 50 GM TUBE TOP SCH (09:48)
[2017-04-07] MEDS: CHOLECALCIFEROL 1,000 UNIT TABLET PO SCH (09:48)
[2017-04-07] MEDS: LEVOFLOXACIN INJ 250 MG in PREMIX 1 EACH IV SCH (09:57)
[2017-04-07] MEDS: FERRIC GLUCONATE COMPLEX 125 MG in SODIUM CHLORIDE 0.9% 100 ML IV SCH (11:00)
--- NOTE | 2017-04-07 11:04 | Pulmonology Progress Note ---
Pulmonary - PN: Subj Interval history: This 86-year-old black male who we saw in initial pulmonary consultation on the night of 03/30/2017. His son, [id number], daughter and son-in-law are patients of Dr. Rosales. At the time of our initial consultation, our impressions were: 1. Acute congestive heart failure 2. Moderate aortic stenosis with left ventricular hypertrophy and mild aortic regurgitation 3. Acute renal failure 4. Recent bilateral obstruction with associated nausea and vomiting. Watch for aspiration injury 5. History of internal hemorrhoids 6. Diabetes mellitus 7. History of high blood pressure 03/31/2017. Last night after I saw the patient, while I was still in CCU and ICU -- he suddenly deteriorated. Attempts were made to diurese him additionally and this was of no help even though his chest x-ray looked better. Patient felt like he was going to . It was elected to intubate him after discussion with the patient who is readily agreeable and discussion with the family whom were readily agreeable. Patient stabilized with mechanical ventilation. Today' s chest x-ray still shows pulmonary edema but it is better. ABGs on FiO2 of 100 % and a PEEP of 5 show a pH 7.42, PCO2 29.6 and a PO2 of 243 with a bicarb of 21. CPK is elevated at 1946. MB band is elevated 22.4%. Troponins are elevated at 26.600. Natruretic peptide is elevated 1481. Creatinine is increased to 2.40 with a BUN of 47. Electrolytes are normal. White count is 8300 with 75 segs, 15 lymphs and 9 monos. H&H is dropped to 9.2/28.7. Patient has iron deficiency. Note that on the CT scan of his abdomen there is an abnormality in the cecal area that could be a colon cancer. See report. I have talked to the family about what I think the present diagnoses are including acute myocardial infarction, acute congestive heart failure, acute respiratory failure secondary to congestive heart failure, acute on chronic renal failure. We have gone through the patient's history one more time. Even though he had acute nausea and vomiting everyone involved says he did not aspirate. 04/01/2017. This patient is stable on mechanical ventilation. He did about 4 hours of CPAP on 03/31/2017 and he will be advanced on protocol today. His chest x-ray shows 80% resolution of his acute pulmonary edema. I do not see any definite infiltrates. ABGs on mechanical ventilation FiO2 of 60% shows a pH 7.46, PCO2 is 29, PO2 is 226 with a bicarb of 20. Electrolytes are normal. Creatinine is dropped from 2.4-2.10. Total CPK is 2847 MB band is now 10.9% and troponin has dropped to 13.5. Natruretic peptide is dropped of 468. H&H is low but stable at 9.1/29.3. Note that the patient some iron and iron saturation is very low. I started him on IV iron replacement. I have discussed the pulmonary aspects of this patient's illness and treatment with the family. 04/02/2017. Patient for cardiac catheterization today. Today's x-ray reveals about 85-90% resolution of acute pulmonary edema. Sputum's have been requested but so far have not been reported. Patient is doing well with the weaning protocol. On mechanical ventilation and FiO2 60% pH is 7.48, PCO2 is 29.4, PO2 is 219.8 and bicarb is 21.2. Electrolytes are normal. Glucose is under fairly good control. Natruretic peptide remains elevated 925. B12 and folic acid levels were normal. This patient was found to have low iron and IV replacement was begun yesterday. He has positive stools. He has known internal hemorrhoids. CT of the abdomen was abnormal showing a possible abnormality in the cecal area. 04/03/2017. The patient was seen today along with his [id number] Elsa Joy. The patient is awake and alert. He remains intubated and on mechanical ventilation. We attempted to go to a T-tube this morning but ABGs approximately 45 minutes later on an FiO2 of 60% showed a PO2 of 68.1. Patient got anxious and more short of breath. He is hypoxic obviously. He was placed back on mechanical ventilation. He is on stage IV the weaning protocol and we will continue to advance this as tolerated. We suspect he will slip into pulmonary edema very easily but there could also be the possibility of underlying ARDS. We have started Solu-Medrol 20 mg IV every 12 hours. 04/06/2017. The patient was seen today along with his nurse. We have discussed the case with Dr. Valdovinos as well as the patient's daughter and daughter-in- law. The patient was extubated over the weekend but early this morning became more short of breath and required reintubation. Patient Solu-Medrol was decreased to once daily over the weekend. It is certainly possible that he has an underlying ARDS type picture secondary to possible sepsis at admission. We will increase the Solu-Medrol back to 20 mg IV every 12 hours. The patient's cardiac isoenzymes have trended downward, but we will repeat these today. His last set was done on 04/03/2017. We are unsure why he continues to easily slip and congestive heart failure but it could be secondary to his aortic stenosis and mitral regurgitation. Cardiac cath done 04/02/[address] Stuart showed a codominant system with coronary artery disease including but not limited to mild irregularities only in the left anterior descending artery system, 40-50% ostial ramus and ostial circumflex disease as well as 80-90% ostial OM1 stenosis (2 mm vessel), and 50% mid RCA stenosis and a long and tortuous codominant vessel. He recommended medical therapy for this. Nonetheless, not the patient is back on the ventilator we will again proceed with the vent weaning protocol and continued physical therapy protocol. Chest x-ray today shows congestive heart failure. 04/07/2017. I cannot find a family this morning. Dr. Harvey Valdovinos and I have discussed and reviewed the case. At the present time it appears this patient will need an aortic valve done. After this taken care of the coronary arteries can be addressed. In 100% agreeable with this approach. Patient remains on mechanical ventilation. His chest x-ray is better. I do not see any definite heart failure today. ABGs on mechanical ventilation FiO2 of 100% showed a pH 7.42, PCO2 35.1, PO2 398.8 with a bicarb of 22.5. FiO2 has been decreased to 50 %. Patient is on weaning protocol and a physical therapy protocol. Electrolytes are normal. Creatinine is 1.4 with a BUN of 45. H&H is 10.2/ 32.2. White count is dropped to 10,583.76. Platelets of 309,000. Natruretic peptide on 04/06/2017 was elevated 1561. Troponin had dropped to 0.833. Total CPK was 430. This patient is transferred to another institution for surgery for his aortic valve I think he will need to stay on mechanical ventilation because she sleeps in a congestive heart failure to easily. Echocardiogram done 04/01/[address] Mackey showed an ejection fraction of 50 % plus moderate concentric left ventricular hypertrophy with grade 2 diastolic dysfunction, mild to moderate dilated left atrium, right-sided chambers were normal, minimally sclerotic mitral valve with mild mitral valve regurgitation, aortic valve sclerosis with decreased excursion and moderate aortic valve stenosis, mild tricuspid regurgitation, and a pulmonary artery pressure of 57- 62 mmhg. Echocardiogram done 03/26/[address] Ortiz showed an EF of approximately 50%, moderate concentric left ventricular hypertrophy with mild diastolic dysfunction, mild biatrial enlargement, moderate aortic valve stenosis with a mean gradient of 29 mmHg, mild aortic valve regurgitation, mildly thickened mitral valve with trace to mild mitral valve regurgitation, trace tricuspid valve regurgitation, and pulmonary artery pressure of 32 mmHg. Doppler venograms done 03/30/2017 showed no evidence of deep venous thrombophlebitis in either lower extremity. Sputum collected 04/04/2017 showed no organisms on Gram stain and normal faiza at 48 hours. Sputum for Gram stain, culture and sensitivity was ordered 2016, but was not collected. Blood cultures are negative. Stools for occult blood are positive 3. Medications have been reviewed. We increased Solumedrol today. Labs have been reviewed. White count is 14,700 with 72.6% segs; H&H 11.7/36.1; platelet count 361,007: Creatinine 1.50, BUN 37, sodium 148, potassium 4.2, magnesium 2.9; liver function tests show an AST of 51, ALT 62, and alkaline phosphate 34; total bilirubin 0.40; BNP 1561 ABGs this morning on mechanical ventilation and an FIO2 of 100% showed a pH of 7.393, PCO2 37.4, PO2 357.0, bicarb 23.0, and oxygen saturation 100%. Exam (Progress Note) - Constitutional Vitals: Period Temp Pulse Resp BP Sys/Chen Pulse Ox Last 24 Hr 98.0 F-99.5 F 57-123 12-34 113-255/40-122 88-100 Exam: Face. Symmetrical. Lips and tongue appear to be normal. Neck. Symmetrical with no meningismus. Lymphatics. No submandibular cervical supraclavicular or epitrochlear adenopathy Chest. Slight large airway congestion. No wheeze. No rales Heart lateral PMI Abdomen is nontender and nondistended; rare bowel sounds Extremities with nothing to suggest acute deep venous thrombophlebitis Psychiatric/neurologic presently sedated and on the ventilator, unable to determine The remainder the physical exam is negative. Plan. 1. 04/07/2017. See my note above. 2. Mechanical ventilation weaning protocol and physical therapy protocol 3. Daily chest x-ray ABGs and lab. Exam (Progress Note) - Constitutional Vitals: Period Temp Pulse Resp BP Sys/Chen Pulse Ox Last 24 Hr 97.3 F-98.2 F 46-59 18-26 100-161/42-77 100-100 Results - Labs CBC & BMP: 04/07/17 05:10 04/07/17 05:10
[2017-04-07] MEDS: SODIUM CHLORIDE 0.45% 1,000 ML IV SCH (12:56)
--- NOTE | 2017-04-07 13:41 | CT Report ---
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 CT ANGIOGRAM ABDOMEN AND PELVIS DLP: 502 mGy*cm. One or more of the following dose reduction techniques was used: Automated exposure control, adjustment of the mA and/or kV according the patient size, or use of iterative reconstruction techniques. Technique: Axial CT images of the abdomen and pelvis were obtained during the arterial and venous phases of contrast injection. 3-D vascular MIPS reconstructions and multiplanar reformats were evaluated. Omnipaque 350, 100 cc. Comparison: CT abdomen pelvis 03/28/2017 Arteriogram: Diffuse calcified atheromatous disease is present. Aorta shows no focal stenosis or aneurysmal change. The common iliac and external iliac arteries are widely patent. 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 The following measurements were obtained on the sagittal reconstructions: The proximal celiac artery diameter is 5.5 mm, and the ostium is narrowed to well under 1 mm diameter which calculates as greater than 90% diameter stenosis; the SMA diameter is 6.1 mm, and is narrowed at its origin to a diameter of 2.0 mm, which calculates as just under 70% diameter stenosis. However, further in the periphery of both celiac and SMA vascular territories, arterial enhancement of the smaller vessels is present, including hepatic branches, splenic artery, GDA, middle colic and peripheral watershed vessels of the colonic mesentery. Bilateral renal ostial stenosis is present, each 80% diameter stenosis. GALO is patent. Abdomen: Bilateral pleural effusions have increased in size, now moderate. Heart size remains normal. Progressive consolidation of both lower lobes noted with air bronchograms concerning for progressive pneumonia. This is superimposed on diffuse ground glass opacity of the lung bases, with scattered thin walled pulmonary cysts. NG tube decompresses the stomach. Liver, spleen, pancreas appear unremarkable. Nonspecific thickening of the adrenal glands noted, without discrete mass. Hypodensities arise in both kidneys, largest is on the left measuring 38 mm diameter, cysts. Cortical scarring of the right kidney noted as well. No bowel obstruction is present. Minimal amount of bowel wall thickening of the tip of the cecum is present which is similar to the previous examination. No fluid, mesenteric inflammation or lymphadenopathy is shown. Pelvis: Hugo catheter decompresses the bladder. Rectal tube is present as well. Trace amount of ascites and pelvis noted. No lymphadenopathy. No new bone lesions. Diffuse body wall edema noted. Impression: 1. 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 Patent AGLO. Arterial enhancement of the peripheral mesenteric system noted. 2. Minimal focal bowel wall thickening of the tip of the cecum is again shown, consistent with focal colitis. Differential includes infectious colitis versus ischemic colitis. 3. Bilateral renal ostial stenosis, 80% diameter. 4. Increasing size of bilateral pleural effusions with worsening consolidation of both lung bases, concerning for progressive pneumonia and/or atelectasis. 5. Bilateral renal cysts. Nonspecific thickening of the adrenal glands. 6. Trace amount of ascites in the deep pelvis. Given the pleural effusions and body wall edema, suspect this is primarily cardiac related. PROCEDURE INTERPRETED AT [facility] DEPARTMENT OF RADIOLOGY Final Report Signed by: Ej Jones M.D.
[2017-04-07] MEDS: ENOXAPARIN 40 MG/0.4 ML SYRINGE SUBCUT SCH (15:36)
--- NOTE | 2017-04-07 16:42 | Nephrology Progress Note ---
Nephrology - PN: Subj Interval history: He remains on the ventilator. He is awake and follows commands. Exam (PN)-Nephrology - Vital Signs Vital signs: Period Temp Pulse Resp BP Sys/Chen Pulse Ox Last 24 Hr 97.3 F-97.4 F 46-58 24-26 100-161/42-68 100-100 Exam: ENT: Intubated Cardiovascular: Regular rate and rhythm Lungs: Clear Extremities: No edema - Lab 04/07/17 05:10 04/07/17 05:10 Most recent lab results ABG pH 7.424 (7.35-7.45) 04/07/17 03:30 ABG pCO2 35.1 MM HG (35-48) 04/07/17 03:30 ABG pO2 398.8 MM HG (80-95) H 04/07/17 03:30 ABG HCO3 22.5 MMOL/L (20-26) 04/07/17 03:30 ABG O2 Saturation 99.3 % (95-100) 04/07/17 03:30 Calcium 7.9 MG/DL (8.5-10.1) L 04/07/17 05:10 Phosphorus 2.2 MG/DL (2.5-4.9) L 04/06/17 03:47 Magnesium 3.0 MG/DL (1.8-2.4) H 04/07/17 05:10 Assessment and Plan (1) Chronic kidney disease, stage III (moderate) Status: Chronic Assessment and plan: 86-year-old man admitted with: * CRF stage III. Baseline creatinine 1.6 * Acute on chronic renal failure. Renal function has improved. Fluid balance negative. Sodium is elevated. IV fluid added * Hypertension. Controlled * Small bowel obstruction. Resolved * Diabetes mellitus * CAD. Recent PR * Ventilatory failure. 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
--- NOTE | 2017-04-07 17:34 | Family Practice Progress Note ---
Family Practice - PN: Subj Interval history: I saw Mr. Joy earlier this a.m. but was awaiting on consultants evaluation and CT angiogram results. 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 This should provide collateral flow to the stomach and gut. I would not think that this would be causing the patient's pain or in any way affecting his overall condition. He is being followed by both GI and surgery and they can comment on this also. Dr. Valdovinos and Dr. John feels the patient needs a transcatheter aortic valve replacement versus surgical valve replacement. Then can address his coronary artery disease. There is no family present when I made rounds but apparently Dr. John and Dr. Valdovinos have discussed this with family members. They had brought up the possibility of having him referred to a facility in [facility]. I'll let Dr. Valdovinos discussed this with family since this is primarily a cardiology problem. He is otherwise continuing to improve. This has obviously become a very difficult case. We will continue present treatment plan Exam (Progress Note) - Constitutional Vitals: Period Temp Pulse Resp BP Sys/Chen Pulse Ox Last 24 Hr 97.3 F-97.4 F 46-58 24-26 100-161/42-68 100-100 Results - Labs CBC & BMP: 04/07/17 05:10 04/07/17 05:10 Assessment and Plan (1) Abdominal pain Status: Acute Assessment and plan: Patient awoke with severe lower abdominal pain. The pain is improved since admission. He is having some intermittent abdominal pain. He is also had progressive problems with constipation. Will order additional studies. Current Visit: Yes Qualifiers: Abdominal location: generalized Qualified Code(s): R10.84 - Generalized abdominal pain (2) Exertional dyspnea Status: Chronic Assessment and plan: Dyspnea has progressively gotten worse. Patient unable to do minimal activity without severe dyspnea. Will consult cardiology and evaluate further Current Visit: Yes (3) hypertension Status: Chronic Assessment and plan: We will resume home medications and monitor closely Current Visit: Yes (4) Cardiac murmur Status: Chronic Assessment and plan: We will evaluate murmur with echo. Current Visit: Yes (5) renal insufficiency Status: Chronic Assessment and plan: Patient is followed by Dr. Henrique Meeks. Mental status has been stable Current Visit: No (6) type 2 diabetes mellitus Status: Chronic Assessment and plan: Blood sugars have been adequately controlled at home. 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
--- NOTE | 2017-04-07 19:20 | Event Note ---
Patient seen and examined. CT findings noted with significant celiac artery obstruction but SMA and GALO did not appear significantly occluded with adequate collateral flow noted. He also appears to have bilateral lower lobe pneumonia with air bronchograms visible on that study. When he is awake he denies any abdominal pain nurses report. No gross GI bleeding noted. Afebrile/vital signs stable. Lungs with bilateral rhonchi. Heart regular abdomen soft, nondistended and nontender, bowel sounds present. See no symptoms at present to suggest significant mesenteric ischemia. This could change but has no current indication for interventional approach. Major issue appears to be his respiratory failure and pneumonia for now which at his advanced age may not clear. He is on broad-spectrum IV antibiotics. I discussed his case with his daughter Britney regarding all of this.
[2017-04-07] MEDS: TRAVOPROST 0.004% OPH SOLN 2.5 ML BOTTLE BOTH EYES SCH (21:11)
[2017-04-08] MEDS: NITROGLYCERIN 2% OINT 1 INCH/GM PACK TOP SCH ×4 (00:10→17:59)
[2017-04-08] MEDS: INSULIN LISPRO 100 UNIT/ML SUBCUT SCH ×4 (00:46→17:58)
[2017-04-08] MEDS: ALBUTEROL/IPRATROPIUM 3 ML NEB RESP TX SCH ×3 (01:46→12:09)
[2017-04-08] MEDS: metroNIDAZOLE INJ 500 MG in PREMIX 1 EACH IV SCH ×3 (02:49→16:17)
[2017-04-08] MEDS: ALUMINUM/MAGNES/SIMETH MAX STR 30 ML UDCUP PO SCH ×3 (02:49→16:02)
[2017-04-08] MEDS: PROPOFOL 1,000 MG/100 ML BOTTLE IV SCH ×3 (02:54→16:59)
[2017-04-08] MEDS: PIPERACILLIN/TAZOBACTAM 3,375 MG in SODIUM CHLORIDE 0.9% 100 ML IV SCH ×2 (03:00→12:57)
[2017-04-08 04:38] LABS: ABG Base Excess -0.9 MMOL/L (-2.5-2.5); ABG HCO3 23.7 MMOL/L (20-26); ABG Oxygen Saturation 99.6 % (95-100); ABG PCO2 32.3 MM HG (35-48); ABG TCO2 20.3 MMOL/L (23-27); Allen Test Positive; Pt O2 Delivery Device Ventilator
[2017-04-08 05:30] LABS: Basophils % 0.1 % (0.0-0.8); Eosinophils % 0.1 % (0.00-10.9); Hematocrit 32.6 VOL% (42.0-52.0); Hemoglobin 10.5 GM/DL (14.0-18.0); Immature Granulocytes % 0.7 %; Immature Granulocytes Absolute 0.07 #; Mean Corpuscular HGB Conc 32.2 GM/DL (32-36); Mean Corpuscular Hemoglobin 27 PG (27-34); Mean Corpuscular Volume 84.9 FL (87-102); Mean Platelet Volume 10.2 FL (9.6-12.0); Monocytes # 0.4 10*3/uL (0.11-0.8); Monocytes % 4.3 % (1.7-12.7); NRBC # 0.02 10*3/uL; Neutrophils # 8.6 10*3/uL (1.4-7.4); Neutrophils % 84.8 % (38.7-73.9); Platelet Count 355 T/CUMM (130-400); Red Blood Count 3.84 MC/CUMM (3.8-5.5); Red Cell Distribution Width 16.3 % (9.3-17.3); White Blood Count 10.1 T/CUMM (4-12)
[2017-04-08] MEDS: methylPREDNISolone SOD SUC 40 MG/1 ML VIAL IV SCH ×2 (05:59→17:58)
[2017-04-08 06:02] LABS: Calcium 7.6 MG/DL (8.5-10.1); Magnesium 2.9 MG/DL (1.8-2.4); Osmolality,Calculated 305.4 MOS/KG (273-304); Potassium 4.8 MMOL/L (3.5-5.1)
[2017-04-08 06:03] LABS: Albumin 2.2 G/DL (3.4-5.0); Bilirubin,Total 0.5 MG/DL (0.2-1.0); Calcium 7.7 MG/DL (8.5-10.1); Magnesium 2.9 MG/DL (1.8-2.4); Osmolality,Calculated 303.6 MOS/KG (273-304); Potassium 4.8 MMOL/L (3.5-5.1); Total Protein 5.2 G/DL (6.4-8.3)
--- NOTE | 2017-04-08 06:38 | XRay Report ---
Exam: XR chest 1V portable Date: 04/08/2017 4:00 AM Indication: Follow-up ventilator CHF Comparison: 04/07/2017 Technical: AP portable Findings: External cardiac leads are present. Endotracheal tube at the level aortic knob. Nasogastric traverses esophagus into the stomach area. Some alveolar interstitial densities are present in the left perihilar region and right infrahilar region with tiny low volume effusions. ASVD is present. No pneumothorax. Impression: 1. Stable position of life-support tubing 2. Persistent interstitial alveolar edema and tiny effusions left greater than right 3. ASVD 4. Degenerative spondylosis change thoracic spine PROCEDURE INTERPRETED AT [facility] DEPARTMENT OF RADIOLOGY Final Report Signed by: Dr. Madhav Tyler
[2017-04-08] MEDS: SODIUM CHLORIDE 0.45% 1,000 ML IV SCH (07:43)
--- NOTE | 2017-04-08 10:08 | Cardiology Progress Note ---
<Natalie Chinchilla - Last Filed: 04/08/17 10:00> Assessment and Plan (1) Congestive heart failure Status: Chronic Assessment and plan: Patient had echocardiogram this admission which revealed ejection fraction of 50 % with mild diastolic dysfunction, moderate aortic valve stenosis and mild mitral regurgitation and mild tricuspid regurgitation. Underwent heart catheterization which did not reveal any significant obstructive coronary disease. Patient required reintubation. Chest x-ray revealed worsening pulmonary edema. BNP was elevated at 1561. Suspect patient's heart failure is secondary to his aortic stenosis as patient had reserved systolic function per his last echocardiogram. Dr. Valdovinos feels as though the best approach is going to be transcatheter aortic valve replacement versus surgical aortic valve replacement,then treat underlying CAD medically. Further plan and addendum to follow per Dr. Valdovinos. Current Visit: Yes (2) Acute non-ST segment elevation myocardial infarction Status: Acute Assessment and plan: He did not have significant coronary disease. His ejection fraction was preserved after the event, EF 50%. Further plan and addendum to follow per Dr. Valdovinos. Current Visit: Yes (3) hypertension Status: Chronic Assessment and plan: This is clinically stable, do not want to lower patient's blood pressure too much given his advanced age and moderate aortic stenosis. Continue current plan of care. Current Visit: Yes (4) renal insufficiency Status: Chronic Assessment and plan: Nephrology is following. Will follow their recommendations. 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 Current Visit: No (6) type 2 diabetes mellitus Status: Chronic Assessment and plan: Continue current plan care. Management per attending. Current Visit: Yes (7) Aortic stenosis Status: Chronic Assessment and plan: This is chronic and moderate on echocardiogram. Current Visit: Yes (8) Cardiac murmur Status: Chronic Assessment and plan: Secondary to his aortic valve stenosis. Current Visit: Yes (9) Lower gastrointestinal hemorrhage Status: Acute Assessment and plan: His H&H is stable. No gross evidence of recurrent bleeding. GI and surgery are following. Current Visit: Yes (10) Respiratory failure Status: Acute Assessment and plan: Patient is currently stable on the ventilator. Pulmonary is following. Current Visit: Yes Qualifiers: Chronicity: acute (11) Abdominal pain Status: Acute Assessment and plan: Abdominal CT angiogram revealed significant celiac artery obstruction but SMA and GALO did not appear significantly occluded with adequate collateral flow noted. Per Dr. Cox's note, there is no current indication for interventional approach. 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 Ortiz (new) PCP: Dr. Gene Dougherty SUMMARY: Mr. Joy is a 86 year old male without known history of coronary artery disease, not routinely followed by cardiology. PMH: hypertension, diabetes, prostate cancer (now in remission). Patient is a lifetime non-smoker and denies any significant family history of heart disease. Patient reports that he has never undergone any cardiac workup. Patient presented to the emergency department with complaints of abdominal pain and constipation. While in the ER, he confirmed dyspnea on exertion for the past year. He does have a systolic ejection murmur concerning for aortic stenosis. Echocardiogram revealed left ventricular ejection fraction of 50%. Moderate concentric left ventricular hypertrophy with mild diastolic dysfunction and moderate aortic valve stenosis with mean gradient of 29 mmHg was also noted. Carotid ultrasound did not reveal any significant internal carotid artery stenosis. CT scan of the abdomen shows possible small bowel obstruction/ileus. There is also a cecal abnormality which is suspicious for malignancy. GI as well as surgery were consulted to evaluate his abdominal symptoms. Developed gi bleed with heme-positive stools. GI plans for colonoscopy at some point during his hospitalization. On 03/30/17 he became progressively short of breath with flash pulmonary edema and required intubation. Chest x-ray revealed some congestive heart failure. Creatinine has risen over his hospital stay. Nephrology is following. On the morning of March 31, he had Non-Stemi. Subsequently, he underwent heart catheterization 04/02/17 with the following impressions noted: Impression: 1. Codominant system 2. Coronary artery disease as described above including but not limited to: A. Mild irregularities only in the left anterior descending artery system B. 40-50% ostial ramus, and ostial circumflex disease, as well as 80-90% ostial OM1 stenosis (2 mm vessel) C. 50% mid RCA stenosis and a long thin tortuous codominant vessel Recommendation discussion: It is unclear what the culprit is for Mr. Joy is non-STEMI. The ostial obtuse marginal lesion looks significant, however the vessel only 2 mm and it is not ideal for intervention given his of the ostium. Would recommend medical therapy. His echocardiogram showed EF 50%, with moderate LVH pulmonary hypertension and reportedly moderate aortic stenosis. Patient was seen and examined in the CCU. He remains sedated and ventilated. Thursday afternoon, he was extubated. However, early Thursday morning he required reintubation due to severe respiratory distress. Chest x-ray revealed slightly worsened pulmonary edema. BNP was 1561. Per nursing staff report, patient wakes up appropriately when sedation is held and follows commands. Abdominal CT angiogram revealed significant celiac artery obstruction but SMA and GALO did not appear significantly occluded with adequate collateral flow noted. Per Dr. Cox's note, there is no current indication for interventional approach. CT also revealed increasing size of bilateral pleural effusions with worsening consolidation in both lung bases, concerning for progressive pneumonia and/or atelectasis. Chest x-ray this morning reveals persistent interstitial alveolar edema. Per nursing staff report, patient wakes up appropriately when sedation is held and follows commands. Patient in normal sinus rhythm with heart rates in the 50s and 60s. No overt arrhythmias or ectopy is noted. Exam (Progress Note) - Constitutional Vitals: Period Temp Pulse Resp BP Sys/Chen Pulse Ox Last 24 Hr 96.5 F-98.3 F 48-90 14-24 113-163/43-87 98-100 Exam: General appearance: Patient is on ventilator and propofol but is more awake this morning and responds appropriately. HEENT exam: Orally intubated Neck exam: normal inspection no JVD. No carotid bruit. Trachea is in midline Respiratory/lungs exam: Course breath sounds with bilateral rhonchi noted, patient on ventilator. Cardiovascular exam: regular rate and rhythm with 2/6 systolic murmur consistent with aortic valve stenosis. No precordial lift. Chest wall exam: No deformities GI/Abdominal exam: Flat, nondistended, bowel sounds present.. Extremeties/musculoskeletal: No edema. Neurological exam: He is awake and moving everything and responding. Psychiatric exam: He is responding appropriately.. Skin exam: warm and dry. Result/EKG - Labs CBC & BMP: 04/08/17 04:26 04/08/17 04:26 Lab Results: I have reviewed the past 24 hour labs Labs: Laboratory Results - last 24 hr 04/07/17 04/07/17 04/08/17 11:17 17:36 00:13 WBC RBC Hgb Hct MCV MCH MCHC RDW Plt Count MPV Neut % (Auto) Lymph % (Auto) [place] % (Auto) Eos % (Auto) Baso % (Auto) Neut # (Auto) Lymph # (Auto) [place] # (Auto) Eos # (Auto) Baso # (Auto) Immature Gran % Nucleated RBC % Immature Gran # Nucleated RBCs # ABG pH ABG pCO2 ABG pO2 ABG HCO3 ABG Total CO2 ABG O2 Saturation ABG Base Excess FiO2 Sodium Potassium Chloride Carbon Dioxide Anion Gap BUN Creatinine GFR Calculation BUN/Creatinine Ratio Glucose POC Glucose 174 H 209 H 189 H Calculated Osmolality Calcium Magnesium Total Bilirubin AST ALT Alkaline Phosphatase Total Protein Albumin Globulin Albumin/Globulin Ratio 04/08/17 04/08/17 04/08/17 04:26 04:26 04:26 WBC 10.1 RBC 3.84 Hgb 10.5 L Hct 32.6 L MCV 84.9 L MCH 27 MCHC 32.2 RDW 16.3 Plt Count 355 MPV 10.2 Neut % (Auto) 84.8 H Lymph % (Auto) 10.0 L [place] % (Auto) 4.3 Eos % (Auto) 0.1 Baso % (Auto) 0.1 Neut # (Auto) 8.6 H Lymph # (Auto) 1.0 L [place] # (Auto) 0.4 Eos # (Auto) 0.0 Baso # (Auto) 0.0 Immature Gran % 0.7 Nucleated RBC % 0.2 Immature Gran # 0.07 Nucleated RBCs # 0.02 ABG pH ABG pCO2 ABG pO2 ABG HCO3 ABG Total CO2 ABG O2 Saturation ABG Base Excess FiO2 Sodium 146 H 147 H Potassium 4.8 4.8 Chloride 114 H 115 H Carbon Dioxide 23 23 Anion Gap 13.8 13.8 BUN 39 H 39 H Creatinine 1.20 1.30 GFR Calculation 78 70 BUN/Creatinine Ratio 32.00 H 30.00 H Glucose 196 H 196 H POC Glucose Calculated Osmolality 303.6 305.4 H Calcium 7.7 L 7.6 L Magnesium 2.9 H 2.9 H Total Bilirubin 0.50 AST 30 ALT 44 Alkaline Phosphatase 29 L Total Protein 5.2 L Albumin 2.2 L Globulin 3.0 Albumin/Globulin Ratio 0.7 L 04/08/17 04/08/17 04:30 05:40 WBC RBC Hgb Hct MCV MCH MCHC RDW Plt Count MPV Neut % (Auto) Lymph % (Auto) [place] % (Auto) Eos % (Auto) Baso % (Auto) Neut # (Auto) Lymph # (Auto) [place] # (Auto) Eos # (Auto) Baso # (Auto) Immature Gran % Nucleated RBC % Immature Gran # Nucleated RBCs # ABG pH 7.450 ABG pCO2 32.3 L ABG pO2 160.0 H ABG HCO3 23.7 ABG Total CO2 20.3 L ABG O2 Saturation 99.6 ABG Base Excess -0.9 FiO2 50.00 Sodium Potassium Chloride Carbon Dioxide Anion Gap BUN Creatinine GFR Calculation BUN/Creatinine Ratio Glucose POC Glucose 227 H Calculated Osmolality Calcium Magnesium Total Bilirubin AST ALT Alkaline Phosphatase Total Protein Albumin Globulin Albumin/Globulin Ratio <Gael Valdovinos - Last Filed: 04/08/17 11:20> Cardiology - PN: Subj Interval history: Patient examined chart review and findings and plan reviewed with the patient's family. I have reviewed the echocardiogram and the cardiac catheterization films. In my opinion is got moderate to severe ostial ramus disease and 50-70% stenosis of the proximal circumflex with some haziness in the left main coronary artery. I do not think there is significant occlusion of the left main and I think that this is something that can be amenable to medical treatment if we can get his aortic valve addressed. He has an aortic valve area by echo 1.1 cm. He has severe concentric LVH and I think the best approach is going to be transcatheter aortic valve replacement medical management of his coronary and celiac occlusive disease as this likely will give him the best opportunity to recover. He has had several failed attempts at weaning from the ventilator with recurrent pulmonary edema on 2 different occasions after extubation. Exam (Progress Note) - Constitutional Vitals: Period Temp Pulse Resp BP Sys/Chen Pulse Ox Last 24 Hr 97.3 F-98.3 F 48-90 14-24 113-163/43-87 98-100 Result/EKG - Labs CBC & BMP: 04/08/17 04:26 04/08/17 04:26 Labs: Laboratory Results - last 24 hr 04/07/17 04/07/17 04/08/17 11:17 17:36 00:13 WBC RBC Hgb Hct MCV MCH MCHC RDW Plt Count MPV Neut % (Auto) Lymph % (Auto) [place] % (Auto) Eos % (Auto) Baso % (Auto) Neut # (Auto) Lymph # (Auto) [place] # (Auto) Eos # (Auto) Baso # (Auto) Immature Gran % Nucleated RBC % Immature Gran # Nucleated RBCs # ABG pH ABG pCO2 ABG pO2 ABG HCO3 ABG Total CO2 ABG O2 Saturation ABG Base Excess FiO2 Sodium Potassium Chloride Carbon Dioxide Anion Gap BUN Creatinine GFR Calculation BUN/Creatinine Ratio Glucose POC Glucose 174 H 209 H 189 H Calculated Osmolality Calcium Magnesium Total Bilirubin AST ALT Alkaline Phosphatase Total Protein Albumin Globulin Albumin/Globulin Ratio 04/08/17 04/08/17 04/08/17 04:26 04:26 04:26 WBC 10.1 RBC 3.84 Hgb 10.5 L Hct 32.6 L MCV 84.9 L MCH 27 MCHC 32.2 RDW 16.3 Plt Count 355 MPV 10.2 Neut % (Auto) 84.8 H Lymph % (Auto) 10.0 L [place] % (Auto) 4.3 Eos % (Auto) 0.1 Baso % (Auto) 0.1 Neut # (Auto) 8.6 H Lymph # (Auto) 1.0 L [place] # (Auto) 0.4 Eos # (Auto) 0.0 Baso # (Auto) 0.0 Immature Gran % 0.7 Nucleated RBC % 0.2 Immature Gran # 0.07 Nucleated RBCs # 0.02 ABG pH ABG pCO2 ABG pO2 ABG HCO3 ABG Total CO2 ABG O2 Saturation ABG Base Excess FiO2 Sodium 146 H 147 H Potassium 4.8 4.8 Chloride 114 H 115 H Carbon Dioxide 23 23 Anion Gap 13.8 13.8 BUN 39 H 39 H Creatinine 1.20 1.30 GFR Calculation 78 70 BUN/Creatinine Ratio 32.00 H 30.00 H Glucose 196 H 196 H POC Glucose Calculated Osmolality 303.6 305.4 H Calcium 7.7 L 7.6 L Magnesium 2.9 H 2.9 H Total Bilirubin 0.50 AST 30 ALT 44 Alkaline Phosphatase 29 L Total Protein 5.2 L Albumin 2.2 L Globulin 3.0 Albumin/Globulin Ratio 0.7 L 04/08/17 04/08/17 04:30 05:40 WBC RBC Hgb Hct MCV MCH MCHC RDW Plt Count MPV Neut % (Auto) Lymph % (Auto) [place] % (Auto) Eos % (Auto) Baso % (Auto) Neut # (Auto) Lymph # (Auto) [place] # (Auto) Eos # (Auto) Baso # (Auto) Immature Gran % Nucleated RBC % Immature Gran # Nucleated RBCs # ABG pH 7.450 ABG pCO2 32.3 L ABG pO2 160.0 H ABG HCO3 23.7 ABG Total CO2 20.3 L ABG O2 Saturation 99.6 ABG Base Excess -0.9 FiO2 50.00 Sodium Potassium Chloride Carbon Dioxide Anion Gap BUN Creatinine GFR Calculation BUN/Creatinine Ratio Glucose POC Glucose 227 H Calculated Osmolality Calcium Magnesium Total Bilirubin AST ALT Alkaline Phosphatase Total Protein Albumin Globulin Albumin/Globulin Ratio
[2017-04-08] MEDS: CHOLECALCIFEROL 1,000 UNIT TABLET PO SCH (10:48)
[2017-04-08] MEDS: MULTIVITAMIN (CENTRUM) TABLET PO SCH (10:48)
[2017-04-08] MEDS: NIFEdipine 10 MG CAPSULE PO SCH ×2 (10:48→16:02)
[2017-04-08] MEDS: ASPIRIN EC 81 MG TABLET PO SCH (10:48)
[2017-04-08] MEDS: INSULIN GLARGINE 100 UNIT/ML SUBCUT SCH ×2 (10:49→17:58)
[2017-04-08] MEDS: PANTOPRAZOLE 40 MG VIAL IV SCH (10:49)
[2017-04-08] MEDS: NYSTATIN 500,000 UNIT/5 ML UDCUP SWISH/SWAL SCH ×3 (10:51→17:58)
[2017-04-08] MEDS: SKIN HEALING OINT (AQUAPHOR) 50 GM TUBE TOP SCH (10:51)
[2017-04-08] MEDS: FERRIC GLUCONATE COMPLEX 125 MG in SODIUM CHLORIDE 0.9% 100 ML IV SCH (10:51)
[2017-04-08] MEDS: POLYETHYLENE GLYCOL POWDER 17 GM PACK PO SCH (10:52)
--- NOTE | 2017-04-08 11:43 | Pulmonology Progress Note ---
Pulmonary - PN: Subj Interval history: Mendoza Callahan, ANP-BC, GNP-BC, acting as scribe for Dr. Madhav Rosales This 86-year-old black male who we saw in initial pulmonary consultation on the night of 03/30/2017. His son, [id number], daughter and son-in-law are patients of Dr. Rosales. At the time of our initial consultation, our impressions were: 1. Acute congestive heart failure 2. Moderate aortic stenosis with left ventricular hypertrophy and mild aortic regurgitation 3. Acute renal failure 4. Recent bilateral obstruction with associated nausea and vomiting. Watch for aspiration injury 5. History of internal hemorrhoids 6. Diabetes mellitus 7. History of high blood pressure 03/31/2017. Last night after I saw the patient, while I was still in CCU and ICU -- he suddenly deteriorated. Attempts were made to diurese him additionally and this was of no help even though his chest x-ray looked better. Patient felt like he was going to . It was elected to intubate him after discussion with the patient who is readily agreeable and discussion with the family whom were readily agreeable. Patient stabilized with mechanical ventilation. Today' s chest x-ray still shows pulmonary edema but it is better. ABGs on FiO2 of 100 % and a PEEP of 5 show a pH 7.42, PCO2 29.6 and a PO2 of 243 with a bicarb of 21. CPK is elevated at 1946. MB band is elevated 22.4%. Troponins are elevated at 26.600. Natruretic peptide is elevated 1481. Creatinine is increased to 2.40 with a BUN of 47. Electrolytes are normal. White count is 8300 with 75 segs, 15 lymphs and 9 monos. H&H is dropped to 9.2/28.7. Patient has iron deficiency. Note that on the CT scan of his abdomen there is an abnormality in the cecal area that could be a colon cancer. See report. I have talked to the family about what I think the present diagnoses are including acute myocardial infarction, acute congestive heart failure, acute respiratory failure secondary to congestive heart failure, acute on chronic renal failure. We have gone through the patient's history one more time. Even though he had acute nausea and vomiting everyone involved says he did not aspirate. 04/01/2017. This patient is stable on mechanical ventilation. He did about 4 hours of CPAP on 03/31/2017 and he will be advanced on protocol today. His chest x-ray shows 80% resolution of his acute pulmonary edema. I do not see any definite infiltrates. ABGs on mechanical ventilation FiO2 of 60% shows a pH 7.46, PCO2 is 29, PO2 is 226 with a bicarb of 20. Electrolytes are normal. Creatinine is dropped from 2.4-2.10. Total CPK is 2847 MB band is now 10.9% and troponin has dropped to 13.5. Natruretic peptide is dropped of 468. H&H is low but stable at 9.1/29.3. Note that the patient some iron and iron saturation is very low. I started him on IV iron replacement. I have discussed the pulmonary aspects of this patient's illness and treatment with the family. 04/02/2017. Patient for cardiac catheterization today. Today's x-ray reveals about 85-90% resolution of acute pulmonary edema. Sputum's have been requested but so far have not been reported. Patient is doing well with the weaning protocol. On mechanical ventilation and FiO2 60% pH is 7.48, PCO2 is 29.4, PO2 is 219.8 and bicarb is 21.2. Electrolytes are normal. Glucose is under fairly good control. Natruretic peptide remains elevated 925. B12 and folic acid levels were normal. This patient was found to have low iron and IV replacement was begun yesterday. He has positive stools. He has known internal hemorrhoids. CT of the abdomen was abnormal showing a possible abnormality in the cecal area. 04/03/2017. The patient was seen today along with his ogfgkbme-um-lty Elsa Joy. The patient is awake and alert. He remains intubated and on mechanical ventilation. We attempted to go to a T-tube this morning but ABGs approximately 45 minutes later on an FiO2 of 60% showed a PO2 of 68.1. Patient got anxious and more short of breath. He is hypoxic obviously. He was placed back on mechanical ventilation. He is on stage IV the weaning protocol and we will continue to advance this as tolerated. We suspect he will slip into pulmonary edema very easily but there could also be the possibility of underlying ARDS. We have started Solu-Medrol 20 mg IV every 12 hours. 04/06/2017. The patient was seen today along with his nurse. We have discussed the case with Dr. Valdovinos as well as the patient's daughter and daughter-in- law. The patient was extubated over the weekend but early this morning became more short of breath and required reintubation. Patient Solu-Medrol was decreased to once daily over the weekend. It is certainly possible that he has an underlying ARDS type picture secondary to possible sepsis at admission. We will increase the Solu-Medrol back to 20 mg IV every 12 hours. The patient's cardiac isoenzymes have trended downward, but we will repeat these today. His last set was done on 04/03/2017. We are unsure why he continues to easily slip and congestive heart failure but it could be secondary to his aortic stenosis and mitral regurgitation. Cardiac cath done 04/02/[address] Stuart showed a codominant system with coronary artery disease including but not limited to mild irregularities only in the left anterior descending artery system, 40-50% ostial ramus and ostial circumflex disease as well as 80-90% ostial OM1 stenosis (2 mm vessel), and 50% mid RCA stenosis and a long and tortuous codominant vessel. He recommended medical therapy for this. Nonetheless, not the patient is back on the ventilator we will again proceed with the vent weaning protocol and continued physical therapy protocol. Chest x-ray today shows congestive heart failure. 04/07/2017. I cannot find a family this morning. Dr. Harvey Valdovinos and I have discussed and reviewed the case. At the present time it appears this patient will need an aortic valve done. After this taken care of the coronary arteries can be addressed. In 100% agreeable with this approach. Patient remains on mechanical ventilation. His chest x-ray is better. I do not see any definite heart failure today. ABGs on mechanical ventilation FiO2 of 100% showed a pH 7.42, PCO2 35.1, PO2 398.8 with a bicarb of 22.5. FiO2 has been decreased to 50 %. Patient is on weaning protocol and a physical therapy protocol. Electrolytes are normal. Creatinine is 1.4 with a BUN of 45. H&H is 10.2/ 32.2. White count is dropped to 10,583.76. Platelets of 309,000. Natruretic peptide on 04/06/2017 was elevated 1561. Troponin had dropped to 0.833. Total CPK was 430. This patient is transferred to another institution for surgery for his aortic valve I think he will need to stay on mechanical ventilation because she sleeps in a congestive heart failure to easily. 04/08/17. The patient was seen today along with his nurse, Ness. We again had a long discussion with the patient's daughter, son-in-law, and [id number] ( Alanna Shaw and Elsa Joy). The patient has suggestion of retained secretions on his CTA and CXR. This is probably present in the face of his continued pleural effusions secondary to his heart failure. He will probably need bronchoscopy at some point, but we feel the stress of this on him outweighs the benefit at this time. We will consider it at a later date. He underwent CTA of the abdomen yesterday. 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 The GALO was patent. There was also bilateral renal ostial stenosis of 80% diameter. Dr. Cox has noted that there is presently no need for intervention of these findings from his standpoint. We will await Dr. Meeks' evaluation. We again discussed the probable need for AVR and possible CABG, but we will defer management and recommendations for this to Dr. Valdovinos. The family states they will speak with him today when he rounds. The present family wanted to make it abundantly clear that they are not interested in transferring the patient elsewhere if he can have his proposed treatment here. He continues on the weaning protocol as tolerated. He is presently on stage II. Echocardiogram done 04/01/[address] Mackey showed an ejection fraction of 50 % plus moderate concentric left ventricular hypertrophy with grade 2 diastolic dysfunction, mild to moderate dilated left atrium, right-sided chambers were normal, minimally sclerotic mitral valve with mild mitral valve regurgitation, aortic valve sclerosis with decreased excursion and moderate aortic valve stenosis, mild tricuspid regurgitation, and a pulmonary artery pressure of 57- 62 mmhg. Echocardiogram done 03/26/[address] Ortiz showed an EF of approximately 50%, moderate concentric left ventricular hypertrophy with mild diastolic dysfunction, mild biatrial enlargement, moderate aortic valve stenosis with a mean gradient of 29 mmHg, mild aortic valve regurgitation, mildly thickened mitral valve with trace to mild mitral valve regurgitation, trace tricuspid valve regurgitation, and pulmonary artery pressure of 32 mmHg. Doppler venograms done 03/30/2017 showed no evidence of deep venous thrombophlebitis in either lower extremity. Sputum collected 04/04/2017 showed no organisms on Gram stain and normal faiza at 48 hours. Sputum for Gram stain, culture and sensitivity was ordered 2016, but was not collected. Blood cultures are negative. Stools for occult blood are positive 3. Medications have been reviewed. We made no changes today. Labs have been reviewed. White count is 10,100 with 84.8% segs; H&H 10.5/32.6; platelet count 355,000; Creatinine 1.30, BUN 39, sodium 147, potassium 4.8, magnesium 2.9; liver function tests show an AST of 30, ALT 44, and alkaline phosphate 29; total bilirubin 0.50 ABGs this morning on mechanical ventilation and an FIO2 of 50% showed a pH of 7.450, PCO2 32.3, PO2 160.0, bicarb 23.7, and oxygen saturation 99.6%. Exam (Progress Note) - Constitutional Vitals: Period Temp Pulse Resp BP Sys/Chen Pulse Ox Last 24 Hr 97.3 F-98.3 F 48-90 14-24 113-163/43-87 98-100 Exam: Chest with mild bilateral rales Heart lateral PMI Abdomen is nontender and nondistended; rare bowel sounds Extremities with nothing to suggest acute deep venous thrombophlebitis Psychiatric/neurologic presently sedated and on the ventilator, unable to determine; the nurse states he rouses easily and moves all four extremities when his sedation is decreased Plan: Continue the weaning protocol and advance as tolerated. Daily ABGs and chest x-ray. BNP today and daily. See orders. Results - Labs CBC & BMP: 04/08/17 04:26 04/08/17 04:26
--- NOTE | 2017-04-08 11:47 | Nephrology Progress Note ---
Nephrology - PN: Subj Interval history: He is awake and follows commands. Blood pressure stable Exam (PN)-Nephrology - Vital Signs Vital signs: Period Temp Pulse Resp BP Sys/Chen Pulse Ox Last 24 Hr 97.3 F-98.3 F 48-101 14-40 113-178/43-87 98-100 Exam: Gen.: Alert. Follows commands ENT: Pupils equal round reactive to light. EOMs intact. Intubated Neck: Supple. No JVD or bruit. Cardiovascular: Regular rate and rhythm. No murmur rub or gallop Lungs: Clear Abdomen: Soft. Nontender. Positive bowel sounds. No organomegaly Extremities: No edema - Lab 04/08/17 04:26 04/08/17 04:26 Most recent lab results ABG pH 7.450 (7.35-7.45) 04/08/17 04:30 ABG pCO2 32.3 MM HG (35-48) L 04/08/17 04:30 ABG pO2 160.0 MM HG (80-95) H 04/08/17 04:30 ABG HCO3 23.7 MMOL/L (20-26) 04/08/17 04:30 ABG O2 Saturation 99.6 % (95-100) 04/08/17 04:30 Calcium 7.7 MG/DL (8.5-10.1) L 04/08/17 04:26 Phosphorus 2.2 MG/DL (2.5-4.9) L 04/06/17 03:47 Magnesium 2.9 MG/DL (1.8-2.4) H 04/08/17 04:26 Assessment and Plan (1) Chronic kidney disease, stage III (moderate) Status: Chronic Assessment and plan: 86-year-old man admitted with: * CRF stage III. Baseline creatinine 1.6 * Acute on chronic renal failure. Renal function has improved to baseline * Mesenteric artery and renal artery atherosclerosis * Hypertension. Controlled * Small bowel obstruction. Resolved * Diabetes mellitus * CAD. Recent CO * Ventilatory failure. * Aortic stenosis. 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
--- NOTE | 2017-04-08 12:28 | Discharge Summary ---
Hospital Course - Hospital Course Hospital Course: This is an 86-year-old male who initially presented to the hospital with severe abdominal pain chronic dyspnea on exertion. Shortly after presentation he became more congested and short of breath eventually requiring intubation and mechanical ventilation. He had a troponin which chapito to the [address] scan of the abdomen suggested some inflammatory bowel issue either related to ischemia or some other process. He was placed on mechanical ventilation and every time we try to extubate him he went into pulmonary edema. His troponin chapito to 26.0. He was taken the catheterization was found that he had significant disease of the ostial ramus as well as significant disease of the ostium of the circumflex. This did not appear to be critical stenosis. He had some haziness in the left main which was not felt to be occlusive. Echocardiography reveals severe LVH with an aortic valve area 1.1 cm related to calcific aortic stenosis. He has mild mitral insufficiency. 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 He failed extubation on the second occasion related to recurrent pulmonary edema and I think the best approach is going to be to have the patient undergo transcatheter aortic valve replacement for his severe left ear and then address these other issues which will likely require intervention at some point. I favor medical management of his coronary disease and transfer to [facility] in [place] to Dr. Hall for transcatheter aortic valve replacement. He has been kind enough to accept him in transfer and this will be set up for this afternoon. Discharge Plan - Discharge Data Disposition: Disch/Xfer-[facility] Term Hos Condition at Discharge: Stable - Discharge Medications No Action cloNIDine TAB [Catapres Tab] 0.3 tablet PO BID Allopurinol [Allopurinol] 100 mg PO QOTHER DAY metFORMIN [Glucophage] 500 mg PO DAILY W/SUPPER Losartan [Cozaar] 25 mg PO QAM Multivitamin [Multivitamins] 1 each PO QAM hydrALAZINE TAB [Apresoline Tab] 100 mg PO TID W/MEALS Aspirin EC Tab 81 mg PO BEDTIME NIFEdipine [Nifedical Xl] 60 mg PO BID Travoprost 0.004% Oph Soln [Travatan Z] 1 drop BOTH EYES BEDTIME Metformin HCl [Metformin HCl] 750 mg PO DAILY W/BREAKFAST - Follow Up or Referral - Forms/Instructions Additional Discharge Instructions: Patient to be transported to [facility] in [place] by ambulance with detention care and respiratory therapy available. Exam - Constitutional Vitals: Period Temp Pulse Resp BP Sys/Chen Pulse Ox Last 24 Hr 97.3 F-98.3 F 48-101 14-40 113-178/43-87 98-100 Discharge Results Procedures and tests throughout hospitalization: Pending Orders 04/06/17 05:27 Blood Culture Routine 04/09/17 04:00 XR chest 1V portable IN AM ABG [Arterial Blood Gas] IN AM BMP w/ Mg [Basic Metabolic Panel w/Mg] IN AM BNP [B-Type Natriuretic Peptide] IN AM CBC [Comp Blood Count Auto Diff] IN AM 04/10/17 04:00 XR chest 1V portable IN AM ABG [Arterial Blood Gas] IN AM BMP w/ Mg [Basic Metabolic Panel w/Mg] IN AM BNP [B-Type Natriuretic Peptide] IN AM CBC [Comp Blood Count Auto Diff] IN AM 04/11/17 04:00 BMP w/ Mg [Basic Metabolic Panel w/Mg] IN AM CBC [Comp Blood Count Auto Diff] IN AM Labs on day of discharge: Labs from last 24 hours 04/08/17 04/08/17 04/08/17 11:47 11:15 05:40 WBC RBC Hgb Hct MCV MCH MCHC RDW Plt Count MPV Neut % (Auto) Lymph % (Auto) [place] % (Auto) Eos % (Auto) Baso % (Auto) Neut # (Auto) Lymph # (Auto) [place] # (Auto) Eos # (Auto) Baso # (Auto) Immature Gran % Nucleated RBC % Immature Gran # Nucleated RBCs # ABG pH ABG pCO2 ABG pO2 ABG HCO3 ABG Total CO2 ABG O2 Saturation ABG Base Excess FiO2 Sodium Potassium Chloride Carbon Dioxide Anion Gap BUN Creatinine GFR Calculation BUN/Creatinine Ratio Glucose POC Glucose 209 H 227 H Calculated Osmolality Calcium Magnesium Total Bilirubin AST ALT Alkaline Phosphatase B-Natriuretic Peptide 1149 H Total Protein Albumin Globulin Albumin/Globulin Ratio 04/08/17 04/08/17 04/08/17 04:30 04:26 04:26 WBC 10.1 RBC 3.84 Hgb 10.5 L Hct 32.6 L MCV 84.9 L MCH 27 MCHC 32.2 RDW 16.3 Plt Count 355 MPV 10.2 Neut % (Auto) 84.8 H Lymph % (Auto) 10.0 L [place] % (Auto) 4.3 Eos % (Auto) 0.1 Baso % (Auto) 0.1 Neut # (Auto) 8.6 H Lymph # (Auto) 1.0 L [place] # (Auto) 0.4 Eos # (Auto) 0.0 Baso # (Auto) 0.0 Immature Gran % 0.7 Nucleated RBC % 0.2 Immature Gran # 0.07 Nucleated RBCs # 0.02 ABG pH 7.450 ABG pCO2 32.3 L ABG pO2 160.0 H ABG HCO3 23.7 ABG Total CO2 20.3 L ABG O2 Saturation 99.6 ABG Base Excess -0.9 FiO2 50.00 Sodium 147 H Potassium 4.8 Chloride 115 H Carbon Dioxide 23 Anion Gap 13.8 BUN 39 H Creatinine 1.30 GFR Calculation 70 BUN/Creatinine Ratio 30.00 H Glucose 196 H POC Glucose Calculated Osmolality 305.4 H Calcium 7.6 L Magnesium 2.9 H Total Bilirubin AST ALT Alkaline Phosphatase B-Natriuretic Peptide Total Protein Albumin Globulin Albumin/Globulin Ratio 04/08/17 04/08/17 04/07/17 04:26 00:13 17:36 WBC RBC Hgb Hct MCV MCH MCHC RDW Plt Count MPV Neut % (Auto) Lymph % (Auto) [place] % (Auto) Eos % (Auto) Baso % (Auto) Neut # (Auto) Lymph # (Auto) [place] # (Auto) Eos # (Auto) Baso # (Auto) Immature Gran % Nucleated RBC % Immature Gran # Nucleated RBCs # ABG pH ABG pCO2 ABG pO2 ABG HCO3 ABG Total CO2 ABG O2 Saturation ABG Base Excess FiO2 Sodium 146 H Potassium 4.8 Chloride 114 H Carbon Dioxide 23 Anion Gap 13.8 BUN 39 H Creatinine 1.20 GFR Calculation 78 BUN/Creatinine Ratio 32.00 H Glucose 196 H POC Glucose 189 H 209 H Calculated Osmolality 303.6 Calcium 7.7 L Magnesium 2.9 H Total Bilirubin 0.50 AST 30 ALT 44 Alkaline Phosphatase 29 L B-Natriuretic Peptide Total Protein 5.2 L Albumin 2.2 L Globulin 3.0 Albumin/Globulin Ratio 0.7 L Preliminary micro results at discharge 04/06/17 05:27 Blood Culture - Preliminary Blood No growth at 1 day 04/06/17 05:27 Blood Culture - Preliminary Blood No growth at 1 day DS: Provider Date of admission: 03/26/17 11:21 Primary care physician: . No PCP Attending physician on admission: Gene Dougherty DO Consults: 03/26/17 13:07 Consult to Case Mgmt/Social Srvs [CONS] Routine Reason for Case Mgmt/Social Srvs: Discharge Planning Consult to Physician [CONS] Routine Comment: Exertional dyspnea, elevated troponin Consulting Provider: Cardiology - [facility] When should Consulting Provider be notified: Now Consult to Specialist Group: Cardiology Person Notified: GAMA Date Notified: 03/26/17 Time Notified: 14:35 03/26/17 13:13 Consult to Pharmacy [CONS] Routine Reason for Pharmacy Consult: Adjust Meds Renal Funct 03/26/17 15:08 Consult to Physician [CONS] Routine Comment: Abdominal pain Consulting Provider: Consult to Specialist Group: Gastroenterology Person Notified: CHRISTIAN Date Notified: 03/26/17 Time Notified: 15:31 03/28/17 01:52 Consult to Physician [CONS] Routine Comment: Consulting Provider: Cristóbal Craven When should Consulting Provider be notified: In am 03/29/17 08:06 Consult to Physician [CONS] Routine Comment: pt known to you/increased creatnine Consulting Provider: Henrique Meeks When should Consulting Provider be notified: In am Person Notified: cary Date Notified: 03/30/17 Time Notified: 09:20 03/30/17 11:10 Consult to Physician [CONS] Routine Comment: flash pulmonary edema Consulting Provider: Madhav Rosales When should Consulting Provider be notified: Now Person Notified: tobin Date Notified: 03/30/17 Time Notified: 11:20 03/31/17 09:44 Consult to Pastoral Services [CONS] Routine Comment: family requested prayer for pt & family 04/01/17 09:00 Consult to Dietitian [CONS] Routine Reason for Dietitian: TF-Initiate/Manage 04/02/17 14:03 Consult to Cardiac Rehabilitation [CONS] Routine Reason for Cardiac Rehabilitation: Appt Out Pt Cardiac Rehab Consult Comment: nstemi; as 04/06/17 04:02 Consult to Physician [CONS] Routine Comment: Rapid Sequence Intubation Consulting Provider: Teresa Abarca Consulting Provider Notified: Yes When should Consulting Provider be notified: Now Consult to Specialist Group: Hospitalist Person Notified: Dr. Abarca Date Notified: 04/06/17 Time Notified: 04:08 Consult Notification Comment: Dr. Abarca was consulted per Dr. Wiseman to intubate patient. Discharging clinician: Gael Valdovinos MD
[2017-04-08] MEDS: LEVOFLOXACIN INJ 250 MG in PREMIX 1 EACH IV SCH (13:00)
[2017-04-08] MEDS: ENOXAPARIN 40 MG/0.4 ML SYRINGE SUBCUT SCH (16:01)
[2017-04-08 19:53] VITALS: BP 113/53
[2017-04-09] MEDS: PROPOFOL 1,000 MG/100 ML BOTTLE IV SCH (09:43)
== END 2017-04-08 19:25 | disposition hospice, home (50) | DRG 388 ==
LOC: N.ED 08:54 → N.EDINP 11:21 → N.TELES 12:42 → N.CC 03-28 00:15
PROVIDERS: ADMIT Family Medicine; ATTEND Family Medicine

== ENCOUNTER 2018-07-11 09:22 | Inpatient (IN) ==
[2018-07-11 09:48] LABS: Basophils % 0.4 % (0.0-0.8); Eosinophils # 0.2 10*3/uL (0.0-0.87); Eosinophils % 2.3 % (0.00-10.9); Hematocrit 46.2 VOL% (42.0-52.0); Immature Granulocytes % 0.4 %; Immature Granulocytes Absolute 0.04 #; Lymphocytes # 1.2 10*3/uL (1.4-4.0); Lymphocytes % 11.7 % (21.2-54.2); Mean Corpuscular HGB Conc 32.5 GM/DL (32-36); Mean Corpuscular Hemoglobin 26 PG (27-34); Mean Corpuscular Volume 80.3 FL (87-102); Mean Platelet Volume 9.1 FL (9.6-12.0); Monocytes # 0.8 10*3/uL (0.11-0.8); Monocytes % 7.5 % (1.7-12.7); Neutrophils % 77.7 % (38.7-73.9); Platelet Count 226 T/CUMM (130-400); Red Blood Count 5.75 MC/CUMM (3.8-5.5); Red Cell Distribution Width 18.4 % (9.3-17.3); White Blood Count 10.3 T/CUMM (4-12)
[2018-07-11 10:14] LABS: Albumin 4.3 G/DL (3.4-5.0); Bilirubin,Total 0.6 MG/DL (0.2-1.0); Calcium 9.6 MG/DL (8.5-10.1); Osmolality,Calculated 280.2 MOS/KG (273-304); Potassium 4.6 MMOL/L (3.5-5.1); Total Protein 8.5 G/DL (6.4-8.3)
[2018-07-11] MEDS ORDERED: DOCUSATE SODIUM 100 MG CAPSULE PO PRN ×2 (11:39→11:47)
[2018-07-11] MEDS ORDERED: ACETAMINOPHEN 325 MG TABLET PO PRN (11:39)
[2018-07-11] MEDS ORDERED: ONDANSETRON 4 MG/2 ML VIAL IV PRN (11:39)
[2018-07-11] MEDS: PANTOPRAZOLE 40 MG TABLET PO SCH (14:55)
[2018-07-11] MEDS: MAGNESIUM OXIDE 400 MG TABLET PO SCH ×2 (14:56→21:08)
[2018-07-11] MEDS: ALLOPURINOL 100 MG TABLET PO SCH (14:56)
[2018-07-11] MEDS: MULTIVITAMIN (CENTRUM) TABLET PO SCH (14:57)
[2018-07-11] MEDS: CLOPIDOGREL 75 MG TABLET PO SCH (14:57)
[2018-07-11] MEDS: amLODIPine 10 MG TABLET PO SCH (14:57)
[2018-07-11] MEDS: ASPIRIN EC 81 MG TABLET PO SCH (14:58)
[2018-07-11] MEDS ORDERED: cloNIDine 0.1 MG TABLET PO PRN (15:50)
[2018-07-11] MEDS ORDERED: SODIUM CHLORIDE 0.9% 1,000 ML IV SCH (16:00)
[2018-07-11] MEDS: ENOXAPARIN 30 MG/0.3 ML SYRINGE SUBCUT SCH (21:08)
[2018-07-11] MEDS: FAMOTIDINE 20 MG TABLET PO SCH (21:08)
[2018-07-11] MEDS: DONEPEZIL 10 MG TABLET PO SCH (21:08)
[2018-07-11] MEDS: INSULIN GLARGINE 100 UNIT/ML SUBCUT SCH (21:58)
[2018-07-11] MEDS: LATANOPROST 0.005% OPH SOLN 2.5 ML BOTTLE BOTH EYES SCH (22:02)
[2018-07-12 04:54] LABS: Basophils % 0.3 % (0.0-0.8); Eosinophils # 0.3 10*3/uL (0.0-0.87); Eosinophils % 4.6 % (0.00-10.9); Hematocrit 37.1 VOL% (42.0-52.0); Hemoglobin 12.3 GM/DL (14.0-18.0); Immature Granulocytes % 0.1 %; Immature Granulocytes Absolute 0.01 #; Lymphocytes % 28.5 % (21.2-54.2); Mean Corpuscular HGB Conc 33.2 GM/DL (32-36); Mean Corpuscular Hemoglobin 27 PG (27-34); Mean Corpuscular Volume 79.8 FL (87-102); Mean Platelet Volume 9.5 FL (9.6-12.0); Monocytes # 0.9 10*3/uL (0.11-0.8); Monocytes % 12.9 % (1.7-12.7); Neutrophils # 3.7 10*3/uL (1.4-7.4); Neutrophils % 53.6 % (38.7-73.9); Platelet Count 192 T/CUMM (130-400); Red Blood Count 4.65 MC/CUMM (3.8-5.5); Red Cell Distribution Width 17.6 % (9.3-17.3)
[2018-07-12 05:06] LABS: Calcium 7.9 MG/DL (8.5-10.1); Osmolality,Calculated 295.1 MOS/KG (273-304); Potassium 4.3 MMOL/L (3.5-5.1)
[2018-07-12 05:53] LABS: Apearance,Urine CLEAR (Clear); Bilirubin,Urine Negative (Negative); Blood, Urine Negative (Negative); Glucose,Urine (UA) 50 mg/dL (Negative); Ketones,Urine Negative (Negative); Nitrite,Urine Negative (Negative); Protein,Urine Negative; Urine Color Yellow (Yellow); Urine Specific Gravity 1.012 (1.001-1.035); Urine Urobilinogen < 2.0 EU/DL (0.2-1.0); WBC,Urine <1 /HPF (0-6)
[2018-07-12] MEDS: MULTIVITAMIN (CENTRUM) TABLET PO SCH (08:53)
[2018-07-12] MEDS: PANTOPRAZOLE 40 MG TABLET PO SCH (08:53)
[2018-07-12] MEDS: CLOPIDOGREL 75 MG TABLET PO SCH (08:53)
[2018-07-12] MEDS: amLODIPine 10 MG TABLET PO SCH (08:54)
[2018-07-12] MEDS: MAGNESIUM OXIDE 400 MG TABLET PO SCH ×2 (08:54→21:25)
[2018-07-12] MEDS: ASPIRIN EC 81 MG TABLET PO SCH (08:54)
[2018-07-12 10:44] LABS: % Iron Saturation 26.2 % (18-50)
[2018-07-12] MEDS: IRBESARTAN 150 MG TABLET PO SCH (11:28)
[2018-07-12 11:40] LABS: Folate > 24.0 NG/ML (5.4-24.0); Vitamin B12 1098 PG/ML (211-911)
[2018-07-12] MEDS: INSULIN GLARGINE 100 UNIT/ML SUBCUT SCH (21:25)
[2018-07-12] MEDS: FAMOTIDINE 20 MG TABLET PO SCH (21:25)
[2018-07-12] MEDS: DONEPEZIL 10 MG TABLET PO SCH (21:25)
[2018-07-12] MEDS: ENOXAPARIN 30 MG/0.3 ML SYRINGE SUBCUT SCH (21:25)
[2018-07-12] MEDS: LATANOPROST 0.005% OPH SOLN 2.5 ML BOTTLE BOTH EYES SCH (21:28)
[2018-07-13 04:52] LABS: Basophils % 0.5 % (0.0-0.8); Eosinophils # 0.4 10*3/uL (0.0-0.87); Eosinophils % 6.5 % (0.00-10.9); Hematocrit 37.1 VOL% (42.0-52.0); Hemoglobin 12.2 GM/DL (14.0-18.0); Immature Granulocytes % 0.2 %; Immature Granulocytes Absolute 0.01 #; Mean Corpuscular HGB Conc 32.9 GM/DL (32-36); Mean Corpuscular Hemoglobin 26 PG (27-34); Mean Corpuscular Volume 78.8 FL (87-102); Monocytes # 0.8 10*3/uL (0.11-0.8); Monocytes % 11.9 % (1.7-12.7); Neutrophils # 3.1 10*3/uL (1.4-7.4); Neutrophils % 49.9 % (38.7-73.9); Platelet Count 183 T/CUMM (130-400); Red Blood Count 4.71 MC/CUMM (3.8-5.5); Red Cell Distribution Width 17.5 % (9.3-17.3); White Blood Count 6.3 T/CUMM (4-12)
[2018-07-13 05:23] LABS: Osmolality,Calculated 285.5 MOS/KG (273-304); Potassium 4.3 MMOL/L (3.5-5.1)
[2018-07-13 08:07] VITALS: BP 181/80
[2018-07-13] MEDS: CLOPIDOGREL 75 MG TABLET PO SCH (08:51)
[2018-07-13] MEDS: PANTOPRAZOLE 40 MG TABLET PO SCH (08:51)
[2018-07-13] MEDS: MULTIVITAMIN (CENTRUM) TABLET PO SCH (08:51)
[2018-07-13] MEDS: IRBESARTAN 150 MG TABLET PO SCH (08:51)
[2018-07-13] MEDS: MAGNESIUM OXIDE 400 MG TABLET PO SCH (08:51)
[2018-07-13] MEDS: ASPIRIN EC 81 MG TABLET PO SCH (08:52)
[2018-07-13] MEDS: amLODIPine 10 MG TABLET PO SCH (08:52)
[2018-07-13] MEDS: ALLOPURINOL 100 MG TABLET PO SCH (11:50)
== END 2018-07-13 12:38 | disposition home or self-care (01) | DRG 312 ==
LOC: EDUNIT# → EDBD → N.ED 09:22 → SUATTDRO 11:39 → N.EDINP 11:39 → N.TELES 13:20
PROVIDERS: ADMIT Internal Medicine; ATTEND Internal Medicine